=== PATIENT | male | born 1970 | race African-American/Black ===

== ENCOUNTER 2020-12-05 07:13 | Emergency (ER) | payer OTHER, SELFPAY ==
--- NOTE | ~2020-12-05 | XR_ITS ---
EXAMINATION: XR chest 2V DATE: 12/05/2020 08:20 INDICATION: Chest pain. TECHNIQUE: Frontal and lateral views of the chest were obtained. COMPARISON: None. FINDINGS: There is no pneumonia, pleural effusion, or pneumothorax. Cardiomegaly is noted. Median josé miguel rnotomy wires are noted. IMPRESSION: 1. Cardiomegaly. Reviewed, dictated and finalized at location A. OR STORAGE ADMINISTRATOR IMPRESSION: 1. Cardiomegaly.
--- NOTE | 2020-12-05 07:16 | ECG_ITS ---
Measurements Intervals [place] Rate: 74 P: 45 DC: 179 QRS: 37 QRSD: 104 T: 20 QT: 377 QTc: 418 Interpretive Statements SINUS RHYTHM NONSPECIFIC T-WAVE ABNORMALITY- DIFFUSE LEADS BASELINE ARTIFACT- I, II, III BORDERLINE ECG Electronically Signed On 12-05-2020 15:34:07 [place] SEWER by Jesse Funes D.O.
[2020-12-05 07:17] VITALS: PULSE 74; RESP 18; TEMP 37.1; O2SAT 100
[2020-12-05 07:20] VITALS: PULSE 78
[2020-12-05] MEDS: ASPIRIN 81 MG CHEWABLE TABLET 324 MG PO (07:28)
[2020-12-05 07:34] LABS: Basophils Absolute Auto 0.1 K/mm3 (0.0-0.1); Basophils Percent Auto 0.9 % (0.2-1.2); Eosinophils Absolute Auto 0.4 K/mm3 (0-0.3); Eosinophils Percent Auto 3.4 % (0-4.4); Hematocrit 39.3 % (42.0-52.0); Hemoglobin 13.1 g/dL (14.0-18.0); Immature Granulocyte Absolute 0.03 K/mm3 (0.00-0.031); Immature Granulocyte Percent A 0.2 % (0-0.5); Lymphocytes Absolute Auto 3.27 K/mm3 (0.9-3.2); Lymphocytes Percent Auto 26.1 % (18.3-44.2); Mean Corpuscular HGB Conc 33.3 g/dl (32-36); Mean Corpuscular Hemoglobin 27.5 pg (26-34); Mean Corpuscular Volume 82.4 fl (80-100); Mean Platelet Volume 9.7 fl (7.4-10.4); Monocytes Absolute Auto 1.1 K/mm3 (0.1-0.6); Monocytes Percent Auto 8.6 % (2.6-8.5); Neutrophils Absolute Auto 7.6 K/mm3 (1.3-6.7); Neutrophils Percent Auto 60.8 % (45.5-73.1); Nucleated Red Blood Cells Perc 0.2 % (0.0-0.2); Platelet Count Result 246 k/mm3 (150-375); Red Blood Count 4.77 M/mm3 (4.6-6.20); Red Cell Distribution Width 14.2 % (11.5-14.5); White Blood Count 12.5 K/mm3 (4.5-10.0)
[2020-12-05 07:44] LABS: INR 0.9; Prothrombin Time 12.4 Seconds (11.1-14.7)
[2020-12-05 07:45] LABS: Partial Thromboplastin Time 30.1 SECONDS (22.3-36.8)
[2020-12-05 07:48] LABS: Anion Gap 10 mmol/L (8-16); Blood Urea Nitrogen 13 mg/dL (9-20); Calcium 9.7 mg/dL (8.4-10.2); Carbon Dioxide 26 mmol/L (22-30); Chloride 106 mmol/L (98-107); D Dimer 0.27 ug/mL (<0.48); Estimated CRCL calculation 81 ml/min; Estimated Glomerular Filt Rate > 60; Glucose 92 mg/dL (75-110); Potassium 3.4 mmol/L (3.4-5.0); Sodium 142 mmol/L (137-145)
[2020-12-05 07:59] LABS: Troponin I < 0.012 ng/mL (0.000-0.034)
--- NOTE | 2020-12-05 09:00 | ED.CHESTPAIN ---
HPI - Chest Pain General Chief Complaint: Chest Pain Stated Complaint: LEFT shoulder/neck pain, CP Time Seen by Provider: 12/05/20 07:20 Source: patient and family Mode of arrival: ambulatory Limitations: no limitations History of Present Illness HPI narrative: 50 years old -Polish male presents with throbbing pain left side of neck and across the chest which wake him up from sleep at 5 AM. Worse with breathing. Patient had trouble to turn his head to either direction because of the pain. Patient reports left-sided neck pain for 1 week worse with movement. Patient denies any fever, chills, nausea, vomiting, shortness of breath, back pain, headache, history of similar symptoms. Patient denies any recent physical activities different than usual. Patient does not have coronary artery risk factors except smoking for years. Related Data Allergies Allergy/AdvReac Type Severity Reaction Status Date / Time No Known Allergies Allergy Verified 12/05/20 07:21 Review of Systems Review of Systems: Narrative: CONSTITUTIONAL: Denies fever, chills, or sweats. EYES: Denies visual changes, redness, or discharge. ENT: Denies rhinorrhea, congestion, sore throat, or otalgia. CARDIOVASCULAR: Denies chest pain, palpitations, or edema. RESPIRATORY: Denies cough or dyspnea. GASTROINTESTINAL: Denies abdominal pain, nausea, vomiting, or diarrhea. GENITOURINARY: Denies dysuria or hematuria. SKIN: Denies rash or itching. MUSCULOSKELETAL: Denies back pain, joint pain, or myalgia. NEUROLOGIC: Denies headache, numbness, or weakness. PSYCHIATRIC: Denies anxiety or depression. [facility] Social History Social History Gender identity (if verbalized by the patient): Male Exam Narrative: Exam Narrative: General appearance: Well-developed, well-nourished Skin: Normal color Head: Normocephalic, nontraumatic Eyes: Clear conjunctiva ENT: Oropharynx normal, ears normal, nose normal Neck: Supple, slight tenderness left side, no bruises, no swelling, no mass, no lymphadenopathy, no rash Chest and respiratory: Airway patent, no respiratory distress, no accessory muscle use Heart: Regular rate/rhythm Abdomen: Soft, nontender, no organomegaly, quiet bowel sounds Vascular: Normal peripheral pulses, normal capillary refill. 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 Musculoskeletal is my concern. No coronary artery risk factors except smoking Labs, EKG, chest x-ray ordered. Further plan to follow Reevaluation(s) Reevaluation #1: Patient laying down in bed comfortable, the patient and his were agreeable and comfortable with the plan of discharge. Patient hemodynamically stable at the time of discharge. Date: 12/05/20 Time: 09:42 Vital Signs Vital signs: Vital Signs Temperature 37.1 C 12/05/20 07:17 Pulse Rate 74 12/05/20 07:17 Respiratory Rate 18 12/05/20 07:17 Pulse Oximetry 100 12/05/20 07:17 Temperature 37.1 C 12/05/20 07:17 Pulse Rate 78 12/05/20 07:20 Respiratory Rate 18 12/05/20 07:17 Pulse Oximetry 100 12/05/20 07:17 MDM - Chest Pain MDM Narrative Medical decision making narrative: Patient presents with neck pain and chest pain worse with breathing. Musculoskeletal pain is my concern. Patient does not have coronary artery disease risk factors except smoking. Patient symptom resolved without medications. My differential diagnosis as below. Labs, chest x-ray, EKG ordered further plan to follow. EK
[2020-12-05] MEDS: KETOROLAC 30 MG/ML VIAL (*BKC) IV PUSH (09:32)
[2020-12-05 09:43] VITALS: BP 153/85; PULSE 74; RESP 18; O2SAT 100
== END 2020-12-05 10:06 | disposition home or self-care (01) ==
PROVIDERS: Emergency Provider Emergency Medicine; PCP Nurse Practitioner
DX: M54.2 Cervicalgia (principal); R94.31 Abnormal electrocardiogram [ECG] [EKG]
CPT/HCPCS: 36415; 71046; 80048; 84484; 85025; 85380; 85610; 85730; 93005; 96374; 99284; A9270; J1885

== ENCOUNTER 2022-12-30 09:23 | Outpatient (CLI) | payer OTHER, SELFPAY ==
--- NOTE | 2022-12-30 | EST_ITS ---
Patient Info Name: Kemar Bell Age: 52 years : 1970 Gender: Male Ht: 70 in Wt: 190 lbs BSA: 2.08 m2 HR: 58 bpm BP: 178 / 92 mmHg Heart Rhythm: Sinus Rhythm Exam Date: 12/30/2022 9:53 AM Exam Location: [facility] Stress Patient Status: Outpatient Admit Date: 12/30/2022 Staff Ordering Physician: Phil, Cintia Martinez NP Attending Provider: Phil, Cintia Martinez NP Exercise Technologist: Megan Camacho CT Exercise Physician: Jesse Funes DO Exam Type: CA stress test treadmill Study Info Indications R07.9 - Chest pain, unspecified A treadmill exercise stress test was performed. Summary 1. 1. Submaximal Trav exercise stress test for ischemic ST changes by ECG criteria. However, patient achieved only 73% MPHR for age group which reduces sensitivity of the test. Had to be terminated early due to significant hypertensive response to exercise. 2. 2. Baseline hypertension with hypertensive response to exercise. 3. 3. Appropriate HR response to exercise. 4. 4. Appropriate HR recovery at 1 minute post exercise. 5. 5. No imaging with stress testing. 6. 6. Patient informed of the above results. Protocol: Trav Stress ECG Details Stage: REST Duration (min): 1 min : 42 sec Speed (mph): 0.0 Grade (%): 0 HR (bpm): 59 SBP (mmHg): 178 DBP (mmHg): 92 METS: --- Stage: REST Duration (min): 8 min : 38 sec Speed (mph): 0.0 Grade (%): 0 HR (bpm): 61 SBP (mmHg): 178 DBP (mmHg): 92 METS: --- Stage: STAGE 1 Duration (min): 1 min : 0 sec Speed (mph): 1.7 Grade (%): 10 HR (bpm): 103 SBP (mmHg): 178 DBP (mmHg): 92 METS: --- Stage: STAGE 1 Duration (min): 2 min : 0 sec Speed (mph): 1.7 Grade (%): 10 HR (bpm): 110 SBP (mmHg): 178 DBP (mmHg): 92 METS: --- Stage: STAGE 1 Duration (min): 3 min : 0 sec Speed (mph): 1.7 Grade (%): 10 HR (bpm): 116 SBP (mmHg): 252 DBP (mmHg): 110 METS: --- Stage: STAGE 2 Duration (min): 0 min : 33 sec Speed (mph): 2.5 Grade (%): 12 HR (bpm): 122 SBP (mmHg): 267 DBP (mmHg): 114 METS: --- Stage: RECOVERY Duration (min): 0 min : 26 sec Speed (mph): 0.0 Grade (%): 0 HR (bpm): 114 SBP (mmHg): 267 DBP (mmHg): 114 METS: --- Stage: RECOVERY Duration (min): 1 min : 26 sec Speed (mph): 0.0 Grade (%): 0 HR (bpm): 80 SBP (mmHg): 267 DBP (mmHg): 114 METS: --- Stage: RECOVERY Duration (min): 2 min : 26 sec Speed (mph): 0.0 Grade (%): 0 HR (bpm): 69 SBP (mmHg): 267 DBP (mmHg): 114 METS: --- Stage: RECOVERY Duration (min): 3 min : 20 sec Speed (mph): 0.0 Grade (%): 0 HR (bpm): 64 SBP (mmHg): 199 DBP (mmHg): 88 METS: --- Rest HR: 61 bpm Peak HR: 124 bpm Rest Sys BP: 178 mmHg Peak Sys BP: 267 mmHg Max Pred HR: 169 bpm % Max Pred HR: 73 % Target HR: 144 bpm Max RPP: 33,108 bpm*mmHg Sanders Score: -3 Termination Reason: Patient e
== END 2022-12-30 09:24 | disposition home or self-care (01) ==
PROVIDERS: PCP Nurse Practitioner; Visit Provider Nurse Practitioner Family
DX: R07.89 Other chest pain (principal)
CPT/HCPCS: 93017

== ENCOUNTER 2023-03-19 19:22 | Inpatient (IN) | payer OTHER, SELFPAY ==
[2023-03-19] VITALS (8 sets, daily range): BP systolic 135–149; BP diastolic 77–92; PULSE 71–100; RESP 18; TEMP 36.7–36.8; O2SAT 91–100
--- NOTE | ~2023-03-19 | MR_ITS ---
EXAMINATION: MR abdomen wo/w con DATE: 03/21/2023 12:47 INDICATION: Left renal mass TECHNIQUE: Magnetic resonance imaging (MRI) of the abdomen was performed without and with 15 mL Multi abelardo intravenous contrast. Sequences included coronal T2-weighted SS-FSE, coronal and axial FS 2D-F IESTA, axial STIR FSE, axial T2-weighted SS-FSE, axial T2-weighted FS SS-FSE, axial diffusion-weighte d SE, axial dual-echo T1-weighted FSPGR, and axial and coronal T1-weighted LAVA. Postcontrast axial T 1-weighted LAVA images were obtained in a time course. Postcontrast coronal T1-weighted LAVA images w ere obtained. COMPARISON: CT dated 03/19/2023 FINDINGS: Cardiomegaly. No pericardial or pleural effusion. 6 mm nonenhancing T2 hyperintense cysts in the post erior right hepatic lobe. Gallbladder, spleen, pancreas and bilateral adrenal glands are normal. Again noted are a few small regions of cortical scarring at both kidneys. 2.3 cm T2 hyperintense none nhancing right renal parapelvic cyst. The previous noted 8 mm lesion at the mid right kidney is isoin tense to the surrounding renal parenchyma on T1 and T2-weighted images but appreciated on the post co ntrast images were his of significant lower signal intensity which suggests a nonenhancing proteinace ous/hemorrhagic cyst although specificities limited by the small size of the lesion. The previously n oted 1.3 cm lesion at the mid left kidney demonstrates heterogeneous increased T2 signal of less than simple fluid intensity and is of slightly lower T1 signal intensity than the adjacent renal cortex. The lesion appears smaller and with less well-defined peripheral margins on the delayed imaging sugge sting some peripheral enhancement which along with the more solid appearance on prior ultrasound pierre ins concerning for renal cell carcinoma. At the upper pole the left kidney with an approximately 2 cm region there are 3 subcentimeter hypoenhancing/nonenhancing lesions on postcontrast imaging, one of which demonstrates high T2 signal consistent with a tiny renal cyst and the other 2 lesions are isoin tense on T2-weighted imaging but slightly with slightly decreased T1 signal relative to the surroundi ng renal parenchyma. IMPRESSION: 1. Small region with 3 very small foci of absent or hypoenhancement on postcontrast imaging in the up per pole of the left kidney at least one portion of which appears to represent a simple cyst. Interpr etation is complicated in the setting of what appears to be an acute ascending urinary tract infectio n and differential would include pyelonephritis potentially with subcentimeter abscesses. Differentia l would also include small complex cysts and could not absolutely exclude neoplasm. 2. 1.3 cm lesion at the mid left kidney which appeared solid on prior ultrasound is suggestion of amanda e peripheral enhancement which is more concerning for solid renal cell carcinoma although again diffe rential would include focal pyelonephritis. For both this and the lesion in the upper pole of the lef t kidney would consider follow-up pre and postcontrast MRI in a few weeks to allow time for resolutio n of any changes of acute infection/pyelonephritis. Reviewed, dictated and finalized at location B. IMPRESSION: 1. Small region with 3 very small foci of absent or hypoenhancement on postcont rast imaging in the upper pole of the left kidney at least one portion of which appears to represent a simple cyst. Interpretation is complicated in the setti ng of what appears to be an acute ascending urinary tract infection and differe ntial would include pyelonephritis potentially with subcentimeter abscesses. Di fferential would also include small complex cysts and could not absolutely excl ude neoplasm. 2. 1.3 cm lesion at the mid left kidney which appeared solid on prior
--- NOTE | ~2023-03-19 | US_ITS ---
EXAMINATION: US renal BI DATE: 03/20/2023 11:31 INDICATION: Left kidney mass TECHNIQUE: Multiple grayscale and Doppler ultrasound images of the kidneys were obtained. COMPARISON: CT from yesterday FINDINGS: The right kidney measures 9.9 x 5.7 x 5.6 cm. The left kidney measures 12.0 x 5.4 cm. There is a 1.7 x 1.6 cm isoechoic mass projecting from the lateral pole of the left mid kidney. The kidney s demonstrate normal parenchymal echogenicity. There is mild right hydronephrosis. The bladder is nor mal. IMPRESSION: 1. Left kidney mass concerning for solid neoplasm. Further evaluation by MRI without and with contras t is recommended. Reviewed, dictated and finalized at location F. IMPRESSION: 1. Left kidney mass concerning for solid neoplasm. Further evaluation by MRI wi thout and with contrast is recommended.
--- NOTE | ~2023-03-19 | CT_ITS ---
EXAMINATION: CT abdomen pelvis w con DATE: 03/19/2023 20:45 INDICATION: Lower abdominal pain TECHNIQUE: Computed tomography (CT) of the abdomen and pelvis was performed with 100 mL Omnipaque-350 intravenous contrast. Automated exposure control and iterative reconstruction technique were employe d. The dose-length product was 521.20 mGy-cm. COMPARISON: None FINDINGS: Mild dependent atelectasis at the bilateral lower lobes. Cardiomegaly. No pericardial or pleural effu rafa. Liver, gallbladder, spleen, pancreas and bilateral adrenal glands are normal. There are small r egions of peripheral scarring at both kidneys which could be related to prior infection or infarction . Indeterminate soft tissue density lesions measuring 8 mm at the mid right kidney and 1.3 cm the mid left kidney. Additionally there is a concerning 1.5 cm region of heterogeneous attenuation at the up per pole of the right kidney with appearance suspicious for a complex cystic mass with enhancing sept ations. There is concerning for renal cell carcinoma but could also represent a region of phlegmonous change/developing abscess in the setting of pyelonephritis as there is thickened enhancing urotheliu m at the left renal pelvis and extending distally along the left ureter. There is bladder wall thicke amina with haziness to the surrounding fat suspicious for cystitis. Normal appendix. There is diffuse mild wall thickening of the colon which appears of relatively low density centrally and which is with out surrounding pericolic inflammatory stranding and would favor fatty infiltration over colitis. No bowel obstruction. Prostatomegaly measuring 4.8 x 4.1 cm. There is haziness to the fat surrounding th e prostate and somewhat thickened lateral seminal vesicles which is also concerning for prostatitis. No free intraperitoneal gas or fluid. No pathologically enlarged abdominal or pelvic lymphadenopathy. There is calcified atherosclerosis of the aorta and many of the other arteries. Mild bilateral hip o steoarthritis with disproportionally prominent hypertrophic osteophytes along the femoral heads and a cetabula. IMPRESSION: 1. Constellation of findings suspicious for prostatitis, cystitis and left-sided ascending urinary tr act infection with possible pyelonephritis and developing abscess at the upper pole the left kidney. Correlate with urinalysis. Would recommend follow-up pre and postcontrast MRI when clinically improve d to reassess the region of suspected full-thickness change and developing abscess formation as well as of 2 additional indeterminate bilateral renal lesions most likely representing complex cysts as di fferential for each of these 3 lesions would include renal cell carcinoma. Line 2. Diffuse mild colonic wall thickening but would favor infiltration over colitis. 3. Cardiomegaly. Reviewed, dictated and finalized at location A. IMPRESSION: 1. Constellation of findings suspicious for prostatitis, cystitis and left-side d ascending urinary tract infection with possible pyelonephritis and developing abscess at the upper pole the left kidney. Correlate with urinalysis. Would re commend follow-up pre and postcontrast MRI when clinically improved to reassess the region of suspected full-thickness change and developing abscess formation as well as of 2 additional indeterminate bilateral renal lesions most likely r epresenting complex cysts as differential for each of these 3 lesions would inc lude renal cell carcinoma. Line 2. Diffuse mild colonic wall thickening but would favor infiltration over colit is. 3. Cardiomegaly.
[2023-03-19 20:03] LABS: Basophils Absolute Auto 0.1 K/mm3 (0.0-0.1); Basophils Percent Auto 0.3 % (0.2-1.2); Eosinophils Absolute Auto 0.1 K/mm3 (0-0.3); Eosinophils Percent Auto 0.9 % (0-4.4); Hematocrit 40.5 % (42.0-52.0); Hemoglobin 13.3 g/dL (14.0-18.0); Immature Granulocyte Absolute 0.04 K/mm3 (0.00-0.031); Immature Granulocyte Percent A 0.3 % (0-0.5); Lymphocytes Absolute Auto 2.22 K/mm3 (0.9-3.2); Mean Corpuscular HGB Conc 32.8 g/dl (32-36); Mean Corpuscular Hemoglobin 27.1 pg (26-34); Mean Corpuscular Volume 82.5 fl (80-100); Mean Platelet Volume 9.2 fl (7.4-10.4); Monocytes Absolute Auto 1.2 K/mm3 (0.1-0.6); Neutrophils Absolute Auto 11.2 K/mm3 (1.3-6.7); Neutrophils Percent Auto 75.5 % (45.5-73.1); Platelet Count Result 262 k/mm3 (150-375); Red Blood Count 4.91 M/mm3 (4.6-6.20); Red Cell Distribution Width 13.6 % (11.5-14.5); White Blood Count 14.8 K/mm3 (4.5-10.0)
[2023-03-19] MEDS: ONDANSETRON INJ 4 MG/2 ML VIAL IV PUSH (20:04)
[2023-03-19] MEDS: HYDROmorphone HCL INJ (*CRX) 1 MG/ML SYR IV PUSH (20:04)
[2023-03-19] MEDS: SODIUM CHLORIDE 0.9% IV 1,000 ML 999 ML IV CONT (20:05)
[2023-03-19 20:11] LABS: Appearance Urine Turbid (Clear); Bacteria Urine 4+ /hpf; Bilirubin Urine Negative (Negative); Blood Urine 3+ (Negative); Color Urine Yellow (Yellow); Glucose Urine UA Negative (Negative); Ketones Urine Negative (Negative); Leukocyte Esterase Ur 3+ LEU/UL (Negative); Nitrate Urine Positive (Negative); Non Pathogenic Casts 0-2; Protein Urine 3+ mg/dL (Negative); RBC Urine >100 /hpf (0-2); Specific Grav Ur 1.016 (1.001-1.035); Squamous Epithelial Cell Urine None seen /hpf (Few); WBC Urine >100 /hpf
[2023-03-19 20:13] LABS: Alanine Aminotransferase 19 U/L (6-50); Albumin Level 4.6 g/dL (3.5-5.1); Alkaline Phosphatase 81 U/L (38-126); Anion Gap 9 mmol/L (8-16); Aspartate Amino Transferase 24 U/L (17-59); Bilirubin,Total 0.7 mg/dL (0.2-1.3); Blood Urea Nitrogen 12 mg/dL (9-20); Calcium 9.2 mg/dL (8.4-10.2); Carbon Dioxide 25 mmol/L (22-30); Chloride 104 mmol/L (98-107); Estimated CRCL calculation 60 ml/min; Estimated Glomerular Filt Rate > 60; Glucose 109 mg/dL (65-110); Lipase 36 U/L (23-300); Potassium 3.4 mmol/L (3.4-5.0); Sodium 138 mmol/L (137-145)
[2023-03-19 20:14] LABS: Add Urine Microscopic? YES
--- NOTE | 2023-03-19 20:19 | ED.MALEGU ---
HPI - Male Genitourinary General Chief complaint: Urogenital-Male Stated complaint: kidney pain Time Seen by Provider: 03/19/23 19:29 Source: patient and RN notes reviewed Mode of arrival: ambulatory Limitations: no limitations History of Present Illness HPI Narrative: This is a 52 year old male who presents for evaluation of left lower abdominal pain. He reports last night he was uncomfortable trying to go to sleep, and had some left lower back pain. Today he developed lower lower abdominal pain. He also reports dysuria and small amount of blood in his urine. HE also reports left testicular pain with urinating but denies testicular swelling. He denies nasuea, vomiting or fever. HE denies history of kidney stones. He has not taken anything for pain. HE rates his pain 06/30. Related Data Home Medications Medication Instructions Recorded Confirmed cholecalciferol (vitamin D3) 250 250 mcg PO WEEKLY 01/21/23 01/21/23 mcg (10,000 unit) capsule omega [id number] oil 1,000 mg 1 cap PO DAILY 01/21/23 01/21/23 (120 mg-180 mg) capsule (Fish Oil) Allergies Allergy/AdvReac Type Severity Reaction Status Date / Time No Known Allergies Allergy Verified 03/19/23 19:28 Review of Systems Constitutional: Constitutional: Denies weakness Cardiovascular: Cardiovascular: Denies syncope, Denies rapid heart rate, Denies irregular heart rhythm, Denies leg edema and Denies dyspnea Respiratory: Respiratory: Denies chest congestion, Denies hemoptysis, Denies excessive phlegm production and Denies dyspnea Gastrointestinal: Gastrointestinal: Reports abdominal pain, Denies hematochezia, Denies diarrhea and Denies vomiting Genitourinary: Genitourinary: Reports hematuria, Reports dysuria, Denies penile discharge and Reports testicular pain Musculoskeletal: Musculoskeletal: Reports back pain, Denies joint swelling, Denies loss of height and Denies muscle weakness Neurologic: Denies syncope, Denies focal weakness and Denies weakness PMFSH Past Medical History Medical History (Updated 03/19/23 @ 22:43 by Cynthia Raphael MD) Hypertension Surgical History Surgical History (Updated 03/19/23 @ 20:20 by Cynthia Raphael MD) H/O heart surgery Family History Family History (Updated 03/19/23 @ 22:40 by Parris Davis NP) Father MVA (motor vehicle accident) father is from mva Social History Social History (Updated 01/21/23 @ 14:45 by Mei Grover CMA) Social History: lives with . one biological and 4 step children [place] Years smoked: 20 Smoking status: Current every day smoker Tobacco type: cigars Alcohol intake: current Drinks per week: 5 Substance use: current Substance use type: marijuana Lack of Transportation: No Lack of Food: Never True Current Housing: I Have Housing Concerned About Future Housing: No Difficulty Paying Gas/Electric Bills: No Difficulty Paying for Meds: No Currently Unemployed: No Living arrangements: with family Gender identity (if verbalized by the patient): Male Exam Const: General: no acute distress and alert Nutritional Appearance: well nourished Limitations: no limitations HENMT: Head: normal to inspection Eyes: EOM: EOMs intact bilaterally Chest: Chest palpation & inspection: normal inspection of the chest Resp: Effort & Inspection: normal respiratory effort Auscultation: clear to auscultation bilaterally Cardio: Rate: regular rate Rhythm: regular rhythm Heart sounds: no murmurs GI: GI Palp: Yes Soft to palpation, Yes Tenderness to palpation present (GI) (LLQ), No Guarding due to palpation present (GI), No Rigid due to palpation and No Hernia present Auscultation: normal bowel sounds Back/Spine/Pelvis: Back: no CVA tenderness Skin: General skin exam: normal color Rashes: no rashes Wounds: no wounds Neuro: General: patient oriented x3 and moves all extremities Cranial nerves: Yes CN's II-XII intact bilater
--- NOTE | 2023-03-19 22:38 | PM.IMHP ---
H&P: HPI History of Present Illness Date/Time: 03/19/23 22:38 Chief Complaint: Kidney pain Narrative: This is a 52-year-old male patient who is typically healthy. The patient came in for evaluation of left lower abdominal pain. The patient was uncomfortable last night and was unable to sleep due to the discomfort. He has dysuria and a small amount of blood in his urine. He also reports left testicular pain. His white count is noted to be 14.8. H&H is 13.3 and 40.5. Neutrophil percentage 75.5. Lactic was normal. Urine was positive for UTI. Abdominal pelvis CT was read as the following1. Constellation of findings suspicious for prostatitis, cystitis and left-sided ascending urinary tract infection with possible pyelonephritis and developing abscess at the upper pole the left kidney. Correlate with urinalysis. Would recommend follow-up pre and postcontrast MRI when clinically improved to reassess the region of suspected full-thickness change and developing abscess formation as well as of 2 additional indeterminate bilateral renal lesions most likely representing complex cysts as differential for each of these 3 lesions would include renal cell carcinoma. 2. Diffuse mild colonic wall thickening but would favor infiltration over colitis. 3. Cardiomegaly. The patient was given a dose of Rocephin in the emergency room. Urology has been consulted. He was given IV fluids, Zofran, Dilaudid, and Rocephin. He was given a 1 time dose of Zosyn as well. The patient is being admitted to inpatient status on the date of service of 03/19/2023 Review of Systems Review of Systems: All systems reviewed & are unremarkable except as noted in HPI and below Constitutional: Constitutional: Reports as per HPI and Reports no additional constitutional complaints Eyes: Eyes: Reports as per HPI and Reports no additional eye complaints ENT: Reports system reviewed and no additional complaints, except as documented and Reports Normal hearing present Cardiovascular: Cardiovascular: Reports no additional cardiovascular complaints Respiratory: Respiratory: Reports no additional respiratory complaints and Reports no additional respiratory complaints Gastrointestinal: Gastrointestinal: Reports as per HPI and Reports no additional gastrointestinal complaints Musculoskeletal: Musculoskeletal: Reports no additional musculoskeletal complaints Integumentary/Breasts: Skin/Breast: Reports system reviewed and no additional complaints, except as docu and Reports as per HPI Neurologic: Reports system reviewed and no additional complaints, except as documented, Reports as per HPI and Reports Normal hearing present Psychiatric: Psychiatric: Reports no additional psychiatric complaints and Reports as per HPI Endocrine: Endocrine: Reports no additional endocrine complaints Hematologic/Lymphatic: Hematologic/Lymphatic: Reports no additional hematologic/lymphatic complaints Allergic/Immunologic: Allergic/Immunologic: Reports no additional allergic/immunologic complaints [facility] Past Medical History Medical History (Updated 03/20/23 @ 00:21 by Parris Davis NP) Hypertension Surgical History Surgical History (Updated 03/20/23 @ 00:11 by Parris Davis NP) H/O heart surgery As a child and he is not sure if it was a valve replacement or what they did. Family History Family History (Updated 03/19/23 @ 22:40 by Parris Davis NP) Father MVA (motor vehicle accident) father is from mva Social History Social History (Updated 03/20/23 @ 00:12 by Parris Davis NP) Social History: He lives with his . He has one biological child and 4 step children. He works at [employer]. Patient states that he smokes 2 cigars a day. His is the durable power banking attorney for healthcare. Code status full code Years smoked: 20 Smoking status: Current every day smoker Tobacco type: cigars Alcohol intake: current Drinks per we
[2023-03-19] MEDS: PIPERACILLN/TAZ 3.375GM/NS50ML 3.375 GM/50 ML BAG IVPB (22:51)
[2023-03-19 23:00] LABS: Lactic Acid Reflex 0.7 mmol/L (0.7-2.0)
[2023-03-20] VITALS (8 sets, daily range): BP systolic 153–177; BP diastolic 75–92; PULSE 64–72; RESP 16–20; TEMP 36.1–36.6; O2SAT 99–100; BMI 23.7
[2023-03-20] MEDS: hydrALAZINE HCL 20 MG/ML VIAL 10 MG IV PUSH (00:37)
[2023-03-20] MEDS: HYDROmorphone HCL INJ (*CRX) 1 MG/ML SYR 0.5 MG IV PUSH (00:37)
[2023-03-20] MEDS: ONDANSETRON INJ 4 MG/2 ML VIAL IV PUSH ×2 (01:49→20:05)
--- NOTE | 2023-03-20 04:30 | PC.NURSE ---
Pt is a&o x4, able to make the needs known. Pt was oriented to the room, call light within reach. Pt reported pain, medication administered, pt was helped with finding more comfortable position. No further questions at this time
[2023-03-20 07:32] LABS: Basophils Absolute Auto 0.1 K/mm3 (0.0-0.1); Basophils Percent Auto 0.4 % (0.2-1.2); Eosinophils Absolute Auto 0.1 K/mm3 (0-0.3); Eosinophils Percent Auto 0.3 % (0-4.4); Hematocrit 39.3 % (42.0-52.0); Hemoglobin 12.5 g/dL (14.0-18.0); Immature Granulocyte Absolute 0.06 K/mm3 (0.00-0.031); Immature Granulocyte Percent A 0.4 % (0-0.5); Lymphocytes Absolute Auto 2.23 K/mm3 (0.9-3.2); Lymphocytes Percent Auto 14.4 % (18.3-44.2); Mean Corpuscular HGB Conc 31.8 g/dl (32-36); Mean Corpuscular Hemoglobin 26.7 pg (26-34); Mean Platelet Volume 9.9 fl (7.4-10.4); Monocytes Absolute Auto 1.2 K/mm3 (0.1-0.6); Monocytes Percent Auto 7.5 % (2.6-8.5); Platelet Count Result 265 k/mm3 (150-375); Red Blood Count 4.68 M/mm3 (4.6-6.20); Red Cell Distribution Width 13.5 % (11.5-14.5); White Blood Count 15.5 K/mm3 (4.5-10.0)
[2023-03-20 07:36] LABS: Alanine Aminotransferase 23 U/L (6-50); Alkaline Phosphatase 77 U/L (38-126); Anion Gap 10 mmol/L (8-16); Aspartate Amino Transferase 28 U/L (17-59); Bilirubin,Total 0.7 mg/dL (0.2-1.3); Blood Urea Nitrogen 10 mg/dL (9-20); Calcium 8.5 mg/dL (8.4-10.2); Carbon Dioxide 21 mmol/L (22-30); Chloride 107 mmol/L (98-107); Estimated CRCL calculation 71 ml/min; Estimated Glomerular Filt Rate > 60; Glucose 106 mg/dL (65-110); Potassium 3.4 mmol/L (3.4-5.0); Sodium 138 mmol/L (137-145)
--- NOTE | 2023-03-20 08:07 | WPDURCON ---
Assessment and Plan Assessment and plan (1) Prostatitis: Code(s): N41.9 - Inflammatory disease of prostate, unspecified Status: Acute (2) Pyelonephritis: Code(s): N12 - Tubulo-interstitial nephritis, not specified as acute or chronic Status: Acute (3) Renal mass of unknown nature: Code(s): N28.89 - Other specified disorders of kidney and ureter Status: Acute Plan 52 yo male presenting with LLQ pain and dysuria with CT findings consistent with prostatitis, cystitis, ascending L upper tract infection with possible developing abscess vs renal mass; rising wbc ct this AM - continue broad-spectrum abx while awaiting blood and urine cx results; anticipate 10 day course of abx - follow blood work closely - dysuria resolved and no difficult voiding - will need f/u imaging to reevaluate indeterminate renal lesions. Depending on his clinical course, he may require repeat CT in next few days to determine if abscess has developed. Will need f/u imaging as outpt to reevaluate B indeterminate renal lesions. - will continue to follow. Urology Consult Note HPI Date Seen: 03/20/23 Requesting Physician: Waleska Bajwa PA-C Primary Care Provider: Cintia Villarreal, OSTOMY CARE NURSE Consult Narrative Reason for consult: cystitis/pyelonephritis with indeterminate renal lesions Narrative: Kemar Bell is a 52 year old male presenting to ER yesterday with 1 day history of left lower quadrant pain with dysuria and an episode of hematuria. No fevers or chills. No nausea or vomiting. No prior history of UTIs or stones. He had elevated wbc count and positive UA in ER. CT in ER showed evidence of prostatitis, cystitis, ascending L upper tract infection with possible developing left renal phlegmon/abscess vs renal mass with few other indeterminate renal lesions. Has been started on rocephin. Pain and dysuria have improved. No difficulty voiding Review of Systems Review of Systems: All systems reviewed & are unremarkable except as noted in HPI and below Constitutional: Constitutional: Reports as per HPI and Reports no additional constitutional complaints Eyes: Eyes: Reports as per HPI and Reports no additional eye complaints ENT: Reports system reviewed and no additional complaints, except as documented and Reports Normal hearing present Cardiovascular: Cardiovascular: Reports no additional cardiovascular complaints Respiratory: Respiratory: Reports no additional respiratory complaints and Reports no additional respiratory complaints Gastrointestinal: Gastrointestinal: Reports as per HPI and Reports no additional gastrointestinal complaints Musculoskeletal: Musculoskeletal: Reports no additional musculoskeletal complaints Integumentary/Breasts: Skin/Breast: Reports system reviewed and no additional complaints, except as docu and Reports as per HPI Neurologic: Reports system reviewed and no additional complaints, except as documented, Reports as per HPI and Reports Normal hearing present Psychiatric: Psychiatric: Reports no additional psychiatric complaints and Reports as per HPI Endocrine: Endocrine: Reports no additional endocrine complaints Hematologic/Lymphatic: Hematologic/Lymphatic: Reports no additional hematologic/lymphatic complaints Allergic/Immunologic: Allergic/Immunologic: Reports no additional allergic/immunologic complaints FORMERLY [facility], [facility] Past Medical History Medical History (Updated 03/20/23 @ 08:13 by Renetta Pineda MD) Hypertension Surgical History Surgical History (Updated 03/20/23 @ 00:11 by Parris Davis NP) H/O heart surgery As a child and he is not sure if it was a valve replacement or what they did. Family History Family History (Updated 03/19/23 @ 22:40 by Parris Davis NP) Father MVA (motor vehicle accident) father is from mva Social History Social History (Updated 03/20/23 @ 00:12 by Parris Davis NP) Social History: He lives
[2023-03-20] MEDS: OMEGA 3 POLYUNSAT FATTY ACIDS 1 GM CAP PO (08:38)
[2023-03-20] MEDS: SODIUM CHLORIDE 0.9% IV 1,000 ML 100 ML IV CONT (14:05)
--- NOTE | 2023-03-20 15:56 | PM.IMPN ---
Progress Note: A&P Assessment and Plan (1) Pyelonephritis: Code(s): N12 - Tubulo-interstitial nephritis, not specified as acute or chronic Status: Acute Assessment and Plan: CT with constellation of findings suspicious prostatitis, cystitis and left-sided ascending urinary tract infection possible pyelonephritis developing abscess of the pole left kidney Appreciate urology consultation Continue ceftriaxone Blood in urine cultures pending Gonorrhea and chlamydia pending Continue supportive care to include analgesics antiemetics as needed Need to consider repeat CT scan in the next several days to assess for abscess formation per Urology recommendation Trend WBC. Patient remains afebrile (2) Prostatitis: Code(s): N41.9 - Inflammatory disease of prostate, unspecified Status: Acute Assessment and Plan: See plan above (3) Renal mass of unknown nature: Code(s): N28.89 - Other specified disorders of kidney and ureter Status: Acute Assessment and Plan: See plan above (4) Hypertension: Code(s): I10 - Essential (primary) hypertension Status: Acute Assessment and Plan: Blood pressure elevated above target. Last BP 173/75 Patient has history of hypertension does not on any antihypertensives May be elevated due to pain Hydralazine as needed for systolic BP over 170 Consider addition of oral antihypertensives if remaining elevated Discontinue IV fluids which may help lower BP (5) Cardiomegaly: Code(s): I51.7 - Cardiomegaly Status: Acute Assessment and Plan: Noted on CXR. No evidence of volume overload and patient appears euvolemic Echocardiogram pending Subjective Date/time seen: 03/20/23 15:56 Interval history: Date of service: 03/20/2023 Patient is seen in follow-up for pyelonephritis and prostatitis. States that he is feeling better today. He denies any flank pain or scrotal pain. No pelvic pain or discomfort. Endorses dysuria that he states is improving. He denies any hematuria. States that his urine is dark denies any odor to his urine. No nausea, vomiting, fever, or chills. He states he has not been eating much today. Denies shortness of breath, cough, or chest pain. Review of Systems Review of Systems: All systems reviewed & are unremarkable except as noted in HPI and below Exam Narrative: General: Well-nourished, well-appearing 52-year-old male, sitting up in bed, comfortable, NARD Neuro: awake, alert and oriented x4, speech clear, no focal neuro deficits noted HEENMT: normocephalic, atraumatic, EOMI, sclerae anicteric, moist oral mucosa Respiratory: clear to auscultation bilaterally, nonlabored breathing Cardio: regular rate, regular rhythm with S1-S2 Abdomen: nondistended, normoactive bowel sounds, soft, nontender to palpation : No flank tenderness or CVA tenderness Extremities: no edema, erythema, or tenderness to palpation, DP pulses 2+ bilaterally Skin: no rashes or lesions, warm and dry Psych: appropriate mood and affect, judgment and insight intact Objective Data Vital Signs Vital Signs: Vital Signs - 24 hr 03/19/23 19:25 03/19/23 19:37 03/19/23 19:31 Temperature 98.1 F 98.3 F Pulse Rate 71 100 Respiratory Rate 18 18 Blood Pressure 149/77 H 135/92 H Pulse Oximetry 100 100 100 Oxygen Delivery Room Air 03/19/23 19:37 03/19/23 20:12 03/19/23 20:30 Temperature Pulse Rate Respiratory Rate Blood Pressure 135/92 H Pulse Oximetry 100 100 98 Oxygen Delivery 03/19/23 20:45 03/19/23 21:02 03/19/23 21:15 Temperature Pulse Rate Respiratory Rate Blood Pressure Pulse Oximetry 91 96 96 Oxygen Delivery 03/20/23 00:00 03/20/23 00:32 03/20/23 01:50 Temperature 97.4 F L 97.0 F L Pulse Rate 72 64 Respiratory Rate 16 20 Blood Pressure 173/92 H 160/78 H 153/77 H Pulse Oximetry 100 100 Oxygen Delivery 03/20/23
--- NOTE | 2023-03-21 | ECHO_ITS ---
Patient Info Name: Kemar Bell Age: 52 years : 1970 Gender: Male Ht: 69 in Wt: 160 lbs BSA: 1.88 m2 HR: 60 bpm BP: 160 / 75 mmHg Technical Quality: Good Exam Date: 03/21/2023 9:39 AM Exam Location: [facility] Pulmonary Exam Room: 311 Patient Status: Inpatient Admit Date: 03/19/2023 Staff Ordering Physician: Parris Davis NP Cub Reporter: Carly Lorenzo RDCS Attending Provider: Waleska Bajwa PA-C Referring Physician: Ryan PORTILLO; Exam Type: CA echo doppler color flow Study Info Complete two-dimensional, color flow and Doppler transthoracic echocardiogram is performed. Summary 1. Complete two-dimensional, color flow and Doppler transthoracic echocardiogram is performed. 2. Left ventricular chamber dimension is mildly enlarged. 3. Left ventricular systolic function is preserved, estimated at 50-55%. 4. There is moderate concentric increased left ventricular wall thickness. 5. The left ventricular diastolic function is grade I diastolic dysfunction. 6. E/e' 9 is minimally elevated. 7. Left atrial chamber dimension is moderately enlarged. 8. There is mild aortic valve regurgitation. 9. There is trace mitral valve regurgitation. 10. No pulmonary hypertension, estimated pulmonary arterial systolic pressure is 27 mmHg. 11. There is mild pulmonic regurgitation. Left Ventricle E/e' 9 is minimally elevated. Left ventricular systolic function is preserved, estimated at 50-55%. Left ventricular chamber dimension is mildly enlarged. There is moderate concentric increased left ventricular wall thickness. The left ventricular diastolic function is grade I diastolic dysfunction. Right Ventricle Right ventricular systolic function is normal and with normal TAPSE 2.5 cm. Right ventricular chamber dimension is normal. Left Atria Left atrial chamber dimension is moderately enlarged. Right Atria Right atrial chamber dimension is normal. Aortic Valve The aortic valve is trileaflet. There is no aortic valve stenosis. There is mild aortic valve regurgitation. Pulmonic Valve There is mild pulmonic regurgitation. Mitral Valve There is no mitral valve stenosis. There is trace mitral valve regurgitation. Tricuspid Valve There is no tricuspid valve regurgitation. No pulmonary hypertension, estimated pulmonary arterial systolic pressure is 27 mmHg. Pericardium/Pleural There is no pericardial effusion. Inferior Vena Cava Normal inferior vena cava with >50% collapse upon inspiration consistent with normal right atrial pressure, 5 mmHg. Aorta The aortic root size at the sinus of Valsalva is normal. Left Ventricular Outflow Tract Name Value Normal LVOT 2D LVOT Diameter 2.1 cm LVOT Doppler LVOT Peak Gradient 5 mmHg LVOT Mean Gradient 3 mmHg LVOT VTI 21 cm LVOT VTI/AV VTI Ratio 0.6 LVOT Stroke Volume 75 ml LVOT CO 15.6 l/min LVOT CI 8.3 l/min/m2 Pulmonic Valve Name Veda
[2023-03-21 05:25] VITALS: BP 160/75; PULSE 58; RESP 14; TEMP 36.7; O2SAT 100
[2023-03-21 06:38] LABS: Basophils Absolute Auto 0.1 K/mm3 (0.0-0.1); Basophils Percent Auto 0.7 % (0.2-1.2); Eosinophils Absolute Auto 0.2 K/mm3 (0-0.3); Eosinophils Percent Auto 1.7 % (0-4.4); Hematocrit 39.8 % (42.0-52.0); Hemoglobin 12.8 g/dL (14.0-18.0); Immature Granulocyte Absolute 0.04 K/mm3 (0.00-0.031); Immature Granulocyte Percent A 0.4 % (0-0.5); Lymphocytes Absolute Auto 2.14 K/mm3 (0.9-3.2); Lymphocytes Percent Auto 18.8 % (18.3-44.2); Mean Corpuscular HGB Conc 32.2 g/dl (32-36); Mean Corpuscular Hemoglobin 26.7 pg (26-34); Mean Corpuscular Volume 82.9 fl (80-100); Mean Platelet Volume 9.9 fl (7.4-10.4); Monocytes Percent Auto 8.4 % (2.6-8.5); Platelet Count Result 274 k/mm3 (150-375); Red Cell Distribution Width 13.2 % (11.5-14.5); White Blood Count 11.4 K/mm3 (4.5-10.0)
[2023-03-21 06:53] LABS: Anion Gap 5 mmol/L (8-16); Blood Urea Nitrogen 9 mg/dL (9-20); Calcium 9.1 mg/dL (8.4-10.2); Carbon Dioxide 29 mmol/L (22-30); Chloride 106 mmol/L (98-107); Estimated CRCL calculation 65 ml/min; Estimated Glomerular Filt Rate > 60; Glucose 105 mg/dL (65-110); Potassium 3.8 mmol/L (3.4-5.0); Sodium 140 mmol/L (137-145)
[2023-03-21] MEDS: OMEGA 3 POLYUNSAT FATTY ACIDS 1 GM CAP PO (08:56)
[2023-03-21 09:58] VITALS: O2SAT 99
[2023-03-21 14:00] VITALS: BP 175/90; PULSE 58; RESP 16; TEMP 36.6; O2SAT 100
--- NOTE | 2023-03-21 14:31 | WPDUROPN2 ---
Progress Note: A&P Assessment and Plan (1) Renal mass of unknown nature: Code(s): N28.89 - Other specified disorders of kidney and ureter Status: Acute Assessment and Plan: Repeat MRI in 1 month after infection resolves to discern between masses versus abscess. (2) Pyelonephritis: Code(s): N12 - Tubulo-interstitial nephritis, not specified as acute or chronic Status: Acute Assessment and Plan: Continue with IV antibiotics, tailor to culture results. Will continue to monitor at a distance, however per Urology, ok to discharge at anytime. We will f/u as an outpatient in a month after repeat MRI. (3) Prostatitis: Code(s): N41.9 - Inflammatory disease of prostate, unspecified Status: Acute Assessment and Plan: Recommend a 14 day course of antibiotics. Subjective Subjective Date/Time Seen: 03/21/23 14:31 CT findings consistent with prostatitis, cystitis, ascending L upper tract infection with possible developing abscess vs renal mass; WBC improved to 11.4 today. - continue broad-spectrum abx while awaiting blood and urine cx results; anticipate 10 day course of abx - follow blood work closely - dysuria resolved and no difficult voiding - MRI abdomen shows two lesions vs. pyelonephritis/abscess, difficult to discern with infection present. -Patient reports feeling much better and wants to go home. Review of Systems Cardiovascular: Cardiovascular: Denies chest pain Respiratory: Respiratory: Reports no additional respiratory complaints Exam Const: General: comfortable Resp: Effort & Inspection: normal respiratory effort GI: GI Palp: Yes Soft to palpation and No Tenderness to palpation present (GI) : General: Yes no CVA tenderness Extrem: Right lower extremity: no edema Left lower extremity: no edema Objective Data Vital Signs Vital Signs: Vital Signs - 24 hr 03/20/23 21:33 03/20/23 20:00 03/21/23 05:25 Temperature 97.8 F 98.1 F Pulse Rate 64 72 58 L Respiratory Rate 16 20 14 Blood Pressure 177/82 H 160/75 H Pulse Oximetry 100 99 100 Oxygen Delivery Room Air 03/21/23 08:00 03/21/23 09:58 Temperature Pulse Rate Respiratory Rate Blood Pressure Pulse Oximetry 99 Oxygen Delivery Room Air Room Air Intake/Output Intake/Output: Intake & Output 03/18/23 03/19/23 03/20/23 03/21/23 23:59 23:59 23:59 23:59 Intake Total 1100 1124 490 Balance 1100 1124 490 Meds/Results Medications: Active Medications Generic Name Dose Route Start Last Admin Trade Name Freq PRN Reason Stop Dose Admin Fish Oil 1 gm 03/20/23 09:00 03/21/23 08:56 Elizabeth 3 Polyunsat Fatty Acids 1 Gm Cap PO 1 gm DAILY DONTE Administration Hydralazine HCl 10 mg 03/20/23 00:10 03/20/23 00:37 Hydralazine Hcl 20 Mg/Ml Vial IV PUSH 10 mg Q8H PRN Administration Blood Pressure - High Hydromorphone HCl 0.5 mg 03/19/23 22:32 03/20/23 00:37 Hydromorphone Hcl Inj (*Crx) 1 Mg/Ml Syr IV PUSH 0.5 mg Q4H PRN Administration Pain Rated 7-10 Ceftriaxone Sodium 1 gm in 50 mls @ 100 mls/hr 03/20/23 20:00 03/20/23 20:08 Rocephin 1 Gm/Ns 50 Ml IVPB 100 mls/hr Q24H DONTE Administration Ondansetron HCl 4 mg 03/19/23 22:32 03/20/23 20:05 Ondansetron Inj 4 Mg/2 Ml Vial IV PUSH 4 mg Q4H PRN Administration Nausea Perflutren Lipid Microsphere 0 ml 03/20/23 00:20 Perflutren Lipid Microspheres 1.5 Ml Vial Diluted To 10 Ml Total Volume IV PUSH 03/22/23 00:20 ONCE PRN adequate visualization Protocol Radiology Results: ITS Impressions Abdomen/Pelvis CT 03/19/23 20:52 IMPRESSION: 1. Constellation of findings suspicious for prostatitis, cystitis and left-sided ascending urinary tract infection with possible pyelonephritis and developing abscess at the upper pole the left kidney. Correlate with urinalysis. Would recommend follow-up pre and postcontrast MRI when clinically improved to reassess t
--- NOTE | 2023-03-21 15:31 | PM.DS ---
DS: Admitting Diagnosis Discharge Date 03/21/2023 Admitting Diagnosis pyelonephritis DS: Discharge Diagnosis Discharge Diagnosis (1) Pyelonephritis: Code(s): N12 - Tubulo-interstitial nephritis, not specified as acute or chronic Status: Acute Assessment and Plan: CT with constellation of findings suspicious prostatitis, cystitis and left-sided ascending urinary tract infection possible pyelonephritis developing abscess of the pole left kidney patient was seen in consultation by Urology received IV ceftriaxone during admission blood and urine cultures pending at time of discharge patient was dicharged with Levaquin to complete a 14 day course of antibiotics. final cultures will be monitored and antibiotics will be tailored as needed gonorrhea and chlamydia test pending, final results we monitored and patient will be contacted to initiate appropriate treatment if needed supportive care provided significant improvement in leukocytosis. Patient remained afebrile. (2) Prostatitis: Code(s): N41.9 - Inflammatory disease of prostate, unspecified Status: Acute Assessment and Plan: See plan above (3) Renal mass of unknown nature: Code(s): N28.89 - Other specified disorders of kidney and ureter Status: Acute Assessment and Plan: Abdominal MRI showed 3 very small foci of absent or hypoenhancement in upper pole of left kidney, possibly representing a simple cyst, unable to interpret in the setting of active infection, differentials including subcentimeter abscesses, small complexes, neoplasm. also shows a 1.3 cm lesion at the mid left kidney which appears solid concerning for renal cell carcinoma with differential of focal pyelonephritis will have repeat MRI of the abdomen with without contrast in 1 month in follow-up with urology (4) Abnormal MRI, kidney: Code(s): R93.429 - Abnormal radiologic findings on diagnostic imaging of unspecified kidney Status: Acute Assessment and Plan: As above (5) Hypertension: Code(s): I10 - Essential (primary) hypertension Status: Acute Assessment and Plan: Blood pressure Was elevated above target in the 160s and 170 systolic Patient has known hypertension but is not on any antihypertensives. Patient was resistant to starting medication and wished to control with diet and exercise patient now agreeable to initiating antihypertensive therapy. Started on amlodipine 5 mg daily instructed to monitor BP at home and follow-up with PCP in 1-2 weeks for continued monitoring (6) Cardiomegaly: Code(s): I51.7 - Cardiomegaly Status: Acute Assessment and Plan: Noted on CXR. No evidence of volume overload and patient appears euvolemic Echocardiogram completed during admission which revealed grade 1 diastolic dysfunction patient euvolemic, no further treatment necessary (7) Tobacco abuse: Code(s): Z72.0 - Tobacco use Status: Acute Assessment and Plan: Patient smokes 2-3 cigars daily smoking cessation education was provided DS: Summary Hospital Course Hospital Course: Kemar Bell is a 52-year-old male with a history of hypertension who presented to the emergency department 03/19/2023 with left lower quadrant and flank pain. On presentation to the ED, BP 149/77, additional vital signs stable, patient afebrile, WBC 14.8, additional CBC and BMP unremarkable, UA grossly abnormal with positive nitrates, 3+ leuk esterase, and greater than 100 wbc's, CT of the abdomen/pelvis showed constellation of findings suspicious for prostatitis, cystitis, and pyelonephritis with possible developing abscess. Patient was admitted to the hospitalist service for further evaluation and management was seen in consultation by Urology. Please see above for further details. Patient was treated with antibiotics and had symptomatic improvement. Cultures pending at
--- NOTE | 2023-03-25 11:36 | PC.NURSE ---
Blood cx are negative. Urine cx growing E. coli. Discharged on Levaquin which is susceptible.
== END 2023-03-21 16:05 | disposition home or self-care (01) | DRG 690 ==
LOC: ANHED 22:43 → ANH3MEDSUR 23:26
PROVIDERS: Admitting Provider Internal Medicine; Emergency Provider General Practice; PCP Nurse Practitioner Family; Visit Provider Physician Assistant
DX: N10 Acute pyelonephritis (principal); N15.1 Renal and perinephric abscess; N41.9 Inflammatory disease of prostate, unspecified; I51.7 Cardiomegaly; F17.210 Nicotine dependence, cigarettes, uncomplicated; I10 Essential (primary) hypertension; E78.5 Hyperlipidemia, unspecified
CPT/HCPCS: 36415; 74177; 74183; 76775; 80048; 80053; 81001; 83605; 83690; 85025; 87040; 87077; 87086; 87186; 87491; 87591; 93306; 96365; 96375; 99285; A9270; A9577; J0360; J0696; J1170; J2405; J2543; J7030; Q9967

== ENCOUNTER 2023-04-22 12:40 | Outpatient (CLI) | payer OTHER, SELFPAY ==
--- NOTE | ~2023-04-22 | MR_ITS ---
EXAMINATION: MR abdomen wo/w con INDICATION: Kidney mass TECHNIQUE: Coronal SSFSE ARC, WATER:coronal LAVA-FLEX, Coronal 2D FIESTA FatSat, Axial SSFSE BH ARC, Axial 3D DualEcho BH, Axial SSFSE-IR, Axial DWI b=500, Axial 2D FIESTA FatSat, pre and dynamic postco ntrast Axial LAVA ARC, postcontrast Coronal In and Opposed phase LAVA FLEX COMPARISON: 03/21/2023 CONTRAST: Multihance, 17 cc FINDINGS: Cardiomegaly is noted. There is a 6 mm cyst of the posterior right hepatic lobe. The spleen , pancreas, gallbladder, and adrenal glands are normal. There are simple cysts of the kidneys. Again noted is a 2.2 cm peripelvic cyst of the right kidney. There is a 7 mm T1 and T2 isointense, partiall y exophytic lesion of the right mid kidney which appears to demonstrate minimal enhancement after con trast administration. There is an 11 mm partially exophytic lesion of the left mid kidney which demon strates tiny foci of internal T1 hyperintensity corresponding to areas of low T2 signal. The remainde r of the lesion is mildly T1 hypointense and T2 hyperintense relative to the adjacent kidney. No defi nite enhancement is identified after contrast administration. Additional tiny foci of hypoenhancement of the left kidney upper pole appear to have slightly decreased in size, likely resolving infection/ inflammation. There are no pathologically enlarged abdominal lymph nodes. No dilated loops of bowel a re evident. IMPRESSION: 1. Right kidney mass suspicious for small renal neoplasm. Follow-up MRI without and with contrast in 6-12 months is recommended. 2. Probable complicated cyst of the left mid kidney. This lesion can be evaluated at the time of foll ow-up for the right kidney mass. Reviewed, dictated and finalized at location B. IMPRESSION: 1. Right kidney mass suspicious for small renal neoplasm. Follow-up MRI without and with contrast in 6-12 months is recommended. 2. Probable complicated cyst of the left mid kidney. This lesion can be evaluat ed at the time of follow-up for the right kidney mass.
== END 2023-04-22 12:41 | disposition home or self-care (01) ==
PROVIDERS: Visit Provider Family Medicine
DX: N15.1 Renal and perinephric abscess (principal); N28.89 Other specified disorders of kidney and ureter
CPT/HCPCS: 74183; A9577

== ENCOUNTER 2023-05-13 08:38 | Outpatient (CLI) | payer OTHER, SELFPAY ==
[2023-05-13 10:21] LABS: Cholesterol 160 mg/dL (0-200); HDL Direct 48 mg/dL; Triglycerides 142 mg/dL (<150)
[2023-05-13 10:32] LABS: LDL Cholesterol Direct 80 mg/dL
== END 2023-05-13 08:39 | disposition home or self-care (01) ==
LOC: ANHLAB 08:39
PROVIDERS: Visit Provider Internal Medicine Cardiovascular Disease
DX: E78.5 Hyperlipidemia, unspecified (principal)
CPT/HCPCS: 36415; 80061

== ENCOUNTER 2023-09-23 01:04 | Day surgery (SDC) | payer OTHER, SELFPAY ==
[2023-09-12 14:47] VITALS: BMI 25.9
--- NOTE | 2023-09-22 13:38 | WPDANESEPPF ---
Anes - Initial Pre Proc Eval Procedure: Operation Date: 09/23/23 10:00 Proposed Procedures p Screening Colonoscopy - Henry Quintero MD Date/Time: 09/22/23 13:38 Surgeon: Henry Quintero MD Pre Op Diagnosis: neoplasm screening Patient Data Age: 53 Gender: M Height: 1.78 m Weight: 82 kg Allergies Allergy/AdvReac Type Severity Reaction Status Date / Time No Known Allergies Allergy Verified 09/23/23 08:50 Home Medications Medication Instructions Recorded Confirmed Type cholecalciferol (vitamin D3) 250 250 mcg PO WEEKLY 01/21/23 09/12/23 History mcg (10,000 unit) capsule omega [id number]-fish oil 1,000 mg 1 cap PO DAILY 01/21/23 09/12/23 History (120 mg-180 mg) capsule (Fish Oil) Patient hx anesthesia problems: none Family hx anesthesia problems: none Results Review: All pre-operative results and documents have been reviewed as part of the pre-operative evaluation. FORMERLY [facility] Past Medical History Medical History Hypertension Surgical History Surgical History H/O heart surgery As a child and he is not sure if it was a valve replacement or what they did. Family History Family History Father MVA (motor vehicle accident) father is from mva Social History Social History Social History: He lives with his . He has one biological child and 4 step children. He works at [employer]. Patient states that he smokes 2 cigars a day. 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 Code status full code Years smoked: 20 Smoking status: Current every day smoker Tobacco type: cigars Alcohol intake: current Drinks per week: 4 Substance use: current Substance use type: marijuana Other substance usage details: every other day Lack of Transportation: No Lack of Food: Never True Current Housing: I Have Housing Concerned About Future Housing: No Difficulty Paying Gas/Electric Bills: No Difficulty Paying for Meds: No Currently Unemployed: No Education: High School Diploma/GED Difficulty w/ Childcare or Family Care: No Living arrangements: with family Gender identity (if verbalized by the patient): Male Sexual Orientation (if Verbalized by the Patient): Straight or Heterosexual Spiritual care concerns: No Anes - Eval Final PreProcedure Day of Procedure 09/22/23 13:38 Patient weight: overweight Heart: regular rate and rhythm Lungs: clear to auscultation Airway: Mallampati scale class II Neurological: alert and oriented Last oral intake: >/= 8 hours ASA classification: II Emergent: no Anesthetic plan: proceed Anesthesia type and monitoring: general GIVS and standard monitoring Results Review: All pre-operative results and documents have been reviewed as part of the pre-operative evaluation. Informed Consent: The patient's anesthetic plan and its attendant risks and benefits were discussed with the patient/family/POA. Questions were solicited and answers provided to the satisfaction of the patient/family/POA.
[2023-09-23 08:51] VITALS: BP 175/80; PULSE 60; RESP 20; TEMP 36.6; O2SAT 100
[2023-09-23] MEDS: LACTATED RINGERS 1,000 ML 150 ML IV CONT (09:04)
--- NOTE | 2023-09-23 09:31 | PM.HPGS ---
History of Present Illness History of Present Illness Consent: Risks, benefits, and alternatives have been discussed and questions answered. Patient agrees to proceed with procedure. Chief complaint: neoplasm screening Narrative: Kemar Bell is a 53 year old male Presents for screening colonoscopy. Patient's current weight appetite and bowel movements are normal. Patient denies abdominal pain. He has had no bleeding. Family history is noncontributory. Review of Systems Review of Systems: Review of systems noncontributory. [facility]LY [facility] Past Medical History Medical History Hypertension Surgical History Surgical History H/O heart surgery As a child and he is not sure if it was a valve replacement or what they did. Family History Family History Father MVA (motor vehicle accident) father is from mva Social History Social History Social History: He lives with his . He has one biological child and 4 step children. He works at [employer]. Patient states that he smokes 2 cigars a day. His is the durable power mobile nurse for healthcare. Code status full code Years smoked: 20 Smoking status: Current every day smoker Tobacco type: cigars Alcohol intake: current Drinks per week: 4 Substance use: current Substance use type: marijuana Other substance usage details: every other day Lack of Transportation: No Lack of Food: Never True Current Housing: I Have Housing Concerned About Future Housing: No Difficulty Paying Gas/Electric Bills: No Difficulty Paying for Meds: No Currently Unemployed: No Education: High School Diploma/GED Difficulty w/ Childcare or Family Care: No Living arrangements: with family Gender identity (if verbalized by the patient): Male Sexual Orientation (if Verbalized by the Patient): Straight or Heterosexual Spiritual care concerns: No Meds Home Medications and Allergies Home Medications Medication Instructions Recorded Confirmed Type cholecalciferol (vitamin D3) 250 250 mcg PO WEEKLY 01/21/23 09/12/23 History mcg (10,000 unit) capsule omega 5-ime-olc-fish oil 1,000 mg 1 cap PO DAILY 01/21/23 09/12/23 History (120 mg-180 mg) capsule (Fish Oil) Allergies Allergy/AdvReac Type Severity Reaction Status Date / Time No Known Allergies Allergy Verified 09/23/23 08:50 Vital Signs Vital Signs - 24 hr 09/23/23 08:51 Temperature 97.8 F Pulse Rate 60 Respiratory Rate 20 Blood Pressure 175/80 H Pulse Oximetry 100 Oxygen Delivery Room Air Exam Narrative: Physical exam reveals patient to be alert. Vital signs stable. HEENT exam is unremarkable. Patient is anicteric. Lungs are clear to auscultation and percussion. Heart is without murmur or extra sounds. Abdomen bowel sounds are present soft nontender with no organomegaly. Digital external rectal exam is normal. Assessment and Plan Assessment and plan (1) Encounter for screening colonoscopy: Code(s): Z12.11 - Encounter for screening for malignant neoplasm of colon Status: Acute Assessment and Plan: Patient presents today for screening colonoscopy. He appears to be at average risk for colon polyps. Further recommendations may be given after endoscopy.
[2023-09-23 10:33] VITALS: BP 137/83; PULSE 71; RESP 18; O2SAT 99
[2023-09-23 10:43] VITALS: BP 146/91; PULSE 67; RESP 17; O2SAT 99
[2023-09-23 10:53] VITALS: BP 170/96; PULSE 60; RESP 20; O2SAT 100
== END 2023-09-23 11:03 | disposition home or self-care (01) ==
PROVIDERS: Visit Provider Internal Medicine Gastroenterology
PROC: 0DJD8ZZ Inspection of Lower Intestinal Tract, Via Natural or Artificial Opening Endoscopic (ICD-10-PCS; CPT 45378; principal; 2023-09-23 10:00)
DX: Z12.11 Encounter for screening for malignant neoplasm of colon (principal); K63.5 Polyp of colon; K64.8 Other hemorrhoids; K57.30 Diverticulosis of large intestine without perforation or abscess without bleeding; I10 Essential (primary) hypertension; F17.290 Nicotine dependence, other tobacco product, uncomplicated; F12.90 Cannabis use, unspecified, uncomplicated
CPT/HCPCS: 45385; 88305; J2704; J7120

== ENCOUNTER 2024-08-08 13:24 | Outpatient (CLI) | payer OTHER, SELFPAY ==
--- NOTE | ~2024-08-08 | MR_ITS ---
EXAMINATION: MR abdomen wo/w con DATE: 08/08/2024 14:15 INDICATION: Kidney mass. TECHNIQUE: Magnetic resonance imaging (MRI) of the abdomen was performed without and with 17 mL Multi Krishan intravenous contrast. COMPARISON: Abdomen MRI 04/22/2023, 03/21/23, CT 03/19/23 FINDINGS: There is a 5 mm cyst in the liver. The gallbladder, spleen, pancreas, and adrenal glands are normal. There is cortical thinning of the kidneys. There is a 7 mm mass with thin peripheral contrast enhance ment in right kidney. There are cysts in left kidney measuring up to 7 mm. There is a 14 mm heterogen ous mass in left kidney with thin peripheral and septal enhancement. There are no dilated loops of omar wel. There are no pathologically enlarged lymph nodes. There is no free intraperitoneal fluid. IMPRESSION: 1. 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 2. 14 mm Bosniak IIF cystic lesion of left kidney, stable from 03/19/23. Consider abdomen MRI without and with contrast in 12 months. Reviewed, dictated and finalized at location A. IMPRESSION: 1. 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 2. 14 mm Bosniak IIF cystic lesion of left kidney, stable from 03/19/23. Conside r abdomen MRI without and with contrast in 12 months.
== END 2024-08-08 13:25 | disposition home or self-care (01) ==
DX: Q61.9 Cystic kidney disease, unspecified (principal); N28.89 Other specified disorders of kidney and ureter
CPT/HCPCS: 74183; A9577

== ENCOUNTER 2024-11-18 16:57 | Emergency (ER) | payer OTHER, SELFPAY ==
[2024-11-18 17:01] VITALS: BP 139/78; PULSE 66; RESP 20; TEMP 37.1; O2SAT 100
--- NOTE | 2024-11-18 20:03 | PC.NURSE ---
Patient called at 1943 and 1958 to be placed in a room. No answer.
--- OUTSIDE RECORDS SUMMARY | 2024-11-25 20:48 | XMS_ITS | Encounter Summary ---
Author Organization [facility] Address [address] [place] [address] Care Team Providers Care Seed And Fertilizer Specialist Name Role Phone Deanna Bahena MD Primary Care Provider [phone] Reason for Visit * Reason Onset Date Comments Information 12/17/2022 Encounter Details Date Type Department Care Team (Late st Contact Info) Description 12/17/2022 Telephone [facility] at [employer] [place] [address] [place] [address] Cintia Villarreal FNP NO ADDRESS ON FILE Information Social History Tobacco Use Types Packs/Day Years Used Date Smoking Tobacco: Every Day Cigars Smokeless Tobacco: Never Alcohol Use Standard Drinks/Week Comments Yes 0 (1 standard drink = 0.6 oz pur e alcohol) Sex and Gender Information Value Date Recorded Sex Assigned at Not on file Gender Identity Not on file Sexual Orientation Not on file documented as of this encounter Miscellaneous Notes * Telephone Encounter - Cassia Tee RN - 12/17/2022 2:47 PM CST Pt has treadmill stress test scheduled at [facility] on Tuesday12/20/22 at 10am. Pt is to arrive by 9:30am, no caffeine for 12 hours prior, and only a light breakfast 1 hour prior to exam. Spoke to pt and significant other giving this information. Order faxed to [facility] at [phone]. WRAPPER MACHINE OPERATOR documented in this encounter Plan of Treatment Upcoming Encounters Date Type Department Care Team (Late st Contact Info) Description 12/24/2024 1:00 PM WIRE WRAPPER MACHINE OPERATOR Office Visit [facility] at [facility] [employer] [place] [address] [place] [address] Susy Olivas, ANP [address] [place] [address] documented as of this encounter Visit Diagnoses Not on filedocumented in this encounter Care Teams Seed And Fertilizer Specialist Relationship Specialty Start Date End Date [place] [address] PCP - General Family Practice 12/17/22 05/17/24 documented as of this encounter
--- OUTSIDE RECORDS SUMMARY | 2024-11-25 20:48 | XMS_ITS | Encounter Summary ---
Author Organization [facility] Address [address] [place] [address] Care Team Providers Care Linux Admin Engineer Name Role Phone Deanna Bahena MD Primary Care Provider [phone] Reason for Visit * Reason Comments Follow Up Knee swelling left Encounter Details Date Type Department Care Team (Late st Contact Info) Description 08/29/2023 1:30 PM CDT Office Visit [facility] at Work [employer] [place] [address] [place] [address] Deanna Bahena MD [address] [place] [address] Acute pain of left knee (Primary Dx); Prediabetes; Hypertriglyceridemia; Knee effusion, left Social History Tobacco Use Types Packs/Day Years Used Date Smoking Tobacco: Every Day Cigars Smokeless Tobacco: Never Tobacco Cessation:Ready to Q uit: Not Asked; Counseling Given: Not Answered Comments:1-3 cigars a day. Alcohol Use Standard Drinks/Week Comments Yes 0 (1 standard drink = 0.6 oz pur e alcohol) 3 Sex and Gender Information Value Date Recorded Sex Assigned at Not on file Gender Identity Not on file Sexual Orientation Not on file documented as of this encounter Last Filed Vital Signs Vital Sign Reading Time Taken Comments Blood Pressure 130/76 08/29/2023 1:35 PM CDT Pulse 80 08/29/2023 1:35 PM CDT Temperature 36.8 ??C (98.2 ??F) 08/29/2023 1:35 PM CD T Respiratory Rate - - Oxygen Saturation 99% 08/29/2023 1:35 PM CDT Inhaled Oxygen Concentration - - Weight 86.5 kg (190 lb 12.8 oz) 08/29/2023 1:35 PM CDT Height 177.8 cm (5' 10 ) 08/29/2023 1:35 PM CDT Body Mass Index 27.38 08/29/2023 1:35 PM CDT documented in this encounter Progress Notes * Deanna Bahena MD - 08/29/2023 1:42 PM CDT OFFICE VISIT PROGRESS NOTE DATE: 08/29/2023 PATIENT: Kemar Bell : 1970 PCP: Deanna Bahena MD Chief Complaint Patient presents with Follow Up Knee swelling left HISTORY OF PRESENT ILLNESS 53 yo bm here for 2-3 weeks of left knee swelling. No known injury. Knee has been hurting a little.When he stands on it for long periods at work, it gets sore. Resting it helps. No prior injury. He states that it has already improved significantly. He has tried tylenol periodically. It helps some. He recently saw urologist and has f/u imaging set up. Urologist told him findings on MRI are not overly concerning. PAST MEDICAL HISTORY: Past Medical History: Diagnosis Date Herpes zoster without complication 12/26/2019 Patient denies relevant medical history PAST SURGICAL HISTORY Past Surgical History: Procedure Laterality Date HX HEART SURGERY Heart surgery as a child - he states he had a hole that had to be repaired CURRENT MEDICATIONS Current Outpatient Medications Medication Sig Dispense Refill meloxicam (Mobic) 7.5 mg tablet Take 1 Tablet (7.5 mg) by mouth daily for 7 days. 7 Tablet 0 amLODIPine (NORVASC) 5 mg tablet Take 1 Tablet (5 mg) by mouth daily. 30 Tablet 0 No current facility-administered medications for this visit. ALLERGIES No Known Allergies TOBACCO COUNSELING He was counseled to discontinue tobacco/nicotine use. REVIEW OF SYSTEMS As in HPI PHYSICAL EXAMINATION BP 130/76 (BP Location: Left arm, Patient Position (BP): Sitting, BP Cuff Size: Adult) Pulse 80 Temp 98.2 ??F (36.8 ??C) Ht 5' 10 (1.778 m) Wt 86.5 kg (190 lb 12.8 oz) SpO2 99% BMI 27.38kg/m?? Gen - AAO, NAD Head- normocephalic/atraumatic. Eyes - PERRL, EOMI, noninjected Ears - pinna appear normal, canals clear, TMs appear normal Nose - nasal mucosa pink and moist. Mouth - mucosa pink and moist. Posterior pharynx without erythema, swelling, or exudate. Neck - Supple, no thyroid masses. No LAD. Heart - RRR, no m/r/g Lungs - CTAB, no w/r/r Abd - soft, NT/ND, normal bowel sounds x 4 Ext - no c/c/e. Normal peripheral pulses Neuro - Facial features symmetric. Normal speech and voice. Normal gait. A/P Kemar was seen today for follow up. Diagnoses and all orders for this visit: Acute pain of left knee - XR KNEE 3 VW LEFT; Future - meloxicam (Mobic) 7.5 mg tablet; Take 1 Tablet (7.5 mg) by mouth daily for 7 days. Prediabetes - HEMOGLOBIN A1C; Future Hypertriglyceridemia - LIPID PANEL; Future Knee effusion, left - XR KNEE 3 VW LEFT; Future - meloxicam (Mobic) 7.5 mg tablet; Take 1 Tablet (7.5 mg) by mouth daily for 7 days. PATIENT INSTRUCTIONS Ice knee 4X/day for 15 min. Try to rest knee as much as you can. Wear a neoprene compression sleeve. Get the xray as well. Call here with an update on your knee symptom in 1 week. FOLLOW UP Return in about 1 week (around 09/05/2023). Deanna Bahena MD 08/29/2023 [facility] AT WORK [address] [address] * Deanna Bahena MD - 08/29/2023 1:39 PM CDT OFFICE VISIT PROGRESS NOTE DATE: 08/29/2023 PATIENT: Kemar Bell : 1970 PCP: Deanna Bahena MD Chief Complaint Patient presents with Follow Up Knee swelling left HISTORY OF PRESENT ILLNESS 53 yo bm here for 2-3 weeks of left knee swelling. No known injury. Knee has been hurting a little.When he stands on it for long periods at work, it gets sore. Resting it helps. No prior injury. He states that it has already improved significantly. He has tried tylenol periodically. It helps some. He recently saw urologist and has f/u imaging set up. Urologist told him findings on MRI are not overly concerning. PAST MEDICAL HISTORY: Past Medical History: Diagnosis Date Herpes zoster without complication 12/26/2019 Patient denies relevant medical history PAST SURGICAL HISTORY Past Surgical History: Procedure Laterality Date HX HEART SURGERY Heart surgery as a child - he states he had a hole that had to be repaired CURRENT MEDICATIONS Current Outpatient Medications Medication Sig Dispense Refill meloxicam (Mobic) 7.5 mg tablet Take 1 Tablet (7.5 mg) by mouth daily for 7 days. 7 Tablet 0 amLODIPine (NORVASC) 5 mg tablet Take 1 Tablet (5 mg) by mouth daily. 30 Tablet 0 No current facility-administered medications for this visit. ALLERGIES No Known Allergies TOBACCO COUNSELING He was counseled to discontinue tobacco/nicotine use. REVIEW OF SYSTEMS As in HPI PHYSICAL EXAMINATION BP 130/76 (BP Location: Left arm, Patient Position (BP): Sitting, BP Cuff Size: Adult) Pulse 80 Temp 98.2 ??F (36.8 ??C) Ht 5' 10 (1.778 m) Wt 86.5 kg (190 lb 12.8 oz) SpO2 99% BMI 27.38kg/m?? Gen - AAO, NAD Head- normocephalic/atraumatic. Eyes - PERRL, EOMI, noninjected Ears - pinna appear normal, canals clear, TMs appear normal Nose - nasal mucosa pink and moist. Mouth - mucosa pink and moist. Posterior pharynx without erythema, swelling, or exudate. Neck - Supple, no thyroid masses. No LAD. Heart - RRR, no m/r/g Lungs - CTAB, no w/r/r Abd - soft, NT/ND, normal bowel sounds x 4 Ext - no c/c/e. Normal peripheral pulses. Left knee with visible swelling. No redness or warmth. Some tenderness over medial joint line. + suprapatellar bursa tenderness and swelling. No crepitus. Neg anterior drawer, neg lachmans, neg jorge luis, stable to varus and valgus stress. Neuro - Facial features symmetric. Normal speech and voice. Normal gait. Sapna/P Kemar was seen today for follow up. Diagnoses and all orders for this visit: Acute pain of left knee - XR KNEE 3 VW LEFT; Future - meloxicam (Mobic) 7.5 mg tablet; Take 1 Tablet (7.5 mg) by mouth daily for 7 days. Prediabetes - HEMOGLOBIN A1C; Future Hypertriglyceridemia - LIPID PANEL; Future Knee effusion, left - XR KNEE 3 VW LEFT; Future - meloxicam (Mobic) 7.5 mg tablet; Take 1 Tablet (7.5 mg) by mouth daily for 7 days. PATIENT INSTRUCTIONS Ice knee 4X/day for 15 min. Try to rest knee as much as you can. Wear a neoprene compression sleeve. Get the xray as well. Call here with an update on your knee symptom in 1 week. FOLLOW UP Return in about 1 week (around 09/05/2023). Deanna Bahena MD 08/29/2023 [facility] AT [address] [address] documented in this encounter Miscellaneous Notes * Patient Instructions - Deanna Bahena MD - 08/29/2023 1:47 PM CDT Ice knee 4X/day for 15 min. Try to rest knee as much as you can. Wear a neoprene compression sleeve. Get the xray as well. Call here with an update on your knee symptom in 1 week. documented in this encounter Plan of Treatment Upcoming Encounters Date Type Department Care Team (Late st Contact Info) Description 12/24/2024 1:00 PM PACKAGER AND STRAPPER Office Visit [address] [address] [place] [address] [facility] [address] [place] [facility] [address] [place] [address] documented as of this encounter Visit Diagnoses Diagnosis Acute pain of left knee- Primary Prediabetes Other abnormal glucose Hypertriglyceridemia Pure hyperglyceridemia Knee effusion, left Effusion of lower leg joint documented in this encounter Care Teams Linux Admin Engineer Relationship Specialty Start Date End Date Deanna Bahena MD [address] [place] [id number] PCP - General Family Practice 12/17/22 05/17/24 documented as of this encounter
--- OUTSIDE RECORDS SUMMARY | 2024-11-25 20:48 | XMS_ITS | Encounter Summary ---
Author Organization [employer] Address [address] [place] [address] Care Team Providers Care Script Coordinator Name Role Phone Deanna Bahena MD Primary Care Provider [phone] Reason for Visit * Reason Onset Date Comments Question 01/26/2023 Encounter Details Date Type Department Care Team (Late st Contact Info) Description 01/26/2023 Telephone [facility] at Work [email or web address] [place] [address] [address] Deanna Bahena MD [address] [place] [address] Question Social History Tobacco Use Types Packs/Day Years [...] Telephone Encounter - Cassia Tee RN - 01/28/2023 3:46 PM CST Spoke to pt giving this information. Pt verbalized understanding. Pt states he already has a followup scheduled with the safety and occupational health manager. ERVATIVE FILLER MACHINE OPERATOR * Telephone Encounter - Deanna Bahena MD - 01/28/2023 3:38 PM CST Please let him know that I recommend he schedule a f/u with cardio within the next month to discussthe irregular heart beat sensation he gets. He should also make sure that the safety and occupational health manager knows about his heart surgery history and discuss f/u imaging. ERVATIVE FILLER MACHINE OPERATOR * Telephone Encounter - Deanna Bahena MD - 01/28/2023 3:38 PM CST He can go off work restrictions. ERVATIVE FILLER MACHINE OPERATOR * Telephone Encounter - Cassia Tee, RN - 01/26/2023 2:35 PM CST Pt was leaving from his office visit and stated he had another question. Pt states he was put on work restrictions until cleared by cardiology so he was wanting to know if he can be released to regular duty or not. Advised pt we are working on getting the note from the safety and occupational health manager and Dr. Bahena has already gone into the room with her next patient. Advised pt I will discuss work restrictions with Dr. Bahena and call pt back. Pt verbalized understanding. ERVATIVE FILLER MACHINE OPERATOR documented in this encounter Plan of Treatment Upcoming Encounters Date Type Department Care Team (Late st Contact Info) Description 12/24/2024 1:00 PM PRESERVATIVE FILLER MACHINE OPERATOR Office Visit [facility] at Work [email or web address] [place] [address] [place] [address] Susy Olivas, ANP [address] [address] [facility] [address] [place] [address] documented as of this encounter Visit Diagnoses Not on filedocumented in this encounter Care Teams Script Coordinator Relationship Specialty Start Date End Date Deanna Bahena MD [address] [facility] [place] [address] PCP - General Family Practice 12/17/22 05/17/24 documented as of this encounter
--- OUTSIDE RECORDS SUMMARY | 2024-11-25 20:48 | XMS_ITS | Encounter Summary ---
Author Organization [facility] Address [address] [place] [address] Care Team Providers Care Training Consultant Name Role Phone Yolande Aldridge MD Primary Care Provider [phone] Encounter Details Date Type Department Care Team (Late st Contact Info) Description 07/24/2024 External Device Data [facility] ABSTRACTION Provider, Abstract NO ADDRESS ON FILE Social History Tobacco Use Types Packs/Day Years Used Date Smoking Tobacco: Every Day Cigars Smokeless Tobacco: Never Comments:1-3 cigars a day. Alcohol Use Standard Drinks/Week Comments Yes 0 (1 standard drink = 0.6 oz pur e alcohol) 3 Sex and Gender Information Value Date Recorded Sex Assigned at Not on file Gender Identity Not on file Sexual Orientation Not on file documented as of this encounter Plan of Treatment Upcoming Encounters Date Type Department Care Team (Late st Contact Info) Description 12/24/2024 1:00 PM DICTAPHONE TECHNICIAN Office Visit [facility] at Work [employer] [place] [address] [place] [address] Susy Olivas, ANP [address] [facility] [address] [place] [facility] [address] [place] [address] documented as of this encounter Visit Diagnoses Not on filedocumented in this encounter Additional Health Concerns Assessment Noted Time PHQ-9 Depression Total Score: 1 06/26/20 24 1:00 PM CDT documented as of this encounter Care Teams Training Consultant Relationship Specialty Start Date End Date Yolande Aldridge MD [address] [place] [address] PCP - General Internal Medicine 05/18/24 documented as of this encounter
--- OUTSIDE RECORDS SUMMARY | 2024-11-25 20:48 | XMS_ITS | Encounter Summary ---
Author Organization [facility] Address [address] [place] [address] Care Team Providers Care Automotive Electrician Name Role Phone Deanna Bahena MD Primary Care Provider [phone] Reason for Visit * Reason Onset Date Comments Medical Records 01/28/2023 Encounter Details Date Type Department Care Team (Late Contact Info) Description 01/28/2023 Telephone [facility] [employer] [place] [address] [place] [address] Deanna Bahena MD [address] [place] [address] Medical Records Social History Tobacco Use Types Packs/Day Years [...] Encounter - Cassia Tee RN - 01/28/2023 10:07 AM CST LM with Dr. Jesse Funes's medical staff manager asking that they fax us pt's office note from his visit on 01/21/23. I also sent over a written request via fax on 01/26/2023. ENGER AGENT documented in this encounter Plan of Treatment Upcoming Encounters Date Type Department Care Team (Late Contact Info) Description 12/24/2024 1:00 PM PASSENGER AGENT Office Visit [facility] at Work [employer] [place] [address] [place] [place] [address] Susy Olivas[place] ANP [address] [place] [address] documented as of this encounter Visit Diagnoses Not on filedocumented in this encounter Care Teams Automotive Electrician Relationship Specialty Start Date End Date [place] [phone] PCP - General Family Practice 12/17/22 05/17/24 documented as of this encounter
--- OUTSIDE RECORDS SUMMARY | 2024-11-25 20:48 | XMS_ITS | Encounter Summary ---
Author Organization [facility] Address [address] [place] [address] Care Team Providers Care Electric Motor Winder Name Role Phone Deanna Bahena MD Primary Care Provider [phone] Encounter Details Date Type Department Care Team (Late st Contact Info) Description 01/12/2024 External Device Data STL ABSTRACTION Provider, Abstract [...] st Contact Info) Description 12/24/2024 1:00 PM NEAR EASTERN ARCHAEOLOGY LECTURER Office Visit [facility] at Work [employer] [address] [place] [address] Sus[place] ANP [address] [facility] [employer] [facility] [address] [place] [address] documented as of this encounter Visit Diagnoses Not on filedocumented in this encounter Care Teams Electric Motor Winder Relationship Specialty Start Date End Date Deanna Bahena MD [address] [place] [address] PCP - General Family Practice 12/17/22 05/17/24 documented as of this encounter
--- OUTSIDE RECORDS SUMMARY | 2024-11-25 20:48 | XMS_ITS | Encounter Summary ---
Author Organization [facility] Address [address] [place] [id number] Care Team Providers Care Production Team Member Name Role Phone Unavailable Primary Care Provider Unavailabl e Encounter Details Date Type Department Care Team (Late st Contact Info) Description 11/26/2021 Lab Requisition [facility] Community Testing [facility] [address] [place] [address] Chaim Quinn MD [address] [place] [address] [address] [place], [place] [id number] Social History Tobacco Use Types Packs/Day Years Used Date Smoking Tobacco: Never Assessed Sex and Gender Information Value Date Recorded Sex Assigned at Not on file Legal Sex Male 1:51 PM NEWSP[employer]ER [employer] SUPERVISOR Gender Identity Not on file Sexual Orientation Not on file documented as of this encounter Plan of Treatment Not on file documented as of this encounter Procedures Procedure Name Priority Date/Time Associated Diagnosis Comments SARS-COV-2 PCR [facility] ONLY Routine 11/26/2021 2:59 PM NEWSPAPER CARRIERS SUPERVISOR documented in this encounter Visit Diagnoses Not on filedocumented in this encounter
--- OUTSIDE RECORDS SUMMARY | 2024-11-25 20:48 | XMS_ITS | Encounter Summary ---
Author Organization [facility] Address [address] [place] [address] Care Team Providers Care Weather Analyst Name Role Phone Deanna Bahena MD Primary Care Provider [phone] Reason for Visit * Reason Comments Follow Up Encounter Details Date Type Department Care Team (Late st Contact Info) Description 01/26/2023 1:30 PM ICU SPECIALIST Office Visit [facility] Work [employer] [place] [address] [place] [address] Deanna Bahena MD [address] [place] [phone] History of congenital heart disease (Primary Dx); Tobacco abuse; Benign hypertension; Pre-diabetes; Hypertriglyceridemia; Vitamin D deficiency Social History Tobacco Use Types Packs/Day Years Used Date Smoking Tobacco: Every Day Cigars Smokeless Tobacco: Never Tobacco Cessation:Ready to Q uit: No; Counseling Given: Yes Alcohol Use Standard Drinks/Week Comments Yes 0 (1 standard drink = 0.6 oz pur e alcohol) Sex and Gender Information Value Date Recorded Sex Assigned at Not on file Gender Identity Not on file Sexual Orientation Not on file documented as of this encounter Last Filed Vital Signs Vital Sign Reading Time Taken Comments Blood Pressure 150/88 01/26/2023 1:24 PM ICU SPECIALIST Pulse 69 01/26/2023 1:24 PM ICU SPECIALIST Temperature 36.8 ??C (98.3 ??F) 01/26/2023 1:24 PM CS T Respiratory Rate 20 01/26/2023 1:24 PM ICU SPECIALIST Oxygen Saturation 97% 01/26/2023 1:24 PM ICU SPECIALIST Inhaled Oxygen Concentration - - Weight 87.3 kg (192 lb 6.4 oz) 01/26/2023 1:24 P M ICU SPECIALIST Height 177.8 cm (5' 10 ) 01/26/2023 1:24 PM ICU SPECIALIST Body Mass Index 27.61 01/26/2023 1:24 PM ICU SPECIALIST documented in this encounter Patient Instructions * Attachments The following attachments cannot be sent through Care Everywhere. * Diet: DASH (Taiwanese) * Hypertension (Taiwanese) documented in this encounter Progress Notes * Deanna Bahena MD - 01/26/2023 1:39 PM CST OFFICE VISIT PROGRESS NOTE DATE: 01/26/2023 PATIENT: Kemar Bell : 1970 PCP: Deanna Bahena MD Chief Complaint Patient presents with Follow Up HISTORY OF PRESENT ILLNESS 52 yo bm here for f/u. He saw dispatcher relay. He recommended he take bp med, patient declined. He prefers to do lifestyle changes instead. Patient has started fish oil and garlic tablets. He is trying to improve his diet. He has started walking 45 min 3X/week. He doesn't know if he will strength train. He only sleeps approx 6 hours a day. He states that he sometimes has a feeling that his heart is beating different than normal. It occurs for a split second and then it is back to normal. He states that is not painful. It occurs at restand while active. No shortness of breath. No orthopnea or pnd. It occurs a few times each week. He drinks minimal caffeine. PAST MEDICAL HISTORY: Past Medical History: Diagnosis Date Herpes zoster without complication 12/26/2019 Patient denies relevant medical history PAST SURGICAL HISTORY Past Surgical History: Procedure Laterality Date HX HEART SURGERY Heart surgery as a child - he states he had a hole that had to be repaired CURRENT MEDICATIONS Current Outpatient Medications Medication Sig Dispense Refill ergocalciferol (VITAMIN D2) 50,000 unit capsule Take 1 Capsule (50,000 Units) by mouth every 7 daysfor 8 doses. 4 Capsule 1 No current facility-administered medications for this visit. ALLERGIES No Known Allergies TOBACCO COUNSELING He was counseled to discontinue tobacco use. REVIEW OF SYSTEMS As in HPI PHYSICAL EXAMINATION BP (!) 150/88 (BP Location: Left arm, Patient Position (BP): Sitting, BP Cuff Size: Adult) Pulse 69 Temp 98.3 ??F (36.8 ??C) (Tympanic) Resp 20 Ht 5' 10 (1.778 m) Wt 87.3 kg (192 lb 6.4 oz) SpO2 97% BMI 27.61 kg/m?? Gen - AAO, NAD Head- normocephalic/atraumatic. Eyes [...] Diagnoses and all orders for this visit: History of congenital heart disease Tobacco abuse Benign hypertension Pre-diabetes Hypertriglyceridemia Vitamin D deficiency - VITAMIN D 25 HYDROXY; Future - VITAMIN D 25 HYDROXY Discussed with patient that my preference is to start bp meds, but he declined. Stressed the importance of quitting cigars and gave him info on tobacco cessation counseling. He does not want a medication for this either. We will get his cardiology note and see what their recommendation was regarding patients CHD and his palpitations. PATIENT INSTRUCTIONS Please buy a bp cuff and bring it in to a nurse visit bp check in 2 weeks. After that, I would like you to check bp daily. F/u in office in 2 months. Call us if you change your mind and will agree to start medication. Work on daily exercise, improving diet, improving sleep, and working on healthy stress management. Stop smoking. Paying attention to sleep hygiene is one of the most straightforward ways that you can set yourselfup for better sleep. FOLLOW UP Data Unavailable Deanna Bahena MD 01/26/2023 [facility] WORK [address] [address] documented in this encounter Miscellaneous Notes * Result Encounter Note - Cassia Tee RN - 01/28/2023 10:10 AM ICU SPECIALIST Spoke to pt giving this information. Pt verbalized understanding. Also let pt know we are still waiting for the office note from dispatcher relay so we can determine return to work restrictions. SPECIALIST * Result Encounter Note - Deanna Bahena MD - 01/27/2023 4:35 PM ICU SPECIALIST Please inform patient that his vitamin d is normal now. Finish prescription Vitamin D, and then switch to OTC Vitamin D3 4000 IU daily with food. SPECIALIST * Patient Instructions - Deanna Bahena MD - 01/26/2023 2:19 PM CST Images from the original note were not included. Please buy a bp cuff and bring it in to a nurse visit bp check in 2 weeks. After that, I would like you to check bp daily. F/u in office in 2 months. Call us if you change your mind and will agree to start medication. Work on daily exercise, improving diet, improving sleep, and working on healthy stress management. Stop smoking. Paying attention to sleep hygiene is one of the most straightforward ways that you can set yourselfup for better sleep. Strong sleep hygiene means having both a bedroom environment and daily routines that promote consistent, uninterrupted sleep. Keeping a stable sleep schedule, making your bedroom comfortable and freeof disruptions, following a relaxing pre-bed routine, and building healthy habits during the day can all contribute to ideal sleep hygiene. Every sleeper can tailor their sleep hygiene practices to suit their needs. In the process, you canharness positive habits to make it easier to sleep soundly throughout the night and wake up well-rested. Why Is Sleep Hygiene Important? Obtaining healthy sleep is important for both physical and mental health, improving productivity and overall quality of life. Everyone, from children to older adults, can benefit from better sleep, and sleep hygiene can play a murrell part in achieving that goal. Research has demonstrated that forming good habits is a central part of health1. Crafting sustainable and beneficial routines makes healthy behaviors feel almost automatic, creating an ongoing process of positive reinforcement. On the flip side, bad habits can become engrained even as they cause negative consequences. Thankfully, humans have an impressive ability 2 to make our habits serve our long-term interests. Building an environment and set of routines that promote our goals can really pay off. Sleep hygiene encompasses both environment and habits, and it can pave the way for higher-quality sleep and better overall health. Improving sleep hygiene has little cost and virtually no risk, making it an important part of a public health strategy3 to counteract the serious problems of insufficient sleep and insomnia in [place]. What Are Signs of Poor Sleep Hygiene? Having a hard time falling asleep, experiencing frequent sleep disturbances, and suffering daytime sleepiness are the most telling signs of poor sleep hygiene. An overall lack of consistency in sleepquantity or quality can also be a symptom of poor sleep hygiene. How Do You Practice Good Sleep Hygiene? Good sleep hygiene is all about putting yourself in the best position to sleep well each and every night. Optimizing your sleep schedule, pre-bed routine, and daily routines is part of harnessing habits tomake quality sleep feel more automatic. At the same time, creating a pleasant bedroom environment can be an invitation to relax and doze off. A handful of tips can help in each of these areas, they aren???t rigid requirements. You can adapt them to fit your circumstances and create your own sleep hygiene checklist to help get the best sleep possible. Set Your Sleep Schedule Having a set schedule normalizes sleep as an essential part of your day and gets your brain and body accustomed to getting the full amount of sleep that you need. Have a Fixed Wake-Up Time: Regardless of whether it???s a weekday or weekend, try to wake up at thesame time since a fluctuating schedule keeps you from getting into a rhythm of consistent sleep. Prioritize Sleep: It might be tempting to skip sleep in order to work, study, socialize, or exercise, but it???s vital to treat sleep as a priority. Calculate a target bedtime based on your fixed wake-up time and do your best to be ready for bed around that time each night. Make Gradual Adjustments: If you want to shift your sleep times, don???t try to do it all in one fell swoop because that can throw your schedule out of whack. Instead, make small, [id number] adjustments of up to an hour or two4 so that you can get adjusted and settle into a new schedule. Don???t Overdo It With Naps: Naps can be a handy way to regain energy during the day, but they can throw off sleep at night. To avoid this, try to keep naps relatively short and limited to the early afternoon. Follow a Nightly Routine How you prepare for bed can determine how easily you???ll be able to fall asleep. A pre-sleep playbook including some of these tips can put you at ease and make it easier to get to fall asleep when you want to. Keep Your Routine Consistent: Following the same steps each night, including things like putting onyour pajamas and brushing your teeth, can reinforce in your mind that it???s bedtime. Budget 30 Minutes For Winding Down: Take advantage of whatever puts you in a state of calm such as soft music, light stretching, reading, and/or relaxation exercises. Dim Your Lights: Try to keep away from bright lights because they can hinder the production of melatonin, a hormone that the body creates to facilitate sleep. Unplug From Electronics: Build in a 30-60 minute pre-bed buffer time that is device-free. Cell phones, tablets, and laptops cause mental stimulation that is hard to shut off and also generate blue light that may decrease melatonin production. Test Methods of Relaxation: Instead of making falling asleep your goal, it???s often easier to focus on relaxation. Meditation, mindfulness, paced breathing, and other relaxation techniques can put you in the right mindset for bed. Don???t Toss and Turn: It helps to have a healthy mental connection between being in bed and actually being asleep. For that reason, if after 20 minutes you haven???t gotten to sleep, get up and stretch, read, or do something else calming in low light before trying to fall asleep again. Cultivate Healthy Daily Habits It???s not just bedtime habits that play a part in getting good sleep. Incorporating positive routines during the day can support your circadian rhythm and limit sleep disruptions. Get Daylight Exposure: Light, especially sunlight, is one of the murrell drivers of circadian rhythms that can encourage quality sleep. Be Physically Active: Regular exercise can make it easier to sleep at night and also delivers a host of other health benefits. Don???t Smoke: Nicotine stimulates the body in ways that disrupt sleep, which helps explain why smoking is correlated with numerous sleeping problems5. Reduce Alcohol Consumption: Alcohol may make it easier to fall asleep, but the effect wears off, disrupting sleep later in the night. As a result, it???s best to moderate alcohol consumption and avoid it later in the evening. Cut Down on Caffeine in the Afternoon and Evening: Because it???s a stimulant, caffeine can keep you wired even when you want to rest, so try to avoid it later in the day. Also be aware if you???re consuming lots of caffeine to try to make up for lack of sleep. Don???t Dine Late: Eating dinner late, especially if it???s a big, heavy, or spicy meal, can mean you???re still digesting when it???s time for bed. In general, any food or snacks before bed should be on the ladle pourer side. Restrict In-Bed Activity: To build a link in your mind between sleep and being in bed, it???s best to only use your bed for sleep with sex being the one exception. Optimize Your Bedroom A central component of sleep hygiene beyond just habits is your sleep environment. To fall asleep more easily, you want your bedroom to emanate tranquility. While what makes a bedroom inviting can vary from one person to the next, these tips may help make it calm and free of disruptions: Have a Comfortable Mattress and Pillow: Your sleeping surface is critical to comfort and pain-free sleep, so choose the best mattress and best pillow for your needs wisely. Use Excellent Bedding: The sheets and blankets are the first thing you touch when you get into bed,so it???s beneficial to make sure they match your needs and preferences. Set a Cool Yet Comfortable Temperature: Fine-tune your bedroom temperature to suit your preferences, but err on the cooler side (around 65 degrees fahrenheit). Block Out Light: Use heavy curtains or an eye mask to prevent light from interrupting your sleep. Drown Out Noise: Ear plugs can stop noise from keeping you awake, and if you don???t find them comfortable, you can try a white noise machine or even a fan to drown out bothersome sounds. Try Calming Scents: Light smells, such as lavender6, may induce a calmer state of mind and help cultivate a positive space for sleep. Home Blood Pressure Test: About This Test What is it? A home blood pressure test allows you to keep track of your blood pressure at home. Blood pressure is a measure of the force of blood against the cabrales of your arteries. Blood pressure readings include two numbers, such as 130/80 (say 130 over 80 ). The first number is the systolic pressure. The second number is the diastolic pressure. Why is this test done? You may do this test at home to: Find out if you have high blood pressure. Track your blood pressure if you have high blood pressure. Track how well medicine is working to reduce high blood pressure. Check how lifestyle changes, such as weight loss and exercise, are affecting blood pressure. How do you prepare for the test? For at least 30 minutes before you take your blood pressure, don't exercise, drink caffeine, or smoke. Empty your bladder before the test. Sit quietly with your back straight and both feet on the floor for at least 5 minutes. This helps you take your blood pressure while you feel comfortable and relaxed. How is the test done? If your doctor recommends it, take your blood pressure twice a day. Take it in the morning and evening. Sit with your arm slightly bent and resting on a table so that your upper arm is at the same level as your heart. Use the same arm each time you take your blood pressure. Place the blood pressure cuff on the bare skin of your upper arm. You may have to roll up your sleeve, remove your arm from the sleeve, or take your shirt off. Wrap the blood pressure cuff around your upper arm so that the lower edge of the cuff is about 1 inch above the bend of your elbow. Do not move, talk, or text while you take your blood pressure. Follow the instructions that came with your blood pressure monitor. They might be different from the following. Press the on/off button on the automatic monitor. Then you may need to wait until the screen says the monitor is ready. Press the start button. The cuff will inflate and deflate by itself. Your blood pressure numbers will appear on the screen. Wait one minute and take your blood pressure again. If your monitor does not automatically save your numbers, write them in your log book, along with the date and time. Follow-up care is a murrell part of your treatment and safety. Be sure to make and go to all appointments, and call your doctor if you are having problems. It's also a good idea to keep a list of the medicines you take. Where can you learn more? Go to https://www.SoloLearn.net/patiented Enter C427 in the search box to learn more about Home Blood Pressure Test: About This Test. Current as of: July 28, 2022 Content Version: 13.5 ?? [employer]. Care instructions adapted under license by your healthcare professional. If you have questions about a medical condition or this instruction, always ask your healthcare professional. These instructions may not represent the values of this healthcare organization. [employer] disclaims any warranty or liability for your use of this information. SPECIALIST documented in this encounter Plan of Treatment Upcoming Encounters Date Type Department Care Team (Late st Contact Info) Description 12/24/2024 1:00 PM ICU SPECIALIST Office Visit [facility] [employer] [place] [address] [place] [address] Susy Olivas, ANP [address] [address] [facility] [address] [place] [address] documented as of this encounter Procedures Procedure Name Priority Date/Time Associated Diagnosis Comments VITAMIN D 25 HYDROXY Routine 01/26/2023 2:18 PM ICU SPECIALIST Vitamin D deficiency documented in this encounter Results * VITAMIN D 25 HYDROXY (01/26/2023 2:18 PM ICU SPECIALIST) VITAMIN D, 25 OH, TOTAL 55 30 - 100 ng/mL [facility] [employer] Comment: Vitamin D Status ? 25-OH Vitamin D: Deficiency: ?<20 ng/mL Insufficiency: ? 20 - 29 ng/mL Optimal: ? > or = 30 ng/mL For 25-OH Vitamin D testing on patients on D2-supplementation and patients for whom quantitation of D2 and D3 fractions is required, the QuestAssureD(TM) 25-OH VIT D, (D2,D3), LC/MS/MS is recommended: order code 47690 (patients >2yrs). See Note 1 Note 1 For additional information, please refer to http://education.S[employer] Health/faq/ZYJ046 (This link is being provided for informational/ educational purposes only.) Test Performed at: [facility] [address] [place] [address] ??[phone] Florinda Chavis MD Blood 01/26/2023 2:18 PM ICU SPECIALIST 01/27/2023 5:32 AM ICU SPECIALIST Deanna Bahena MD CHEMISTRY ORDERABLES [facility] [phone] [facility] [address] [place] [phone] documented in this encounter Visit Diagnoses Diagnosis History of congenital heart disease- Primary Personal history of other diseases of circulatory system Tobacco abuse Tobacco use disorder Benign hypertension Essential hypertension, benign Pre-diabetes Other abnormal glucose Hypertriglyceridemia Pure hyperglyceridemia Vitamin D deficiency Unspecified vitamin D deficiency documented in this encounter Care Teams Weather Analyst Relationship Specialty Start Date End Date Deanna Bahena MD [address] [place] [address] PCP - General Family Practice 12/17/22 05/17/24 documented as of this encounter
--- OUTSIDE RECORDS SUMMARY | 2024-11-25 20:48 | XMS_ITS | Encounter Summary ---
Author Organization [facility] Address [address] [place] [address] Care Team Providers Care Superintendent Car Construction Name Role Phone Deanna Bahena MD Primary Care Provider [phone] Encounter Details Date Type Department Care Team (Late st Contact Info) Description 11/04/2023 External Device Data ST[facility] ABSTRACTION Provider, Abstract [...] st Contact Info) Description 12/24/2024 1:00 PM MEDICAL LEADER Office Visit [facility] at Work [employer] [address] [place] [address] Susy Olivas, ANP [address] [facility] [address] [place] [address] documented as of this encounter Visit Diagnoses Not on filedocumented in this encounter Care Teams Superintendent Car Construction Relationship Specialty Start Date End Date Deanna Bahena MD [address] [place] [phone] PCP - General Family Practice 12/17/22 05/17/24 documented as of this encounter
--- OUTSIDE RECORDS SUMMARY | 2024-11-25 20:48 | XMS_ITS | Encounter Summary ---
Author Organization [facility] Address [address] [place] [address] Care Team Providers Care Equipment Maintenance Tech Name Role Phone Deanna Bahena MD Primary Care Provider [phone] Encounter Details Date Type Department Care Team (Late Contact Info) Description 12/23/2022 Orders Only [facility] [employer] [place] [address] [place] [address] Cintia Villarreal FNP NO ADDRESS ON FILE Vitamin D deficiency (Primary Dx) Social History Tobacco Use Types Packs/Day Years [...] (Late Contact Info) Description 12/24/2024 1:00 PM TIPPLE REPAIRER Office Visit [facility] at [facility] [employer] [place] [address] [place] [address] Susy Olivas, ANP [address] [place] [address] [place] [address] documented as of this encounter Visit Diagnoses Diagnosis Vitamin D deficiency- Primary Unspecified vitamin D deficiency documented in this encounter Care Teams Equipment Maintenance Tech Relationship Specialty Start Date End Date Deanna Bahena MD [address] [place] [address] PCP - General Family Practice 12/17/22 05/17/24 documented as of this encounter
--- OUTSIDE RECORDS SUMMARY | 2024-11-25 20:48 | XMS_ITS | Encounter Summary ---
Author Organization [facility] Address [address] [place] [address] Care Team Providers Care Die Try Out Worker Stamping Name Role Phone Deanna Bahena MD Primary Care Provider [phone] Encounter Details Date Type Department Care Team (Late st Contact Info) Description 12/21/2023 External Device Data STL ABSTRACTION Provider, Abstract [...] st Contact Info) Description 12/24/2024 1:00 PM PLATING DEPARTMENT HELPER Office Visit [facility] at Work [employer] [address] [place] [address] Susy Olivas, ANP [address] [facility] [address] [place] [address] documented as of this encounter Visit Diagnoses Not on filedocumented in this encounter Care Teams Die Try Out Worker Stamping Relationship Specialty Start Date End Date Deanna Bahena MD [address] [place] [phone] PCP - General Family Practice 12/17/22 05/17/24 documented as of this encounter
--- OUTSIDE RECORDS SUMMARY | 2024-11-25 20:48 | XMS_ITS | Encounter Summary ---
Author Organization [facility] Address [address] [place] [address] Care Team Providers Care Content Management Consultant Name Role Phone Deanna Bahena MD Primary Care Provider [phone] Encounter Details Date Type Department Care Team (Late st Contact Info) Description 04/10/2024 External Device Data STL ABSTRACTION Provider, Abstract [...] st Contact Info) Description 12/24/2024 1:00 PM EVENT PLANNER Office Visit [facility] at Work [employer] [address] [place] [address] Susy Olivas, ANP [address] [facility] [address] [place] [address] documented as of this encounter Visit Diagnoses Not on filedocumented in this encounter Care Teams Content Management Consultant Relationship Specialty Start Date End Date Deanna Bahena MD [address] [place] [phone] PCP - General Family Practice 12/17/22 05/17/24 documented as of this encounter
--- OUTSIDE RECORDS SUMMARY | 2024-11-25 20:48 | XMS_ITS | Clinical Summary ---
Author Organization [facility] [employer] Address [address] [address] Care Team Providers Care Airport Traffic Controller Name Role Phone Yolande Aldridge MD Primary Care Provider [phone] Allergies No known active allergies Medications Medication Sig Dispensed Refills Start Date End Date Status amLODIPine (NORVASC) 10 mg tabletIndications:Pablo ign hypertension with stage 3a chronic kidney disease Take 1 Tablet (10 mg) by mouth daily. 90 Tablet 09/13/2024 Active ergocalciferol (VITAMIN D2) 50,000 unit capsule Take 1 Capsule (50,000 Units) by mouth every 7 days. 12 Capsule 09/17/2024 Active Active Problems Problem Noted Date Diagnosed Date Prediabetes 09/17/2024 Benign hypertension with stage 3a chronic kidney disease 09/13/2024 Renal cyst 06/13/2023 Tobacco abuse 01/26/2023 History of congenital heart disease 01/26/2023 Asthma 05/29/2020 Resolved Problems Problem Noted Date Diagnosed Date Resolved Date Trochanteric bursitis of right hip 07/18/2020 05/22/2024 Porokeratosis 06/02/2020 07/11/2020 Plantar callus 12/26/2019 07/11/2020 Herpes zoster without complication 12/26/2019 01/26/2023 Cigarette dependence 12/25/2019 023 Encounters Date Type Department Care Team Description 10/24/2024 Telephone [facility] [place] [address] [place] [address] Yolande Aldridge MD FMLA 09/25/2024 External Device Data STL ABSTRACTION Provider, Abstract 09/18/2024 2:00 PM CDT Procedure visit [facility] [place] [address] [place] [phone] Issue of repeat prescription for medication (Primary Dx) 09/17/2024 Orders Only [facility] at [facility] [employer] [place] [address] [place] [address] Susy Olivas ANP 09/13/2024 1:00 PM CDT Office Visit [facility] at [facility] [employer] [place] [address] [place] [address] Susy Olivas, ELOINA Benign hypertension with stage 3a chronic kidney disease (Primary Dx); Low vitamin B12 level; Prediabetes; Vitamin D deficiency; Tobacco abuse from Last 3 Months Immunizations Name Administration Dates Next Due ([employer])(12 YR UP) COVID-19 VACCINE - EMERGENCY USE AUTHORIZATION, MRNA, [id number](PF) 30 MCG/0.3 ML IM SUSP 03/26/2021,02/20/2021 Family History Medical History Relation Name Comments Sudden Father MVA No Known Problems Maternal Grandfather Hypertension Maternal Grandmother No Known Problems Mother Unknown Paternal Grandfather Unknown Paternal Grandmother No Known Problems Sister No Known Problems Son Relation Name Status Comments Father Maternal Grandfather Alive Maternal Grandmother Alive Mother Alive Paternal Grandfather Paternal Grandmother Sister Alive Son Alive Social History Tobacco Use Types Packs/Day Years Used Date Smoking Tobacco: Every Day Cigars Smokeless Tobacco: Never Comments:1-3 cigars a day. Alcohol Use Standard Drinks/Week Comments Yes 0 (1 standard drink = 0.6 oz pur e alcohol) 3 Sex and Gender Information Value Date Recorded Sex Assigned at Not on file Gender Identity Not on file Sexual Orientation Not on file Last Filed Vital Signs Vital Sign Reading Time Taken Comments Blood Pressure 162/92 09/13/2024 1:25 PM CDT Pulse 68 09/13/2024 1:04 PM CDT Temperature 36.6 ??C (97.8 ??F) 09/13/2024 1:04 PM CD T Respiratory Rate 18 09/13/2024 1:04 PM CDT Oxygen Saturation 97% 09/13/2024 1:04 PM CDT Inhaled Oxygen Concentration - - Weight 86.6 kg (191 lb) 09/13/2024 1:04 PM CDT Height 177.8 cm (5' 10 ) 09/13/2024 1:04 PM CDT Body Mass Index 27.41 09/13/2024 1:04 PM CDT Plan of Treatment Upcoming Encounters Date Type Department Care Team (Late st Contact Info) Description 12/24/2024 1:00 PM HIDE MILL MAN Office Visit [facility] [employer] [place] [address] [place] [address] Susy Olivas, ANP [address] [place] [address] [place] [address] Health Maintenance Due Date Last Done Comments PNEUMOCOCCAL VACCINE 0-64 YE ARS (1 of 2 - PCV) 1977 DTAP/TDAP/TD VACCINES (1 - Tdap) 1990 HEPATITIS B VACCINES (1 of 3 - 19+ 3-dose series) 1990 FIT-DNA Q 3 years 2016 FIT/FOBT Q 1 year 2016 Flex Sig/CT Colonography Q 5 years 2016 ZOSTER VACCINE (1 of 2) 2021 INFLUENZA VACCINE (#1) 2024 10/22/2021 COVID-19 Vaccine (3 - season) 07/22/202404/2021, 02/20/2021 Pre-Diabetes and Diabetes Screening 09/13/202709/13, 12/21/2022 COLORECTAL SCREENING 10/03/2028 10/03/2023 Colorectal Cancer Screening 10/03/2028 Procedures Procedure Name Priority Date/Time Associated Diagnosis Comments VITAMIN D 25 HYDROXY Routine 09/13/2024 1:23 PM CDT Vitamin D deficiency HEMOGLOBIN A1C Routine 09/13/2024 1:23 PM CDT Prediabetes BASIC METABOLIC PANEL Routine 09/13/2024 1:23 PM CDT Benign hypertension with stage 3a chronic kidney disease VITAMIN B12 LEVEL Routine 09/13/2024 1:2 3 PM CDT Low vitamin B12 level from Last 3 Months Results * (ABNORMAL) VITAMIN D 25 HYDROXY (09/13/2024 1:23 PM CDT) VITAMIN D, 25 OH, TOTAL 17(L) 30 - 100 ng/mL [facility] Comment: Vitamin D Status ? 25-OH Vitamin D: Deficiency: ?<20 ng/mL Insufficiency: ? 20 - 29 ng/mL Optimal: ? > or = 30 ng/mL For 25-OH Vitamin D testing on patients on D2-supplementation and patients for whom quantitation of D2 and D3 fractions is required, the [facility](TM) 25-OH VIT D, (D2,D3), LC/MS/MS is recommended: order code [id number] (patients >2yrs). See Note 1 Note 1 For additional information, please refer to http://education.Amazing Photo Letters/faq/FVX528 (This link is being provided for informational/ educational purposes only.) Test Performed at: [facility] [id number] [facility] [place] ??[phone] Florinda Chavis MD Blood 09/13/2024 1:23 PM CDT 09/14/2024 5:56 AM CDT Susy Olivas BANNER CHEMISTRY ORDERABLES [facility] [phone] [facility] [address] [place] [address] * (ABNORMAL) HEMOGLOBIN A1C (09/13/2024 1:23 PM CDT) Pathologist [facility] HEMOGLOBIN A1C 6.1(H) <5.7 % of total Hgb [facility] Comment: For someone without known diabetes, a hemoglobin A1c value between 5.7% and 6.4% is consistent with prediabetes and should be confirmed with a follow-up test. For someone with known diabetes, a value <7% indicates that their diabetes is well controlled. A1c targets should be individualized based on duration of diabetes, age, comorbid conditions, and other considerations. This assay result is consistent with an increased risk of diabetes. Currently, no consensus exists regarding use of hemoglobin A1c for diagnosis of diabetes for children. ESTIMATED AVERAGE GLUCOSE (MG/DL) 128 mg/dL [facility] ESTIMATED AVERAGE GLUCOSE (MMOL/L) 7.1 mmol/L [facility] Comment: Test Performed at: [facility] ??[phone] Florinda Chavis MD Blood 09/13/2024 1:23 PM CDT 09/14/2024 5:56 AM CDT Susy DUVALL CHEMISTRY ORDERABLES Performing Organization Address [facility] Co de Phone Number [facility] [phone] [facility] [address] * VITAMIN B12 LEVEL (09/13/2024 1:23 PM CDT) [facility] VITAMIN B12 302 200 - 1100 pg/mL [facility] Comment: Please Note: Although the reference range for vitamin B12 is 200-1100 pg/mL, it has been reported that between 5 and 10% of patients with values between 200 and 400 pg/mL may experience neuropsychiatric and hematologic abnormalities due to occult B12 deficiency; less than 1% of patients with values above 400 pg/mL will have symptoms. Test Performed at: [facility] [address] [place] [address] ??[phone] Florinda Chavis MD Blood 09/13/2024 1:23 PM CDT 09/14/2024 5:56 AM CDT Susy DUVALL CHEMISTRY ORDERABLES Performing Organization Address [facility] Co de Phone Number [facility] [phone] [facility] [phone] * BASIC METABOLIC PANEL (09/13/2024 1:23 PM CDT) GLUCOSE 76 65 - 99 mg/dL [facility] Comment: ? Fasting reference interval BUN 15 7 - 25 mg/dL [facility] CREATININE 1.22 0.70 - 1.30 mg/dL [facility] GFR 71 > OR = 60 mL/min/1.7 3m2 [facility] BUN/CREAT RATIO SEE NOTE: (calc) [facility] Comment: ?? Not Reported: BUN and Creatinine are within ?? reference range. ? SODIUM 141 135 - 146 mmol/L [facility] POTASSIUM 4.2 3.5 - 5.3 mmol/L [facility] CHLORIDE 106 98 - 110 mmol/L [facility] CO2 27 20 - 32 mmol/L [facility] CALCIUM 9.4 8.6 - 10.3 mg/dL [facility] Comment: Test Performed at: [facility] [id number] [place], [place] ??[phone] Florinda Chavis MD Blood 09/13/2024 1:23 PM CDT 09/14/2024 5:56 AM CDT Susy DUVALL CHEMISTRY ORDERABLES [facility] [phone] [facility] [address] [place] [address] from Last 3 Months Care Teams Airport Traffic Controller Relationship Specialty Start Date End Date Yolande Aldridge MD [address] [place] [address] [place] [address] PCP - General Internal Medicine 05/18/24
--- OUTSIDE RECORDS SUMMARY | 2024-11-25 20:48 | XMS_ITS | Encounter Summary ---
Author Organization [facility] Address [address] [place] [address] Care Team Providers Care Lead Software Engineer Name Role Phone Yolande Aldridge MD Primary Care Provider [phone] Encounter Details Date Type Department Care Team (Late st Contact Info) Description 05/22/2024 External Device Data STL ABSTRACTION Provider, Abstract [...] st Contact Info) Description 12/24/2024 1:00 PM MANAGER ACTIVITIES Office Visit [facility] at Work [employer] [place] [address] [place] [address] Susy Olivas, ANP [address] [facility]ina [facility] [address] [address] documented as of this encounter Visit Diagnoses Not on filedocumented in this encounter Care Teams Lead Software Engineer Relationship Specialty Start Date End Date Yolande Aldridge MD [address] [place] [address] PCP - General Internal Medicine 05/18/24 documented as of this encounter
--- OUTSIDE RECORDS SUMMARY | 2024-11-25 20:48 | XMS_ITS | Encounter Summary ---
Author Organization [facility] Address [address] [place] [address] Care Team Providers Care Literacy Coordinator Name Role Phone Yolande Aldridge MD Primary Care Provider [phone] Reason for Visit * Reason Onset Date Comments FMLA 10/24/2024 Encounter Details Date Type Department Care Team (Late st Contact Info) Description 10/24/2024 Telephone [facility] [employer] [place] [address] [place] [address] Yolande Aldridge MD [address] [place] [address] FMLA Social History Tobacco Use Types Packs/Day Years [...] encounter Miscellaneous Notes * Telephone Encounter - Evelia Rodriguez - 10/24/2024 3:11 PM CST Patients SO called checking on status of pts FMLA. E PRESSER documented in this encounter Plan of Treatment Upcoming Encounters Date Type Department Care Team (Late st Contact Info) Description 12/24/2024 1:00 PM PIECE PRESSER Office Visit [facility] [employer] [place] [address] [place] [address] Susy Olivas, ANP [address] [address] [place] [address] [place] [address] documented as of this encounter Visit Diagnoses Not on filedocumented in this encounter Additional Health Concerns Assessment Noted Time PHQ-9 Depression Total Score: 1 06/26/20 24 1:00 PM CDT documented as of this encounter Care Teams Literacy Coordinator Relationship Specialty Start Date End Date Yolande Aldridge MD [address] [place] [phone] PCP - General Internal Medicine 05/18/24 documented as of this encounter
--- OUTSIDE RECORDS SUMMARY | 2024-11-25 20:48 | XMS_ITS | Encounter Summary ---
Author Organization [facility] Address [address] [place] [address] Care Team Providers Care Drier Operator Helper Name Role Phone Yolande Aldridge MD Primary Care Provider [phone] Encounter Details Date Type Department Care Team (Late st Contact Info) Description 09/17/2024 Orders Only [facility] [employer] [place] [address] [place] [address] Susy Olivas, ELOINA [address] [address] [facility] [address] [place] [address] Social History Tobacco Use Types Packs/Day Years [...] st Contact Info) Description 12/24/2024 1:00 PM BOTTOM LINER Office Visit [facility] [employer] [place] [address] [place] [address] Susy Olivas, ELOINA [address] [address] [facility] [address] [place] [address] documented as of this encounter Visit Diagnoses Not on filedocumented in this encounter Additional Health Concerns Assessment Noted Time PHQ-9 Depression Total Score: 1 06/26/20 24 1:00 PM CDT documented as of this encounter Care Teams Drier Operator Helper Relationship Specialty Start Date End Date Yolande Aldridge MD [address] [place] [address] [place] [address] PCP - General Internal Medicine 05/18/24 documented as of this encounter
--- OUTSIDE RECORDS SUMMARY | 2024-11-25 20:48 | XMS_ITS | Encounter Summary ---
Author Organization [facility] Address [address] [place] [address] Care Team Providers Care Vacuum Spindle Sander Name Role Phone Deanna Bahena MD Primary Care Provider [phone] Reason for Referral * Radiology Services (Routine) - Closed Specialty Diagnoses / Procedures Referred By Contac t Referred To Contact Diagnoses Chest discomfort Procedures STRESS TEST, EXERCISE TREADMILL AR CV STRS TST XERS&/OR RX CONT ECG W/O I&R AR CV STRS TST XERS&/OR RX CONT ECG I&R ONLY Cintia Villarreal FNP NO ADDRESS ON FILE Referral ID Status Reason Start Date Expiration Date Visits Re quested Visits Authorized [id number] Closed 12/17/2022 01/17/2024 1 1 UCTION COST ESTIMATOR * Eval and Treat (Routine) - Closed Specialty Diagnoses / Procedures Referred By Contact Referred To Contact Interventional Cardiology / Cardiology Diagnoses Chest discomfort Cintia Villarreal FNP NO ADDRESS ON FILE Referral ID Status Reason Start Date Expiration Date Visits Re quested Visits Authorized [id number] Closed 12/17/2022 12/17/2023 1 1 UCTION COST ESTIMATOR Reason for Visit * Reason Comments Chest Pain (Angina) On and off for a few weeks Encounter Details Date Type Department Care Team (Late st Contact Info) Description 12/17/2022 1:30 PM PRODUCTION COST ESTIMATOR Office Visit [facility] [address] [place] [address] Cintia Villarreal FNP NO ADDRESS ON FILE Chest discomfort (Primary Dx) Social History Tobacco Use Types [...] Sign Reading Time Taken Comments Blood Pressure 134/86 12/17/2022 1:29 PM PRODUCTION COST ESTIMATOR Pulse 73 12/17/2022 1:29 PM PRODUCTION COST ESTIMATOR Temperature 36.9 ??C (98.4 ??F) 12/17/2022 1:29 PM CS T Respiratory Rate 18 12/17/2022 1:29 PM PRODUCTION COST ESTIMATOR Oxygen Saturation 96% 12/17/2022 1:29 PM PRODUCTION COST ESTIMATOR Inhaled Oxygen Concentration - - Weight 86.6 kg (191 lb) 12/17/2022 1:29 PM PRODUCTION COST ESTIMATOR Height 175.3 cm (5' 9 ) 12/17/2022 1:29 PM PRODUCTION COST ESTIMATOR Body Mass Index 28.21 12/17/2022 1:29 PM PRODUCTION COST ESTIMATOR documented in this encounter Progress Notes * Cintia Villarreal, EULA - 12/17/2022 1:56 PM CSTAssociated Order(s): EKG Post-Procedure Diagnose(s): Chest discomfort HISTORY OF PRESENT ILLNESS Kemar Bell, a 52 y.o. male presents with a chief complaint of Chief Complaint Patient presents with Chest Pain (Angina) On and off for a few weeks Subjective HPI Patient presents with: Chest pain/discomfort- he reports it has been happening off and on for the past few weeks now. Happens when he is up doing things. He states it is not a pain, maybe more of a discomfort, but just does not feel normal. Does not radiate down left arm or up into left jaw. Does reports some mild SOB time to time. No leg swelling. Discussed no strenuous activity at all. Discussed if chest pain occurs, need to present to the ER. Patient verbalized understanding. Tobacco Intervention He was counseled to discontinue tobacco use. Depression Screen Positive: PHQ-2 score >= 3 or PHQ-9 score >= 9 PHQ-2 Total: 0 (10/22/2022 10:00 AM) DEPRESSION PLAN OF CARE His depression screen was negative. Blood Pressure BP Readings from Last 3 Encounters: 12/17/22 134/86 10/22/22 132/82 05/07/22 (!) 144/82 Normal BMI Range: 18 & older: > or = 18.5 and < 25 Body mass index is 28.21 kg/m??. Abnormal high BMI: Patient counseled on lifestyle modifications including weight loss and daily exercise. This medical record reflects the history of present illness as obtained by myself in discussion with the patient. ROS Review of Systems - as above in HPI Objective PHYSICAL EXAM Physical Examination: General appearance - alert, well appearing, and in no distress and oriented to person, place, and time Mental status - alert, oriented to person, place, and time, normal mood, behavior, speech, dress, motor activity, and thought processes Chest - clear to auscultation, no wheezes, rales or rhonchi, symmetric air entry Heart - normal rate, regular rhythm, normal S1, S2, no murmurs, rubs, clicks or gallops Abdomen - soft, nontender, nondistended, no masses or organomegaly Neurological - alert, oriented, normal speech, no focal findings or movement disorder noted, motor and sensory grossly normal bilaterally, normal muscle tone, no tremors Extremities - no pedal edema noted EKG Date/Time: 12/17/2022 3:46 PM Performed by: Cintia Villarreal FNP Authorized by: Cintia Villarreal FNP Previous ECG: no previous ECG available Rhythm: sinus rhythm Rate: normal BPM: 65 Clinical impression: abnormal ECG Comments: Possible LVH Moderate inferior and left-precordial repolarization disturbance secondary to LVH, consider also ischemia Assessment ASSESSMENT AND PLAN ICD-10-CM ICD-9-CM 1. Chest discomfort R07.89 786.59 AMB REFERRAL TO CARDIOLOGY STRESS TEST, EXERCISE TREADMILL EKG No strenuous activity at all. If chest pain occurs, need to present to the ER. Patient verbalized understanding. Letter for light duties given to patient until further evaluated by cardiology. Start taking aspirin 81 mg daily. Stress test scheduled at [facility] on Tuesday12/20/21 at 1000. Will follow up on results. Patient to let us know when he then will be seeing cardiology there. Will follow up with patient early next week. Will follow up on results of fasting blood work and urine. UCTION COST ESTIMATOR documented in this encounter Plan of Treatment Upcoming Encounters Date Type Department Care Team (Late st Contact Info) Description 12/24/2024 1:00 PM PRODUCTION COST ESTIMATOR Office Visit [facility] [place] [address] [facility] [place] [id number] Susy Olivas, ANP [address] [place] [address] Scheduled Referrals Name Type Priority Associated Diagnoses Order Schedule AMB REFERRAL TO CARDIOLOGY Outpatient Referral Routine Chest discomfort Ordered: 12/17/2022 documented as of this encounter Procedures Procedure Name Priority Date/Time Associated Diagnosis Comments AR ECG ROUTINE ECG W/LEAST 12 LDS W/I&R Routine 12/17/2022 3:46 PM PRODUCTION COST ESTIMATOR Chest discomfort documented in this encounter Results * STRESS TEST, EXERCISE TREADMILL (12/30/2022) Cintia FORDE NM ORDERABLES [facility] CLIA# [id number] [address] [address] * AR ECG ROUTINE ECG W/LEAST 12 LDS W/I&R (12/17/2022 3:46 PM PRODUCTION COST ESTIMATOR) Narrative [facility] - 12/17/2022 3:46 PM PRODUCTION COST ESTIMATOR Cintia Villarreal FNP ? 12/17/2022 ??3:55 PM EKG Date/Time: 12/17/2022 3:46 PM Performed by: Cintia Villarreal FNP Authorized by: Cintia Villarreal FNP Previous ECG: no previous ECG available Rhythm: sinus rhythm Rate: normal BPM: 65 Clinical impression: abnormal ECG Comments: Possible LVH Moderate inferior and left-precordial repolarization disturbance secondary to LVH, consider also ischemia Procedure Note Cintia Villarreal FNP - 12/17/2022 1:56 PM CST HISTORY OF PRESENT ILLNESS Kemar Bell, a 52 y.o. male presents with a chief complaint of Chief Complaint Patient presents with Chest Pain (Angina) On and off for a few weeks Subjective HPI Patient presents with: Chest pain/discomfort- he reports it has been happening off and on for thepast few weeks now. Happens when he is up doing things. He states it isnot a pain, maybe more of a discomfort, but just does not feel normal.Does not radiate down left arm or up into left jaw. Does reports some mildSOB time to time. No leg swelling. Discussed no strenuous activity at all. Discussed if chest pain occurs, need to present to the ER. Patientverbalized understanding. Tobacco Intervention He was counseled to discontinue tobacco use. Depression Screen Positive: PHQ-2 score >= 3 or PHQ-9 score >= 9 PHQ-2 Total: 0 (10/22/2022 10:00 AM) DEPRESSION PLAN OF CARE His depression screen was negative. Blood Pressure BP Readings from Last 3 Encounters: 12/17/22 134/86 10/22/22 132/82 05/07/22 (!) 144/82 Normal BMI Range: 18 & older: > or = 18.5 and < 25 Body mass index is 28.21 kg/m??. Abnormal high BMI: Patient counseled on lifestyle modifications includingweight loss and daily exercise. This medical record reflects the history of present illness as obtained bymyself in discussion with the patient. ROS Review of Systems - as above in HPI Objective PHYSICAL EXAM Physical Examination: General appearance - alert, well appearing, and inno distress and oriented to person, place, and time Mental status - alert, oriented to person, place, and time, normal mood,behavior, speech, dress, motor activity, and thought processes Chest - clear to auscultation, no wheezes, rales or rhonchi, symmetric airentry Heart - normal rate, regular rhythm, normal S1, S2, no murmurs, rubs,clicks or gallops Abdomen - soft, nontender, nondistended, no masses or organomegaly Neurological - alert, oriented, normal speech, no focal findings ormovement disorder noted, motor and sensory grossly normal bilaterally,normal muscle tone, no tremors Extremities - no pedal edema noted EKG Date/Time: 12/17/2022 3:46 PM Performed by: Cintia Villarreal FNP Authorized by: Cintia Villarreal FNP Previous ECG: no previous ECG available Rhythm: sinus rhythm Rate: normal BPM: 65 Clinical impression: abnormal ECG Comments: Possible LVH Moderate inferior and left-precordial repolarization disturbance secondaryto LVH, consider also ischemia Assessment ASSESSMENT AND PLAN ICD-10-CM ICD-9-CM 1. Chest discomfort R07.89 786.59 AMB REFERRAL TO CARDIOLOGY STRESS TEST, EXERCISE TREADMILL EKG No strenuous activity at all. If chest pain occurs, need to present to the ER. Patient verbalizedunderstanding. Letter for light duties given to patient until further evaluated bycardiology. Start taking aspirin 81 mg daily. Stress test scheduled at [facility] on Tuesday12/20/21 at 1000. Will follow up on results. Patient to let us know when he then will be seeing cardiology there. Will follow up with patient early next week. Will follow up on results of fasting blood work and urine. Cintia FORDE ECG ORDERABLES Performing Organization Address City/State/[facility] Co de Phone Number [facility]# [id number] [address] [place] [address] documented in this encounter Visit Diagnoses Diagnosis Chest discomfort- Primary Other chest pain documented in this encounter Care Teams Vacuum Spindle Sander Relationship Specialty Start Date End Date Deanna Bahena MD [address] [place] [phone] PCP - General Family Practice 12/17/22 05/17/24 documented as of this encounter
--- OUTSIDE RECORDS SUMMARY | 2024-11-25 20:48 | XMS_ITS | Encounter Summary ---
Author Organization [facility] Address [address] [place] [address] Care Team Providers Care Web Services Manager Name Role Phone Deanna Bahena MD Primary Care Provider Encounter Details Date Type Department Care Team (Late st Contact Info) Description 02/04/2023 Orders Only [facility] [place] [address] [place] [address] Nini Montelongo Screening for condition Social History Tobacco Use Types Packs/Day Years [...] st Contact Info) Description 12/24/2024 1:00 PM TRACTOR CRANE OPERATOR Office Visit [facility] [place] [address] [place] [address] Susy Olivas, ANP [address] [facility] [address] [facility] [address] [place] [address] documented as of this encounter Visit Diagnoses Diagnosis Screening for condition Screening for unspecified condition documented in this encounter Care Teams Web Services Manager Relationship Specialty Start Date End Date Deanna Bahena MD [address] [place] [phone] PCP - General Family Practice 12/17/22 05/17/24 documented as of this encounter
--- OUTSIDE RECORDS SUMMARY | 2024-11-25 20:48 | XMS_ITS | Encounter Summary ---
Author Organization [facility] Address [address] [place] [address] Care Team Providers Care Formula Maker Name Role Phone Yolande Aldridge MD Primary Care Provider [phone] Encounter Details Date Type Department Care Team (Late Contact Info) Description 08/10/2024 Orders Only [facility] [address] [place] [address] Bryon Rose Nathanael Renal mass Social History Tobacco Use Types Packs/Day Years [...] as of this encounter Miscellaneous Notes * Result Encounter Note - Cassia Tee RN - 08/14/2024 10:57 AM CDT Discussed with pt by Susy Olivas at office visit 08/14/2024 documented in this encounter Plan of Treatment Upcoming Encounters Date Type Department Care Team (Late st Contact Info) Description 12/24/2024 1:00 PM GROUND PRODUCTS DIRECTOR Office Visit [facility] [place] [address] [place] [address] Susy Olivas, ANP [address] [place] [address] documented as of this encounter Procedures Procedure Name Priority Date/Time Associated Diagnosis Comments MRI ABDOMEN W WO CONTRAST Routine 08/08/2024 Renal mass documented in this encounter Results * MRI ABDOMEN W WO CONTRAST (08/08/2024) Anatomical Region Laterality Modality Abdomen Other Yolande Aldridge MD MR ORDERABLES documented in this encounter Visit Diagnoses Diagnosis Renal mass Unspecified disorder of kidney and ureter documented in this encounter Additional Health Concerns Assessment Noted Time PHQ-9 Depression Total Score: 1 06/26/20 24 1:00 PM CDT documented as of this encounter Care Teams Formula Maker Relationship Specialty Start Date End Date Yolande Aldridge MD [address] [place] [address] PCP - General Internal Medicine 05/18/24 documented as of this encounter
--- OUTSIDE RECORDS SUMMARY | 2024-11-25 20:48 | XMS_ITS | Encounter Summary ---
Author Organization [facility] Address [address] [place] [address] Care Team Providers Care Applied Computer Science Professor Name Role Phone Deanna Bahena MD Primary Care Provider Reason for Visit * Reason Onset Date Comments Needs Appointment 10/03/2023 Encounter Details Date Type Department Care Team (Late Contact Info) Description 10/03/2023 Telephone [facility] at [facility] [place] [address] [place] [address] Deanna Bahena MD [address] [place] [phone] Needs Appointment Social History Tobacco Use Types Packs/Day Years [...] Telephone Encounter - Cassia Tee RN - 10/03/2023 10:22 AM CST LM letting pt know we will need his significant other [facility] out his caregiver FMLA paperwork. I asked that pt have significant other call back to schedule. TIONAL TEACHER documented in this encounter Plan of Treatment Upcoming Encounters Date Type Department Care Team (Late st Contact Info) Description 12/24/2024 1:00 PM VOCATIONAL TEACHER Office Visit [facility] at [facility] [place] [address] [facility] [place] [address] Susy Olivas, ANP [address] [facility] [address] [place] [address] documented as of this encounter Visit Diagnoses Not on filedocumented in this encounter Care Teams Applied Computer Science Professor Relationship Specialty Start Date End Date Deanna Bahena MD [address] [place] [phone] PCP - General Family Practice 12/17/22 05/17/24 documented as of this encounter
--- OUTSIDE RECORDS SUMMARY | 2024-11-25 20:48 | XMS_ITS | Encounter Summary ---
Author Organization [facility] Address [address] [place] [address] Care Team Providers Care Isobutylene Operator Chief Name Role Phone Yolande Aldridge MD Primary Care Provider [phone] Encounter Details Date Type Department Care Team [...] st Contact Info) Description 12/24/2024 1:00 PM VICE PRESIDENT OF CONSULTING SERVICES Office Visit [facility] at Work [employer] [place] [address] [place] [address] Susy Olivas, ANP [address] [facility] [address] [address] documented as of this encounter Visit Diagnoses Not on filedocumented in this encounter Care Teams Isobutylene Operator Chief Relationship Specialty Start Date End Date Yolande Aldridge MD [address] [place] [address] PCP - General Internal Medicine 05/18/24 documented as of this encounter
--- OUTSIDE RECORDS SUMMARY | 2024-11-25 20:48 | XMS_ITS | Encounter Summary ---
Author Organization [facility] Address [address] [place] [address] Care Team Providers Care Shell Mold Bonding Machine Operator Name Role Phone Unavailable Primary Care Provider Unavailabl e Encounter Details Date Type Department Care Team (Late st Contact Info) Description 11/26/2021 3:00 PM PAPER CUP HANDLE MACHINE OPERATOR Rapid Evaluation [place] [facility] [address] [address] Social History Tobacco Use Types Packs/Day Years Used Date Smoking Tobacco: Never Assessed Sex and Gender Information Value Date Recorded Sex Assigned at Not on file Legal Sex Male 1:51 PM PAPER CUP HANDLE MACHINE OPERATOR Gender Identity Not on file Sexual Orientation Not on file documented as of this encounter Plan of Treatment Not on file documented as of this encounter Visit Diagnoses Not on filedocumented in this encounter
--- OUTSIDE RECORDS SUMMARY | 2024-11-25 20:48 | XMS_ITS | Encounter Summary ---
Author Organization [facility] Address [address] [place] [address] Care Team Providers Care Claims Director Name Role Phone Yolande Aldridge MD Primary Care Provider [phone] Reason for Visit * Reason Comments Labs Only Encounter Details Date Type Department Care Team (Late st Contact Info) Description 05/21/2024 10:00 AM CDT Office Visit [facility] at Work [employer] [place] [address] [place] [address] Screening for condition Social History Tobacco Use [...] Sign Reading Time Taken Comments Blood Pressure 138/84 05/21/2024 10:01 AM CDT Pulse - - Temperature - - Respiratory Rate - - Oxygen Saturation - - Inhaled Oxygen Concentration - - Weight 85.3 kg (188 lb) 05/21/2024 10:01 AM CDT Height 177.8 cm (5' 10 ) 05/21/2024 10:01 AM CDT Body Mass Index 26.98 05/21/2024 10:01 AM CDT documented in this encounter Progress Notes * Bryon Rose - 05/21/2024 10:10 AM CDT Patient presents for labs only, drawn from right ac, one stick. Patient tolerated well. documented in this encounter Miscellaneous Notes * Result Encounter Note - Ifrah Conrad - 05/22/2024 11:05 AM CDT Left message for pt to call back. documented in this encounter Plan of Treatment Upcoming Encounters Date Type Department Care Team (Late st Contact Info) Description 12/24/2024 1:00 PM CREDIT ANALYST Office Visit [facility] at [facility] [employer] [place] [address] [place] [address] Susy Olivas, ANP [address] [facility] Sina [address] [place] [address] documented as of this encounter Procedures Procedure Name Priority Date/Time Associated Diagnosis Comments CBC WITH DIFFERENTIAL Routine 05/21/2024 10:01 AM CDT Screening for condition TSH Routine 05/21/2024 10:01 AM CDT Screening for condition LIPID PANEL Routine 05/21/2024 10:01 AM CDT Screening for condition COMPREHENSIVE METABOLIC PANEL Routine 05/21/2024 10:01 AM CDT Screening for condition documented in this encounter Results * CBC WITH DIFFERENTIAL (05/21/2024 10:01 AM CDT) WBC 6.8 3.8 - 10.8 Thousand/u L [facility] RBC 5.01 4.20 - 5.80 Million/uL [facility] HEMOGLOBIN 13.6 13.2 - 17.1 g/dL [facility] HEMATOCRIT 41.5 38.5 - 50.0 % [facility] MCV 82.8 80.0 - 100.0 fL [facility] MCH 27.1 27.0 - 33.0 pg [facility] MCHC 32.8 32.0 - 36.0 g/dL [facility] RDW 13.9 11.0 - 15.0 % [facility] PLATELETS 252 140 - 400 Thousand/u L [facility] MPV 10.4 7.5 - 12.5 fL [facility] NEUTROPHIL ABSOLUTE 3,760 1,500 - 7,800 cells/uL [facility] LYMPHOCYTE ABSOLUTE 2,162 850 - 3,900 cells/uL [facility] MONOCYTE ABSOLUTE 564 200 - 950 cells/uL [facility] EOSINOPHIL ABSOLUTE 252 15 - 500 cells/uL [facility] BASOPHILS ABSOLUTE 61 0 - 200 cells/uL [facility] NEUTROPHIL 55.3 % [facility] LYMPHOCYTES 31.8 % [facility] MONOCYTE 8.3 % [facility] EOSINOPHILS 3.7 % [facility] BASOPHILS 0.9 % [facility] Comment: Test Performed at: [facility] [id number] [place] [address] ??[phone] Florinda Chavis MD Blood 05/21/2024 10:0 1 AM CDT 05/22/2024 4:29 AM CDT Susy Olivas ANP HEMATOLOGY ORDERABLE S [facility] [phone] [facility] [address] [place] [address] * (ABNORMAL) COMPREHENSIVE METABOLIC PANEL (05/21/2024 10:01 AM CDT) GLUCOSE 100(H) 65 - 99 mg/dL [facility] Comment: ? Fasting reference interval For someone without known diabetes, a glucose value between 100 and 125 mg/dL is consistent with prediabetes and should be confirmed with a follow-up test. BUN 13 7 - 25 mg/dL [facility] CREATININE 1.34(H) 0.70 - 1.30 mg/dL [facility] GFR 63 > OR = 60 mL/min/1.7 3m2 [facility] BUN/CREAT RATIO 10 6 - 22 (calc) [facility] SODIUM 141 135 - 146 mmol/L [facility] POTASSIUM 4.1 3.5 - 5.3 mmol/L [facility] CHLORIDE 105 98 - 110 mmol/L [facility] CO2 24 20 - 32 mmol/L [facility] CALCIUM 9.4 8.6 - 10.3 mg/dL [facility] TOTAL PROTEIN 6.9 6.1 - 8.1 g/dL [facility] ALBUMIN 4.3 3.6 - 5.1 g/dL [facility] GLOBULIN 2.6 1.9 - 3.7 g/dL (calc) [facility] ALBUMIN/GLOBULIN RATIO 1.7 1.0 - 2.5 (calc) [facility] BILIRUBIN TOTAL 0.4 0.2 - 1.2 mg/dL [facility] ALKALINE PHOSPHATASE 72 35 - 144 U/L [facility] AST 16 10 - 35 U/L [facility] ALT 14 9 - 46 U/L [facility] Comment: Test Performed at: [facility] ??[phone] Florinda Chavis MD Blood 05/21/2024 10:0 1 AM CDT 05/22/2024 4:29 AM CDT Susy Olivas [facility] CHEMISTRY ORDERABLES [facility] [phone] [facility] [address] [place] [address] * LIPID PANEL (05/21/2024 10:01 AM CDT) CHOLESTEROL 161 <200 mg/dL [facility] HDL 47 > OR = 40 mg/dL [facility] TRIGLYCERIDE 110 <150 mg/dL [facility] LDL CALCULATED 93 mg/dL (calc) [facility] Comment: Reference range: <100 Desirable range <100 mg/dL for primary prevention; ?? <70 mg/dL for patients with CHD or diabetic patients with > or = 2 CHD risk factors. LDL-C is now calculated using the Gayathri calculation, which is a validated novel method providing better accuracy than the Friedewald equation in the estimation of LDL-C. Prosper HIGGINS et al. BARBARA. 2013;310(19): 0038-2976 (http://education.olook/faq/RYN000) CHOL/HDL RATIO 3.4 <5.0 (calc) [facility] NON-HDL CHOLESTEROL 114 <130 mg/dL (calc) [facility] Comment: For patients with diabetes plus 1 major ASCVD risk factor, treating to a non-HDL-C goal of <100 mg/dL (LDL-C of <70 mg/dL) is considered a therapeutic option. Test Performed at: [facility] [address] [place] ??[phone] Florinda Chavis MD Blood 05/21/2024 10:0 1 AM CDT 05/22/2024 4:29 AM CDT Susy DUVALL CHEMISTRY ORDERABLES Performing Organization Address [facility]/ZIP Co de Phone Number [facility] [phone] [facility] [address] [place] [address] * TSH (05/21/2024 10:01 AM CDT) TSH 2.12 0.40 - 4.50 mIU/L [facility] Comment: Test Performed at: [facility] [address] [place] ??[phone] Florinda Chavis MD Blood 05/21/2024 10:0 1 AM CDT 05/22/2024 4:29 AM CDT Susy DUVALL CHEMISTRY ORDERABLES [facility] [phone] [facility] [address] [place] [address] documented in this encounter Visit Diagnoses Diagnosis Screening for condition Screening for unspecified condition documented in this encounter Care Teams Claims Director Relationship Specialty Start Date End Date Yolande Aldridge MD [address] [place] [address] PCP - General Internal Medicine 05/18/24 documented as of this encounter
--- OUTSIDE RECORDS SUMMARY | 2024-11-25 20:48 | XMS_ITS | Encounter Summary ---
Author Organization [facility] Address [address] [place] [address] Care Team Providers Care Mold Laminator Name Role Phone Yolande Aldridge MD Primary Care Provider [phone] Encounter Details Date Type Department Care Team [...] st Contact Info) Description 12/24/2024 1:00 PM DROP WIRER Office Visit [facility] at Work [employer] [address] [place] [place] [address] Susy Olivas, ANP [address] [facility] Sina [place] [facility] [address] [place] [address] documented as of this encounter Visit Diagnoses Not on filedocumented in this encounter Additional Health Concerns Assessment Noted Time PHQ-9 Depression Total Score: 1 06/26/20 24 1:00 PM CDT documented as of this encounter Care Teams Mold Laminator Relationship Specialty Start Date End Date Yolande Aldridge MD [address] [place] [address] PCP - General Internal Medicine 05/18/24 documented as of this encounter
--- OUTSIDE RECORDS SUMMARY | 2024-11-25 20:48 | XMS_ITS | Encounter Summary ---
Author Organization [facility] Address [address] [place] [address] Care Team Providers Care Project Management Name Role Phone Deanna Bahena MD Primary Care Provider [phone] Encounter Details Date Type Department Care Team (Late st Contact Info) Description 04/03/2024 External Device Data STL ABSTRACTION Provider, Abstract [...] st Contact Info) Description 12/24/2024 1:00 PM SIGNAL ENGINEER Office Visit [facility] at Work [employer] [address] [place] [address] Susy Olivas, ANP [address] [facility] [employer] [facility] [address] [place] [address] documented as of this encounter Visit Diagnoses Not on filedocumented in this encounter Care Teams Project Management Relationship Specialty Start Date End Date Deanna Bahena MD [address] [place] [address] PCP - General Family Practice 12/17/22 05/17/24 documented as of this encounter
--- OUTSIDE RECORDS SUMMARY | 2024-11-25 20:48 | XMS_ITS | Encounter Summary ---
Author Organization [facility] Address [address] [place] [address] Care Team Providers Care Instrument Repair Supervisor Name Role Phone Deanna Bahena MD Primary Care Provider [phone] Encounter Details Date Type Department Care Team (Late Contact Info) Description 06/13/2023 Orders Only [facility] [employer] [place] [address] [place] [address] Cassia Tee RN Renal abscess; Left renal mass; Renal mass Social History Tobacco Use Types [...] Miscellaneous Notes * Result Encounter Note - Deanna Bahena MD - 06/13/2023 1:01 PM CDT MRI shows a small mass and a complicated kidney cyst. Radiologist recommends repeating imaging in 6months, but I recommend he see a director reactor projects to discuss the MRI findings. I will put in a referral. documented in this encounter Plan of Treatment Upcoming Encounters Date Type Department Care Team (Late Contact Info) Description 12/24/2024 1:00 PM DRIVING INSTRUCTOR Office Visit [facility] [employer] [facility] [address] [place] [address] Susy Olivas, ANP [address] [address] [place] [address] documented as of this encounter Procedures Procedure Name Priority Date/Time Associated Diagnosis Comments MRI ABDOMEN W WO CONTRAST Routine 04/22/2023 Renal abscess Left renal mass Renal mass documented in this encounter Results * MRI ABDOMEN W WO CONTRAST (04/22/2023) Anatomical Region Laterality Modality Abdomen Other Deanna Bahena MD MR ORDERABLES documented in this encounter Visit Diagnoses Diagnosis Renal abscess Renal and perinephric abscess Left renal mass Unspecified disorder of kidney and ureter Renal mass Unspecified disorder of kidney and ureter documented in this encounter Care Teams Instrument Repair Supervisor Relationship Specialty Start Date End Date Deanna Bahena MD [address] [place] [address] PCP - General Family Practice 12/17/22 05/17/24 documented as of this encounter
--- OUTSIDE RECORDS SUMMARY | 2024-11-25 20:48 | XMS_ITS | Encounter Summary ---
Author Organization [facility] Address [address] [place] [address] Care Team Providers Care English Composition Teacher Name Role Phone Deanna Bahena MD Primary Care Provider Reason for Visit * Reason Onset Date Comments Appointment Verification 01/25/2023 Encounter Details Date Type Department Care Team (Late st Contact Info) Description 01/25/2023 Telephone [facility] [employer] [place] [address] [place] [address] Deanna Bahena MD [address] [place] [address] Appointment Verification Social History Tobacco Use Types Packs/Day Years [...] encounter Miscellaneous Notes * Telephone Encounter - Cherrie Prasad - 01/25/2023 1:47 PM CST LVM with a reminder for patients upcoming appointment on 01/26/23 at 1:30 pm at the [facility] wellness [facility]. MACIST IN CHARGE documented in this encounter Plan of Treatment Upcoming Encounters Date Type Department Care Team (Late Contact Info) Description 12/24/2024 1:00 PM PHARMACIST IN CHARGE Office Visit [facility] [employer] [place] [address] [place] [address] Susy Olivas, ANP [address] [address] [place] [address] documented as of this encounter Visit Diagnoses Not on filedocumented in this encounter Care Teams English Composition Teacher Relationship Specialty Start Date End Date Deanna Bahen[place] [address] PCP - General Family Practice 12/17/22 05/17/24 documented as of this encounter
--- OUTSIDE RECORDS SUMMARY | 2024-11-25 20:48 | XMS_ITS | Encounter Summary ---
Author Organization [facility] Address [address] [place] [address] Care Team Providers Care Pipeline Inspector Name Role Phone Yolande Aldridge MD Primary Care Provider [phone] Reason for Visit * Reason Comments Hypertension Encounter Details Date Type Department Care Team (Late st Contact Info) Description 08/14/2024 10:30 AM CDT Office Visit [facility] at Work [employer] [place] [address] [place] [address] Susy Olivas, ANP [address] [facility] [address] [place] [address] Benign hypertension (Primary Dx); Renal cyst; Benign hypertension with stage 3a chronic kidney disease; Low vitamin B12 level; Vitamin D deficiency; Prediabetes Social History Tobacco Use Types Packs/Day Years [...] Sign Reading Time Taken Comments Blood Pressure 152/90 08/14/2024 10:24 AM CDT Pulse 61 08/14/2024 10:24 AM CDT Temperature 37 ??C (98.6 ??F) 08/14/2024 10:24 AM CDT Respiratory Rate 18 08/14/2024 10:24 AM CDT Oxygen Saturation 97% 08/14/2024 10:24 AM CDT Inhaled Oxygen Concentration - - Weight 85.8 kg (189 lb 3.2 oz) 08/14/2024 10:24 AM CDT Height 177.8 cm (5' 10 ) 08/14/2024 10:24 AM CDT Body Mass Index 27.15 08/14/2024 10:24 AM CDT documented in this encounter Progress Notes * Susy Olivas, ANP - 08/14/2024 10:41 AM CDT HISTORY OF PRESENT ILLNESS Kemar Bell, a 54 y.o. male presents with a Chief Complaint of Hypertension Not remembering to take his amlodipine most days of the week. Intends to take in AM but forgets anddid not understand can take later in day. Stress is letting up slightly as mother in law passed 2 weeks ago in hospice care. Situation with his mother is unchanged. He continues to smoke 3 cigars perday. Active only at work. He feels that he could be more consistent with night time dosing if able to change. MRI abdomen in FU renal cysts. No changes in small 7 mm and 14 mm cysts on R and L renal areas. Recommend repeat again 1 yr. Discussed in detail. Labs from May reviewed. He has not yet completed other labs ordered. AIc, vit D and B 12, and repeat BMP. REVIEW OF SYSTEMS Review of Systems Constitutional: Negative for appetite change and unexpected weight change. Eyes: Negative for visual disturbance. Respiratory: Negative for chest tightness and shortness of breath. Cardiovascular: Negative for chest pain. Gastrointestinal: Negative. Endocrine: Negative. Genitourinary: Negative. Musculoskeletal: Negative for myalgias. Neurological: Negative for dizziness, speech difficulty, weakness, numbness and headaches. Psychiatric/Behavioral: Negative. Objective PHYSICAL EXAM BP (!) 152/90 (BP Location: Left arm, Patient Position (BP): Sitting) Pulse 61 Temp 98.6 ??F (37 ??C) (Tympanic) Resp 18 Ht 5' 10 (1.778 m) Wt 85.8 kg (189 lb 3.2 oz) SpO2 97% BMI 27.15 kg/m?? Physical Exam Vitals reviewed. Constitutional: Appearance: He is well-developed. HENT: Head: Normocephalic. Right Ear: Hearing normal. Left Ear: Hearing normal. Mouth/Throat: Mouth: Mucous membranes are moist. Pharynx: Oropharynx is clear. Eyes: General: Lids are normal. No scleral icterus. Conjunctiva/sclera: Conjunctivae normal. Neck: Thyroid: No thyromegaly. Cardiovascular: Rate and Rhythm: Normal rate and regular rhythm. Pulses: Normal pulses. Carotid pulses are 2+ on the right side and 2+ on the left side. Heart sounds: Normal heart sounds. No murmur heard. Pulmonary: Effort: Pulmonary effort is normal. Breath sounds: Normal breath sounds. Abdominal: Palpations: Abdomen is soft. Tenderness: There is no abdominal tenderness. Musculoskeletal: Cervical back: Neck supple. Right lower leg: No edema. Left lower leg: No edema. Lymphadenopathy: Cervical: No cervical adenopathy. Skin: General: Skin is warm. Neurological: General: No focal deficit present. Mental Status: He is alert. Psychiatric: Mood and Affect: Mood normal. Speech: Speech normal. Behavior: Behavior normal. Procedures Assessment ASSESSMENT and PLAN: 1. Benign hypertension Non compliant with medication due to AM dose time. Change to PM time. Take anytime after 6 PM and bedtime. Suggest pill box for improved reliability. Continue same medication and dose for now. Consider ARB in future. 2. Renal cyst No change on MRI. Repeat 12 months. 3. Benign hypertension with stage 3a chronic kidney disease As above. - amLODIPine (NORVASC) 5 mg tablet; Take 1 Tablet (5 mg) by mouth daily. Dispense: 30 Tablet; Refill: 0 - BASIC METABOLIC PANEL; Future 4. Low vitamin B12 level Needs checked prior to next appointment. - VITAMIN B12 LEVEL; Future 5. Vitamin D deficiency - VITAMIN D 25 HYDROXY; Future 6. Prediabetes - HEMOGLOBIN A1C; Future FOLLOW UP Return in about 4 weeks (around 09/11/2024) for HTN. Labs just prior for review. Appropriate medications prescribed and pt instructed in risks , benefits and side effects. Appropriate patient instructions provided . See details in AVS Medications and options explained to include common side effects. Understanding of medications, course, diagnosis, and expectations were expressed by patient/guardian. Pt advised to call my office in one week if not contacted with any ordered test results. ELOINA Balbuena 08/14/2024 [facility] [employer] [address] [address] Some of this encounter may have been transcribed using [employer] Naturally Speaking computerized voicerecognition without a human ambulance paramedic. This report may or may not have been adjusted for typographical or medical and syntax errors. documented in this encounter Miscellaneous Notes * Patient Instructions - Susy Olivas ANP - 08/14/2024 10:52 AM CDT Start taking medication late in the day -- anytime after 6 PM is ok. Labs before your next visit a few days. Will review at appointment. 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 Office Visit [facility] at Work [employer] [place] [address] [place] [address] Susy Olivas ANP [address] [address] [facility] [address] [place] [address] documented as of this encounter Results * VITAMIN B12 LEVEL (09/13/2024 1:23 PM CDT) VITAMIN B12 302 200 - 1100 pg/mL [facility] Comment: Please Note: Although the reference range for vitamin B12 is 200-1100 pg/mL, it has been reported that between 5 and 10% of patients with values between 200 and 400 pg/mL may experience neuropsychiatric and hematologic abnormalities due to occult B12 deficiency; less than 1% of patients with values above 400 pg/mL will have symptoms. Test Performed at: [facility] [address] ??[phone] Florinda Chavis MD Blood 09/13/2024 1:23 PM CDT 09/14/2024 5:56 AM CDT Susy Olivas ANP CHEMISTRY ORDERABLES Performing Organization Address City/[facility]/ZIP Co de Phone Number [facility] [phone] [facility] [address] * (ABNORMAL) VITAMIN D 25 HYDROXY (09/13/2024 1:23 PM CDT) VITAMIN D, 25 OH, TOTAL 17(L) 30 - 100 ng/mL [facility] Comment: Vitamin D Status ? 25-OH Vitamin D: Deficiency: ?<20 ng/mL Insufficiency: ? 20 - 29 ng/mL Optimal: ? > or = 30 ng/mL For 25-OH Vitamin D testing on patients on D2-supplementation and patients for whom quantitation of D2 and D3 fractions is required, the [facility]) 25-OH VIT D, (D2,D3), LC/MS/MS is recommended: order code 30968 (patients >2yrs). See Note 1 Note 1 For additional information, please refer to http://education.Machinima/faq/EJL679 (This link is being provided for informational/ educational purposes only.) Test Performed at: [facility] ??[phone] Florinda Chavis MD Blood 09/13/2024 1:23 PM CDT 09/14/2024 5:56 AM CDT Susy Olivas ANP CHEMISTRY ORDERABLES Performing Organization Address City/[facility] Co de Phone Number [facility] [phone] [facility] [employer] [facility] [facility] [address] * (ABNORMAL) HEMOGLOBIN A1C (09/13/2024 1:23 PM CDT) HEMOGLOBIN A1C 6.1(H) <5.7 % of total Hgb [facility] Comment: For someone without known diabetes, [...] ESTIMATED AVERAGE GLUCOSE (MMOL/L) 7.1 mmol/L [facility] Comment: Test Performed at: [facility] [address] [place] ??[phone] Florinda Chavis MD Blood 09/13/2024 1:23 PM CDT 09/14/2024 5:56 AM CDT Susy Olivas [facility] CHEMISTRY ORDERABLES [facility] [phone] [facility] [address] [place] [address] * BASIC METABOLIC PANEL (09/13/2024 1:23 PM CDT) GLUCOSE 76 65 - 99 mg/dL [facility] Comment: ? Fasting reference interval BUN [...] [facility] Comment: Test Performed at: [facility] [address] [place] ??[phone] Florinda Chavis MD Blood 09/13/2024 1:23 PM CDT 09/14/2024 5:56 AM CDT Susy Eve Olivas [facility] CHEMISTRY ORDERABLES [facility] [phone] [facility] [address] [place] [address] documented in this encounter Visit Diagnoses Diagnosis Benign hypertension- Primary Essential hypertension, benign Renal cyst Unspecified congenital cystic kidney disease Benign hypertension with stage 3a chronic kidney disease Low vitamin B12 level Other B-complex deficiencies Vitamin D deficiency Unspecified vitamin D deficiency Prediabetes Other abnormal glucose documented in this encounter Additional Health Concerns Assessment Noted Time PHQ-9 Depression Total Score: 1 06/26/20 24 1:00 PM CDT documented as of this encounter Care Teams Pipeline Inspector Relationship Specialty Start Date End Date Yolande Aldridge MD [address] [place] [address] PCP - General Internal Medicine 05/18/24 documented as of this encounter
--- OUTSIDE RECORDS SUMMARY | 2024-11-25 20:48 | XMS_ITS | Encounter Summary ---
Author Organization [employer] Address [address] [place] [address] Care Team Providers Care Motion Picture Actor Name Role Phone Deanna Bahena MD Primary Care Provider [phone] Reason for Visit * Reason Onset Date Comments Elevated Blood Pressure 01/03/2023 Encounter Details Date Type Department Care Team (Late st Contact Info) Description 01/03/2023 Telephone [facility] at [facility] [place] [address] [place] [address] Deanna Bahena MD [address] [place] [phone] Elevated Blood Pressure Social History Tobacco Use Types Packs/Day Years [...] encounter Miscellaneous Notes * Telephone Encounter - Deanna Bahena MD - 01/04/2023 10:04 AM CST Please schedule him a visit to get him on bp me K TRACER * Telephone Encounter - Nini Montelongo - 01/03/2023 11:20 AM CST Pt has not checked his BP at home just feels like it has been high all weekend, he is going to stopby here to have his BP checked before he goes into work today. K TRACER * Telephone Encounter - Nini Montelongo - 01/03/2023 10:53 AM CST Pt had stress test done 12/30/2022 at [facility] but was unable to complete the test because his BP was elevated. I have sent off for the results. Pt states that BP has been elevated all weekend.(Have a message left for them to call me back with the readings) Is going to call and get an appointment set up with a computer lab assistant today. Pt is also asking if the issues he is having is from a heart murmer he had when he was younger? K TRACER documented in this encounter Plan of Treatment Upcoming Encounters Date Type Department Care Team (Late st Contact Info) Description 12/24/2024 1:00 PM STOCK TRACER Office Visit [facility] at Work [place] [address] [place] [address] Susy Olivas, ANP [address] [facility] [address] [place] [address] documented as of this encounter Visit Diagnoses Not on filedocumented in this encounter Care Teams Motion Picture Actor Relationship Specialty Start Date End Date Deanna Bahena MD [address] [place] [address] PCP - General Family Practice 12/17/22 05/17/24 documented as of this encounter
--- OUTSIDE RECORDS SUMMARY | 2024-11-25 20:48 | XMS_ITS | Encounter Summary ---
Author Organization [facility] Address [address] [place] [address] Care Team Providers Care Central Office Maintainer Name Role Phone Yolande Aldridge MD Primary Care Provider Reason for Visit * Reason Comments Hypertension Encounter Details Date Type Department Care Team (Late st Contact Info) Description 09/13/2024 1:00 PM CDT Office Visit [facility] at Work [facility] [place] [address] [place] [address] Susy Olivas, ANP [address] [place] [address] [place] [address] Benign hypertension with stage 3a chronic kidney disease (Primary Dx); Low vitamin B12 level; Prediabetes; Vitamin D deficiency; Tobacco abuse Social History Tobacco Use Types Packs/Day Years [...] Mass Index 27.41 09/13/2024 1:04 PM CDT documented in this encounter Progress Notes * Susy Olivas, ANP - 09/13/2024 1:00 PM CDT HISTORY OF PRESENT ILLNESS Kemar Bell, a 54 y.o. male presents with a Chief Complaint of Hypertension Benign hypertension with stage 3a chronic kidney disease-- Better with taking medication daily. Has pill box in his car and takes it when coming in to work. Sometimes misses one weekend day. He continues to smoke and is not ready to quit. Reports mild OA pain of hips and knees. Unchanged in many years. No current treatment. He does not like to take medications. REVIEW OF SYSTEMS Review of Systems Constitutional: Negative for appetite change and unexpected weight change. HENT: Negative for facial swelling. Eyes: Negative for visual disturbance. Respiratory: Negative. Negative for chest tightness and shortness of breath. Cardiovascular: Negative. Negative for chest pain. Gastrointestinal: Negative. Endocrine: Negative. Genitourinary: Negative. Musculoskeletal: Positive for arthralgias. Negative for myalgias. Neurological: Negative for dizziness, speech difficulty, weakness, numbness and headaches. Psychiatric/Behavioral: Negative. Objective PHYSICAL EXAM BP (!) 162/92 (BP Location: Right arm, Patient Position (BP): Sitting, BP Cuff Size: Adult) Pulse68 Temp 97.8 ??F (36.6 ??C) (Tympanic) Resp 18 Ht 5' 10 (1.778 m) Wt 86.6 kg (191 lb) SpO2 97% BMI 27.41 kg/m?? Physical Exam Vitals reviewed. Constitutional: General: He is not in acute distress. HENT: Head: Normocephalic. Cardiovascular: Rate and Rhythm: Normal rate and regular rhythm. Heart sounds: Normal heart sounds. No murmur heard. Pulmonary: Effort: Pulmonary effort is normal. Breath sounds: Normal breath sounds. Neurological: General: No focal deficit present. Mental Status: He is alert. Psychiatric: Mood and Affect: Mood normal. Procedures Assessment ASSESSMENT and PLAN: 1. Benign hypertension with stage 3a chronic kidney disease-- uncontrolled. Recommended change to ARB. Pt is willing to increase dose of current medication but not change medications. Will increase amlodipine to 10 mg daily. Praised his compliance efforts. Discussed uncontrolled hypertension leads to [place], CVA, physical disability. - amLODIPine (NORVASC) 10 mg tablet; Take 1 Tablet (10 mg) by mouth daily. Dispense: 90 Tablet; Refill: 0 - BASIC METABOLIC PANEL 2. Low vitamin B12 level Get labs ordered last appointment. - VITAMIN B12 LEVEL 3. Prediabetes - HEMOGLOBIN A1C 4. Vitamin D deficiency - VITAMIN D 25 HYDROXY 5. Tobacco abuse Enc cut back to cessation. No ready to consider. FOLLOW UP Return in about 3 months (around 12/14/2024) for HTN. Appropriate medications prescribed and pt instructed in risks , benefits and side effects. Appropriate patient instructions provided . See details in AVS Medications and options explained to include common side effects. Understanding of medications, course, diagnosis, and expectations were expressed by patient/guardian. Pt advised to call my office in one week if not contacted with any ordered test results. ELOINA Balbuena 09/13/2024 [facility] AT [address] [address] Some of this encounter may have been transcribed using [employer] computerized voicerecognition without a human tub rider. This report may or may not have been adjusted for typographical or medical and syntax errors. documented in this encounter Miscellaneous Notes * Result Encounter Note - Cassia Tee RN - 09/18/2024 8:51 AM CDT Spoke to Meghann, pt's significant other listed on PHI form, giving this information. Meghann will have Kemar fiber picker the vitamin d prescription from the [facility]. * Result Encounter Note - Cassia Tee RN - 09/18/2024 8:47 AM CDT Tried contacting pt to discuss. No answer, VM not set up so unable to leave a message * Result Encounter Note - Susy Olivas ANP - 09/17/2024 3:50 PM CDT Contact patient regarding result. Kidney function is improved. BLood pressure control helps this . Continue current BP medication daily. Blood sugar is in prediabetic range. Try to limit eating processed, high sugar foods and drinks, like soda, candy, sweets, bakery things. Vit D is low. Recommend weekly vitamin D prescription for 12 weeks. AND start taking daily Vit D 2000 units. 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 * Patient Instructions - Susy Olivas ANP - 09/13/2024 1:21 PM CDT Continue once daily amlodipine but at 10 mg daily dose. Labs today. documented in this encounter Plan of Treatment Upcoming Encounters Date Type Department Care Team (Late st Contact Info) Description 12/24/2024 1:00 PM ENVIRONMENT [employer] Office Visit [facility] at [facility] [place] [address] [place] [address] Susy Olivas ANP [address] [facility] [address] [facility] [address] [place] [address] documented as of this encounter Procedures Procedure Name Priority Date/Time Associated Diagnosis Comments VITAMIN D 25 HYDROXY Routine 09/13/2024 1:23 PM CDT Vitamin D deficiency HEMOGLOBIN A1C Routine 09/13/2024 1:23 PM CDT Prediabetes VITAMIN B12 LEVEL Routine 09/13/2024 1:2 3 PM CDT Low vitamin B12 level BASIC METABOLIC PANEL Routine 09/13/2024 1:23 PM CDT Benign hypertension with stage 3a chronic kidney disease documented in this encounter Results * (ABNORMAL) VITAMIN D 25 HYDROXY (09/13/2024 1:23 PM CDT) VITAMIN D, 25 OH, TOTAL 17(L) 30 - 100 ng/mL [facility] Comment: Vitamin D Status ? 25-OH Vitamin D: Deficiency: ?<20 ng/mL Insufficiency: ? 20 - 29 ng/mL Optimal: ? > or = 30 ng/mL For 25-OH Vitamin D testing on patients on D2-supplementation and patients for whom quantitation of D2 and D3 fractions is required, the Quest[facility]ure[facility](TM) 25-OH VIT D, (D2,D3), LC/MS/MS is recommended: order code 50138 (patients >2yrs). See Note 1 Note 1 For additional information, please refer to http://education.[employer]/faq/NIP548 (This link is being provided for informational/ educational purposes only.) Test Performed at: [facility] [address] [place], [place] ??[phone] Florinda Chavis MD Blood 09/13/2024 1:23 PM CDT 09/14/2024 5:56 AM CDT Susy Olivas [facility] CHEMISTRY ORDERABLES [facility] [phone] [facility] [address] [place] [address] * (ABNORMAL) HEMOGLOBIN A1C (09/13/2024 1:23 PM CDT) Pathologist [facility] HEMOGLOBIN A1C 6.1(H) <5.7 % of total Hgb [facility] Comment: For someone without known diabetes, [...] ESTIMATED AVERAGE GLUCOSE (MMOL/L) 7.1 mmol/L [facility] Comment: Test Performed at: [facility] [address] [place], [place] ??[address] Florinda Chavis MD Blood 09/13/2024 1:23 PM CDT 09/14/2024 5:56 AM CDT Susy Olivas [facility] CHEMISTRY ORDERABLES [facility] [phone] [facility] [address] * BASIC METABOLIC PANEL (09/13/2024 1:23 PM CDT) GLUCOSE 76 65 - 99 mg/dL [facility] Comment: ? Fasting reference interval BUN 15 7 - 25 mg/dL [facility] CREATININE 1.22 0.70 - 1.30 mg/dL [facility] GFR 71 > OR = 60 mL/min/1.7 3m2 [facility] BUN/CREAT RATIO SEE NOTE: 6 - 22 (calc) [facility] Comment: ?? Not [...] [facility] Comment: Test Performed at: [facility] ??[phone] Florinda Chavis MD Blood 09/13/2024 1:23 PM CDT 09/14/2024 5:56 AM CDT Susy Olivas ANP CHEMISTRY ORDERABLES Performing Organization Address [facility] de Phone Number [facility] [phone] [facility] [address] * VITAMIN B12 LEVEL (09/13/2024 1:23 PM CDT) VITAMIN B12 302 200 - 1100 pg/mL [facility] Comment: Please Note: Although the reference range for vitamin B12 is 200-1100 pg/mL, it has been reported that between 5 and 10% of patients with values between 200 and 400 pg/mL may experience neuropsychiatric and hematologic abnormalities due to occult B12 deficiency; less than 1% of patients with values above 400 pg/mL will have symptoms. Test Performed at: [facility] ??[phone] Florinda Chavis MD Blood 09/13/2024 1:23 PM CDT 09/14/2024 5:56 AM CDT Susy Olivas ANP CHEMISTRY ORDERABLES Performing Organization Address [facility] Co de Phone Number [facility] [phone] [facility] [address] documented in this encounter Visit Diagnoses Diagnosis Benign hypertension with stage 3a chronic kidney disease- Primary Low vitamin B12 level Other B-complex deficiencies Prediabetes Other abnormal glucose Vitamin D deficiency Unspecified vitamin D deficiency Tobacco abuse Tobacco use disorder documented in this encounter Additional Health Concerns Assessment Noted Time PHQ-9 Depression Total Score: 1 06/26/20 24 1:00 PM CDT documented as of this encounter Care Teams Central Office Maintainer Relationship Specialty Start Date End Date Yolande Aldridge MD [address] [place] [address] [place] [address] PCP - General Internal Medicine 05/18/24 documented as of this encounter
--- OUTSIDE RECORDS SUMMARY | 2024-11-25 20:48 | XMS_ITS | Encounter Summary ---
Author Organization [facility] Address [address] [place] [address] Care Team Providers Care Bar Useful Or Busser Name Role Phone Deanna Bahena MD Primary Care Provider [phone] Reason for Visit * Reason Comments Labs Only Encounter Details Date Type Department Care Team (Latest Contact Info) Description 12/21/2022 9:40 AM RUBBER BELT SPLICER Procedure visit [facility] at [employer] [employer] [place] [address] [place] [address] Screening for condition Social History [...] on file documented as of this encounter Progress Notes * Nini Montelongo - 12/21/2022 9:42 AM CST Pt came in for blood draw, left AC successful, 1 stick pt tolerated well. Drawn by Elif WONG. Pt states he had to cancel his stress test yesterday and he rescheduled for 12/30/2022 ER BELT SPLICER documented in this encounter Miscellaneous Notes * Result Encounter Note - Nini Montelongo - 12/23/2022 11:32 AM CST Spoke to pt giving him this information, pt states he would like to get a print out of this message. 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 > Your triglycerides are high. You need to decrease intake of carbs-past, rice, potatoes, white bread, soda, and alcohol. Choose whole grain alternatives. Increase exercise. Will need to recheck in 3 months. If still elevated will need to discuss medication treatment options. > Your A1c shows that you are in the prediabetes range now. You need to watch what you eat and adhere to a low carbohydrate diet. You need to increase exercise to get at least 150 minutes per weekof moderate-intensity aerobic activity. Need to recheck in 3 months. > Your vitamin d is markedly low in the deficient range. I will send a weekly prescription to your pharmacy. Please take this once a week for 8 weeks. Then take over the counter vitamin d at 2000 units daily. We can then recheck the level in 2-3 months. > Your vitamin B12 is on the low side of normal. I recommend you take over the counter B12 1000 mcg daily. Can recheck in 3 months as well. Please schedule repeat lab appointment now. Cintia Summers NP ER BELT SPLICER documented in this encounter Plan of Treatment Upcoming Encounters Date Type Department Care Team (Late st Contact Info) Description 12/24/2024 1:00 PM RUBBER BELT SPLICER Office Visit [facility] at [facility] [employer] [place] [address] [facility] [place] [address] Susy Olivas, ANP [address] [facility] Sina Cooper [facility] [address] [place] [address] documented as of this encounter Procedures Procedure Name Priority Date/Time Associated Diagnosis Comments MICROALBUMIN/CREATININ E RATIO, RANDOM UR Routine 12/21/2022 9:35 AM RUBBER BELT SPLICER Screening for condition IRON, TIBC, AND PERCENT SATURATION Routine 12/21/2022 9:35 AM RUBBER BELT SPLICER Screening for condition CBC WITH DIFFERENTIAL Routine 12/21/2022 9:35 AM RUBBER BELT SPLICER Screening for condition VITAMIN D 25 HYDROXY Routine 12/21/2022 9:35 AM RUBBER BELT SPLICER Screening for condition URINALYSIS W/REFLEX MICROSCOPIC Routine 12/21/2022 9:35 AM RUBBER BELT SPLICER Screening for condition TSH Routine 12/21/2022 9:35 AM RUBBER BELT SPLICER Screening for condition T4 FREE Routine 12/21/2022 9:35 AM RUBBER BELT SPLICER Screening for condition HEMOGLOBIN A1C Routine 12/21/2022 9:35 AM RUBBER BELT SPLICER Screening for condition FERRITIN Routine 12/21/2022 9:35 AM RUBBER BELT SPLICER Screening for condition VITAMIN B12 LEVEL Routine 12/21/2022 9:3 5 AM RUBBER BELT SPLICER Screening for condition LIPID PANEL Routine 12/21/2022 9:35 AM RUBBER BELT SPLICER Screening for condition COMPREHENSIVE METABOLIC PANEL Routine 12/21/2022 9:35 AM RUBBER BELT SPLICER Screening for condition documented in this encounter Results * (ABNORMAL) CBC WITH DIFFERENTIAL (12/21/2022 9:35 AM RUBBER BELT SPLICER) WBC 8.4 3.8 - 10.8 Thousand/u L [facility] RBC 5.11 4.20 - 5.80 Million/uL [facility] HEMOGLOBIN 13.6 13.2 - 17.1 g/dL [facility] HEMATOCRIT 40.8 38.5 - 50.0 % [facility] MCV 79.8(L) 80.0 - 100.0 fL [facility] MCH 26.6(L) 27.0 - 33.0 pg [facility] MCHC 33.3 32.0 - 36.0 g/dL [facility] RDW 13.3 11.0 - 15.0 % [facility] PLATELETS 289 140 - 400 Thousand/u L [facility] MPV 10.4 7.5 - 12.5 fL [facility] NEUTROPHIL ABSOLUTE 4,528 1,500 - 7,800 cells/uL [facility] LYMPHOCYTE ABSOLUTE 2,612 850 - 3,900 cells/uL [facility] MONOCYTE ABSOLUTE 739 200 - 950 cells/uL [facility] EOSINOPHIL ABSOLUTE 420 15 - 500 cells/uL [facility] BASOPHILS ABSOLUTE 101 0 - 200 cells/uL [facility] NEUTROPHIL 53.9 % [facility] LYMPHOCYTES 31.1 % [facility] MONOCYTE 8.8 % [facility] EOSINOPHILS 5.0 % [facility] BASOPHILS 1.2 % [facility] Comment: Test Performed at: [facility] ??[address] Florinda Chavis MD Blood 12/21/2022 9:35 AM RUBBER BELT SPLICER 12/22/2022 3:16 AM RUBBER BELT SPLICER Cintia Villarreal BLOCKER [employer]ATED METAL FORMS HEMATOLOGY ORD ERABLES [facility] [phone] [facility] [address] [place] [address] * COMPREHENSIVE METABOLIC PANEL (12/21/2022 9:35 AM RUBBER BELT SPLICER) GLUCOSE 99 65 - 99 mg/dL [facility] Comment: ? Fasting reference interval BUN 13 7 - 25 mg/dL [facility] CREATININE 1.18 0.70 - 1.30 mg/dL [facility] GFR 75 > OR = 60 mL/min/1. 73m2 [facility] Comment: The eGFR is based on the CKD-EPI 2020 equation. To calculate the new eGFR from a previous Creatinine or Cystatin C result, go to https://www.kidney.org/professionals/ kdoqi/gfr%5Fcalculator BUN/CREAT RATIO NOT APPLICABLE 6 - 22 (calc) [facility] SODIUM 143 135 - 146 mmol/L [facility] POTASSIUM 4.4 3.5 - 5.3 mmol/L [facility] CHLORIDE 107 98 - 110 mmol/L [facility] CO2 28 20 - 32 mmol/L [facility] CALCIUM 9.4 8.6 - 10.3 mg/dL [facility] TOTAL PROTEIN 7.3 6.1 - 8.1 g/dL [facility] ALBUMIN 4.5 3.6 - 5.1 g/dL [facility] GLOBULIN 2.8 1.9 - 3.7 g/dL (calc) [facility] ALBUMIN/GLOBULI N RATIO 1.6 1.0 - 2.5 (calc) [facility] BILIRUBIN TOTAL 0.3 0.2 - 1.2 mg/dL [facility] ALKALINE PHOSPHATASE 79 35 - 144 U/L [facility] AST 17 10 - 35 U/L [facility] ALT 12 9 - 46 U/L [facility] Comment: Test Performed at: [facility] [address] [place], [place] ??[address] Florinda Chavis MD Blood 12/21/2022 9:35 AM RUBBER BELT SPLICER 12/22/2022 3:16 AM RUBBER BELT SPLICER Cintia Villarreal [facility] CHEMISTRY ORDE ROOSEV[place]T [facility] Organization Address City/State/ZIP Co de Phone Number [facility] [phone] [facility] [address] [place] [address] * (ABNORMAL) HEMOGLOBIN A1C (12/21/2022 9:35 AM RUBBER BELT SPLICER) HEMOGLOBIN A1C 5.7(H) <5.7 % of total Hgb [facility] [...] diabetes for children. ESTIMATED AVERAGE GLUCOSE (MG/DL) 117 mg/dL [facility] ESTIMATED AVERAGE GLUCOSE (MMOL/L) 6.5 mmol/L [facility] Comment: Test Performed at: [facility] [address] [place], [place] ??[address] Florinda Chavis MD Blood 12/21/2022 9:35 AM RUBBER BELT SPLICER 12/22/2022 3:16 AM RUBBER BELT SPLICER Cintia Villarreal [facility] CHEMISTRY [place]DE [place] [facility] [phone] [facility] [address] [place] [address] * (ABNORMAL) LIPID PANEL (12/21/2022 9:35 AM RUBBER BELT SPLICER) CHOLESTEROL 165 <200 mg/dL [facility] HDL 40 > OR = 40 mg/dL [facility] TRIGLYCERIDE 302(H) <150 mg/dL [facility] Comment: If a non-fasting specimen was collected, consider repeat triglyceride testing on a fasting specimen if clinically indicated. Lukas et al. J. of Clin. Lipidol. 2015;9:129-169. LDL CALCULATED 89 mg/dL (calc) [facility] Comment: Reference range: <100 Desirable range <100 mg/dL for primary prevention; ?? <70 mg/dL for patients with CHD or diabetic patients with > or = 2 CHD risk factors. LDL-C is now calculated using the Gayathri calculation, which is a validated novel method providing better accuracy than the Friedewald equation in the estimation of LDL-C. Prosper HIGGINS et al. BARBARA. 2013;310(19): 2128-8011 (http://education.JNS Towers.Transaq/faq/BYJ059) CHOL/HDL RATIO 4.1 <5.0 (calc) [facility] TOTAL NON-HDL CHOL(LDL+VLDL) 125 <130 mg/dL (calc) [facility] Comment: For patients with diabetes plus 1 major ASCVD risk factor, treating to a non-HDL-C goal of <100 mg/dL (LDL-C of <70 mg/dL) is considered a therapeutic option. Test Performed at: [facility] ??[address] Florinda Chavis MD Blood 12/21/2022 9:35 AM RUBBER BELT SPLICER 12/22/2022 3:16 AM RUBBER BELT SPLICER Cintia Villarreal [facility] CHEMISTRY [place]DE [place] [facility] [phone] [address] * MICROALBUMIN/CREATININE RATIO, RANDOM UR (12/21/2022 9:35 AM RUBBER BELT SPLICER) Creatinine, Urine 241 20 - 320 mg/dL [facility] MICROALBUMIN, URINE 2.1 See Note: mg/dL [facility] Comment: Reference Range: Reference Range Not established MICROALBUMIN/CREAT RATIO, UR 9 <30 mcg/mg creat [facility] Comment: The ADA defines abnormalities in albumin excretion as follows: Albuminuria Category ?Result (mcg/mg creatinine) Normal to Mildly increased ?? <30 Moderately increased ? 30-299 Severely increased ? > OR = 300 The ADA recommends that at least two of three specimens collected within a 3-6 month period be abnormal before considering a patient to be within a diagnostic category. Test Performed at: [facility] ??[address] Florinda Chavis MD Urine URINE SPECIMEN OBTAINED BY CLEAN CATCH PROCEDURE / Unknown 12/21/2022 9:35 AM RUBBER BELT SPLICER 12/22/2022 3:14 AM RUBBER BELT SPLICER Cintia STEWARTP URINE ORDERABL ES [facility] [phone] [facility] [address] * T4 FREE (12/21/2022 9:35 AM RUBBER BELT SPLICER) Pathologist [facility] T4 FREE 1.1 0.8 - 1.8 ng/dL [facility] Comment: Test Performed at: [employer] ??[address] Florinda Chavis MD Blood 12/21/2022 9:35 AM RUBBER BELT SPLICER 12/22/2022 3:16 AM RUBBER BELT SPLICER Cintia STEWARTP CHEMISTRY ORDKarina ALBERT Performing Organization Address City/[facility]/ZIP Co de Phone Number [facility] [phone] [facility] [address] [address] * TSH (12/21/2022 9:35 AM RUBBER BELT SPLICER) [facility] TSH 1.99 0.40 - 4.50 mIU/L [facility] Comment: Test Performed at: [facility] ??[address] Florinda Chavis MD Blood 12/21/2022 9:35 AM RUBBER BELT SPLICER 12/22/2022 3:16 AM RUBBER BELT SPLICER Cintia Villarreal [facility] CHEMISTRY ORDKarina ALBERT [facility] [phone] [facility] [address] [address] * VITAMIN B12 LEVEL (12/21/2022 9:35 AM RUBBER BELT SPLICER) Pathologist [facility] VITAMIN B12 307 200 - 1100 pg/mL [facility] Comment: Please Note: Although the reference range for vitamin B12 is 200-1100 pg/mL, it has been reported that between 5 and 10% of patients with values between 200 and 400 pg/mL may experience neuropsychiatric and hematologic abnormalities due to occult B12 deficiency; less than 1% of patients with values above 400 pg/mL will have symptoms. Test Performed at: [facility] ??[address] Florinda Chavis MD Blood 12/21/2022 9:35 AM RUBBER BELT SPLICER 12/22/2022 3:16 AM RUBBER BELT SPLICER Cintia Villarreal [facility] CHEMISTRY ARLEEN ALBERT [facility] [phone] [employer] [facility] [address] * (ABNORMAL) VITAMIN D 25 HYDROXY (12/21/2022 9:35 AM RUBBER BELT SPLICER) Pathologist [facility] VITAMIN D, 25 OH, TOTAL 10(L) 30 - 100 ng/mL [facility] Comment: Vitamin D Status ? 25-OH Vitamin D: Deficiency: ?<20 ng/mL Insufficiency: ? 20 - 29 ng/mL Optimal: ? > or = 30 ng/mL For 25-OH Vitamin D testing on patients on D2-supplementation and patients for whom quantitation of D2 and D3 fractions is required, the [facility]() 25-OH VIT D, (D2,D3), LC/MS/MS is recommended: order code 75687 (patients >2yrs). See Note 1 Note 1 For additional information, please refer to http://education.Mosaic/faq/YZS584 (This link is being provided for informational/ educational purposes only.) Test Performed at: [facility] [address] [place] [address] ??[phone] Florinda Chavis MD Blood 12/21/2022 9:35 AM RUBBER BELT SPLICER 12/22/2022 3:16 AM RUBBER BELT SPLICER Cintia Villarreal [facility] CHEMISTRY ORDE RABLES Performing Organization Address [facility] [[email or web address]] Co de Phone Number [facility] [phone] [facility] [address] [place] [address] * (ABNORMAL) URINALYSIS WITH REFLEX MICROSCOPIC (12/21/2022 9:35 AM RUBBER BELT SPLICER) COLOR UA YELLOW YELLOW [facility] CLARITY UA CLEAR CLEAR [facility] SPECIFIC GRAVITY UA 1.020 1.001 - 1.035 [facility] PH UA 6.0 5.0 - 8.0 [facility] GLUCOSE UA NEGATIVE NEGATIVE [facility] BILIRUBIN UA NEGATIVE NEGATIVE [facility] KETONES UA TRACE(A) NEGATIVE [facility] BLOOD UA NEGATIVE NEGATIVE [facility] PROTEIN UA NEGATIVE NEGATIVE [facility] NITRITE UA NEGATIVE NEGATIVE [facility] LEUKOCYTE ESTERASE UA NEGATIVE NEGATIVE [facility] Comment: Test Performed at: [facility] [address] [place], [place] ??[address] Florinda Chavis MD Urine URINE SPECIMEN OBTAINED BY CLEAN CATCH PROCEDURE / Unknown 12/21/2022 9:35 AM RUBBER BELT SPLICER 12/22/2022 3:14 AM RUBBER BELT SPLICER Cintia Villarreal [facility] URINE ORDERABL ES Performing Organization Address [facility] [[email or web address]] Co de Phone Number [facility] [phone] [facility] [address] [place] [address] * IRON, TIBC, AND PERCENT SATURATION (12/21/2022 9:35 AM RUBBER BELT SPLICER) IRON 69 50 - 180 mcg/dL [facility] TIBC 350 250 - 425 mcg/dL (calc) [facility] IRON % SATURATION 20 20 - 48 % (calc) [facility] Comment: Test Performed at: [facility] [address] [place] ??[address] Florinda Chavis MD Blood 12/21/2022 9:35 AM RUBBER BELT SPLICER 12/22/2022 3:16 AM RUBBER BELT SPLICER Cintia STEWARTP CHEMISTRY ARLEEN ALBERT [facility] [phone] [facility] [address] [place] [address] [place] [address] * FERRITIN (12/21/2022 9:35 AM RUBBER BELT SPLICER) FERRITIN 176 38 - 380 ng/mL [facility] Comment: Test Performed at: [facility] [address] [place] [address] ??[phone] Florinda Chavis MD Blood 12/21/2022 9:35 AM RUBBER BELT SPLICER 12/22/2022 3:16 AM RUBBER BELT SPLICER Cintia FORDE CHEMISTRY ARLEEN ALBERT [facility] [phone] [facility] [address] documented in this encounter Visit Diagnoses Diagnosis Screening for condition Screening for unspecified condition documented in this encounter Care Teams Bar Useful Or Busser Relationship Specialty Start Date End Date Deanna Bahena MD [address] [place] [address] PCP - General Family Practice 12/17/22 05/17/24 documented as of this encounter
--- OUTSIDE RECORDS SUMMARY | 2024-11-25 20:48 | XMS_ITS | Encounter Summary ---
Author Organization [facility] Address [address] [place] [address] Care Team Providers Care Clearing Supervisor Name Role Phone Deanna Bahena MD Primary Care Provider [phone] Encounter Details Date Type Department Care Team (Late Contact Info) Description 01/03/2023 Orders Only [facility] [employer] [place] [address] [place] [address] Cassia Tee RN Chest discomfort Social History Tobacco Use Types Packs/Day Years [...] Miscellaneous Notes * Result Encounter Note - Cintia Villarreal FNP - 01/06/2023 7:23 AM EMBEDDED SOFTWARE TEST ENGINEER You need to follow up with cardiology and here. Thanks! DDED SOFTWARE TEST ENGINEER documented in this encounter Plan of Treatment Upcoming Encounters Date Type Department Care Team (Late st Contact Info) Description 12/24/2024 1:00 PM EMBEDDED SOFTWARE TEST ENGINEER Office Visit [facility] [employer] [place] [address] [place] [address] Susy Olivas, ANP [address] [place] [address] documented as of this encounter Procedures Procedure Name Priority Date/Time Associated Diagnosis Comments STRESS TEST EXERCISE TREADMILL Routine 12/30/2022 Chest discomfort documented in this encounter Results * STRESS TEST, EXERCISE TREADMILL (12/30/2022) Cintia FORDE NM ORDERABLES Performing Organization Address City/State/[facility] Co de Phone Number [facility]# [id number] [address] [place] [address] documented in this encounter Visit Diagnoses Diagnosis Chest discomfort Other chest pain documented in this encounter Care Teams Clearing Supervisor Relationship Specialty Start Date End Date Deanna Bahena MD [address] [place] [phone] PCP - General Family Practice 12/17/22 05/17/24 documented as of this encounter
--- OUTSIDE RECORDS SUMMARY | 2024-11-25 20:48 | XMS_ITS | Encounter Summary ---
Author Organization [facility] Address [address] [place] [address] Care Team Providers Care Docking Pilot Name Role Phone Deanna Bahena MD Primary Care Provider [phone] Encounter Details Date Type Department Care Team (Late st Contact Info) Description 03/07/2024 External Device Data STL ABSTRACTION Provider, Abstract [...] st Contact Info) Description 12/24/2024 1:00 PM METAL MOVER Office Visit [facility] at Work [employer] [address] [place] [address] Susy Olivas, ANP [address] [facility] [address] [place] [address] documented as of this encounter Visit Diagnoses Not on filedocumented in this encounter Care Teams Docking Pilot Relationship Specialty Start Date End Date Deanna Bahena MD [address] [place] [address] PCP - General Family Practice 12/17/22 05/17/24 documented as of this encounter
--- OUTSIDE RECORDS SUMMARY | 2024-11-25 20:48 | XMS_ITS | Encounter Summary ---
Author Organization [facility] Address [address] [place] [address] Care Team Providers Care Sagger Soak Name Role Phone Deanna Bahena MD Primary Care Provider Reason for Visit * Reason Comments Blood Pressure Check Encounter Details Date Type Department Care Team (Latest Contact Info) Description 01/03/2023 1:00 PM CLIENT DEVELOPMENT DIRECTOR Clinical Support [facility] [place] [address] [place] [address] Blood pressure check (Primary Dx) Social History Tobacco Use Types [...] Sign Reading Time Taken Comments Blood Pressure 152/86 01/03/2023 1:09 PM CLIENT DEVELOPMENT DIRECTOR Pulse - - Temperature - - Respiratory Rate - - Oxygen Saturation - - Inhaled Oxygen Concentration - - Weight - - Height - - Body Mass Index - - documented in this encounter Progress Notes * Cassia Tee, RN - 01/03/2023 1:10 PM CST Pt walked in for BP check. Pt had stress test but was unable to complete it due to increase in BP. BP 152/86. Pt states he has not set up an appointment with research investigator because pt was thinking the stress test/cardio referral was the same thing. Advised pt he needs to set up an appointment with a research investigator right away for further evaluation. Pt given list of numbers to call for referral. NT DEVELOPMENT DIRECTOR documented in this encounter Plan of Treatment Upcoming Encounters Date Type Department Care Team (Late st Contact Info) Description 12/24/2024 1:00 PM CLIENT DEVELOPMENT DIRECTOR Office Visit [facility] at Work [employer] [place] [address] [facility] [facility] [place] [address] Susy Olivas, ANP [address] [facility] [address] [place] [address] documented as of this encounter Visit Diagnoses Diagnosis Blood pressure check- Primary Screening for hypertension documented in this encounter Care Teams Sagger Soak Relationship Specialty Start Date End Date Deanna Bahena MD [address] [place] [phone] PCP - General Family Practice 12/17/22 05/17/24 documented as of this encounter
--- OUTSIDE RECORDS SUMMARY | 2024-11-25 20:48 | XMS_ITS | Encounter Summary ---
Author Organization [facility] Address [address] [place] [address] Care Team Providers Care Dance Coach Name Role Phone Deanna Bahena MD Primary Care Provider Reason for Referral * Eval and Treat (Routine) - Closed Specialty Diagnoses / Procedures Referred By Rena cyr Referred To Contact Urology Diagnoses Renal abscess Left renal mass Procedures AL OFFICE/OUTPATIENT ESTABLISHED MOD MDM 30-39 MIN AL OFFICE/OUTPATIENT NEW MODERATE MDM 45-59 MINUTES Deanna Bahena MD [address] [place] [address] Referral ID Status Reason Start Date Expiration Date Visits Re quested Visits Authorized [id number] Closed 04/12/2023 04/11/2024 1 1 * MRI (Routine) - Closed Specialty Diagnoses / Procedures Referred By Rena cyr Referred To Contact Diagnoses Renal abscess Left renal mass Renal mass Procedures MRI ABDOMEN W WO CONTRAST Deanna Bahena MD [address] [place] [address] [facility] [address] [place] [address] Referral ID Status Reason Start Date Expiration Date Visits Re quested Visits Authorized [id number] Closed 04/12/2023 05/12/2024 1 1 Reason for Visit * Reason Comments Hospital Follow Up Encounter Details Date Type Department Care Team (Late st Contact Info) Description 04/12/2023 1:00 PM CDT Office Visit [facility] at Work [employer] [address] [place] [address] Deanna Bahena MD [address] [place] [id number] Renal abscess (Primary Dx); Left renal mass; Cardiomegaly; Renal mass; Benign hypertension Social History Tobacco Use Types Packs/Day Years Used Date Smoking Tobacco: Every Day Cigars Smokeless Tobacco: Never Tobacco Cessation:Ready to Q uit: No; Counseling Given: Yes Comments:1-3 cigars a day. Alcohol Use Standard Drinks/Week Comments Yes 0 (1 standard drink = 0.6 oz pur e alcohol) 3 Sex and Gender Information Value Date Recorded Sex Assigned at Not on file Gender Identity Not on file Sexual Orientation Not on file documented as of this encounter Last Filed Vital Signs Vital Sign Reading Time Taken Comments Blood Pressure 132/80 04/12/2023 1:44 PM CDT Pulse 77 04/12/2023 1:02 PM CDT Temperature 36.9 ??C (98.4 ??F) 04/12/2023 1:02 PM CD T Respiratory Rate 18 04/12/2023 1:02 PM CDT Oxygen Saturation 97% 04/12/2023 1:02 PM CDT Inhaled Oxygen Concentration - - Weight 83.9 kg (185 lb) 04/12/2023 1:02 PM CDT Height 177.8 cm (5' 10 ) 04/12/2023 1:02 PM CDT Body Mass Index 26.54 04/12/2023 1:02 PM CDT documented in this encounter Progress Notes * Deanna Bahena MD - 04/12/2023 1:15 PM CDT OFFICE VISIT PROGRESS NOTE DATE: 04/12/2023 PATIENT: Kemar Bell : 1970 PCP: Deanna Bahena MD Chief Complaint Patient presents with Post Hospital Check HISTORY OF PRESENT ILLNESS 52 yo bm here to f/u recent hospitalization. He was admitted to [facility] on 03/19. He had had symptoms of inability to empty bladder and urinary frequency for approx 1 week. Then he developed significant left sided pain. He had UTI, pyleo, possible abscess on left kidney. They did quite a bit of imaging. He got iv antibiotics and fluids. They started him on a blood pressure medication. He was d/c 03/21. Since then he has felt better. He takes amlodipine approx 3 days a week. No side effects noted.HTN - he is taking and tolerating his meds. He is due for labs. BPs have been well controlled. He denies cp, sob, davila, visual changes, or leg swelling. He has had a couple of dizzy spells since starting the medication. No fever, chills, back pain, abd pain, abnormal urination, or problems with bowel movements. Blood/urine cultures and gonorrhea/chlaymdia tests weren't back at time of hospital d/c and we don't have those results. PAST MEDICAL HISTORY: Past Medical History: Diagnosis Date Herpes zoster without complication 12/26/2019 Patient denies relevant medical history PAST SURGICAL HISTORY Past Surgical History: Procedure Laterality Date HX HEART SURGERY Heart surgery as a child - he states he had a hole that had to be repaired CURRENT MEDICATIONS Current Outpatient Medications Medication Sig Dispense Refill amLODIPine (NORVASC) 5 mg tablet Take 1 Tablet (5 mg) by mouth daily. 30 Tablet 0 [DISCONTINUED] amLODIPine (NORVASC) 5 mg tablet Take 5 mg by mouth daily. No current facility-administered medications for this visit. ALLERGIES No Known Allergies TOBACCO COUNSELING He was counseled to discontinue tobacco/nicotine use. REVIEW OF SYSTEMS As in HPI PHYSICAL EXAMINATION BP 132/80 (BP Location: Left arm, Patient Position (BP): Sitting, BP Cuff Size: Large Adult) Pulse 77 Temp 98.4 ??F (36.9 ??C) (Tympanic) Resp 18 Ht 5' 10 (1.778 m) Wt 83.9 kg (185 lb) SpO2 97% BMI 26.54 kg/m?? Gen - AAO, NAD Head- normocephalic/atraumatic. [...] symmetric. Normal speech and voice. Normal gait. Back - no cva tenderness A/P Kemar was seen today for post hospital check. Diagnoses and all orders for this visit: Renal abscess - MRI ABDOMEN W WO CONTRAST; Future - AMB REFERRAL TO UROLOGY Left renal mass - MRI ABDOMEN W WO CONTRAST; Future - AMB REFERRAL TO UROLOGY Cardiomegaly Renal mass - MRI ABDOMEN W WO CONTRAST; Future Benign hypertension - amLODIPine (NORVASC) 5 mg tablet; Take 1 Tablet (5 mg) by mouth daily. PATIENT INSTRUCTIONS Please call to schedule MRI. Please call to schedule f/u appt with urologist. Please call to schedule f/u appt with swim coach to discuss cardiomegaly and your h/o heart surgery. Dr. Jesse Funes Take amlodipine EVERY day. Try to continue to cut down on cigars and marijuana. Try to improve diet, exercise, and sleep. FOLLOW UP Return in about 4 weeks (around 05/10/2023). Deanna Bahena MD 04/12/2023 [facility] AT WORK [address] [address] documented in this encounter Miscellaneous Notes * Patient Instructions - Deanna Bahena MD - 04/12/2023 1:49 PM CDT Please call to schedule MRI. Please call to schedule f/u appt with urologist. Please call to schedule f/u appt with swim coach to discuss cardiomegaly and your h/o heart surgery. Dr. Jesse Funes Take amlodipine EVERY day. Try to continue to cut down on cigars and marijuana. Try to improve diet, exercise, and sleep. documented in this encounter Plan of Treatment Upcoming Encounters Date Type Department Care Team (Late st Contact Info) Description 12/24/2024 1:00 PM MARKET INVESTIGATOR Office Visit [facility] at Work [employer] [place] [address] [place] [address] Susy Olivas, ANP [address] [facility] [address] [place] [address] Scheduled Referrals Name Type Priority Associated Diagnoses Orde r Schedule AMB REFERRAL TO UROLOGY Outpatient Referral Routine Renal abscess Left renal mass Ordered: 04/12/2023 documented as of this encounter Results * MRI ABDOMEN W WO CONTRAST (04/22/2023) Anatomical Region Laterality Modality Abdomen Other Deanna Bahena MD MR ORDERABLES documented in this encounter Visit Diagnoses Diagnosis Renal abscess- Primary Renal and perinephric abscess Left renal mass Unspecified disorder of kidney and ureter Cardiomegaly Renal mass Unspecified disorder of kidney and ureter Benign hypertension Essential hypertension, benign documented in this encounter Care Teams Dance Coach Relationship Specialty Start Date End Date Deanna Bahena MD [address] [place] [address] PCP - General Family Practice 12/17/22 05/17/24 documented as of this encounter
--- OUTSIDE RECORDS SUMMARY | 2024-11-25 20:48 | XMS_ITS | Encounter Summary ---
Author Organization [facility] Address [address] [place] [address] Care Team Providers Care Office Coordinator Receptionist Name Role Phone Deanna Bahena MD Primary Care Provider [phone] Encounter Details Date Type Department Care Team [...] st Contact Info) Description 12/24/2024 1:00 PM OPENSTACK DEVELOPER Office Visit [facility] at Work [employer] [address] [place] [address] Susy Olivas, ANP [address] [facility] [facility] [address] [place] [address] documented as of this encounter Visit Diagnoses Not on filedocumented in this encounter Care Teams Office Coordinator Receptionist Relationship Specialty Start Date End Date Deanna Bahena MD [address] [place] [address] PCP - General Family Practice 12/17/22 05/17/24 documented as of this encounter
--- OUTSIDE RECORDS SUMMARY | 2024-11-25 20:48 | XMS_ITS | Encounter Summary ---
Author Organization [facility] Address [address] [place] [address] Care Team Providers Care Fire Protection Engineer Name Role Phone Deanna Bahena MD Primary Care Provider [phone] Reason for Visit * Reason Comments Blood Pressure Check Encounter Details Date Type Department Care Team (Latest Contact Info) Description 02/09/2023 1:00 PM CDT Clinical Support [facility] [place] [address] [place] [address] Blood pressure check (Primary Dx) [...] Sign Reading Time Taken Comments Blood Pressure 156/86 02/09/2023 1:11 PM CDT Pulse - - Temperature - - Respiratory Rate - - Oxygen Saturation - - Inhaled Oxygen Concentration - - Weight - - Height - - Body Mass Index - - documented in this encounter Progress Notes * Nini Montelongo - 02/10/2023 8:15 AM CDT LM for pt giving him this information * Nini Montelongo - 02/09/2023 1:04 PM CDT Pt brought in his at home cuff, reading was 182/99. I checked manually and my reading was 158/88. Pt is going to return BP cuff. I had pt sit for 5 mins and rechecked BP 156/86 documented in this encounter Plan of Treatment Upcoming Encounters Date Type Department Care Team (Late st Contact Info) Description 12/24/2024 1:00 PM ANIMAL HUSBANDRY TECHNICIAN Office Visit [facility] at Work [employer] [place] [address] [place] [address] Susy Olivas, ANP [address] [address] [place] [address] documented as of this encounter Visit Diagnoses Diagnosis Blood pressure check- Primary Screening for hypertension documented in this encounter Care Teams Fire Protection Engineer Relationship Specialty Start Date End Date Deanna Bahena MD [address] [place] [phone] PCP - General Family Practice 12/17/22 05/17/24 documented as of this encounter
--- OUTSIDE RECORDS SUMMARY | 2024-11-25 20:48 | XMS_ITS | Encounter Summary ---
Author Organization [facility] Address [address] [place] [address] Care Team Providers Care Business Architect Name Role Phone Deanna Bahena MD Primary Care Provider [phone] Encounter Details Date Type Department Care Team (Late st Contact Info) Description 05/08/2024 External Device Data STL ABSTRACTION Provider, Abstract [...] st Contact Info) Description 12/24/2024 1:00 PM PRINCIPAL PRODUCT MANAGER Office Visit [facility] at Work [employer] [address] [place] [address] Susy Olivas, ANP [address] [facility] [address] [facility] [address] [place] [address] documented as of this encounter Visit Diagnoses Not on filedocumented in this encounter Care Teams Business Architect Relationship Specialty Start Date End Date Deanna Bahena MD [address] [place] [address] PCP - General Family Practice 12/17/22 05/17/24 documented as of this encounter
--- OUTSIDE RECORDS SUMMARY | 2024-11-25 20:48 | XMS_ITS | Encounter Summary ---
Author Organization [facility] Address [address] [place] [address] Care Team Providers Care Hotel Or Motel Room Service Supervisor Name Role Phone Yolande Aldridge MD Primary Care Provider [phone] Encounter Details Date Type Department Care Team (Late st Contact Info) Description 07/31/2024 External Device Data STL ABSTRACTION Provider, Abstract [...] st Contact Info) Description 12/24/2024 1:00 PM SCHOOL AGE PROGRAM ASSOCIATE Office Visit [facility] at Work [employer] [place] [address] [place] [address] Susy Olivas, ANP [address] [facility] [address] [place] [address] documented as of this encounter Visit Diagnoses Not on filedocumented in this encounter Additional Health Concerns Assessment Noted Time PHQ-9 Depression Total Score: 1 06/26/20 24 1:00 PM CDT documented as of this encounter Care Teams Hotel Or Motel Room Service Supervisor Relationship Specialty Start Date End Date Yolande Aldridge MD [address] [place] [address] PCP - General Internal Medicine 05/18/24 documented as of this encounter
--- OUTSIDE RECORDS SUMMARY | 2024-11-25 20:48 | XMS_ITS | Encounter Summary ---
Author Organization [facility] Address [address] [place] [address] Care Team Providers Care Physician Ophthalmologist Name Role Phone Deanna Bahena MD Primary Care Provider [phone] Reason for Referral * Eval and Treat (Routine) - Closed Specialty Diagnoses / Procedures Referred By Rena cyr Referred To Contact Nephrology Diagnoses Renal mass Renal cyst Procedures GA OFFICE/OUTPATIENT ESTABLISHED MOD MDM 30-39 MIN GA OFFICE/OUTPATIENT NEW MODERATE MDM 45-59 MINUTES Deanna Bahena MD [address] [place], [place] [address] [place] [address] Referral ID Status Reason Start Date Expiration Date Visits Re quested Visits Authorized [id number] Closed 06/13/2023 06/12/2024 1 1 Encounter Details Date Type Department Care Team (Late st Contact Info) Description 06/13/2023 Orders Only [facility] at Work [employer] [place] [address] [place] [address] Deanna Bahena MD [address] [place] [address] Renal mass (Primary Dx); Renal cyst Social History Tobacco Use Types Packs/Day Years [...] st Contact Info) Description 12/24/2024 1:00 PM DOOR PULLER Office Visit [facility] at Work [employer] [place] [address] [place] [address] Susy Olivas, ANP [address] [place] [address] Scheduled Referrals Name Type Priority Associated Diagnoses Order Schedule AMB REFERRAL TO NEPHROLOGY Outpatient Referral Routine Renal mass Renal cyst Ordered: 06/13/2023 documented as of this encounter Visit Diagnoses Diagnosis Renal mass- Primary Unspecified disorder of kidney and ureter Renal cyst Unspecified congenital cystic kidney disease documented in this encounter Care Teams Physician Ophthalmologist Relationship Specialty Start Date End Date Deanna Bahena MD [address] [place] [address] PCP - General Family Practice 12/17/22 05/17/24 documented as of this encounter
--- OUTSIDE RECORDS SUMMARY | 2024-11-25 20:48 | XMS_ITS | Encounter Summary ---
Author Organization [facility] Address [address] [place] [address] Care Team Providers Care Summer Analyst Name Role Phone Yolande Aldridge MD Primary Care Provider [phone] Encounter Details Date Type Department Care Team (Late st Contact Info) Description 08/14/2024 External Device Data STL ABSTRACTION Provider, Abstract [...] st Contact Info) Description 12/24/2024 1:00 PM CARTON FOLDER [facility] [employer] [place] [address] [place] [address] Susy Olivas, ANP [address] [facility] [address] [place] [address] [place] [address] documented as of this encounter Visit Diagnoses Not on filedocumented in this encounter Additional Health Concerns Assessment Noted Time PHQ-9 Depression Total Score: 1 06/26/20 24 1:00 PM CDT documented as of this encounter Care Teams Summer Analyst Relationship Specialty Start Date End Date Yolande Aldridge MD [address] [place] [address] PCP - General Internal Medicine 05/18/24 documented as of this encounter
--- OUTSIDE RECORDS SUMMARY | 2024-11-25 20:48 | XMS_ITS | Encounter Summary ---
Author Organization [employer] Address [address] [place] [address] Care Team Providers Care Tail Puller Name Role Phone Deanna Bahena MD Primary Care Provider [phone] Reason for Visit * Reason Onset Date Comments Referral 06/13/2023 Encounter Details Date Type Department Care Team (Late st Contact Info) Description 06/13/2023 Telephone [facility] at Work [employer] [place] [address] [place] [address] Deanna Bahena MD [address] [place] [address] Referral Social History Tobacco Use Types Packs/Day Years [...] Telephone Encounter - Cassia Tee RN - 06/13/2023 1:32 PM CDT Spoke to pt giving this information. Pt verbalized understanding. Referral information faxed to Dr.Henry Herrera at [facility] fx number [phone]. Pt aware to call there to schedule. * Telephone Encounter - Cassia Tee RN - 06/13/2023 1:32 PM CDT ----- Message from Deanna Bahena MD sent at 06/13/2023 1:01 PM CDT ----- MRI shows a small mass and a complicated kidney cyst. Radiologist recommends repeating imaging in 6months, but I recommend he see a technical data analyst to discuss the MRI findings. I will put in a referral. documented in this encounter Plan of Treatment Upcoming Encounters Date Type Department Care Team (Late st Contact Info) Description 12/24/2024 1:00 PM ELECTRONIC SECURITY TECHNICIAN Office Visit [facility] at Work [employer] [place] [address] [place] [address] Susy Olivas, ANP [address] [facility] [address] [facility] [address] [place] [address] documented as of this encounter Visit Diagnoses Not on filedocumented in this encounter Care Teams Tail Puller Relationship Specialty Start Date End Date Deanna Bahena MD [address] [place] [phone] PCP - General Family Practice 12/17/22 05/17/24 documented as of this encounter
--- OUTSIDE RECORDS SUMMARY | 2024-11-25 20:48 | XMS_ITS | Encounter Summary ---
Author Organization [facility] Address [address] [place] [address] Care Team Providers Care Contracting Executive Name Role Phone Deanna Bahena MD Primary Care Provider [phone] Encounter Details Date Type Department Care Team (Late st Contact Info) Description 01/09/2024 External Device Data STL ABSTRACTION Provider, Abstract [...] st Contact Info) Description 12/24/2024 1:00 PM STRATEGY ASSOCIATE Office Visit [facility] at Work [employer] [address] [place] [address] [place]y [place]ivas, ANP [address] [facility] [employer] [facility] [address] [place] [address] documented as of this encounter Visit Diagnoses Not on filedocumented in this encounter Care Teams Contracting Executive Relationship Specialty Start Date End Date Deanna Bahena MD [address] [place] [address] PCP - General Family Practice 12/17/22 05/17/24 documented as of this encounter
--- OUTSIDE RECORDS SUMMARY | 2024-11-25 20:48 | XMS_ITS | Encounter Summary ---
Author Organization [employer] Address [address] [place] [address] Care Team Providers Care Sweatband Separator Name Role Phone Deanna Bahena MD Primary Care Provider [phone] Reason for Visit * Reason Onset Date Comments Elevated Blood Pressure 02/10/2023 Encounter Details Date Type Department Care Team (Late st Contact Info) Description 02/10/2023 Telephone [facility] at [address] [place] [address] [place] [address] Deanna Bahena MD [address] [place] [address] Elevated Blood Pressure Social History Tobacco [...] encounter Miscellaneous Notes * Telephone Encounter - Nini Montelongo - 02/10/2023 8:14 AM CDT LM for pt to let pt know to come back in for a BP check. * Telephone Encounter - Nini Montelongo - 02/10/2023 8:14 AM CDT ----- Message from Deanna Bahena MD sent at 02/09/2023 2:59 PM CDT ----- Can you schedule him a repeat bp nurse visit for when he gets new cuff ----- Message ----- From: Nini Montelongo Sent: 02/09/2023 1:19 PM CDT To: Deanna Bahena MD documented in this encounter Plan of Treatment Upcoming Encounters Date Type Department Care Team (Late st Contact Info) Description 12/24/2024 1:00 PM GAMEWELL OPERATOR Office Visit [facility] [address] [place] [address] [place] [address] [place], ANP [address] [facility] [address] [facility] [address] [place] [address] documented as of this encounter Visit Diagnoses Not on filedocumented in this encounter Care Teams Sweatband Separator Relationship Specialty Start Date End Date Deanna Bahena MD [address] [place] [phone] PCP - General Family Practice 12/17/22 05/17/24 documented as of this encounter
--- OUTSIDE RECORDS SUMMARY | 2024-11-25 20:48 | XMS_ITS | Clinical Summary ---
Author Organization [facility] Care Team Providers Care Hospital Recruiter Name Role Phone Unavailable Primary Care Provider Unavailabl e Social History Tobacco Use Types Packs/Day Years Used Date Smoking Tobacco: Never Assessed Sex and Gender Information Value Date Recorded Sex Assigned at Not on file Legal Sex Male 1:51 PM HOSPITAL RECEIVING CLERK Gender Identity Not on file Sexual Orientation Not on file Plan of Treatment Health Maintenance Due Date Last Done Comments Hepatitis C Virus (HCV) Screening 1970 TdaP Immunization 1970 Hepatitis B Immunization (1 of 3 - 19+ 3-dose series) 1990 Colonoscopy 2016 Colorectal Cancer Screening 2016 Cologuard 2021 Immunochemical Fecal Occult Blood 2021 Zoster Immunization (1 of 2) 2021 SARS-COV-2 Immunization (2022- season) 2023 03/26/2021, 02/20/2021 Influenza Immunization (Seas on Ended) 2024 Meningococcal Immunization (ACWY) Aged Out No longer eligible b ased on patient's age to complete this topic Pneumococcal Immunization Combined Aged Out No longer eligible b ased on patient's age to complete this topic Rotavirus Immunization Aged Out No lo nger eligible based on patient's age to complete this topic
--- OUTSIDE RECORDS SUMMARY | 2024-11-25 20:48 | XMS_ITS | Encounter Summary ---
Author Organization [employer] Address [address] [place] [address] Care Team Providers Care Security Rover Name Role Phone Deanna Bahena MD Primary Care Provider [phone] Reason for Visit * Reason Onset Date Comments Patient Communication 01/04/2023 Encounter Details Date Type Department Care Team (Late st Contact Info) Description 01/04/2023 Telephone [facility] at [facility] [employer] [place] [address] [place] [address] Deanna Bahena MD [address] [place] [address] Patient Communication Social History Tobacco Use Types Packs/Day Years [...] * Telephone Encounter - Nini Montelongo - 01/05/2023 3:26 PM CST Pt has an appointment set up with Delivery Tech on 01/21/2023. Our next available apt is not until 01/19/2023 so pt will follow up with Cardiology regarding BP and follow up here after. [employer]OR SYSTEMS * Telephone Encounter - Cassia Tee RN - 01/05/2023 9:43 AM CST LM asking pt to call back to schedule BP follow up. Pt mentioned before that he called Dr. Jesse Funes's office to schedule a cardiology consult. Pt's referral order, office visit note, and stress test was faxed to Dr. Funes's office at fax number [phone] [employer]S * Telephone Encounter - Deanna Bahena MD - 01/04/2023 3:50 PM CST Does he have appt set up with cardiology? Does he have a f/u set up here yet? [employer] documented in this encounter Plan of Treatment Upcoming Encounters Date Type Department Care Team (Late st Contact Info) Description 12/24/2024 1:00 PM DIRECTOR SYSTEMS Office Visit [facility] at Work [employer] [place] [address] [place] [address] Susy Olivas, ANP [address] [facility] S[address] [place] [place] [address] documented as of this encounter Visit Diagnoses Not on filedocumented in this encounter Care Teams Security Rover Relationship Specialty Start Date End Date Deanna Bahena MD [address] [place] [address] PCP - General Family Practice 12/17/22 05/17/24 documented as of this encounter
--- OUTSIDE RECORDS SUMMARY | 2024-11-25 20:48 | XMS_ITS | Encounter Summary ---
Author Organization [facility] Address [address] [place] [address] Care Team Providers Care Testing And Regulating Chief Name Role Phone Yolande Aldridge MD Primary Care Provider [phone] Encounter Details Date Type Department Care Team [...] st Contact Info) Description 12/24/2024 1:00 PM COMPETITIVE INTELLIGENCE MANAGER Office Visit [facility] at Work [employer] [place] [address] [place] [address] Susy Olivas, ANP [address] [facility] Sina [place] [facility] [address] [place] [address] documented as of this encounter Visit Diagnoses Not on filedocumented in this encounter Additional Health Concerns Assessment Noted Time PHQ-9 Depression Total Score: 1 06/26/20 24 1:00 PM CDT documented as of this encounter Care Teams Testing And Regulating Chief Relationship Specialty Start Date End Date Yolande Aldridge MD [address] [address] PCP - General Internal Medicine 05/18/24 documented as of this encounter
--- OUTSIDE RECORDS SUMMARY | 2024-11-25 20:48 | XMS_ITS | Encounter Summary ---
Author Organization [employer] Address [address] [place] [address] Care Team Providers Care Food Preparation Supervisor Name Role Phone Deanna Bahena MD Primary Care Provider [phone] Reason for Visit * Reason Onset Date Comments Referral 06/23/2023 Encounter Details Date Type Department Care Team (Late st Contact Info) Description 06/23/2023 Telephone [facility] at Work [employer] [place] [address] [place] [address] Deanna Bahena MD [address] [place] [address] Referral Social History Tobacco Use Types [...] Telephone Encounter - Cassia Tee RN - 06/24/2023 1:09 PM CDT Spoke to pt's significant other, Lilian, giving this information. Referral sent to Urology at [facility] , Fx:[phone]. Advised I will send pt Better Weekdays message giving this information. * Telephone Encounter - Deanna Bhaena MD - 06/24/2023 6:49 AM CDT I put referral for urologist in a couple of months ago. Can you get patient some names to schedule with in [place] * Telephone Encounter - Park Mo - 06/23/2023 3:42 PM CDT Yolande from [facility] Monogram Machine Operator reviewed patients records. Per Monogram Machine Operator kidney function looked normal and doesn't do much with mass/cyst and would recommend seeing urologist. Please place order for Urologist. Yolande can be reached at [phone]. documented in this encounter Plan of Treatment Upcoming Encounters Date Type Department Care Team (Late st Contact Info) Description 12/24/2024 1:00 PM ACADEMIC AFFAIRS SPECIALIST Office Visit [facility] at Work [employer] [place] [address] [place] [address] Susy Olivas, ANP [address] [address] [place] [place] [facility] [address] [place] [address] documented as of this encounter Visit Diagnoses Not on filedocumented in this encounter Care Teams Food Preparation Supervisor Relationship Specialty Start Date End Date Deanna Bahena MD [address] [place] [address] PCP - General Family Practice 12/17/22 05/17/24 documented as of this encounter
--- OUTSIDE RECORDS SUMMARY | 2024-11-25 20:48 | XMS_ITS | Encounter Summary ---
Author Organization [facility] Address [address] [place] [address] Care Team Providers Care Metal Furniture Repairer Name Role Phone Yolande Aldridge MD Primary Care Provider [phone] Reason for Referral * MRI (Routine) - Open Specialty Diagnoses / Procedures Referred By Contdeepa t Referred To Contact Diagnoses Renal cyst Procedures MRI ABDOMEN W WO CONTRAST Yolande Aldridge MD [address] [place] [address] Referral ID Status Reason Start Date Expiration Date Visits Re quested Visits Authorized [id number] Open 08/13/2024 09/13/2025 1 1 Encounter Details Date Type Department Care Team (Late Contact Info) Description 08/13/2024 Orders Only [facility] at Work [employer] [place] [address] [place] [address] Yolande Aldridge MD [address] [place] [address] Renal cyst (Primary Dx) Social History Tobacco Use Types [...] (Late Contact Info) Description 12/24/2024 1:00 PM FEATHER SAWYER Office Visit [facility] at Work [employer] [place] [address] [address] Susy Olivas, ANP [address] [employer] [address] [place] [address] Scheduled Orders Name Type Priority Associated Diagnoses Orde r Schedule MRI ABDOMEN W WO CONTRAST Imaging Routine Renal cyst Expected: 08/13/2025, Expires: 08/13/2025 documented as of this encounter Visit Diagnoses Diagnosis Renal cyst- Primary Unspecified congenital cystic kidney disease documented in this encounter Additional Health Concerns Assessment Noted Time PHQ-9 Depression Total Score: 1 06/26/20 24 1:00 PM CDT documented as of this encounter Care Teams Metal Furniture Repairer Relationship Specialty Start Date End Date Yolande Aldridge MD [address] [place] [address] PCP - General Internal Medicine 05/18/24 documented as of this encounter
--- OUTSIDE RECORDS SUMMARY | 2024-11-25 20:48 | XMS_ITS | Encounter Summary ---
Author Organization [facility] Address [address] [place] [address] Care Team Providers Care Humanities Department Chair Name Role Phone Unavailable Primary Care Provider Unavailabl e Reason for Referral * Eval and Treat (Routine) - Closed Specialty Diagnoses / Procedures Referred By Rena cyr Referred To Contact Diagnoses Screening for colorectal cancer Procedures COLON Cintia Villarreal FNP NO ADDRESS ON FILE [facility] [address] [place] [address] Referral ID Status Reason Start Date Expiration Date Visits Requested Visits Authorized [id number] Closed Performing Department to Schedule 10/22/2022 10/22/2023 1 1 ITY CONTROL PROJECTIONIST Reason for Visit * Reason Comments Letter for School/Work FMLA renewal Encounter Details Date Type Department Care Team (Latest Contact Info) Description 10/22/2022 10:30 AM QUALITY CONTROL PROJECTIONIST Office Visit [facility] at Work [employer] [address] [place] [address] Cintia Villarreal FNP NO ADDRESS ON FILE Administrative encounter (Primary Dx); Screening for condition; Screening for colorectal cancer Social History Tobacco Use Types Packs/Day Years [...] Sign Reading Time Taken Comments Blood Pressure 132/82 10/22/2022 10:19 AM QUALITY CONTROL PROJECTIONIST Pulse 75 10/22/2022 10:19 AM QUALITY CONTROL PROJECTIONIST Temperature 36.6 ??C (97.8 ??F) 10/22/2022 10:[address] Respiratory Rate 16 10/22/2022 10:19 AM QUALITY CONTROL PROJECTIONIST Oxygen Saturation 99% 10/22/2022 10:19 AM QUALITY CONTROL PROJECTIONIST Inhaled Oxygen Concentration - - Weight 86.2 kg (190 lb) 10/22/2022 10:19 AM QUALITY CONTROL PROJECTIONIST Height 175.3 cm (5' 9 ) 10/22/2022 10:19 AM QUALITY CONTROL PROJECTIONIST Body Mass Index 28.06 10/22/2022 10:19 AM QUALITY CONTROL PROJECTIONIST documented in this encounter Progress Notes * Cintia Villarreal, CONTROL INSPECTOR - 10/22/2022 10:20 AM CST HISTORY OF PRESENT ILLNESS Kemar Bell, a 52 y.o. male presents with a chief complaint of Chief Complaint Patient presents with Letter for School/Work FMLA renewal Subjective HPI Patient presents to renew his FMLA. He has intermittent caregiver FMLA in place. 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 Patient is the primary caregiver during severe, acute attacks for transportation and medications. Previous FMLA appropriate, just needs new paper work filled out since . Also dicussed patient is due for routine fasting blood work. Tobacco Intervention He was counseled to discontinue tobacco use. Depression Screen PHQ-2 Total: 0 (10/22/22 1000) Positive: PHQ-2 score >= 3 or PHQ-9 score >= 9 PHQ-2 Total: 0 (10/22/2022 10:00 AM) DEPRESSION PLAN OF CARE His depression screen was negative. Blood Pressure BP Readings from Last 3 Encounters: 10/22/22 132/82 05/07/22 (!) 144/82 10/22/21 114/68 Normal BMI Range: 18 & older: > or = 18.5 and < 25 Body mass index is 28.06 kg/m??. Abnormal high BMI: Patient counseled on [...] tremors Extremities - no pedal edema noted Assessment ASSESSMENT AND PLAN ICD-10-CM ICD-9-CM 1. Administrative encounter Z02.9 V68.9 2. Screening for condition Z13.9 V82.9 CBC WITH DIFFERENTIAL COMPREHENSIVE METABOLIC PANEL HEMOGLOBIN A1C LIPID PANEL MICROALBUMIN/CREATININE RATIO, RANDOM UR T4 FREE TSH VITAMIN B12 LEVEL VITAMIN D 25 HYDROXY URINALYSIS WITH REFLEX MICROSCOPIC IRON, TIBC, AND PERCENT SATURATION FERRITIN 3. Screening for colorectal cancer Z12.11 V76.51 AMB REFERRAL TO GASTROENTEROLOGY Z12.12 V76.41 FMLA paperwork filled out, faxed to , and scanned into media tab. Will follow up results of blood work and urine when available. ITY CONTROL PROJECTIONIST documented in this encounter Plan of Treatment Upcoming Encounters Date Type Department Care Team (Late st Contact Info) Description 12/24/2024 1:00 PM QUALITY CONTROL PROJECTIONIST Office Visit [facility] at [facility] [employer] [place] [address] [place] [address] Susy Olivas, ANP [address] [facility] [employer] [address] [place] [address] Scheduled Referrals Name Type Priority Associated Diagnoses Order Schedule AMB REFERRAL TO GASTROENTEROLOGY Outpatient Referral Routine Screening for colorectal cancer Ordered: 10/22/2022 documented as of this encounter Results * FERRITIN (12/21/2022 9:35 AM QUALITY CONTROL PROJECTIONIST) FERRITIN 176 38 - 380 ng/mL [facility] Comment: Test Performed at: [facility] [address] [place] ??[address] Florinda Chavis MD Blood 12/21/2022 9:35 AM QUALITY CONTROL PROJECTIONIST 12/22/2022 3:16 AM QUALITY CONTROL PROJECTIONIST Cintia Villarreal [facility] CHEMISTRY ORDE ROOSEVELT [facility] [phone] [facility] [address] [place] [address] * IRON, TIBC, AND PERCENT SATURATION (12/21/2022 9:35 AM QUALITY CONTROL PROJECTIONIST) IRON 69 50 - 180 mcg/dL [facility] TIBC 350 250 - 425 mcg/dL (calc) [facility] IRON % SATURATION 20 20 - 48 % (calc) [facility] Comment: Test Performed at: [facility] [address] [place] ??[address] Florinda Chavis MD Blood 12/21/2022 9:35 AM QUALITY CONTROL PROJECTIONIST 12/22/2022 3:16 AM QUALITY CONTROL PROJECTIONIST Cinita Villarreal [facility] CHEMISTRY ORDKarina ALBERT Performing Organization Address City/[facility]/ZIP Co de Phone Number [facility] [phone] [facility] [address] [place] [phone] * (ABNORMAL) URINALYSIS WITH REFLEX MICROSCOPIC (12/21/2022 9:35 AM QUALITY CONTROL PROJECTIONIST) COLOR UA YELLOW YELLOW [facility] [...] [facility] Comment: Test Performed at: [facility] [address] [place] ??[address] Florinda Chavis MD Urine URINE SPECIMEN OBTAINED BY CLEAN CATCH PROCEDURE / Unknown 12/21/2022 9:35 AM QUALITY CONTROL PROJECTIONIST 12/22/2022 3:14 AM QUALITY CONTROL PROJECTIONIST Cintia Villarreal CONTROL INSPECTOR URINE ORDERABL ES [facility] [phone] [facility] [employer] [address] * (ABNORMAL) VITAMIN D 25 HYDROXY (12/21/2022 9:35 AM QUALITY CONTROL PROJECTIONIST) VITAMIN D, 25 OH, TOTAL 10(L) 30 - 100 ng/mL [facility] Comment: Vitamin D Status ? 25-OH Vitamin D: Deficiency: ?<20 ng/mL Insufficiency: ? 20 - 29 ng/mL Optimal: ? > or = 30 ng/mL For 25-OH Vitamin D testing on patients on D2-supplementation and patients for whom quantitation of D2 and D3 fractions is required, the [facility](TM) 25-OH VIT D, (D2,D3), LC/MS/MS is recommended: order code [id number] (patients >2yrs). See Note 1 Note 1 For additional information, please refer to http://education.AdsWizz.GROU.PS/faq/MOE655 (This link is being provided for informational/ educational purposes only.) Test Performed at: [facility] [address] [place], [place] ??[address] Florinda Chavis MD Blood 12/21/2022 9:35 AM QUALITY CONTROL PROJECTIONIST 12/22/2022 3:16 AM QUALITY CONTROL PROJECTIONIST Cintia Villarreal [facility] CHEMISTRY ORDKarina [facility] Performing Organization Address City/[facility]/ZIP Co de Phone Number [facility] [phone] [facility] [address] [place] [address] * VITAMIN B12 LEVEL (12/21/2022 9:35 AM QUALITY CONTROL PROJECTIONIST) VITAMIN B12 307 200 - 1100 pg/mL [...] pg/mL will have symptoms. Test Performed at: [facility] [address] [place] [address] ??[phone] Florinda Chavis MD Blood 12/21/2022 9:35 AM QUALITY CONTROL PROJECTIONIST 12/22/2022 3:16 AM QUALITY CONTROL PROJECTIONIST Cintia Villarreal [facility] CHEMISTRY POLKKarina ROOSEVELT Performing Organization Address [facility] Co de Phone Number [facility] [phone] [facility] [address] [place] [address] * TSH (12/21/2022 9:35 AM QUALITY CONTROL PROJECTIONIST) TSH 1.99 0.40 - 4.50 mIU/L [facility] Comment: Test Performed at: [facility] [address] [place] ??[phone] Florinda Chavis MD Blood 12/21/2022 9:35 AM QUALITY CONTROL PROJECTIONIST 12/22/2022 3:16 AM QUALITY CONTROL PROJECTIONIST Cintia Villarreal [facility] CHEMISTRY ORD [facility] [phone] [facility] [address] [place] [phone] * T4 FREE (12/21/2022 9:35 AM QUALITY CONTROL PROJECTIONIST) T4 FREE 1.1 0.8 - 1.8 ng/dL [facility] Comment: Test Performed at: [facility] [address] [place] ??[address] Florinda Chavis MD Blood 12/21/2022 9:35 AM QUALITY CONTROL PROJECTIONIST 12/22/2022 3:16 AM QUALITY CONTROL PROJECTIONIST Cintia Villarreal [facility] CHEMISTRY ORDE RABLES Performing Organization Address City/[facility] Co de Phone Number [facility] [phone] [facility] [employer] [address] * MICROALBUMIN/CREATININE RATIO, RANDOM UR (12/21/2022 9:35 AM QUALITY CONTROL PROJECTIONIST) Creatinine, Urine 241 20 - 320 mg/dL [...] within a diagnostic category. Test Performed at: [facility] [address] [place], [place] ??[phone] Florinda Chavis MD Urine URINE SPECIMEN OBTAINED BY CLEAN CATCH PROCEDURE / Unknown 12/21/2022 9:35 AM QUALITY CONTROL PROJECTIONIST 12/22/2022 3:14 AM QUALITY CONTROL PROJECTIONIST Cintia STEWARTP URINE ORDERABL ES Performing Organization Address City/[facility]/ZIP Co de Phone Number [facility] [phone] [facility] [address] [facility] CURTIS [place] [address] * (ABNORMAL) LIPID PANEL (12/21/2022 9:35 AM QUALITY CONTROL PROJECTIONIST) CHOLESTEROL 165 <200 mg/dL [facility] HDL 40 > OR = 40 mg/dL [facility] TRIGLYCERIDE 302(H) <150 mg/dL [facility] Comment: If a non-fasting specimen was collected, consider repeat triglyceride testing on a fasting specimen if clinically indicated. Gaytan et al. J. of Clin. Lipidol. 2015;9:129-169. LDL CALCULATED 89 mg/dL (calc) [facility] Comment: Reference range: <100 Desirable range <100 mg/dL for primary prevention; ?? <70 mg/dL for patients with CHD or diabetic patients with > or = 2 CHD risk factors. LDL-C is now calculated using the [facility]Massey calculation, which is a validated novel method providing better accuracy than the Friedewald equation in the estimation of LDL-C. Prosper SS et al. BARBARA. 2013;310(19): 7016-5912 (http://education.Tongxue/faq/EZG475) CHOL/HDL RATIO 4.1 <5.0 (calc) [facility] TOTAL NON-HDL CHOL(LDL+VLDL) 125 <130 mg/dL (calc) [facility] Comment: For patients with diabetes plus 1 major ASCVD risk factor, treating to a non-HDL-C goal of <100 mg/dL (LDL-C of <70 mg/dL) is considered a therapeutic option. Test Performed at: [facility] [address] [facility] [place] ??[phone] Florinda Chavis MD Blood 12/21/2022 9:35 AM QUALITY CONTROL PROJECTIONIST 12/22/2022 3:16 AM QUALITY CONTROL PROJECTIONIST Cintia STEWARTP CHEMISTRY ORDE ROOSEVELT [facility] [phone] [facility] [address] [place] [address] * (ABNORMAL) HEMOGLOBIN A1C (12/21/2022 9:35 AM QUALITY CONTROL PROJECTIONIST) Pathologist [facility] HEMOGLOBIN A1C 5.7(H) <5.7 % of total Hgb [facility] Comment: For someone without known diabetes, [...] children. ESTIMATED AVERAGE GLUCOSE (MG/DL) 117 mg/dL [facility] ESTIMATED AVERAGE GLUCOSE (MMOL/L) 6.5 mmol/L [facility] Comment: Test Performed at: [facility] [address] [place] [address] ??[phone] Florinda Chavis MD Blood 12/21/2022 9:35 AM QUALITY CONTROL PROJECTIONIST 12/22/2022 3:16 AM QUALITY CONTROL PROJECTIONIST Cintia Villarreal [facility] CHEMISTRY ARLEEN ALBERT [facility] Organization Address City/State/ZIP Co de Phone Number [facility] [phone] [facility] [employer] [address] * COMPREHENSIVE METABOLIC PANEL (12/21/2022 9:35 AM QUALITY CONTROL PROJECTIONIST) Pathologist [facility] GLUCOSE 99 65 - 99 mg/dL [facility] Comment: ? Fasting reference interval BUN 13 7 - 25 mg/dL [facility] CREATININE 1.18 0.70 - 1.30 mg/dL [facility] GFR 75 > OR = 60 mL/min/1. 73m2 [facility] Comment: The eGFR is based on the CKD-EPI 2020 equation. To calculate the new eGFR from a previous Creatinine or Cystatin C result, go to https://www.kidney.org/professionals/ kdoqi/gfr%5Fcalculator BUN/CREAT RATIO NOT APPLICABLE 6 - 22 (calc) [facility] SODIUM 143 135 - 146 mmol/L [facility] POTASSIUM 4.4 3.5 - 5.3 mmol/L [facility] CHLORIDE 107 98 - 110 mmol/L [facility] CO2 28 20 - 32 mmol/L [facility] CALCIUM 9.4 8.6 - 10.3 mg/dL [facility] TOTAL PROTEIN 7.3 6.1 - 8.1 g/dL [facility] ALBUMIN 4.5 3.6 - 5.1 g/dL [facility] GLOBULIN 2.8 1.9 - 3.7 g/dL (calc) [facility] ALBUMIN/GLOBULI N RATIO 1.6 1.0 - 2.5 (calc) [facility] BILIRUBIN TOTAL 0.3 0.2 - 1.2 mg/dL [facility] ALKALINE PHOSPHATASE 79 35 - 144 U/L [facility] AST 17 10 - 35 U/L [facility] ALT 12 9 - 46 U/L [facility] Comment: Test Performed at: [facility] [address] [place] [address] ??[phone] Florinda Chavis MD Blood 12/21/2022 9:35 AM QUALITY CONTROL PROJECTIONIST 12/22/2022 3:16 AM QUALITY CONTROL PROJECTIONIST Cintia Villarreal [facility] CHEMISTRY ORDE ROOSEVELT [facility] [phone] [facility] [address] * (ABNORMAL) CBC WITH DIFFERENTIAL (12/21/2022 9:35 AM QUALITY CONTROL PROJECTIONIST) WBC 8.4 3.8 - 10.8 Thousand/u L [facility] RBC 5.11 4.20 - 5.80 Million/uL [...] [facility] Comment: Test Performed at: [facility] [address] [place] ??[phone] Florinda Chavis MD Blood 12/21/2022 9:35 AM QUALITY CONTROL PROJECTIONIST 12/22/2022 3:16 AM QUALITY CONTROL PROJECTIONIST Cintia Villarreal CONTROL INSPECTOR HEMATOLOGY ORD ERABLES [facility] [phone] [facility] [address] [place] [address] documented in this encounter Visit Diagnoses Diagnosis Administrative encounter- Primary Encounters for unspecified administrative purpose Screening for condition Screening for unspecified condition Screening for colorectal cancer Special screening for malignant neoplasms, colon documented in this encounter
--- OUTSIDE RECORDS SUMMARY | 2024-11-25 20:48 | XMS_ITS | Encounter Summary ---
Author Organization [facility] Address [address] [place] [address] Care Team Providers Care Asian Art Curator Name Role Phone Deanna Bahena MD Primary Care Provider [phone] Encounter Details Date Type Department Care Team (Late st Contact Info) Description 12/23/2023 External Device Data STL ABSTRACTION Provider, Abstract [...] st Contact Info) Description 12/24/2024 1:00 PM INBOUND CUSTOMER SERVICE AGENT Office Visit [facility] at Work [employer] [address] [place] [address] Susy Olivas, ANP [address] [facility] [employer] Kenneth [facility] [address] [place] [address] documented as of this encounter Visit Diagnoses Not on filedocumented in this encounter Care Teams Asian Art Curator Relationship Specialty Start Date End Date Deanna Bahena MD [address] [place] [address] PCP - General Family Practice 12/17/22 05/17/24 documented as of this encounter
--- OUTSIDE RECORDS SUMMARY | 2024-11-25 20:48 | XMS_ITS | Encounter Summary ---
Author Organization [facility] Address [address] [place] [address] Care Team Providers Care Periodicals Clerk Name Role Phone Yolande Aldridge MD Primary Care Provider [phone] Encounter Details Date Type Department Care Team (Late st Contact Info) Description 09/25/2024 External Device Data STL ABSTRACTION Provider, [...] st Contact Info) Description 12/24/2024 1:00 PM SUBSCRIPTION AGENT Office Visit [facility] at Work [employer] [place] [address] [place] [address] Susy Olivas, ANP [address] [facility] [facility] [address] [place] [address] documented as of this encounter Visit Diagnoses Not on filedocumented in this encounter Additional Health Concerns Assessment Noted Time PHQ-9 Depression Total Score: 1 06/26/20 24 1:00 PM CDT documented as of this encounter Care Teams Periodicals Clerk Relationship Specialty Start Date End Date Yolande Aldridge MD [address] [place] [address] PCP - General Internal Medicine 05/18/24 documented as of this encounter
--- OUTSIDE RECORDS SUMMARY | 2024-11-25 20:48 | XMS_ITS | Encounter Summary ---
Author Organization [facility] Address [address] [place] [address] Care Team Providers Care Granulating Machine Operator Name Role Phone Yolande Aldridge MD Primary Care Provider [phone] Encounter Details Date Type Department Care Team (Late st Contact Info) Description 06/12/2024 External Device Data STL ABSTRACTION Provider, Abstract [...] st Contact Info) Description 12/24/2024 1:00 PM TIE WORKER Office Visit [facility] at Work [employer] [place] [address] [place] [address] Susy Olivas, ANP [address] [facility] [place] [address] [address] documented as of this encounter Visit Diagnoses Not on filedocumented in this encounter Care Teams Granulating Machine Operator Relationship Specialty Start Date End Date Yolande Aldridge MD [email or web address] [address] PCP - General Internal Medicine 05/18/24 documented as of this encounter
--- OUTSIDE RECORDS SUMMARY | 2024-11-25 20:48 | XMS_ITS | Encounter Summary ---
Author Organization [facility] Address [address] [place] [address] Care Team Providers Care Farm Mortgage Agent Name Role Phone Deanna Bahena MD Primary Care Provider [phone] Reason for Visit * Reason Onset Date Comments Appointment Verification 12/31/2022 Encounter Details Date Type Department Care Team (Late st Contact Info) Description 12/31/2022 Telephone [facility] [place] [address] [place] [address] Deanna Bahena MD [address] [place] [phone] Appointment Verification Social History Tobacco Use [...] * Telephone Encounter - Cherrie Prasad - 12/31/2022 1:22 PM CST Patient phone disconnected RTS DEVELOPER documented in this encounter Plan of Treatment Upcoming Encounters Date Type Department Care Team (Late st Contact Info) Description 12/24/2024 1:00 PM REPORTS DEVELOPER Office Visit [facility] [address] [place] [address] Susy Olivas, ANP [address] [place] [address] [place] [phone] documented as of this encounter Visit Diagnoses Not on filedocumented in this encounter Care Teams Farm Mortgage Agent Relationship Specialty Start Date End Date Deanna Bahena MD [address] [place] [address] PCP - General Family Practice 12/17/22 05/17/24 documented as of this encounter
--- OUTSIDE RECORDS SUMMARY | 2024-11-25 20:48 | XMS_ITS | Encounter Summary ---
Author Organization [facility] Address [address] [place] [address] Care Team Providers Care Side Boss Name Role Phone Deanna Bahena MD Primary Care Provider [phone] Encounter Details Date Type Department Care Team (Late st Contact Info) Description 11/29/2023 External Device Data STL ABSTRACTION Provider, Abstract [...] st Contact Info) Description 12/24/2024 1:00 PM CUSHION COVER INSPECTOR Office Visit [facility] at Work [employer] [address] [place] [address] Susy Olivas, ANP [address] [facility] [address] [place] [address] documented as of this encounter Visit Diagnoses Not on filedocumented in this encounter Care Teams Side Boss Relationship Specialty Start Date End Date Deanna Bahena MD [address] [place] [address] PCP - General Family Practice 12/17/22 05/17/24 documented as of this encounter
--- OUTSIDE RECORDS SUMMARY | 2024-11-25 20:48 | XMS_ITS | Encounter Summary ---
Author Organization [facility] Address [address] [place] [address] Care Team Providers Care Communications Associate Name Role Phone Deanna Bahena MD Primary Care Provider [phone] Reason for Visit * Reason Onset Date Comments Follow Up 05/19/2023 Encounter Details Date Type Department Care Team (Late st Contact Info) Description 05/19/2023 Telephone [facility] at Work [employer] [place] [address] [place] [address] Deanna Bahena MD [address] [place] [phone] Follow Up Social History Tobacco Use Types Packs/Day Years [...] Telephone Encounter - Cassia Tee RN - 06/10/2023 9:58 AM CDT [facility] radiology called stating pt did have this MRI done on 04/22/23 and the report notedrepeat in 6 months. They are questioning if pt needs to have this done again. Advised them we did not receive a report from 04/22/23 so we need that faxed to us and pt does not need to repeat the MRI right now until the report is reviewed by Dr. Bahena. Pt aware. * Telephone Encounter - Cassia Tee RN - 05/19/2023 1:14 PM CDT Spoke to pt and pt states he does not believe he had it done. Pt states he would like to go to [facility]. Advised pt I will fax order to [place] and pt will call there to schedule. * Telephone Encounter - Cassia Tee RN - 05/19/2023 1:11 PM CDT Sent pt [employer] message asking pt to let us know where this was done so we can get results. If not completed, advised pt to get this done. * Telephone Encounter - Cassia Tee RN - 05/19/2023 1:11 PM CDT ----- Message from Deanna Bahena MD sent at 05/19/2023 1:08 PM CDT ----- Please see if patient has done this MRI and if so get results. 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 [facility] [place] [address] [place] [place] [address] Susy Oilvas, ANP [address] [address] [place] [facility] [address] [place] [address] documented as of this encounter Visit Diagnoses Not on filedocumented in this encounter Care Teams Communications Associate Relationship Specialty Start Date End Date Deanna Bahena MD [address] [place] [address] PCP - General Family Practice 12/17/22 05/17/24 documented as of this encounter
--- OUTSIDE RECORDS SUMMARY | 2024-11-25 20:48 | XMS_ITS | Encounter Summary ---
Author Organization [facility] Address 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
--- OUTSIDE RECORDS SUMMARY | 2024-11-25 20:48 | XMS_ITS | Encounter Summary ---
Author Organization [facility] Address [address] [place] [address] Care Team Providers Care Research Laboratory Manager Name Role Phone Yolande Aldridge MD Primary Care Provider [phone] Reason for Visit * Reason Comments Medication Refill Encounter Details Date Type Department Care Team (Latest Contact Info) Description 09/18/2024 2:00 PM CDT Procedure visit [facility] at 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 [employer] [place] [address] [place] [address] Susy Olivas, ANP [address] [place] [address] [place] [address] documented as of this encounter Visit Diagnoses Diagnosis Issue of repeat prescription for medication- Primary Issue of repeat prescriptions documented in this encounter Additional Health Concerns Assessment Noted Time PHQ-9 Depression Total Score: 1 06/26/20 24 1:00 PM CDT documented as of this encounter Care Teams Research Laboratory Manager Relationship Specialty Start Date End Date Yolande Aldridge MD [address] [place] [phone] PCP - General Internal Medicine 05/18/24 documented as of this encounter
--- OUTSIDE RECORDS SUMMARY | 2024-11-25 20:49 | XMS_ITS | Encounter Summary ---
Author Organization [facility] Address [address] [place] [address] Care Team Providers Care Roof Bolter Helper Name Role Phone Unavailable Primary Care Provider Unavailabl e Reason for Visit * Reason Comments Neck Pain Shoulder Pain Encounter Details Date Type Department Care Team (Late st Contact Info) Description 10/22/2021 1:30 PM PIANO BENCH ASSEMBLER Office Visit [facility] [place] [address] [place] [address] Karol Leslie, FACILITY MECHANIC [address] [place] [address] Refused influenza vaccine (Primary Dx); Impingement syndrome of right shoulder Social History Tobacco Use Types Packs/Day Years Used Date Smoking Tobacco: Every Day Cigars Smokeless Tobacco: Never Alcohol Use Standard Drinks/Week Comments Yes 0 (1 standard drink = 0.6 oz pur e alcohol) Sex and Gender Information Value Date Recorded Sex Assigned at Not on file Gender Identity Not on file Sexual Orientation Not on file COVID-19 Exposure Response Date Recorded In the last month, have you been in contact with someone who was confirmed or suspected to have Coronavirus / COVID-19? No / Unsure 10/22/2021 1:14 PM PIANO BENCH ASSEMBLER documented as of this encounter Last Filed Vital Signs Vital Sign Reading Time Taken Comments Blood Pressure 114/68 10/22/2021 1:15 PM PIANO BENCH ASSEMBLER Pulse 71 10/22/2021 1:15 PM PIANO BENCH ASSEMBLER Temperature 36.7 ??C (98 ??F) 10/22/2021 1:15 PM PIANO BENCH ASSEMBLER Respiratory Rate 18 10/22/2021 1:15 PM PIANO BENCH ASSEMBLER Oxygen Saturation 99% 10/22/2021 1:15 PM PIANO BENCH ASSEMBLER Inhaled Oxygen Concentration - - Weight 83.9 kg (185 lb) 10/22/2021 1:15 PM PIANO BENCH ASSEMBLER Height 175.3 cm (5' 9 ) 10/22/2021 1:15 PM PIANO BENCH ASSEMBLER Body Mass Index 27.32 10/22/2021 1:15 PM PIANO BENCH ASSEMBLER documented in this encounter Progress Notes * Karol Leslie, FACILITY MECHANIC - 10/22/2021 1:54 PM CST HISTORY OF PRESENT ILLNESS Kemar Bell, a 51 y.o. male presents with a Chief Complaint of Neck Pain and Shoulder Pain Subjective The history is provided by the patient. No high school foreign language teacher was used. Neck Pain Associated symptoms: no numbness and no weakness Shoulder Pain Location: Shoulder Shoulder location: R shoulder Injury: no Pain details: Quality: Cramping and pressure Severity: Moderate Onset quality: Sudden Timing: Sporadic Progression: Unchanged Dislocation: no Foreign body present: No foreign bodies Prior injury to area: No Ineffective treatments: None tried Associated symptoms: neck pain Risk factors: no concern for non-accidental trauma, no known bone disorder, no frequent fractures and no recent illness Pt. Was in his usual state of health until a few months ago. Pt. Was sitting, and had acute pain inhis R shoulder. There was no trauma or previous injury to the area. Pt. States the pain lasted approximately 3-4 minutes, and then went away on its own. Since then, Pt. Has had the pain infrequently,approximately 1-2 times a week. Pt. Describes the pain as cramping, and spasm. Pt. Denies numbness/tingling, burning and pins and needle sensation. Pt. Has not tried any interventions or medication OTC for pain. Pt. Unsure if anything makes the pain worse. Pt. States that the pain does radiate to his neck and under his R Shoulder blade. Pt. Rates the pain at a 7/10 when it happens. Pt. Denies any weakness in his upper or lower extremities, and bowel or bladder incontinence. REVIEW OF SYSTEMS Review of Systems Constitutional: Negative. HENT: Negative. Eyes: Negative. Respiratory: Negative. Cardiovascular: Negative. Gastrointestinal: Negative. Endocrine: Negative. Genitourinary: Negative. Musculoskeletal: Positive for neck pain. R shoulder pain Neurological: Negative. Negative for weakness and numbness. Hematological: Negative. Psychiatric/Behavioral: Negative. Objective PHYSICAL EXAM BP 114/68 (BP Location: Left arm, Patient Position (BP): Sitting, BP Cuff Size: Adult) Pulse 71 Temp 98 ??F (36.7 ??C) (Tympanic) Resp 18 Ht 5' 9 (1.753 m) Wt 83.9 kg (185 lb) SpO2 99% BMI 27.32 kg/m?? Physical Exam Constitutional: Appearance: Normal appearance. He is normal weight. HENT: Head: Normocephalic and atraumatic. Neck: Comments: No cervical pain illicited with flexion, extension, or turning head to the left or the Right. Pulmonary: Effort: Pulmonary effort is normal. Musculoskeletal: General: No swelling, tenderness, deformity or signs of injury. Right shoulder: Normal. No swelling, effusion, tenderness or crepitus. Normal range of motion. Normal strength. Left shoulder: Normal. No swelling. Right lower leg: No edema. Left lower leg: No edema. Comments: Abduction: R arm Anterolateral sharp pain radiating from neck into posterior shoulder Abduction L arm: Mild pain anterolateral shoulder Adduction: no pain bilaterally Extension of arm: L arm pain in shoulder no pain on R Flexion of arm: no pain Internal rotation: no pain External rotation: no pain Skin: General: Skin is warm and dry. Capillary Refill: Capillary refill takes less than 2 seconds. Neurological: General: No focal deficit present. Mental Status: He is alert and oriented to person, place, and time. Mental status is at baseline. Psychiatric: Mood and Affect: Mood normal. Behavior: Behavior normal. Thought Content: Thought content normal. Judgment: Judgment normal. Procedures Assessment ASSESSMENT and PLAN: ICD-10-CM ICD-9-CM 1. Refused influenza vaccine Z28.21 V64.06 2. Impingement syndrome of right shoulder M75.41 726.2 Plan: Pain in the anterolateral shoulder indicative of possible impingement syndrome, although painis atypical. Plan is to start conservative management. 2 week course of anti-inflammatory naproxen 500 Mg PO BID, ice area. If no improvement, X-ray and PT. RTC for no relief or worsening symptoms Pt. Agrees with plan and verbalizes understanding. O BENCH ASSEMBLER documented in this encounter Miscellaneous Notes * Patient Instructions - Karol Leslie, EULA - 10/22/2021 1:38 PM PIANO BENCH ASSEMBLER Images from the original note were not included. Rotator Cuff Problems: Care Instructions Overview The rotator cuff is a group of tendons and muscles around the shoulder that keeps the shoulder joint stable. It is what allows you to raise and rotate your arm. Over time, daily wear and exercise cancause the tendons to rub on the bones of your shoulder. This is called impingement. This condition may cause the tendons to bruise, degenerate, or tear. In many people, these problems do not cause pain. When they do cause pain, you can do things to reduce the pain and swelling. These include rest, physical therapy, ice and heat, and anti-inflammatorymedicine. If you still have pain after trying these treatments, you and your doctor can discuss having a steroid injection or surgery. Follow-up care is a murrell part of your treatment and safety. Be sure to make and go to all appointments, and call your doctor if you are having problems. It's also a good idea to know your test resultsand keep a list of the medicines you take. How can you care for yourself at home? ?? Be safe with medicines. Read and follow all instructions on the label. ? If the doctor gave you a prescription medicine for pain, take it as prescribed. ? If you are not taking a prescription pain medicine, ask your doctor if you can take an afyo-dqn-iqrhtaj medicine. ?? Put ice or a cold pack on your shoulder for 10 to 20 minutes at a time. Try to do this every 1 to 2 hours for the next 3 days (when you are awake). Put a thin cloth between the ice pack and your skin. ?? After 2 or 3 days, if you don't have swelling, apply heat. Put a warm water bottle, a heating pad set on low, or a warm cloth on your shoulder. Do not go to sleep with a heating pad on your skin. Put a thin cloth between the heating pad and your skin. While holding a warm cloth on your shoulder,lean forward so your arm hangs freely, and gently swing your arm back and forth like a pendulum. You also can do this standing under a warm shower. ?? Follow your doctor's advice for physical therapy. When your doctor says it is okay, try these stretching exercises. Do them slowly to avoid injury. Put a warm, wet towel on your shoulder before exercising. Stop any exercise that increases pain. ? Ulcyi-tt-twwzbu exercises. If it is not too painful, stretch your arm in four directions: across the body, up the back, to the side, and overhead. ? Pendulum exercise. Lean forward and hold onto a table or the back of a chair with your good arm. Bend at the waist, letting the arm with the sore shoulder hang straight down. Swing your arm back and forth like a pendulum, then in circles that start small and slowly grow larger. This exercise doesnot use the arm muscles. Instead, use your legs and your hips to create movement that makes your arm swing freely. Try this for about 5 minutes, several times a day. ? Wall climbing (to the side). Stand with your side to a wall so that your fingers can just touch it. Then turn so your body is turned slightly toward the wall. Walk the fingers of your injured arm up the wall as high as pain permits. Try not to shrug your shoulder up toward your ear as you move your arm up. Hold that position for a count of 15 to 30 seconds. Walk your fingers down to the starting position. Repeat 2 to 4 times, trying to reach higher each time. ? Wall climbing (to the front). Face a wall, standing so your fingers can just touch it. Walk the fingers of your affected arm up the wall as high as pain permits. Try not to shrug your shoulder up toward your ear as you move your arm up. Hold that position for a count of 15 to 30 seconds. Slowly walk your fingers to the starting position. Repeat 2 to 4 times, trying to reach higher each time. ?? Rest your shoulder when you are not doing stretches and other exercises. Your doctor may tell you to wait for the pain to go away before doing exercises. Do not lift heavy bags of groceries, play sports, or do anything else that makes you twist or stress your shoulder. Avoid activities where youmove your affected arm above your head. When should you call for help? Call your doctor now or seek immediate medical care if: ? You have severe pain. ? You cannot move your shoulder or arm. ? You have tingling or numbness in your arm or hand. ? Your arm or hand is cool or pale. Watch closely for changes in your health, and be sure to contact your doctor if: ? Your pain gets worse. ? You have new or worse swelling in your arm or hand. ? You do not get better as expected. Where can you learn more? Go to https://www.mohchi.[facility]/patiented Enter E207 in the search box to learn more about Rotator Cuff Problems: Care Instructions. Current as of: May 21, 2021?Content Version: 13.0 ?? [email or web address]. Care instructions adapted under license by your healthcare professional. If you have questions about a medical condition or this instruction, always ask your healthcare professional. These instructions may not represent the values of this healthcare organization. [employer] disclaims any warranty or liability for your use of this information. Rotator Cuff: Exercises Introduction Here are some examples of exercises for you to try. The exercises may be suggested for a condition or for rehabilitation. Start each exercise slowly. Ease off the exercises if you start to have pain. You will be told when to start these exercises and which ones will work best for you. How to do the exercises Pendulum swing If you have pain in your back, do not do this exercise. 1. Hold on to a table or the back of a chair with your good arm. Then bend forward a little and letyour sore arm hang straight down. This exercise does not use the arm muscles. Rather, use your legsand your hips to create movement that makes your arm swing freely. 2. Use the movement from your hips and legs to guide the slightly swinging arm back and forth like a pendulum (or elephant trunk). Then guide it in circles that start small (about the size of a dinner plate). Make the circles a bit larger each day, as your pain allows. 3. Do this exercise for 5 minutes, 5 to 7 times each day. 4. As you have less pain, try bending over a little farther to do this exercise. This will increasethe amount of movement at your shoulder. Posterior stretching exercise 1. Hold the elbow of your injured arm with your other hand. 2. Use your hand to pull your injured arm gently up and across your body. You will feel a gentle stretch across the back of your injured shoulder. 3. Hold for at least 15 to 30 seconds. Then slowly lower your arm. 4. Repeat 2 to 4 times. Up-the-back stretch Your doctor or physical therapist may want you to wait to do this stretch until you have regained most of your range of motion and strength. You can do this stretch in different ways. Hold any of these stretches for at least 15 to 30 seconds. Repeat them 2 to 4 times. 1. Light stretch: Put your hand in your back pocket. Let it rest there to stretch your shoulder. 2. Moderate stretch: With your other hand, hold your injured arm (palm outward) behind your back bythe wrist. Pull your arm up gently to stretch your shoulder. 3. Advanced stretch: Put a towel over your other shoulder. Put the hand of your injured arm behind your back. Now hold the back end of the towel. With the other hand, hold the front end of the towel in front of your body. Pull gently on the front end of the towel. This will bring your hand farther up your back to stretch your shoulder. Overhead stretch 1. Standing about an arm's length away, grasp onto a solid surface. You could use a countertop, a doorknob, or the back of a sturdy chair. 2. With your knees slightly bent, bend forward with your arms straight. Lower your upper body, and let your shoulders stretch. 3. As your shoulders are able to stretch farther, you may need to take a step or two backward. 4. Hold for at least 15 to 30 seconds. Then stand up and relax. If you had stepped back during yourstretch, step forward so you can keep your hands on the solid surface. 5. Repeat 2 to 4 times. Shoulder flexion (lying down) To make a wand for this exercise, use a piece of PVC pipe or a broom handle with the broom removed.Make the wand about a foot wider than your shoulders. 1. Lie on your back, holding a wand with both hands. Your palms should face down as you hold the wand. 2. Keeping your elbows straight, slowly raise your arms over your head. Raise them until you feel astretch in your shoulders, upper back, and chest. 3. Hold for 15 to 30 seconds. 4. Repeat 2 to 4 times. Shoulder rotation (lying down) To make a wand for this exercise, use a piece of PVC pipe or a broom handle with the broom removed.Make the wand about a foot wider than your shoulders. 1. Lie on your back. Hold a wand with both hands with your elbows bent and palms up. 2. Keep your elbows close to your body, and move the wand across your body toward the sore arm. 3. Hold for 8 to 12 seconds. 4. Repeat 2 to 4 times. Wall climbing (to the side) Avoid any movement that is straight to your side, and be careful not to arch your back. Your arm should stay about 30 degrees to the front of your side. 1. Stand with your side to a wall so that your fingers can just touch it at an angle about 30 degrees toward the front of your body. 2. Walk the fingers of your injured arm up the wall as high as pain permits. Try not to shrug your shoulder up toward your ear as you move your arm up. 3. Hold that position for a count of at least 15 to 20. 4. Walk your fingers back down to the starting position. 5. Repeat at least 2 to 4 times. Try to reach higher each time. Wall climbing (to the front) During this stretching exercise, be careful not to arch your back. 1. Face a wall, and stand so your fingers can just touch it. 2. Keeping your shoulder down, walk the fingers of your injured arm up the wall as high as pain permits. (Don't shrug your shoulder up toward your ear.) 3. Hold your arm in that position for at least 15 to 30 seconds. 4. Slowly walk your fingers back down to where you started. 5. Repeat at least 2 to 4 times. Try to reach higher each time. Shoulder blade squeeze 1. Stand with your arms at your sides, and squeeze your shoulder blades together. Do not raise yourshoulders up as you squeeze. 2. Hold 6 seconds. 3. Repeat 8 to 12 times. Scapular exercise: Arm reach 1. Lie flat on your back. This exercise is a very slight motion that starts with your arms raised (elbows straight, arms straight). 2. From this position, reach higher toward the chriss or ceiling. Keep your elbows straight. All motion should be from your shoulder blade only. 3. Relax your arms back to where you started. 4. Repeat 8 to 12 times. Arm raise to the side During this strengthening exercise, your arm should stay about 30 degrees to the front of your side. 1. Slowly raise your injured arm to the side, with your thumb facing up. Raise your arm 60 degrees at the most (shoulder level is 90 degrees). 2. Hold the position for 3 to 5 seconds. Then lower your arm back to your side. If you need to, bring your good arm across your body and place it under the elbow as you lower your injured arm. Use your good arm to keep your injured arm from dropping down too fast. 3. Repeat 8 to 12 times. 4. When you first start out, don't hold any extra weight in your hand. As you get stronger, you mayuse a 1-pound to 2-pound dumbbell or a small can of food. Shoulder flexor and extensor exercise These are isometric exercises. That means you contract your muscles without actually moving. 1. Push forward (flex): Stand facing a wall or doorjamb, about 6 inches or less back. Hold your injured arm against your body. Make a closed fist with your thumb on top. Then gently push your hand forward into the wall with about 25% to 50% of your strength. Don't let your body move backward as youpush. Hold for about 6 seconds. Relax for a few seconds. Repeat 8 to 12 times. 2. Push backward (extend): Stand with your back flat against a wall. Your upper arm should be against the wall, with your elbow bent 90 degrees (your hand straight ahead). Push your elbow gently backagainst the wall with about 25% to 50% of your strength. Don't let your body move forward as you push. Hold for about 6 seconds. Relax for a few seconds. Repeat 8 to 12 times. Scapular exercise: Wall push-ups This exercise is best done with your fingers somewhat turned out, rather than straight up and down. 1. Stand facing a wall, about 12 inches to 18 [address] your hands on the wall at shoulder height. 3. Slowly bend your elbows and bring your face to the wall. Keep your back and hips straight. 4. Push back to where you started. 5. Repeat 8 to 12 times. 6. When you can do this exercise against a wall comfortably, you can try it against a counter. You can then slowly progress to the end of a couch, then to a sturdy chair, and finally to the floor. Scapular exercise: Retraction For this exercise, you will need elastic exercise material, such as surgical tubing or Thera-Band. 1. Put the band around a solid object at about waist level. (A bedpost will work well.) Each hand should hold an end of the band. 2. With your elbows at your sides and bent to 90 degrees, pull the band back. Your shoulder blades should move toward each other. Then move your arms back where you started. 3. Repeat 8 to 12 times. 4. If you have good range of motion in your shoulders, try this exercise with your arms lifted out to the sides. Keep your elbows at a 90-degree angle. Raise the elastic band up to about shoulder level. Pull the band back to move your shoulder blades toward each other. Then move your arms back where you started. Internal rotator strengthening exercise 1. Start by tying a piece of elastic exercise material to a doorknob. You can use surgical tubing or Thera-Band. 2. Stand or sit with your shoulder relaxed and your elbow bent 90 degrees. Your upper arm should rest comfortably against your side. Squeeze a rolled towel between your elbow and your body for comfort. This will help keep your arm at your side. 3. Hold one end of the elastic band in the hand of the painful arm. 4. Slowly rotate your forearm toward your body until it touches your belly. Slowly move it back to where you started. 5. Keep your elbow and upper arm firmly tucked against the towel roll or at your side. 6. Repeat 8 to 12 times. External rotator strengthening exercise 1. Start by tying a piece of elastic exercise material to a doorknob. You can use surgical tubing or Thera-Band. (You may also hold one end of the band in each hand.) 2. Stand or sit with your shoulder relaxed and your elbow bent 90 degrees. Your upper arm should rest comfortably against your side. Squeeze a rolled towel between your elbow and your body for comfort. This will help keep your arm at your side. 3. Hold one end of the elastic band with the hand of the painful arm. 4. Start with your forearm across your belly. Slowly rotate the forearm out away from your body. Keep your elbow and upper arm tucked against the towel roll or the side of your body until you begin to feel tightness in your shoulder. Slowly move your arm back to where you started. 5. Repeat 8 to 12 times. Follow-up care is a murrell part of your treatment and safety. Be sure to make and go to all appointments, and call your doctor if you are having problems. It's also a good idea to know your test resultsand keep a list of the medicines you take. Where can you learn more? Go to https://www.mohchi.net/patiented Enter J005 in the search box to learn more about Rotator Cuff: Exercises. Current as of: May 21, 2021?Content Version: 13.0 ?? [email or web address]. Care instructions adapted under license by your healthcare professional. If you have questions about a medical condition or this instruction, always ask your healthcare professional. These instructions may not represent the values of this healthcare organization. [employer] disclaims any warranty or liability for your use of this information. O BENCH ASSEMBLER documented in this encounter Plan of Treatment Upcoming Encounters Date Type Department Care Team (Late st Contact Info) Description 12/24/2024 1:00 PM PIANO BENCH ASSEMBLER Office Visit [facility] [place] [address] [facility] [place] [address] Susy Olivas, ANP [address] [facility] [address] [place] [address] documented as of this encounter Visit Diagnoses Diagnosis Refused influenza vaccine- Primary Vaccination not carried out because of patient refusal Impingement syndrome of right shoulder Other affections of shoulder region, not elsewhere classified documented in this encounter
--- OUTSIDE RECORDS SUMMARY | 2024-11-25 20:49 | XMS_ITS | Encounter Summary ---
Author Organization [facility] Address [address] [place] [address] Care Team Providers Care Station Usher Name Role Phone Unavailable Primary Care Provider Unavailabl e Reason for Visit * Reason Onset Date Comments Medication Refill 08/14/2020 Encounter Details Date Type Department Care Team (Late st Contact Info) Description 08/14/2020 Refill [facility] at [facility] [employer] [place] [address] [place] [address] Jasmeet Shi MD NO ADDRESS ON FILE Right hip pain; Acute left-sided low back pain with left-sided sciatica Social History Tobacco Use Types Packs/Day Years [...] Notes * Telephone Encounter - Cassia Tee - 08/14/2020 2:40 PM CDT Pt called wanting to know if he can get a refill of hydrocodone. Pt states he had an appointment with an orthopaedic doctor this morning but their office called and cancelled for today and rescheduled pt to 08/25/2020. Please advise. documented in this encounter Plan of Treatment Upcoming Encounters Date Type Department Care Team (Late st Contact Info) Description 12/24/2024 1:00 PM MAINTENANCE SUPERINTENDENT Office Visit [facility] at [facility] [employer] [place] [address] [place] [address] Susy Olivas, ANP [address] [address] [facility] [address] [place] [address] documented as of this encounter Visit Diagnoses Diagnosis Right hip pain Pain in joint, pelvic region and thigh Acute left-sided low back pain with left-sided sciatica documented in this encounter
--- OUTSIDE RECORDS SUMMARY | 2024-11-25 20:49 | XMS_ITS | Encounter Summary ---
Author Organization [facility] Address [address] [place] [address] Care Team Providers Care Auto Service Station Attendant Name Role Phone Unavailable Primary Care Provider Unavailabl e Reason for Referral * Orthotics/Prosthetics (Routine) - Closed Specialty Diagnoses / Procedures Referred By Rean cyr Referred To Contact Podiatry Diagnoses Callus of foot Alisa Alves NP [address] [place] [address] Referral ID Status Reason Start Date Expiration Date V isits Requested Visits Authorized [id number] Closed CRS To Schedule (STL) 05/13/2020 05/13/2021 1 1 Reason for Visit * Reason Comments Foot Pain Encounter Details Date Type Department Care Team (Late st Contact Info) Description 05/13/2020 1:30 PM CDT Office Visit [facility] at [facility] [employer] [place] [address] [place] [address] [place] [address] [place] [address] Callus of foot (Primary Dx) Social History Tobacco Use Types [...] have Coronavirus / COVID-19? No / Unsure 05/13/2020 1:33 PM CDT documented as of this encounter Last Filed Vital Signs Vital Sign Reading Time Taken Comments Blood Pressure 134/82 05/13/2020 1:35 PM CDT Pulse 78 05/13/2020 1:35 PM CDT Temperature 36.7 ??C (98.1 ??F) 05/13/2020 1:35 PM CD T Respiratory Rate 18 05/13/2020 1:35 PM CDT Oxygen Saturation 98% 05/13/2020 1:35 PM CDT Inhaled Oxygen Concentration - - Weight 80.3 kg (177 lb) 05/13/2020 1:35 PM CDT Height 175.3 cm (5' 9 ) 05/13/2020 1:35 PM CDT Body Mass Index 26.14 05/13/2020 1:35 PM CDT documented in this encounter Progress Notes * Alisa Alves, WOOD PILER - 05/13/2020 2:19 PM CDTAssociated Order(s): General Procedure Images from the original note were not included. HISTORY OF PRESENT ILLNESS Kemar Bell is a 50 y.o. male who presents for Chief Complaint Patient presents with ??? Foot Pain Left foot callus for several months. Has tried soaking foot in [place] water. Would like to have it surgically addressed, declines to see general labor. It is painful and has been there for several months. Pain with any wt bearing. Past Medical History: Diagnosis Date ??? Patient denies relevant medical history No current outpatient medications on file. No current facility-administered medications for this visit. No Known Allergies BP 134/82 (BP Location: Left arm, Patient Position (BP): Sitting, BP Cuff Size: Large Adult) Pulse 78 Temp 98.1 ??F (36.7 ??C) (Tympanic) Resp 18 Ht 5' 9 (1.753 m) Wt 80.3 kg (177 lb) SpO2 98% BMI 26.14 kg/m?? MEDICAL RECORD UPDATE Past Medical History: Diagnosis Date ??? Patient denies relevant medical history Past Surgical History: Procedure Laterality Date ??? HX HEART SURGERY Family History Problem Relation Name Age of Onset ??? Sudden Father MVA ??? No Known Problems Mother ??? No Known Problems Sister ??? No Known Problems Maternal Grandmother ??? No Known Problems Maternal Grandfather ??? Unknown Paternal Grandmother ??? Unknown Paternal Grandfather ??? No Known Problems Son Current medications and allergies were reviewed and updated in computerized patient record. [facility] #[id number] - [facility] [address] [facility] Care Providers: No care team leader surgery to display No Patient Care Coordination Note on file. Vital signs/Tobacco use BP 134/82 (BP Location: Left arm, Patient Position (BP): Sitting, BP Cuff Size: Large Adult) Pulse 78 Temp 98.1 ??F (36.7 ??C) (Tympanic) Resp 18 Ht 5' 9 (1.753 m) Wt 80.3 kg (177 lb) SpO2 98% BMI 26.14 kg/m?? Tobacco Use (QM) reports that he has been smoking cigars. He has never used smokeless tobacco. He was counseled to discontinue tobacco use. EXAMINATION REVIEW OF SYSTEMS Review of Systems Constitutional: Negative for fever and malaise/fatigue. Respiratory: Negative for cough. Cardiovascular: Negative for chest pain. Objective PHYSICAL EXAM Physical Exam Constitutional: Appearance: He is well-developed. HENT: Head: Normocephalic and atraumatic. Nose: Nose normal. Eyes: Conjunctiva/sclera: Conjunctivae normal. Cardiovascular: Rate and Rhythm: Normal rate and regular rhythm. Heart sounds: Normal heart sounds, S1 normal and S2 normal. No murmur. No friction rub. No gallop. Pulmonary: Effort: Pulmonary effort is normal. No respiratory distress. Breath sounds: Normal breath sounds. No wheezing or rales. Musculoskeletal: Feet: Skin: General: Skin is warm and dry. Neurological: Mental Status: He is alert and oriented to person, place, and time. No results found for any visits on 05/13/20 (from the past 24 hour(s)). General Procedure Date/Time: 05/13/2020 2:22 PM Performed by: Alisa Alves NP Authorized by: Alisa Alves NP Consent: Consent obtained: Verbal Consent given by: Patient Risks discussed: Bleeding, infection and pain Pre-procedure details: Skin preparation: Betadine Post-procedure details: Patient tolerance of procedure: Procedure terminated at patient's request Comments: Pt could not allow complete anesthesia Attempted to infiltrate with 1% lido with epinephrine. Was unable to tolerate. ASSESSMENT and PLAN: Kemar was seen today for foot pain. Diagnoses and all orders for this visit: Callus of foot - AMB REFERRAL TO PODIATRY Recommended Callus pad OTC with salicylic acid, pumice stone. See podiatry for further treatment. documented in this encounter Plan of Treatment Upcoming Encounters Date Type Department Care Team (Late st Contact Info) Description 12/24/2024 1:00 PM TOP PRECIPITATOR OPERATOR HELPER Office Visit [facility] at [facility] [place] [address] [place] [address] Susy Olivas, ANP [address] [facility] [address] [place] [address] [place] [address] Scheduled Referrals Name Type Priority Associated Diagnoses Orde r Schedule AMB REFERRAL TO PODIATRY Outpatient Referral Routine Callus of foot Ordered: 05/13/2020 documented as of this encounter Procedures Procedure Name Priority Date/Time Associated Diagnosis Comments GENERAL PROCEDURE Routine 05/13/2020 2:1 9 PM CDT Callus of foot documented in this encounter Results * General Procedure (05/13/2020 2:19 PM CDT) Narrative T [facility] - 05/13/2020 2:19 PM CDT Alisa Alves NP ? 05/16/2020 ??7:34 AM General Procedure Date/Time: 05/13/2020 2:22 PM Performed by: Alisa Alves NP Authorized by: Alisa Alves NP Consent: ??Consent obtained: ??Verbal ??Consent given by: ??Patient ??Risks discussed: ??Bleeding, infection and pain Pre-procedure details: ??Skin preparation: ??Betadine Post-procedure details: ??Patient tolerance of procedure: ??Procedure terminated at patient's request Comments: ?? Pt could not allow complete anesthesia Alisa Jocelynn Alves WOOD PILER PROCEDURE/MINOR SURGICAL ORDERABLES [facility]# [id number] [address] [place] [address] documented in this encounter Visit Diagnoses Diagnosis Callus of foot- Primary Corns and callosities documented in this encounter
--- OUTSIDE RECORDS SUMMARY | 2024-11-25 20:49 | XMS_ITS | Encounter Summary ---
Author Organization [employer] Address [address] [place] [address] Care Team Providers Care Freight Coordinator Name Role Phone Unavailable Primary Care Provider Unavailabl e Reason for Visit * Reason Onset Date Comments Medication Refill 08/04/2020 Encounter Details Date Type Department Care Team (Late st Contact Info) Description 08/04/2020 Refill [facility] at [facility] [place] [address] [place] [address] Jasmeet Shi MD NO ADDRESS [...] have Coronavirus / COVID-19? No / Unsure 07/10/2020 9:44 AM CDT documented as of this encounter Miscellaneous Notes * Telephone Encounter - Jasmeet Shi MD - 08/04/2020 11:59 AM CDT Will approve this time but chad note says he needs to see ortho/back specialist. Has he set appt? * Telephone Encounter - Cassia Tee - 08/04/2020 11:31 AM CDT KASEY 07/18/2020 documented in this encounter Plan of Treatment Upcoming Encounters Date Type Department Care Team (Late st Contact Info) Description 12/24/2024 1:00 PM MUSEUM GUIDE Office Visit [facility] at [facility] [employer] [address] [place] [address] Susy Olivas, ANP [address] [facility] [address] [place] [address] documented as of this encounter Visit Diagnoses Diagnosis Right hip pain Pain in joint, pelvic region and thigh Acute left-sided low back pain with left-sided sciatica documented in this encounter
--- OUTSIDE RECORDS SUMMARY | 2024-11-25 20:49 | XMS_ITS | Encounter Summary ---
Author Organization [facility] Address [address] [place] [address] Care Team Providers Care Enterprise Architect Manager Name Role Phone Unavailable Primary Care Provider Unavailabl e Encounter Details Date Type Department Care Team (Late st Contact Info) Description 07/15/2020 Orders Only [facility] [place] [address] [place] [address] Alisa Alves, LACING STRING CUTTER [address] [place] [address] Screening for condition (Primary Dx); Elevated serum creatinine Social History Tobacco Use Types Packs/Day Years [...] AM CDT documented as of this encounter Plan of Treatment Upcoming Encounters Date Type Department Care Team (Late st Contact Info) Description 12/24/2024 1:00 PM WELDING MACHINE OPERATOR FRICTION Office Visit [facility] [place] [address] [place] [address] Susy Olivas, ANP [address] [place] [address] documented as of this encounter Visit Diagnoses Diagnosis Screening for condition- Primary Screening for unspecified condition Elevated serum creatinine Other nonspecific findings on examination of blood documented in this encounter
--- OUTSIDE RECORDS SUMMARY | 2024-11-25 20:49 | XMS_ITS | Encounter Summary ---
Author Organization [facility] Address [address] [place] [address] Care Team Providers Care [employer]discovery Project Manager Name Role Phone Unavailable Primary Care Provider Unavailabl e Reason for Visit * Reason Comments Labs Only Encounter Details Date Type Department Care Team (Latest Contact Info) Description 05/07/2022 11:00 AM CDT Clinical Support [facility] at [employer] [place] [address] [place] [address] Encounter for screening, unspecified (Primary Dx) Social History Tobacco Use Types [...] Sign Reading Time Taken Comments Blood Pressure 144/82 05/07/2022 10:02 AM CDT Pulse - - Temperature - - Respiratory Rate - - Oxygen Saturation - - Inhaled Oxygen Concentration - - Weight 83 kg (183 lb) 05/07/2022 10:02 AM CDT Height 175.3 cm (5' 9 ) 05/07/2022 10:02 AM CDT Body Mass Index 27.02 05/07/2022 10:02 AM CDT documented in this encounter Progress Notes * Nini Montelongo - 05/07/2022 10:07 AM CDT Pt came in for annual wellness screening finger stick, right hand 2nd digit, pt tolerate well. JOSEEeber, RMA Regarding mildly elevated TG, Pt states he has drank alcohol in the past 72 hours. documented in this encounter Plan of Treatment Upcoming Encounters Date Type Department Care Team (Late st Contact Info) Description 12/24/2024 1:00 PM METAL PATTERNMAKER APPRENTICE Office Visit [facility] [employer] [place] [address] [employer] [facility] [place] [address] Susy Olivas, ANP [address] [place] [address] documented as of this encounter Procedures Procedure Name Priority Date/Time Associated Diagnosis Comments POC LIPID PANEL AND GLUCOSE Routine 05/07/2022 10:09 AM CDT documented in this encounter Results * (ABNORMAL) POC LIPID PANEL AND GLUCOSE (05/07/2022 10:09 AM CDT) CHOLESTEROL POC 115 200 mg/dL [facility] HDL POC 38(A) 40 - 59 mg/dL [facility] LDL CALCULATED POC 43 100 mg/dL [facility] TRIGLYCERIDES POC 171(A) 150 mg/dL [facility] [place] NON-HDL CHOLESTEROL POC 0 130 mg/dL [facility] Comment:NA CHOL/HDL RATIO POC 3.1 [facility] GLUCOSE POC 99 65 - 99 mg/dL [facility] Blood 05/07/2022 10:0 9 AM CDT Abstract Provider POINT OF CARE TESTIN G COM [facility] CLIA# [id number] [address] [address] documented in this encounter Visit Diagnoses Diagnosis Encounter for screening, unspecified- Primary documented in this encounter
--- OUTSIDE RECORDS SUMMARY | 2024-11-25 20:49 | XMS_ITS | Encounter Summary ---
Author Organization [facility] Address [address] [facility] Attn: Epic [place] [address] Care Team Providers Care Carpet Sewer Name Role Phone Unavailable Primary Care Provider Unavailabl e Encounter Details Date Type Department Care Team (Latest Contact Info) Description 12/25/2019 Travel Social History Tobacco Use Types Packs/Day Years [...] st Contact Info) Description 12/24/2024 1:00 PM PASTORAL WORKER Office Visit [facility] at [employer] [place] [address] [place] [address] Susy Olivas, ANP [address] [place] [address] documented as of this encounter Visit Diagnoses Not on filedocumented in this encounter
--- OUTSIDE RECORDS SUMMARY | 2024-11-25 20:49 | XMS_ITS | Encounter Summary ---
Author Organization [facility] Address [address] [place] [address] Care Team Providers Care Air Compressor Mechanic Name Role Phone Unavailable Primary Care Provider Unavailabl e Reason for Visit * Reason Comments Leg Pain Encounter Details Date Type Department Care Team (Late st Contact Info) Description 07/18/2020 9:30 AM CDT Office Visit [facility] [employer] [place] [address] [place] [address] Alisa Alves, ANDREINA [address] [place] [address] Trochanteric bursitis of right hip (Primary Dx) Social History Tobacco Use Types [...] AM CDT documented as of this encounter Last Filed Vital Signs Vital Sign Reading Time Taken Comments Blood Pressure 144/82 07/18/2020 9:15 AM CDT Pulse 62 07/18/2020 8:57 AM CDT Temperature 36.6 ??C (97.9 ??F) 07/18/2020 8:57 AM CD T Respiratory Rate 18 07/18/2020 8:57 AM CDT Oxygen Saturation 98% 07/18/2020 8:57 AM CDT Inhaled Oxygen Concentration - - Weight 83.5 kg (184 lb) 07/18/2020 8:57 AM CDT Height 175.3 cm (5' 9 ) 07/18/2020 8:57 AM CDT Body Mass Index 27.17 07/18/2020 8:57 AM CDT documented in this encounter Progress Notes * Alisa Alves, ANDREINA - 07/18/2020 12:08 PM CDT Images from the original note were not included. HISTORY OF PRESENT ILLNESS Kemar Bell is a 50 y.o. male who presents for Chief Complaint Patient presents with ??? Knee Pain Right hip pain with radiation down to right lateral thigh, knee and right lateral mid boone. Pain isworse with lying on it while in bed. 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 Denies left sided low back pain today. This pain is very intermittent lasting 3- 4 days only. Past Medical History: Diagnosis Date ??? Patient denies relevant medical history Current Outpatient Medications Medication Sig Dispense Refill ??? nabumetone (RELAFEN) 500 mg tablet Take 1 Tablet (500 mg) by mouth 2 times daily. Take with food 30 Tablet 0 ??? HYDROcodone-acetaminophen (NORCO) 5-325 mg tablet Take 1 Tablet by mouth every 4 hours as needed for Pain, Moderate. Max Daily Amount: 6 Tablets 15 Tablet 0 No current facility-administered medications for this visit. No Known Allergies BP (!) 144/82 (BP Location: Left arm, Patient Position (BP): Sitting, BP Cuff Size: Large Adult) Pulse 62 Temp 97.9 ??F (36.6 ??C) (Tympanic) Resp 18 Ht 5' 9 (1.753 m) Wt 83.5 kg (184 lb) SpO2 98% BMI 27.17 kg/m?? MEDICAL RECORD UPDATE Past Medical History: [...] reviewed and updated in computerized patient record. [employer] #[id number] - [facility] [address] [facility] [address] Care Providers: No care rock climbing team member to display No Patient Care Coordination Note on file. Vital signs/Tobacco use BP (!) 144/82 (BP Location: Left arm, Patient Position (BP): Sitting, BP Cuff Size: Large Adult) Pulse 62 Temp 97.9 ??F (36.6 ??C) (Tympanic) Resp 18 Ht 5' 9 (1.753 m) Wt 83.5 kg (184 lb) SpO2 98% BMI 27.17 kg/m?? EXAMINATION REVIEW OF SYSTEMS Review of Systems Constitutional: Negative for chills, fever and malaise/fatigue. Cardiovascular: Negative for leg swelling. Musculoskeletal: Positive for myalgias. Negative for joint pain. Neurological: Negative for tingling and focal weakness. Objective PHYSICAL EXAM Physical Exam Constitutional: Appearance: [...] breath sounds. No wheezing or rales. Musculoskeletal: Right hip: He exhibits bony tenderness. He exhibits normal range of motion and normal strength. Legs: Comments: Area of reported pain over right greater trochanter Skin: General: Skin is warm and dry. Neurological: Mental Status: He is alert and oriented to person, place, and time. No results found for any visits on 07/18/20 (from the past 24 hour(s)). ASSESSMENT and PLAN: Kemar was seen today for knee pain. Diagnoses and all orders for this visit: Trochanteric bursitis of right hip Reviewed with pt xray results. Ordered yesterday Xray right hip, ortho referral. 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 Has Berino approved yesterday by Dr Shi for use at night. documented in this encounter Miscellaneous Notes * Patient Instructions - Alisa Alves, ANDREINA - 07/18/2020 9:27 AM CDT Images from the original note were not included. Trochanteric Bursitis: Exercises Introduction Here are some examples of exercises for you to try. The exercises may be suggested for a condition or for rehabilitation. Start each exercise slowly. Ease off the exercises if you start to have pain. You will be told when to start these exercises and which ones will work best for you. How to do the exercises Hamstring wall stretch 1. Lie on your back in a doorway, with your good leg through the open door. 2. Slide your affected leg up the wall to straighten your knee. You should feel a gentle stretch down the back of your leg. 3. Hold the stretch for at least 1 minute to begin. Then try to lengthen the time you hold the stretch to as long as 6 minutes. 4. Repeat 2 to 4 times. 5. If you do not have a place to do this exercise in a doorway, there is another way to do it: 6. Lie on your back, and bend the knee of your affected leg. 7. Loop a towel under the ball and toes of that foot, and hold the ends of the towel in your hands. 8. Straighten your knee, and slowly pull back on the towel. You should feel a gentle stretch down the back of your leg. 9. Hold the stretch for 15 to 30 seconds. Or even better, hold the stretch for 1 minute if you can. 10. Repeat 2 to 4 times. 1. Do not arch your back. 2. Do not bend either knee. 3. Keep one heel touching the floor and the other heel touching the wall. Do not point your toes. Straight-leg raises to the outside 1. Lie on your side, with your affected leg on top. 2. Tighten the front thigh muscles of your top leg to keep your knee straight. 3. Keep your hip and your leg straight in line with the rest of your body, and keep your knee pointing forward. Do not drop your hip back. 4. Lift your top leg straight up toward the ceiling, about 12 inches off the floor. Hold for about 6 seconds, then slowly lower your leg. 5. Repeat 8 to 12 times. Clamshell 1. Lie on your side, with your affected leg on top and your head propped on a pillow. Keep your feet and knees together and your knees bent. 2. Raise your top knee, but keep your feet together. Do not let your hips roll back. Your legs should open up like a clamshell. 3. Hold for 6 seconds. 4. Slowly lower your knee back down. Rest for 10 seconds. 5. Repeat 8 to 12 times. Standing quadriceps stretch 1. If you are not steady on your feet, hold on to a chair, counter, or wall. You can also lie on your stomach or your side to do this exercise. 2. Bend the knee of the leg you want to stretch, and reach behind you to grab the front of your foot or ankle with the hand on the same side. For example, if you are stretching your right leg, use your right hand. 3. Keeping your knees next to each other, pull your foot toward your buttock until you feel a gentle stretch across the front of your hip and down the front of your thigh. Your knee should be pointeddirectly to the ground, and not out to the side. 4. Hold the stretch for 15 to 30 seconds. 5. Repeat 2 to 4 times. Piriformis stretch 1. Lie on your back with your legs straight. 2. Lift your affected leg and bend your knee. With your opposite hand, reach across your body, and then gently pull your knee toward your opposite shoulder. 3. Hold the stretch for 15 to 30 seconds. 4. Repeat 2 to 4 times. Double wocz-vn-qzggf 1. Lie on your back with your knees bent and your feet flat on the floor. You can put a small pillow under your head and neck if it is more comfortable. 2. Bring both knees to your chest. 3. Keep your lower back pressed to the floor. Hold for 15 to 30 seconds. 4. Relax, and lower your knees to the starting position. 5. Repeat 2 to 4 times. Follow-up care is a murrell part of your treatment and safety. Be sure to make and go to all appointments, and call your doctor if you are having problems. It's also a good idea to know your test resultsand keep a list of the medicines you take. Where can you learn more? Go to https://www.Authy.net/patiented Enter N503 in the search box to learn more about Trochanteric Bursitis: Exercises. Current as of: January 21, 2020?Content Version: 12.5 ?? [id number] [employer]. Care instructions adapted under license by your healthcare professional. If you have questions about a medical condition or this instruction, always ask your healthcare professional. These instructions may not represent the values of this healthcare organization. [employer] disclaims any warranty or liability for your use of this information. documented in this encounter Plan of Treatment Upcoming Encounters Date Type Department Care Team (Late st Contact Info) Description 12/24/2024 1:00 PM INTERNIST MEDICAL DOCTOR MD Office Visit [facility] [employer] [place] [address] [place] [address] Susy Olivas, ANP [address] [address] [facility] [address] [place] [address] documented as of this encounter Visit Diagnoses Diagnosis Trochanteric bursitis of right hip- Primary Enthesopathy of hip region documented in this encounter
--- OUTSIDE RECORDS SUMMARY | 2024-11-25 20:49 | XMS_ITS | Encounter Summary ---
Author Organization [facility] Address [address] [place] [address] Care Team Providers Care Plumbing Instructor Name Role Phone Unavailable Primary Care Provider Unavailabl e Reason for Referral * Eval and Treat (Routine) - Closed Specialty Diagnoses / Procedures Referred By Rena t Referred To Contact Orthopedic Surgery Diagnoses Right hip pain Acute left-sided low back pain with left-sided sciatica Alisa Alves NP [address] [place] [address] Referral ID Status Reason Start Date Expiration Date Visits Re quested Visits Authorized [id number] Closed 07/17/2020 07/17/2021 1 1 Encounter Details Date Type Department Care Team (Late st Contact Info) Description 07/16/[address] [facility] [place] [address] [place] [address] [place] [address] [facility] [address] [place] [address] Right hip pain; Acute left-sided low back [...] AM CDT documented as of this encounter Progress Notes * Alisa Alves NP - 07/17/2020 11:41 AM CDT Spoke with pt regarding xray results. Was here with during OV. Still having pain to right LE with aching laterally below the knee today. Will refer to ortho. Continue Relafen. Requests somethingstronger for pain-Eleanor request sent to Dr Shi. documented in this encounter Plan of Treatment Upcoming Encounters Date Type Department Care Team (Late st Contact Info) Description 12/24/2024 1:00 PM MERCHANDISER Office Visit [facility] [place] [address] [place] [address] Susy Olivas, ANP [address] [facility] [address] [facility] [address] [place] [address] Scheduled Referrals Name Type Priority Associated Diagnoses Order Schedule AMB REFERRAL TO ORTHOPEDIC SURGERY Outpatient Referral Routine Right hip pain Acute left-sided low back pain with left-sided sciatica Ordered: 07/17/2020 documented as of this encounter Visit Diagnoses Diagnosis Right hip pain Pain in joint, pelvic region and thigh Acute left-sided low back pain with left-sided sciatica documented in this encounter
--- OUTSIDE RECORDS SUMMARY | 2024-11-25 20:49 | XMS_ITS | Encounter Summary ---
Author Organization [facility] Address [address] [place] [address] Care Team Providers Care Head Start Assistant Teacher Name Role Phone Unavailable Primary Care Provider Unavailabl e Reason for Referral * Eval and Treat (Routine) - Closed Specialty Diagnoses / Procedures Referred By Rena cyr Referred To Contact Diagnoses Plantar callus Alisa Alves NP [address] [place] [address] Referral ID Status Reason Start Date Expiration Date V isits Requested Visits Authorized [id number] Closed CRS To Schedule (STL) 12/26/2019 12/26/2020 1 1 PROFILER Reason for Visit * Reason Comments Abdominal Pain Rash Foot Pain Encounter Details Date Type Department Care Team (Late st Contact Info) Description 12/25/2019 3:00 PM FBI PROFILER Office Visit [facility] [employer] [address] [place] [address] [place] [address] [facility] [address] [place] [address] Herpes zoster without complication (Primary Dx); Plantar callus; Cigarette nicotine dependence, uncomplicated Social History Tobacco Use Types Packs/Day Years [...] Sign Reading Time Taken Comments Blood Pressure 136/94 12/25/2019 2:57 PM FBI PROFILER Pulse 60 12/25/2019 2:57 PM FBI PROFILER Temperature 36.3 ??C (97.4 ??F) 12/25/2019 2:57 PM CS T Respiratory Rate 18 12/25/2019 2:57 PM FBI PROFILER Oxygen Saturation 99% 12/25/2019 2:57 PM FBI PROFILER Inhaled Oxygen Concentration - - Weight 87.1 kg (192 lb) 12/25/2019 2:57 PM FBI PROFILER Height 175.3 cm (5' 9 ) 12/25/2019 2:57 PM FBI PROFILER Body Mass Index 28.35 12/25/2019 2:57 PM FBI PROFILER documented in this encounter Progress Notes * Alisa Alves, AUDIT REVIEWER - 12/25/2019 3:07 PM CST Images from the original note were not included. HISTORY OF PRESENT ILLNESS Kemar Bell is a 49 y.o. male who presents for Chief Complaint Patient presents with ??? Abdominal Pain ??? Rash ??? Foot Pain Left sided abd pain 2 weeks- cramping pain, ,constant, throbbing like a pulse. Went to ER - [place] about 5 days ago for LLQ abd pain, neg labs and neg flat plate-reviewed notes.Dx with constipation, given RX for Miralax. Painful rash appeared yesterday to left lower abd and around to his back. Cannot sleep due to pain. Lesion to bottom of left jbnt-jqhqybt-wud been there for months. Past Medical History: Diagnosis Date ??? Patient denies relevant medical history Current Outpatient Medications Medication Sig Dispense Refill ??? valACYclovir (Valtrex) 1 gram tablet Take 1 Tablet (1,000 mg) by mouth 3 times daily for 7 days. 30 Tablet 0 ??? polyethylene glycol (MIRALAX) 17 gram Powder in Packet TK 1 PACKET PO QD ??? HYDROcodone-acetaminophen (NORCO) 5-325 mg tablet Take 1 Tablet by mouth every 4 hours as needed for Pain, Moderate. Max Daily Amount: 6 Tablets 30 Tablet 0 No current facility-administered medications for this visit. No Known Allergies BP (!) 136/94 (BP Location: Left arm, Patient Position (BP): Sitting, BP Cuff Size: Adult) Pulse 60 Temp 97.4 ??F (36.3 ??C) (Tympanic) Resp 18 Ht 5' 9 (1.753 m) Wt 87.1 kg (192 lb) BmG189% BMI 28.35 kg/m?? MEDICAL RECORD UPDATE Past Medical History: [...] reviewed and updated in computerized patient record. [employer] #[id number] - [place] [id number] [address] [address] Care Providers: No care steam cleaner to display No Patient Care Coordination Note on file. Vital signs/Tobacco use BP (!) 136/94 (BP Location: Left arm, Patient Position (BP): Sitting, BP Cuff Size: Adult) Pulse 60 Temp 97.4 ??F (36.3 ??C) (Tympanic) Resp 18 Ht 5' 9 (1.753 m) Wt 87.1 kg (192 lb) VvG462% BMI 28.35 kg/m?? The 10-year CVD risk score (Deny'Agostino, et al., 2008) is: 11.4% Values used to calculate the score: Age: 49 years Sex: Male Diabetic: No Tobacco smoker: Yes Systolic Blood Pressure: 136 mmHg Is BP treated: No HDL Cholesterol: 39 mg/dL Total Cholesterol: 125 mg/dL Consider Statins if 10 year risk >7.5-10% Tobacco Use (QM) reports that he has been smoking cigars. He has never used smokeless tobacco. He was counseled to discontinue tobacco use. DEPRESSION SCREENING (QM) PHQ2: Positive: PHQ-2 score > 2 or PHQ-9 score > 9 PHQ-2 Total: 0 (12/25/19 1500) His depression screen was normal EXAMINATION REVIEW OF SYSTEMS Review of Systems Constitutional: Positive for malaise/fatigue. Negative for chills and fever. Respiratory: Negative for cough and shortness of breath. Cardiovascular: Negative for chest pain. Gastrointestinal: Positive for abdominal pain. Negative for blood in stool, constipation, diarrhea,heartburn, melena, nausea and vomiting. Genitourinary: Negative for dysuria, flank pain, frequency, hematuria and urgency. Musculoskeletal: Negative for myalgias. Psychiatric/Behavioral: The patient has insomnia. Unable to sleep due to pain Objective PHYSICAL EXAM Physical Exam Constitutional: Appearance: [...] Normal breath sounds. No wheezing or rales. Abdominal: General: Abdomen is protuberant. Bowel sounds are normal. Palpations: Abdomen is soft. Comments: Marked area of herpetic rash in dermatomal pattern. Erythematous plaque with intact vesicles to the base. No dge Skin: General: Skin is warm and dry. Comments: Left foot has mid plantar callus present, tenderness. About 1 cm diam. Slightly raised. Neurological: Mental Status: He is alert and oriented to person, place, and time. No results found for any visits on 12/25/19 (from the past 24 hour(s)). ASSESSMENT and PLAN: Kemar was seen today for abdominal pain, rash and foot pain. Diagnoses and all orders for this visit: Herpes zoster without complication - valACYclovir (Valtrex) 1 gram tablet; Take 1 Tablet (1,000 mg) by mouth 3 times daily for 7 days. Plantar callus - AMB REFERRAL TO PODIATRY Cigarette nicotine dependence, uncomplicated Other orders - polyethylene glycol (MIRALAX) 17 gram Powder in Packet; TK 1 PACKET PO QD - Discontinue: dicyclomine (BENTYL) 20 mg tablet; TK 1 T PO Q 6-8 H PRN Herpes Zoster- Valtrex- will start since rash began 1 day ago. Sent RX request to Dr Shi for [place] for pain. Treat with Valtrex. Discussed treatment of herpes zoster, transmission concerns with , young children, immunocompromised people. Cover any blisters that are open. Rash may last up to 4-6 weeks. Seek additional care if signs of infection or for pain that continues after rash resolves. Cigarette dependence- is not interested in quitting. Discussed. Plantar callus-declined paring, referral to accounts manager-agreeable. Has daily pain from the site. PROFILER documented in this encounter Miscellaneous Notes * Patient Instructions - Alisa Alves NP - 12/25/2019 3:29 PM FBI PROFILER Images from the original note were not included. Shingles: Care Instructions Your Care Instructions Shingles (herpes zoster) causes pain and a blistered rash. The rash can appear anywhere on the bodybut will be on only one side of the body, the left or right. It will be in a band, a strip, or a small area. The pain can be very severe. Shingles can also cause tingling or itching in the area of the rash. The blisters scab over after a few days and heal in 2 to 4 weeks. Medicines can help you feel better and may help prevent more serious problems caused by shingles. Shingles is caused by the same virus that causes chickenpox. When you have chickenpox, the virus gets into your nerve roots and stays there (becomes dormant) long after you get over the chickenpox. If the virus becomes active again, it can cause shingles. Follow-up care is a murrell part of your treatment and safety. Be sure to make and go to all appointments, and call your doctor if you are having problems. It's also a good idea to know your test resultsand keep a list of the medicines you take. How can you care for yourself at home? ?? Be safe with medicines. Take your medicines exactly as prescribed. Call your doctor if you thinkyou are having a problem with your medicine. Antiviral medicine helps you get better faster. ?? Try not to scratch or pick at the blisters. They will crust over and fall off on their own if you leave them alone. ?? Put cool, wet cloths on the area to relieve pain and itching. You can also use calamine lotion. Try not to use so much lotion that it cakes and is hard to get off. ?? Put cornstarch or baking soda on the sores to help dry them out so they heal faster. ?? Do not use thick ointment, such as petroleum jelly, on the sores. This will keep them from drying and healing. ?? To help remove loose crusts, soak them in tap water. This can help decrease oozing, and dry and soothe the skin. ?? Take an ojwx-mgf-qifkdxp pain medicine, such as acetaminophen (Tylenol), ibuprofen (Advil, Motrin), or naproxen (Aleve). Read and follow all instructions on the label. ?? Avoid close contact with people until the blisters have healed. It is very important for you to avoid contact with anyone who has never had chickenpox or the chickenpox vaccine. women, young babies, and anyone else who has a hard time fighting infection (such as someone with HIV, diabetes, or cancer) is especially at risk. When should you call for help? Call your doctor now or seek immediate medical care if: ? You have a new or higher fever. ? You have a severe headache and a stiff neck. ? You lose the ability to think clearly. ? The rash spreads to your forehead, nose, eyes, or eyelids. ? You have eye pain, or your vision gets worse. ? You have new pain in your face, or you cannot move the muscles in your face. ? Blisters spread to new parts of your body. ??Watch closely for changes in your health, and be sure to contact your doctor if: ? The rash has not healed after 2 to 4 weeks. ? You still have pain after the rash has healed. Where can you learn more? Go to https://www.N-Trig.net/patiented Enter X176 in the search box to learn more about Shingles: Care Instructions. Current as of: April 29, 2019 Content Version: 12.3 ?? [id number] [employer]. Care instructions adapted under license by your healthcare professional. If you have questions about a medical condition or this instruction, always ask your healthcare professional. These instructions may not represent the values of this healthcare organization. [employer] disclaims any warranty or liability for your use of this information. PROFILER documented in this encounter Plan of Treatment Upcoming Encounters Date Type Department Care Team (Late st Contact Info) Description 12/24/2024 1:00 PM FBI PROFILER Office Visit [facility] [place] [address] [place] [place] [address] Susy Olivas, ANP [address] [address] [address] [place] [address] Scheduled Referrals Name Type Priority Associated Diagnoses Orde r Schedule AMB REFERRAL TO PODIATRY Outpatient Referral Routine Plantar callus Ordered: 12/26/2019 documented as of this encounter Visit Diagnoses Diagnosis Herpes zoster without complication- Primary Plantar callus Cigarette nicotine dependence, uncomplicated Tobacco use disorder documented in this encounter
--- OUTSIDE RECORDS SUMMARY | 2024-11-25 20:49 | XMS_ITS | Encounter Summary ---
Author Organization [facility] Address [address] [place] [address] Care Team Providers Care Sole Leather Cutting Machine Operator Name Role Phone Unavailable Primary Care Provider Unavailabl e Reason for Visit * Reason Comments Labs Only Encounter Details Date Type Department Care Team (Late Contact Info) Description 05/09/2019 9:45 AM CDT Office Visit [facility] [employer] [address] [place] [address] Screening for condition (Primary Dx) Social History Tobacco Use Types Packs/Day Years Used Date Smoking Tobacco: Never Assessed Sex and Gender Information Value Date Recorded Sex Assigned at Not on file Gender Identity Not on file Sexual Orientation Not on file documented as of this encounter Last Filed Vital Signs Vital Sign Reading Time Taken Comments Blood Pressure 130/84 05/09/2019 9:42 AM CDT Pulse - - Temperature - - Respiratory Rate - - Oxygen Saturation - - Inhaled Oxygen Concentration - - Weight 82.6 kg (182 lb) 05/09/2019 9:42 AM CDT Height 175.3 cm (5' 9 ) 05/09/2019 9:42 AM CDT Body Mass Index 26.88 05/09/2019 9:42 AM CDT documented in this encounter Progress Notes * Nini Sarmiento - 05/09/2019 9:42 AM CDT Pt came in for annual wellness screening finger stick, right hand 2nd digit, pt tolerate well. CHAPARRITA Vogt Pt counseled on HDL and given the glucose handout. documented in this encounter Plan of Treatment Upcoming Encounters Date Type Department Care Team (Late Contact Info) Description 12/24/2024 1:00 PM WASHCLOTH FOLDER Office Visit [facility] at Work [employer] [place] [address] [facility] [place] [address] Susy Olivas, ANP [address] [place] [address] documented as of this encounter Procedures Procedure Name Priority Date/Time Associated Diagnosis Comments GLUCOSE LEVEL Routine 05/09/2019 LIPID PANEL Routine 05/09/2019 documented in this encounter Results * (ABNORMAL) GLUCOSE LEVEL (05/09/2019) GLUCOSE 104(A) 74 - 99 mg/dL [facility] Blood 05/09/2019 Abstract Provider CHEMISTRY ORDERABLES [facility] CLIA# [id number] [place] [id number] * (ABNORMAL) LIPID PANEL (05/09/2019) CHOLESTEROL 125 200 mg/dL [facility] TRIGLYCERIDE 113 150 mg/dL [facility] HDL 39(A) 40 - 59 mg/dL [facility] LDL CALCULATED 63 100 mg/dL [facility] TC/HDL POC 3.2(A) 3.43 - 4.97 Ratio [facility] Blood 05/09/2019 Abstract Provider CHEMISTRY ORDERABLES [facility] CLIA# [id number] [place] [address] documented in this encounter Visit Diagnoses Diagnosis Screening for condition- Primary Screening for unspecified condition documented in this encounter
--- OUTSIDE RECORDS SUMMARY | 2024-11-25 20:49 | XMS_ITS | Encounter Summary ---
Author Organization [facility] Address [address] [facility] Attn: Epic Prelude ADT JOSEPHINE SHERIFF [place] [address] Care Team Providers Care Netezza Developer Name Role Phone Unavailable Primary Care Provider Unavailabl e Encounter Details Date Type Department Care Team (Latest Contact Info) Description 05/13/2020 Travel Social History Tobacco Use Types Packs/Day [...] PM CDT documented as of this encounter Plan of Treatment Upcoming Encounters Date Type Department Care Team (Late st Contact Info) Description 12/24/2024 1:00 PM HEALTH INFORMATION DIRECTOR Office Visit [facility] at Work [employer] [place] [address] [place] [address] Susy Olivas, ANP [address] [place] [address] documented as of this encounter Visit Diagnoses Not on filedocumented in this encounter
--- OUTSIDE RECORDS SUMMARY | 2024-11-25 20:49 | XMS_ITS | Encounter Summary ---
Author Organization [facility] Address [address] [place] [address] Care Team Providers Care Tuber Operator Name Role Phone Unavailable Primary Care Provider Unavailabl e Reason for Visit * Reason Comments Labs Only Encounter Details Date Type Department Care Team (Latest Contact Info) Description 03/26/2021 10:00 AM CDT Procedure visit [facility] at Work [employer] [place] [address] [employer] [employer] [place] [place] [address] Screening for condition (Primary Dx) Social History [...] Sign Reading Time Taken Comments Blood Pressure 138/88 03/26/2021 9:45 AM CDT Pulse - - Temperature - - Respiratory Rate - - Oxygen Saturation - - Inhaled Oxygen Concentration - - Weight 83 kg (183 lb) 03/26/2021 9:45 AM CDT Height 175.3 cm (5' 9 ) 03/26/2021 9:45 AM CDT Body Mass Index 27.02 03/26/2021 9:45 AM CDT documented in this encounter Progress Notes * Cassia Tee - 03/26/2021 9:53 AM CDT Annual wellness screening fingerstick. Left hand, 3rd digit. Pt tolerated well. MARGARET Harper documented in this encounter Plan of Treatment Upcoming Encounters Date Type Department Care Team (Late st Contact Info) Description 12/24/2024 1:00 PM SUPERINTENDENT LOCAL Office Visit [facility] at Work [employer] [address] [place] [address] Susy Olivas, ANP [address] [place] [address] documented as of this encounter Procedures Procedure Name Priority Date/Time Associated Diagnosis Comments POC LIPID PANEL AND GLUCOSE Routine 03/26/2021 9:53 AM CDT documented in this encounter Results * (ABNORMAL) POC LIPID PANEL AND GLUCOSE (03/26/2021 9:53 AM CDT) CHOLESTEROL 136 200 mg/dL [facility] HDL 52 40 - 59 mg/dL [facility] LDL CALCULATED 69 100 mg/dL [facility] TRIGLYCERIDE 75 150 mg/dL [facility] NON-HDL CHOLESTEROL 0 130 mg/dL [facility] CHOL/HDL RATIO 2.6 [facility] GLUCOSE POC 102(A) 74 - 99 mg/dL [facility] Blood 03/26/2021 9:53 AM CDT Abstract Provider POINT OF CARE TESTIN G COM [facility] CLIA# [id number] [address] [place] [address] documented in this encounter Visit Diagnoses Diagnosis Screening for condition- Primary Screening for unspecified condition documented in this encounter
--- OUTSIDE RECORDS SUMMARY | 2024-11-25 20:49 | XMS_ITS | Encounter Summary ---
Author Organization [employer] Address [address] [place] [address] Care Team Providers Care Automation Technologist Name Role Phone Unavailable Primary Care Provider Unavailabl e Reason for Visit * Reason Onset Date Comments Shinglyareli 12/28/2019 Encounter Details Date Type Department Care Team (Late st Contact Info) Description 12/28/2019 Telephone [facility] at Work [employer] [place] [address] [place] [address] [place] [address] [facility] [address] [place] [address] Ximena Social History Tobacco Use Types Packs/Day Years [...] Miscellaneous Notes * Telephone Encounter - Nini Sarmiento - 12/28/2019 11:07 AM CST Let pt know note and meds are ready. NE DESIGNER * Telephone Encounter - Alisa Alves NP - 12/28/2019 10:07 AM ENGINE DESIGNER Please do not advise to take Ibuprofen with the prednisone. NE DESIGNER * Telephone Encounter - Alisa Alves NP - 12/28/2019 10:05 AM ENGINE DESIGNER Yes I can do a work note. He may take 2 tabs of the Polo if needed for pain and add Ibuprofen for pain. I will add Prednisone and that may helpful, he can rock picker the RX. NE DESIGNER * Telephone Encounter - Nini Sarmiento - 12/28/2019 8:43 AM CST Pt called stating Shingles has spread to his stomach and is very painful and he did not get any sleep last night. He did not come into work today and was wanting to know if he could get a work note for today. He was also wondering if there was anything stronger that he could be taking. I let him know that it is a virus and it will have to run its course. Please advise NE DESIGNER documented in this encounter Plan of Treatment Upcoming Encounters Date Type Department Care Team (Late st Contact Info) Description 12/24/2024 1:00 PM ENGINE DESIGNER Office Visit [facility] at Work [employer] [place] [address] [facility] [address] Susy Olivas, ANP [address] [facility] [address] [place] [address] documented as of this encounter Visit Diagnoses Not on filedocumented in this encounter
--- OUTSIDE RECORDS SUMMARY | 2024-11-25 20:49 | XMS_ITS | Encounter Summary ---
Author Organization [employer] Address [address] [place] [address] Care Team Providers Care Accounts Receivable Coordinator Name Role Phone Unavailable Primary Care Provider Unavailabl e Reason for Visit * Reason Onset Date Comments Medication Refill 07/17/2020 Encounter Details Date Type Department Care Team (Late st Contact Info) Description 07/17/2020 Refill [facility] at Work [employer] [place] [address] [employer] [place] [address] [place] [address] [facility] [address] [place] [address] Right hip pain (Primary Dx); Acute left-sided low back pain with left-sided [...] encounter Miscellaneous Notes * Telephone Encounter - RandalCassia - 07/17/2020 11:57 AM CDT Pt has follow up tomorrow 07/18/20 to discuss ----- Message from Alisa Alves NP sent at 07/17/2020 10:55 AM CDT ----- Regarding: Xray results Please let patient know his xray of the right hip showed arthritis. I would see if the anti-inflammatory taken regularly is helpful. I believe he has IT band inflammation. The lumbar spine xray was normal. I would recommend physical therapy for both issues if he is willing to participate. Let me know please. documented in this encounter Plan of Treatment Upcoming Encounters Date Type Department Care Team (Late st Contact Info) Description 12/24/2024 1:00 PM JOY OPERATOR Office Visit [facility] [employer] [place] [address] [place] [address] Susy Olivas, ANP [address] [facility] [address] [facility] [address] [place] [address] documented as of this encounter Visit Diagnoses Diagnosis Right hip pain- Primary Pain in joint, pelvic region and thigh Acute left-sided low back pain with left-sided sciatica documented in this encounter
--- OUTSIDE RECORDS SUMMARY | 2024-11-25 20:49 | XMS_ITS | Encounter Summary ---
Author Organization [facility] Address [address] [facility] Attn: Epic Prelude ADT JOSEPHINE SHERIFF [place]AM [address] Care Team Providers Care Global Marketing Specialist Name Role Phone Unavailable Primary Care Provider Unavailabl e Encounter Details Date Type Department Care Team (Latest Contact Info) Description 10/22/2021 Travel Social History Tobacco Use Types Packs/Day [...] COVID-19? No / Unsure 10/22/2021 1:14 PM PICKER OPERATOR documented as of this encounter Plan of Treatment Upcoming Encounters Date Type Department Care Team (Late st Contact Info) Description 12/24/2024 1:00 PM PICKER OPERATOR Office Visit [facility] at Work [employer] [place] [address] [place] [address] Susy Olivas, ANP [address] [place] [address] documented as of this encounter Visit Diagnoses Not on filedocumented in this encounter
--- OUTSIDE RECORDS SUMMARY | 2024-11-25 20:49 | XMS_ITS | Encounter Summary ---
Author Organization [employer] Address [address] [place] [address] Care Team Providers Care Tufting Machine Operator Single Needle Name Role Phone Unavailable Primary Care Provider Unavailabl e Reason for Visit * Reason Onset Date Comments Letter for School/Work 10/08/2021 FMLA Encounter Details Date Type Department Care Team (Late st Contact Info) Description 10/08/2021 Telephone [facility] at Work [employer] [place] [address] [place] [address] Jasmeet Shi MD NO ADDRESS ON FILE Letter for School/Work (FMLA) Social History Tobacco Use Types Packs/Day Years [...] Telephone Encounter - Jasmeet Shi MD - 10/08/2021 10:54 AM JUNIOR HIGH SCHOOL TEACHER Bulmaro paris Thanks. I am fine with just reupping and chagning the dates. No reason to see other than once a year for this spouse-care fmla. Happy to do it Tuesday or I can do it today over here. Thanks j OR HIGH SCHOOL TEACHER * Telephone Encounter - Nini Sarmiento - 10/08/2021 10:46 AM CST Pt is needing FMLA renewed to take care of spouse. Does he need to be seen/appointment of some sortor can we just renew the paper work and send it back in. They state the paper work should all stay the same. Please advise. OR HIGH SCHOOL TEACHER documented in this encounter Plan of Treatment Upcoming Encounters Date Type Department Care Team (Late st Contact Info) Description 12/24/2024 1:00 PM JUNIOR HIGH SCHOOL TEACHER Office Visit [facility] at Work [employer] [place] [address] [place] [address] Susy Olivas, ANP [address] [facility] [address] [facility] [address] [place] [address] documented as of this encounter Visit Diagnoses Not on filedocumented in this encounter
--- OUTSIDE RECORDS SUMMARY | 2024-11-25 20:49 | XMS_ITS | Encounter Summary ---
Author Organization [employer] Address [address] [place] [address] Care Team Providers Care Transformer Inspector Name Role Phone Unavailable Primary Care Provider Unavailabl e Reason for Visit * Reason Onset Date Comments Itching 12/27/2019 Encounter Details Date Type Department Care Team (Late st Contact Info) Description 12/27/2019 Telephone [facility] at Work [employer] [place] [address] [place] [address] [place] [address] [facility] [address] [place] [address] Itching Social History Tobacco Use Types Packs/Day Years [...] encounter Miscellaneous Notes * Telephone Encounter - Alisa Alves NP - 12/27/2019 10:20 AM LITIGATION CLAIM REPRESENTATIVE He can try Hydrocortisone on it. There is not much to help with this except the cream and he can try OTC Benadryl for itching, can cause sleepiness. I will send RX for forklift picker GATION CLAIM REPRESENTATIVE * Telephone Encounter - Nini Sarmiento - 12/27/2019 10:04 AM CST Pt called stating he would like something for the itching on the rash. Please advise. GATION CLAIM REPRESENTATIVE documented in this encounter Plan of Treatment Upcoming Encounters Date Type Department Care Team (Late st Contact Info) Description 12/24/2024 1:00 PM LITIGATION CLAIM REPRESENTATIVE Office Visit [facility] [employer] [place] [address] [place] [address] Susy Olivas, ANP [address] [facility] [address] [facility] [address] [place] [address] documented as of this encounter Visit Diagnoses Not on filedocumented in this encounter
--- OUTSIDE RECORDS SUMMARY | 2024-11-25 20:49 | XMS_ITS | Encounter Summary ---
Author Organization [facility] Address [address] [place] [address] Care Team Providers Care Sales Route Driver Name Role Phone Unavailable Primary Care Provider Unavailabl e Reason for Visit * Reason Comments Medication Refill Encounter Details Date Type Department Care Team (Latest Contact Info) Description 12/27/2019 1:45 PM LOAN BROKER Procedure visit [facility] [employer] [place] [address] [place] [address] Encounter for issue of repeat prescription (Primary Dx) Social History Tobacco Use Types [...] as of this encounter Progress Notes * Cassia Tee - 12/27/2019 1:44 PM CST Triamcinolone cream. Apply to affected area BID x14 days. #1 tube. Picked up by pt's , Lilian. BROKER documented in this encounter Plan of Treatment Upcoming Encounters Date Type Department Care Team (Late st Contact Info) Description 12/24/2024 1:00 PM LOAN BROKER Office Visit [facility] [employer] [place] [address] [place] [address] Susy Olivas, ANP [address] [place] [address] documented as of this encounter Visit Diagnoses Diagnosis Encounter for issue of repeat prescription- Primary Issue of repeat prescriptions documented in this encounter
--- OUTSIDE RECORDS SUMMARY | 2024-11-25 20:49 | XMS_ITS | Encounter Summary ---
Author Organization [facility] Address [address] [place] [address] Care Team Providers Care Reconsignment Clerk Name Role Phone Unavailable Primary Care Provider Unavailabl e Reason for Visit * Reason Onset Date Comments Medication Refill 12/25/2019 Encounter Details Date Type Department Care Team (Late st Contact Info) Description 12/25/2019 Refill [facility] [employer] [place] [address] [place] [address] Alisa Alves, ANDREINA [address] [address] [place] [address] Herpes zoster without complication (Primary Dx) Social History Tobacco Use Types [...] st Contact Info) Description 12/24/2024 1:00 PM WATER AND FIRE TECHNICIAN Office Visit [facility] at [facility] [employer] [place] [address] [place] [address] Susy Olivas, ANP [address] [address] [place] [address] documented as of this encounter Visit Diagnoses Diagnosis Herpes zoster without complication- Primary documented in this encounter
--- OUTSIDE RECORDS SUMMARY | 2024-11-25 20:49 | XMS_ITS | Encounter Summary ---
Author Organization [facility] Address [address] [place] [address] Care Team Providers Care Company Miner Blasting Name Role Phone Unavailable Primary Care Provider Unavailabl e Encounter Details Date Type Department Care Team (Late st Contact Info) Description 12/28/2019 Orders Only [facility] [employer] [place] [address] [place] [address] Alisa Alves, ANDREINA [address] [facility] [address] [place] [address] Social History Tobacco Use Types Packs/Day Years [...] Contact Info) Description 12/24/2024 1:00 PM CREDIT UNION MANAGER Office Visit [facility] at Work [employer] [place] [address] [place] [address] Susy Olivas, ANP [address] [place] [address] documented as of this encounter Visit Diagnoses Not on filedocumented in this encounter
--- OUTSIDE RECORDS SUMMARY | 2024-11-25 20:49 | XMS_ITS | Encounter Summary ---
Author Organization [facility] Address [address] [place] [address] Care Team Providers Care Buffet Waiter/Waitress Name Role Phone Unavailable Primary Care Provider Unavailabl e Encounter Details Date Type Department Care Team (Late st Contact Info) Description 12/27/[address] [facility] [employer] [place] [address] [place] [address] Alisa Alves, ANDREINA [address] [address] [facility] [address] [place] [address] Social History Tobacco Use Types [...] st Contact Info) Description 12/24/2024 1:00 PM NAILHEAD OPERATOR Office Visit [facility] at Work [employer] [place] [address] [place] [address] Susy Olivas, ANP [address] [place] [address] documented as of this encounter Visit Diagnoses Not on filedocumented in this encounter
--- OUTSIDE RECORDS SUMMARY | 2024-11-25 20:49 | XMS_ITS | Encounter Summary ---
Author Organization [facility] Address [address] [place] [address] Care Team Providers Care Loan Servicing Officer Name Role Phone Unavailable Primary Care Provider Unavailabl e Reason for Visit * Reason Comments Follow Up Encounter Details Date Type Department Care Team (Late st Contact Info) Description 01/08/2020 9:30 AM AIR COMMODORE Office Visit [facility] [employer] [place] [address] [address] Alisa Alves, ANDREINA [address] [place] [address] Herpes zoster without complication (Primary Dx); Elevated BP without diagnosis of hypertension; Cigarette dependence; Screening for condition Social History Tobacco Use [...] Sign Reading Time Taken Comments Blood Pressure 160/100 01/08/2020 9:29 AM AIR COMMODORE Pulse 75 01/08/2020 9:19 AM AIR COMMODORE Temperature 36.8 ??C (98.3 ??F) 01/08/2020 9:19 AM CS T Respiratory Rate 18 01/08/2020 9:19 AM AIR COMMODORE Oxygen Saturation 99% 01/08/2020 9:19 AM AIR COMMODORE Inhaled Oxygen Concentration - - Weight 88.9 kg (196 lb) 01/08/2020 9:19 AM AIR COMMODORE Height 175.3 cm (5' 9 ) 01/08/2020 9:19 AM AIR COMMODORE Body Mass Index 28.94 01/08/2020 9:19 AM AIR COMMODORE documented in this encounter Progress Notes * Alisa Alves, ANDREINA - 01/08/2020 9:32 AM CST Images from the original note were not included. HISTORY OF PRESENT ILLNESS Kemar Bell is a 49 y.o. male who presents for No chief complaint on file. Rash is improving and less pain. Pain score 3 today. No blisters or drainage. Dry. Has a few Ensign left. Taking Ibuprofen prn. BP elevated smoked a cig prior to OV. Family hx of HTN. Past Medical History: Diagnosis Date ??? Patient denies relevant medical history Current Outpatient Medications Medication Sig Dispense Refill ??? triamcinolone acetonide (KENALOG) 0.1 % Cream Apply to affected area 2 times daily for 14 days.Do not exceed 2 weeks. 15 Gram 0 ??? HYDROcodone-acetaminophen (NORCO) 5-325 mg tablet Take 1 Tablet by mouth every 4 hours as needed for Pain, Moderate. Max Daily Amount: 6 Tablets 30 Tablet 0 No current facility-administered medications for this visit. No Known Allergies BP (!) 160/100 Pulse 75 Temp 98.3 ??F (36.8 ??C) (Tympanic) Resp 18 Ht 5' 9 (1.753 m) Wt88.9 kg (196 lb) SpO2 99% BMI 28.94 kg/m?? MEDICAL RECORD UPDATE Past Medical History: [...] reviewed and updated in computerized patient record. [employer] #[id number] - [facility] [address] [facility] [address] Care Providers: No care steam pressure chamber operator to display No Patient Care Coordination Note on file. Vital signs/Tobacco use BP (!) 160/100 Pulse 75 Temp 98.3 ??F (36.8 ??C) (Tympanic) Resp 18 Ht 5' 9 (1.753 m) Wt88.9 kg (196 lb) SpO2 99% BMI 28.94 kg/m?? Blood Pressure BP Readings from Last 3 Encounters: 01/08/20 (!) 160/100 12/25/19 (!) 136/94 05/09/19 130/84 BMI POC (QM) Body mass index is 28.94 kg/m??. Normal BMI range: 18 & older: > or = 18.5 and < 25 Abnormal high BMI: Patient counseled on lifestyle modifications including weight loss and daily exercise. The 10-year CVD risk score (Deny'Agolillie, et al., 2008) is: 15.2% Values used to calculate the score: Age: 49 years Sex: Male Diabetic: No Tobacco smoker: Yes Systolic Blood Pressure: 160 mmHg Is BP treated: No HDL Cholesterol: 39 mg/dL Total Cholesterol: 125 mg/dL Consider Statins if 10 year risk >7.5-10% Tobacco Use (QM) reports that he has been smoking cigars. He has never used smokeless tobacco. He was counseled to discontinue tobacco use. EXAMINATION REVIEW OF SYSTEMS Review of Systems Constitutional: Negative for chills, fever and malaise/fatigue. Respiratory: Negative for cough. Cardiovascular: Negative for chest pain. Gastrointestinal: Negative for nausea and vomiting. Musculoskeletal: Herpetic pain to left flank Neurological: Negative for dizziness and headaches. Objective PHYSICAL EXAM Physical Exam Constitutional: Appearance: [...] Normal breath sounds. No wheezing or rales. Skin: General: Skin is warm and dry. 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 No erythema. Neurological: Mental Status: He is alert and oriented to person, place, and time. No results found for any visits on 01/08/20 (from the past 24 hour(s)). ASSESSMENT and PLAN: Diagnoses and all orders for this visit: Herpes zoster without complication Cigarette dependence Screening for condition - CBC WITH DIFFERENTIAL; Future - COMPREHENSIVE METABOLIC PANEL - TSH - CBC WITH DIFFERENTIAL Tobacco use- is not ready to quit. He smokes 3-4 cigarettes a day- long. F/U when ready to quit. Discussed options for quitting. Follow up for BP check and labs. Discussed will start medication if BP continues to be elevated. Herpes Zoster-resolving, pain is improved markedly. Ibuprofen prn. Podiatry-given phone number to call for appt. COMMODORE documented in this encounter Plan of Treatment Upcoming Encounters Date Type Department Care Team (Late st Contact Info) Description 12/24/2024 1:00 PM AIR COMMODORE Office Visit [facility] [employer] [place] [address] [place] [address] Susy Olivas, ANP [address] [place] [address] documented as of this encounter Procedures Procedure Name Priority Date/Time Associated Diagnosis Comments CBC WITH DIFFERENTIAL Routine 01/08/2020 9:44 AM AIR COMMODORE Screening for condition TSH Routine 01/08/2020 9:44 AM AIR COMMODORE Screening for condition COMPREHENSIVE METABOLIC PANEL Routine 01/08/2020 9:44 AM AIR COMMODORE Screening for condition documented in this encounter Results * TSH (01/08/2020 9:44 AM AIR COMMODORE) TSH 1.400 0.450 - 4.500 uIU/mL [facility] Blood 01/08/2020 9:44 AM AIR COMMODORE 01/08/2020 Narrative [facility] - 01/09/2020 6:36 AM AIR COMMODORE Performed at: ??01 - [facility] [address] ??[id number] Mate Fishing Vessel: Patrice Alvarez PhD, Phone: ??[phone] Alisa Alves NP CHEMISTRY ORDER DELVIN [facility] [phone] * (ABNORMAL) COMPREHENSIVE METABOLIC PANEL (01/08/2020 9:44 AM AIR COMMODORE) GLUCOSE 90 65 - 99 mg/dL [facility] BUN 15 6 - 24 mg/dL [facility] CREATININE 1.38(H) 0.76 - 1.27 mg/dL [facility] GFR 60 >59 mL/min/1.7 3 [facility] GFR, 69 >59 mL/min/1.7 3 [facility] BUN/CREAT RATIO 11 9 - 20 [facility] SODIUM 142 134 - 144 mmol/L [facility] POTASSIUM 4.7 3.5 - 5.2 mmol/L [facility] CHLORIDE 107(H) 96 - 106 mmol/L [facility] CO2 21 20 - 29 mmol/L [facility] CALCIUM 9.7 8.7 - 10.2 mg/dL [facility] TOTAL PROTEIN 7.1 6.0 - 8.5 g/dL [facility] ALBUMIN 4.2 4.0 - 5.0 g/dL [facility] Comment:Please note refere nce interval change GLOBULIN 2.9 1.5 - 4.5 g/dL [facility] ALBUMIN/GLOBULIN RATIO 1.4 1.2 - 2.2 [facility] BILIRUBIN TOTAL <0.2 0.0 - 1.2 mg/dL [facility] ALKALINE PHOSPHATASE 74 39 - 117 IU/L [facility] AST 11 0 - 40 IU/L [facility] ALT 14 0 - 44 IU/L [facility] Blood 01/08/2020 9:44 AM AIR COMMODORE 01/08/2020 Narrative [facility] - 01/09/2020 5:35 AM AIR COMMODORE Performed at: ??01 - [facility] [address] ??[id number] Mate Fishing Vessel: Patrice Alvarez PhD, Phone: ??[phone] Alisa Alves NP CHEMISTRY ORDER DELVIN [facility] [phone] * (ABNORMAL) CBC WITH DIFFERENTIAL (01/08/2020 9:44 AM AIR COMMODORE) WBC 8.9 3.4 - 10.8 x10E3/uL [facility] RBC 5.05 4.14 - 5.80 x10E6/uL [facility] HEMOGLOBIN 13.5 13.0 - 17.7 g/dL [facility] HEMATOCRIT 40.5 37.5 - 51.0 % [facility] MCV 80 79 - 97 fL [facility] MCH 26.7 26.6 - 33.0 pg [facility] MCHC 33.3 31.5 - 35.7 g/dL [facility] RDW 13.8 11.6 - 15.4 % [facility] PLATELETS 318 150 - 450 x10E3/uL [facility] NEUTROPHIL 49 Not Estab. % [facility] LYMPHOCYTES 39 Not Estab. % [facility] MONOCYTE 7 Not Estab. % [facility] EOSINOPHILS 4 Not Estab. % [facility] BASOPHILS 1 Not Estab. % [facility] NEUTROPHIL ABSOLUTE 4.4 1.4 - 7.0 x10E3/uL [facility] LYMPHOCYTE ABSOLUTE 3.5(H) 0.7 - 3.1 x10E3/uL [facility] MONOCYTE ABSOLUTE 0.6 0.1 - 0.9 x10E3/uL [facility] EOSINOPHIL ABSOLUTE 0.3 0.0 - 0.4 x10E3/uL [facility] BASOPHILS ABSOLUTE 0.1 0.0 - 0.2 x10E3/uL [facility] IMMATURE GRANULOCYTES 0 Not Estab. % [facility] IMMATURE GRANULOCYTES ABSOLUTE 0.0 0.0 - 0.1 x10E3/uL [facility] Blood 01/08/2020 9:44 AM AIR COMMODORE 01/08/2020 Narrative [facility] - 01/09/2020 4:35 AM AIR COMMODORE Performed at: ?? - [facility] [address] ??[id number] Mate Fishing Vessel: Patrice Alvarez PhD, Phone: ??[phone] Alisa Alves NP HEMATOLOGY ARLEEN ALBERT [facility] Organization Address City/State/ZIP Co de Phone Number [facility] [phone] documented in this encounter Visit Diagnoses Diagnosis Herpes zoster without complication- Primary Elevated BP without diagnosis of hypertension Cigarette dependence Tobacco use disorder Screening for condition Screening for unspecified condition documented in this encounter
--- OUTSIDE RECORDS SUMMARY | 2024-11-25 20:49 | XMS_ITS | Encounter Summary ---
Author Organization [facility] Address [address] [place] [address] Care Team Providers Care Hydrator Operator Name Role Phone Unavailable Primary Care Provider Unavailabl e Encounter Details Date Type Department Care Team (Late Contact Info) Description 01/09/2020 Orders Only [facility] [address] [address] [address] [place] [address] Alisa Alves, ANDREINA [address] [facility] [address] [place] [address] Elevated BUN (Primary Dx) Social History Tobacco Use Types [...] st Contact Info) Description 12/24/2024 1:00 PM STRIPPER LATEX Office Visit [facility] [employer] [facility] [address] [place] [address] Susy Olivas, ANP [address] [place] [address] documented as of this encounter Results * (ABNORMAL) BASIC METABOLIC PANEL (07/11/2020 2:18 PM CDT) GLUCOSE 95 65 - 99 mg/dL [facility] BUN 16 6 - 24 mg/dL [facility] CREATININE 1.41(H) 0.76 - 1.27 mg/dL [facility] GFR 58(L) >59 mL/min/1.7 3 [facility] GFR, 67 >59 mL/min/1.7 3 [facility] BUN/CREAT RATIO 11 9 - 20 [facility] SODIUM 143 134 - 144 mmol/L [facility] POTASSIUM 4.2 3.5 - 5.2 mmol/L [facility] CHLORIDE 103 96 - 106 mmol/L [facility] CO2 22 20 - 29 mmol/L [facility] CALCIUM 9.7 8.7 - 10.2 mg/dL [facility] Blood 07/11/2020 2:18 PM CDT 07/12/2020 Narrative [facility] - 07/13/2020 8:08 AM CDT Performed at: ?? - [address] ??[id number] Hot Dip Plating Supervisor: Patrice Alvarez PhD, Phone: ??[phone] Alisa Alves NP CHEMISTRY ORDER DELVIN [facility] [phone] documented in this encounter Visit Diagnoses Diagnosis Elevated BUN- Primary Other abnormal blood chemistry Acute left-sided low back pain with left-sided sciatica- Primary Right hip pain Pain in joint, pelvic region and thigh Elevated BUN Other abnormal blood chemistry documented in this encounter
--- OUTSIDE RECORDS SUMMARY | 2024-11-25 20:49 | XMS_ITS | Encounter Summary ---
Author Organization [facility] Address [address] [facility] Attn: Epic Prelude ADT [place] [address] Care Team Providers Care Iv Technician Name Role Phone Unavailable Primary Care Provider Unavailabl e Encounter Details Date Type Department Care Team (Latest Contact Info) Description 07/10/2020 Travel Social History Tobacco Use Types Packs/Day [...] st Contact Info) Description 12/24/2024 1:00 PM CASH REGISTER MECHANIC Office Visit [facility] at [facility] [employer] [place] [address] [place] [address] Susy Olivas, ANP [address] [place] [address] documented as of this encounter Visit Diagnoses Not on filedocumented in this encounter
--- OUTSIDE RECORDS SUMMARY | 2024-11-25 20:49 | XMS_ITS | Encounter Summary ---
Author Organization [facility] Address [address] [place] [address] Care Team Providers Care Bladder Cleaner Name Role Phone Unavailable Primary Care Provider Unavailabl e Reason for Visit * Reason Comments Medication Refill Encounter Details Date Type Department Care Team (Latest Contact Info) Description 12/28/2019 11:30 AM OIL BOILER Procedure visit [facility] [employer] [place] [address] [place] [address] Encounter for issue of repeat [...] encounter Progress Notes * Cassia Tee - 12/28/2019 11:27 AM CST Prednisone 10mg taper dose, see medication list. #60. BOILER documented in this encounter Plan of Treatment Upcoming Encounters Date Type Department Care Team (Late st Contact Info) Description 12/24/2024 1:00 PM OIL BOILER Office Visit [facility] [employer] [place] [address] [place] [address] Susy Olivas, ANP [address] [place] [address] documented as of this encounter Visit Diagnoses Diagnosis Encounter for issue of repeat prescription- Primary Issue of repeat prescriptions documented in this encounter
--- OUTSIDE RECORDS SUMMARY | 2024-11-25 20:49 | XMS_ITS | Encounter Summary ---
Author Organization [facility] Address [address] [place] [address] Care Team Providers Care Herb Digger Name Role Phone Unavailable Primary Care Provider Unavailabl e Reason for Visit * Reason Comments Blood Pressure Check Encounter Details Date Type Department Care Team (Latest Contact Info) Description 01/10/2020 2:15 PM MEDICAL RECORDS CLERK Procedure [facility] [employer] [place] [address] [place] [address] Blood pressure check (Primary Dx) [...] Sign Reading Time Taken Comments Blood Pressure 138/82 01/10/2020 2:24 PM MEDICAL RECORDS CLERK Pulse - - Temperature - - Respiratory Rate - - Oxygen Saturation - - Inhaled Oxygen Concentration - - Weight - - Height - - Body Mass Index - - documented in this encounter Progress Notes * Nini Sarmiento - 01/10/2020 2:24 PM CST Pt came in for BP check, Checked right when he got here 144/88. Pt wanted to sit and see if it wentdown. Checked 10 mins later and was 138/82. CAL RECORDS CLERK documented in this encounter Plan of Treatment Upcoming Encounters Date Type Department Care Team (Late st Contact Info) Description 12/24/2024 1:00 PM MEDICAL RECORDS CLERK Office Visit [facility] [employer] [place] [address] [place] [address] Susy Olivas, ANP [address] [facility] [address] [facility] [address] [place] [address] documented as of this encounter Visit Diagnoses Diagnosis Blood pressure check- Primary Screening for hypertension documented in this encounter
--- OUTSIDE RECORDS SUMMARY | 2024-11-25 20:49 | XMS_ITS | Encounter Summary ---
Author Organization [facility] Address [address] [place] [address] Care Team Providers Care Labor Operator Name Role Phone Unavailable Primary Care Provider Unavailabl e Reason for Visit * Reason Comments Leg Pain Encounter Details Date Type Department Care Team (Late st Contact Info) Description 07/11/2020 2:00 PM CDT Office Visit [facility] at Work [employer] [place] [address] [place] [place] [address] Alisa Alves, ANDREINA [address] [place] [address] Acute left-sided low back pain with left-sided sciatica (Primary Dx); Right hip pain; Elevated BUN Social History Tobacco Use Types Packs/Day Years [...] Reading Time Taken Comments Blood Pressure 138/82 07/11/2020 2:08 PM CDT Pulse 64 07/11/2020 1:44 PM CDT Temperature 36.9 ??C (98.4 ??F) 07/11/2020 1:44 PM CD T Respiratory Rate 18 07/11/2020 1:44 PM CDT Oxygen Saturation 99% 07/11/2020 1:44 PM CDT Inhaled Oxygen Concentration - - Weight 84.4 kg (186 lb) 07/11/2020 1:44 PM CDT Height 175.3 cm (5' 9 ) 07/11/2020 1:44 PM CDT Body Mass Index 27.47 07/11/2020 1:44 PM CDT documented in this encounter Progress Notes * Alisa Alves, ANDREINA - 07/11/2020 3:00 PM CDT Images from the original note were not included. HISTORY OF PRESENT ILLNESS Kemar Bell is a 50 y.o. male who presents for Chief Complaint Patient presents with ??? Leg Pain For the past 3 years has intermittent left lower back pain with radiation down the left buttock/post thigh. Denies falls, injuries in the past. It will last for several days, worse with lying down atnight. Has tried Bengay, no oral medications. Does not seem to occur related to lifting, activities. Denies loss of bowel or bladder control. Denies LE weakness, numbness or tingling. Right lateral upper leg/hip pain-intermittent. Pain is sharp. It is more often and continuous than the back pain. Does not change with movement. Denies trauma or injury. Past Medical History: Diagnosis Date ??? Patient denies relevant medical history Current Outpatient Medications Medication Sig Dispense Refill ??? nabumetone (RELAFEN) 500 mg tablet Take 1 Tablet (500 mg) by mouth 2 times daily. Take with food 30 Tablet 0 No current facility-administered medications for this visit. No Known Allergies BP 138/82 Pulse 64 Temp 98.4 ??F (36.9 ??C) (Tympanic) Resp 18 Ht 5' 9 (1.753 m) Wt 84.4kg (186 lb) SpO2 99% BMI 27.47 kg/m?? MEDICAL RECORD UPDATE Past Medical History: [...] reviewed and updated in computerized patient record. [employer] [facility] [employer] #[id number] - 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 Vital signs/Tobacco use BP 138/82 Pulse 64 Temp 98.4 ??F (36.9 ??C) (Tympanic) Resp 18 Ht 5' 9 (1.753 m) Wt 84.4kg (186 lb) SpO2 99% BMI 27.47 kg/m?? Blood Pressure BP Readings from Last 3 Encounters: 07/11/20 138/82 05/13/20 134/82 01/10/20 138/82 BMI POC (QM) Body mass index is 27.47 kg/m??. Normal BMI range: 18 & older: > or = 18.5 and < 25 Abnormal high BMI: Patient counseled on lifestyle modifications including weight loss and daily exercise. The 10-year CVD risk score (Deny'Agostino, et al., 2008) is: 12.4% Values used to calculate the score: Age: 50 years Sex: Male Diabetic: No Tobacco smoker: Yes Systolic Blood Pressure: 138 mmHg Is BP treated: No HDL Cholesterol: 39 mg/dL Total Cholesterol: 125 mg/dL Consider Statins if 10 year risk >7.5-10% Tobacco Use (QM) reports that he has been smoking cigars. He has never used smokeless tobacco. He was counseled to discontinue tobacco use. EXAMINATION REVIEW OF SYSTEMS Review of Systems Constitutional: Negative for chills and fever. Cardiovascular: Negative for chest pain. Gastrointestinal: Negative for abdominal pain. Genitourinary: Negative for dysuria, frequency and urgency. Musculoskeletal: Positive for back pain and myalgias. Neurological: Negative for tingling, tremors, sensory change and weakness. Objective PHYSICAL EXAM Physical Exam Constitutional: [...] or rales. Musculoskeletal: Right hip: He exhibits normal range of motion, normal strength, no tenderness and no bony tenderness. Lumbar back: He exhibits normal range of motion, no tenderness, no bony tenderness, no swelling andno spasm. Back: Legs: Comments: Right hip-marked area of reported pain. Normal ROM, no point tenderness. Right knee-normal exam. Left side lower back- area of pain about L2,L3 with radiation down left thigh. Skin: General: Skin is warm and dry. Neurological: Mental Status: He is alert and oriented to person, place, and time. No results found for any visits on 07/11/20 (from the past 24 hour(s)). ASSESSMENT and PLAN: Kemar was seen today for leg pain. Diagnoses and all orders for this visit: Acute left-sided low back pain with left-sided sciatica - XR LUMBAR SPINE 4+ VW; Future - nabumetone (RELAFEN) 500 mg tablet; Take 1 Tablet (500 mg) by mouth 2 times daily. Take with food Right hip pain - XR HIP 2 OR 3 VIEWS RT; Future - nabumetone (RELAFEN) 500 mg tablet; Take 1 Tablet (500 mg) by mouth 2 times daily. Take with food Elevated BUN - BASIC METABOLIC PANEL Discussed possible degenerative disc disease-since pain prolonged will get Xray for vertebra eval and recommend PT if needed. No red flags on hx/exam to warrant urgent imaging. Recommend initial conservative measures with NSAID's, heating pad, avoid exacerbating activities but encourage pt to stay active. F/u if no improvement or worsens for further evaluation and consideration for PT. Right hip pain-suspect IT band syndrome however given xrays will be done, will evaluate the hip. BMP today for follow up. documented in this encounter Plan of Treatment Upcoming Encounters Date Type Department Care Team (Late st Contact Info) Description 12/24/2024 1:00 PM JBOSS ARCHITECT Office Visit [facility] at Work [employer] [place] [address] [place] [address] Susy Olivas, ANP [address] [place] [address] Scheduled Orders Name Type Priority Associated Diagnoses Orde r Schedule XR LUMBAR SPINE 4+ VW Imaging Routine Acute left-sided low back pain with left-sided sciatica 1 Occurrences starting 07/11/2020 until 07/11/2021 XR HIP 2 OR 3 VIEWS RT Imaging Routine Right hip pain 1 Occurrences starting 07/11/2020 until 07/11/2021 documented as of this encounter Procedures Procedure Name Priority Date/Time Associated Diagnosis Comments BASIC METABOLIC PANEL Routine 07/11/2020 2:18 PM CDT Elevated BUN documented in this encounter Results * (ABNORMAL) BASIC METABOLIC [...] - 07/13/2020 8:08 AM CDT Performed at: ??01 - [facility] [address] ??[id number] Senior Quality Assurance Analyst: Patrice Alvarez PhD, Phone: ??[phone] Alisa Alves NP CHEMISTRY ORDER DELVIN [facility] [phone] documented in this encounter Visit Diagnoses Diagnosis Acute left-sided low back pain with left-sided sciatica- Primary Right hip pain Pain in joint, pelvic region and thigh Elevated BUN Other abnormal blood chemistry documented in this encounter
--- OUTSIDE RECORDS SUMMARY | 2024-11-25 20:49 | XMS_ITS | Encounter Summary ---
Author Organization [facility] Address [address] [place] [address] Care Team Providers Care Automotive Fuel Injection Servicer Name Role Phone Unavailable Primary Care Provider Unavailabl e Encounter Details Date Type Department Care Team (Latest Contact Info) Description 05/04/2021 11:30 AM CDT Telephone Check Up [facility] at Work [address] [place] [address] [place] [address] Jasmeet Shi MD NO ADDRESS ON FILE Work-related condition (Primary Dx) Social History Tobacco Use [...] as of this encounter Progress Notes * Jasmeet Shi MD - 05/04/2021 12:53 PM CDT This encounter was completed via audio-only two way synchronous communication. Patient's identity confirmed yes Patient gave verbal consent to have these services billed to their insurance and expressed understanding that co-insurance and deductible may apply: yes Time spent by the provider delivering the care documented in this encounter 14 minutes. Chart reviewed. fmla located, read, and copied. Patient presents for fmla paperwork for spouse. 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 Discussed parameters. Forms filled out, faxed, and scanned into chart. documented in this encounter Plan of Treatment Upcoming Encounters Date Type Department Care Team (Late st Contact Info) Description 12/24/2024 1:00 PM FAN BALANCER Office Visit [facility] at Work [address] [place] [address] Susy Olivas, ANP [address] [facility] [address] [facility] [address] [place] [address] documented as of this encounter Visit Diagnoses Diagnosis Work-related condition- Primary Other occupational circumstances or maladjustment documented in this encounter
== END 2024-11-18 19:59 | disposition left against medical advice (07) ==
DX: R10.9 Unspecified abdominal pain (principal); R11.2 Nausea with vomiting, unspecified
CPT/HCPCS: 99199

== ENCOUNTER 2025-02-19 11:17 | Emergency (ER) | payer OTHER, SELFPAY ==
[2025-02-19 11:28] VITALS: BP 179/81; PULSE 61; RESP 16; TEMP 36.3; O2SAT 98
[2025-02-19 12:21] VITALS: BP 172/89; PULSE 59
[2025-02-19 12:22] VITALS: BP 183/93; PULSE 59
[2025-02-19 12:24] VITALS: BP 187/95; PULSE 60
[2025-02-19 12:34] LABS: Basophils Absolute Auto 0.1 K/mm3 (0.0-0.1); Eosinophils Absolute Auto 0.3 K/mm3 (0-0.3); Eosinophils Percent Auto 3.8 % (0-4.4); Hematocrit 41.7 % (42.0-52.0); Hemoglobin 13.4 g/dL (14.0-18.0); Immature Granulocyte Absolute 0.02 K/mm3 (0.00-0.031); Immature Granulocyte Percent A 0.3 % (0-0.5); Lymphocytes Absolute Auto 2.48 K/mm3 (0.9-3.2); Lymphocytes Percent Auto 35.3 % (18.3-44.2); Mean Corpuscular HGB Conc 32.1 g/dl (32-36); Mean Corpuscular Hemoglobin 26.3 pg (26-34); Mean Corpuscular Volume 81.8 fl (80-100); Mean Platelet Volume 9.3 fl (7.4-10.4); Monocytes Absolute Auto 0.5 K/mm3 (0.1-0.6); Monocytes Percent Auto 7.5 % (2.6-8.5); Neutrophils Absolute Auto 3.7 K/mm3 (1.3-6.7); Neutrophils Percent Auto 52.1 % (45.5-73.1); Platelet Count Result 261 k/mm3 (150-375); Red Cell Distribution Width 14.3 % (11.5-14.5)
--- OUTSIDE RECORDS SUMMARY | 2025-02-19 12:36 | XMS_ITS | Clinical Summary ---
Author Organization [facility] [employer] [place] Address [address] [facility] [address] Care Team Providers Care Judicial Registrar Name Role Phone Yolande Aldridge MD Primary Care Provider [phone] Allergies No known active allergies Medications ergocalciferol (VITAMIN D2) 50,000 unit capsule Take 1 Capsule (50,000 Units) by mouth every 7 days. 12 Capsule 09/17/20 24 Active irbesartan (AVAPRO) 150 mg tabletIndication s:Benign hypertension with stage 3a chronic kidney disease (CMS/HCC) Take 1 Tablet (150 mg) by mouth daily at bedtime. 60 Tablet 02/08/20 25 Active Irbesartan (AVAPRO) 75 mg tabletIndication s:Benign hypertension with stage 3a chronic kidney disease (CMS/HCC) Take 1 Tablet (75 mg) by mouth daily. 30 Tablet 01/08/20 25 025 Discontinued irbesartan (AVAPRO) 150 mg tablet Take 1 Tablet (150 mg) by mouth daily at bedtime. 60 Tablet 02/08/20 25 025 Discontinued Active Problems Problem Noted Date Diagnosed Date [...] Encounters Date Type Department Care Team Description 02/07/2025 1:00 PM CDT Office Visit [facility] [place] [address] [place] [address] Susy Olivas ANP Benign hypertension with stage 3a chronic kidney disease (CMS/HCC) (Primary Dx); Tobacco abuse 02/06/2025 External Device Data STL ABSTRACTION Provider, Abstract 02/06/2025 External Device Data STL ABSTRACTION Provider, Abstract 01/26/2025 External Device Data STL ABSTRACTION Provider, Abstract 01/25/2025 External Device Data STL ABSTRACTION Provider, Abstract 01/09/2025 External Device Data STL ABSTRACTION Provider, Abstract 01/08/2025 1:00 PM BENZENE STILL UTILITY OPERATOR Office Visit [facility] [place] [address] [place] [address] Susy Olivas ANP Benign hypertension with stage 3a chronic kidney disease (CMS/HCC) (Primary Dx); Caregiver burden; Tobacco abuse; Prediabetes; Screening for condition; Special screening for malignant neoplasm of prostate 12/19/2024 External Device Data STL ABSTRACTION Provider, Abstract 12/13/2024 External Device Data STL ABSTRACTION Provider, Abstract 12/04/2024 External Device Data STL ABSTRACTION Provider, Abstract from Last 3 Months Immunizations Immunization Administration Dates Next Due ([employer])(12 YR UP) COVID-19 VACCINE - EMERGENCY USE AUTHORIZATION, MRNA, [id number]) 30 MCG/0.3 ML IM SUSP 03/26/2021,02/20/2021 Family [...] at Not on file Legal Sex Male 2:45 PM CDT Gender Identity Not on file Sexual Orientation Not on file Last Filed Vital Signs Vital Sign Reading Time Taken Comments Blood Pressure 160/78 02/07/2025 1:09 PM CDT Pulse 64 02/07/2025 12:51 PM CDT Temperature 36.3 C (97.4 F) 02/07/2025 12:51 PM CDT Respiratory Rate 18 02/07/2025 12:5 1 PM CDT Oxygen Saturation 98% 02/07/2025 12: 51 PM CDT Inhaled Oxygen Concentration - - Weight 88.5 kg (195 lb) 02/07/2025 12:5 1 PM CDT Height 175.3 cm (5' 9 ) 02/07/2025 12:5 1 PM CDT Manually taken 02/07/25 Body Mass Index 28.8 02/07/2025 12:51 PM CDT Plan of Treatment Upcoming Encounters Date Type Department Care Team (Late st Contact Info) Description 02/21/2025 1:00 PM CDT Clinical Support [facility] [place] [address] [place] [address] 03/13/2025 10:20 AM CDT Office Visit [facility] at [facility] [place] [address] [place] [address] 03/26/2025 1:00 PM CDT [facility] [place] [address] [place] [address] Susy Olivas, ANP [address] [place] [address] [place] [address] Health Maintenance Due Date Last Done Comments DTAP/TDAP/TD VACCINES (1 - Tdap) 1990 HEPATITIS B VACCINES (1 of 3 - 19+ 3-dose series) 1990 FIT-DNA Q 3 years 2016 FIT/FOBT Q 1 year 2016 Flex Sig/CT Colonography Q 5 years 2016 ZOSTER VACCINE (1 of 2) 2021 INFLUENZA VACCINE (#1) 2024 10/22/2021 COVID-19 Vaccine ( season) 07/22/202404/2021, 02/20/2021 Pre-Diabetes and Diabetes Screening 09/13/202709/13, 12/21/2022 COLORECTAL SCREENING 10/03/2028 10/03/2023 Colorectal Cancer Screening 10/03/2028 Procedures Procedure Name Priority Date/Time Associated Diagnosis Comments HEMOGLOBIN A1C Routine 09/13/2024 1:23 PM CDT Prediabetes from Last 3 Months or Most Recently Relevant to Health Maintenance Results * (ABNORMAL) HEMOGLOBIN A1C (09/13/2024 1:23 PM [...] [facility] Comment: Test Performed at: [facility] [address] [place] [address] Florinda Chavis MD Blood 09/13/2024 1:23 PM CDT 09/14/2024 5:56 AM CDT us Susy Olivas ANP CHEMISTRY ORDERABLES Final R esult [facility] [phone] [facility] [address] [address] [phone] from Last 3 Months or Most Recently Relevant to Health Maintenance Insurance ALLEGIANCE OPEN ACCESS Care Teams Judicial Registrar Relationship Specialty Start Date End Date Yolande Aldridge MD [address] [place] [address] [place] [address] PCP - General Internal Medicine 05/18/24
--- OUTSIDE RECORDS SUMMARY | 2025-02-19 12:36 | XMS_ITS | Clinical Summary ---
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 Gender Identity Not on file Sexual Orientation Not on file Plan of Treatment Health Maintenance Due Date Last Done Comments Hepatitis C Virus (HCV) Screening 1971 TdaP Immunization 1971 Hepatitis B Immunization (1 of 3 - 19+ 3-dose series) 1990 Colonoscopy 2016 Colorectal Cancer Screening 2016 Cologuard 2021 Immunochemical Fecal Occult Blood 2021 Pneumococcal Immunization (5 0+ years) (1 of 1 - PCV) 2021 Zoster Immunization (1 of 2) 2021 Influenza Immunization (#1) 2024 SARS-COV-2 Immunization (3 - 2023- season) 2024 03/26/2021, 02/20/2021 Respiratory Syncytial Virus (RSV) Immunization (Adult) (1 - 1-dose 75+ series) 2046 Meningococcal Immunization (ACWY) Aged Out No longer eligible b ased on patient's age to complete this topic Pneumococcal Immunization Combined Aged Out No longer eligible b ased on patient's age to complete this topic Rotavirus Immunization Aged Out No lo nger eligible based on patient's age to complete this topic
--- OUTSIDE RECORDS SUMMARY | 2025-02-19 12:36 | XMS_ITS | Encounter Summary ---
Author Organization [facility] Healthcare Address [address] [place] [address] Care Team Providers Care Deputy Brand Inspector Name Role Phone Unknown, Notinfile Primary Care Provider Unavail able Reason for Visit * Reason Comments Rectal Bleeding Possibility due to c hange in BP medication dosage. Significant amount Encounter Details Date Type Department Care Team (Late st Contact Info) Description 02/19/2025 10:30 AM CDT Office Visit [facility] Medical Group Convenient Care at [address] [address] Elisabeth Biggs, ANDREINA [address] [place] [address] [address] [place], [place] [id number] Blood in stool (Primary Dx) Social History Tobacco Use Types Packs/Day Years Used Date Smoking Tobacco: Never Assessed Sex and Gender Information Value Date Recorded Sex Assigned at Not on file Legal Sex Male 9:36 AM CDT Gender Identity Not on file Sexual Orientation Not on file documented as of this encounter Last Filed Vital Signs Vital Sign Reading Time Taken Comments Blood Pressure 140/78 02/19/2025 10:43 AM CDT Pulse 65 02/19/2025 10:43 AM CDT Temperature 36.8 C (98.2 F) 02/19/2025 10:43 AM CDT Respiratory Rate 20 02/19/2025 10:43 AM CDT Oxygen Saturation 99% 02/19/2025 10:43 AM CDT Inhaled Oxygen Concentration - - Weight 87.5 kg (193 lb) 02/19/2025 10:43 AM CDT Height - - Body Mass Index - - documented in this encounter Plan of Treatment Not on file documented as of this encounter Visit Diagnoses Diagnosis Blood in stool- Primary documented in this encounter Historical Medications * This list may reflect changes made after this encounter. Medication Sig Dispense Quantity Refills Last Filled Start D ate End Date irbesartan (AVAPRO) 150 mg tablet 02/07/2025 added in this encounter Care Teams Deputy Brand Inspector Relationship Specialty Start Date End Date Unknown, Notinfile PCP - General 02/19/25 documented as of this encounter
--- OUTSIDE RECORDS SUMMARY | 2025-02-19 12:36 | XMS_ITS | Referral Summary ---
Author Organization [address] [address] Care Team Providers Care Respiratory Care Specialist Name Role Phone Unknown, Notinfile Primary Care Provider Unavail able Encounters Date Type Department Care Team Description 02/19/2025 10:30 AM CDT Office Visit [facility] Medical [facility] Con[facility]ient Care at [address] [address] Elisabeth Biggs NP Blood in stool (Primary Dx) from Last 3 Months Allergies No known active allergies Medications irbesartan (AVAPRO) 150 mg tablet 02/07/2025 Active Active Problems No known active problems Social History Tobacco Use Types Packs/Day Years [...] - - Body Mass Index - - Plan of Treatment Not on file [place] [address] [place] [address] SANJANA ALLEGIANCE Care Teams Respiratory Care Specialist Relationship Specialty Start Date End Date Unknown, Notinfile PCP - General 02/19/25
--- OUTSIDE RECORDS SUMMARY | 2025-02-19 12:36 | XMS_ITS | Clinical Summary ---
Author Organization [address] [address] Care Team Providers Care Glass Bulb Machine Adjuster Name Role Phone Unknown, Notinfile Primary Care Provider Unavail able Allergies No known active allergies Medications irbesartan (AVAPRO) 150 mg tablet 02/07/2025 Active Active Problems No known active problems Encounters Date Type Department Care Team Description 02/19/2025 10:30 AM CDT Office Visit [facility] Medical Group Convenient Care at [address] [address] Elisabeth Biggs NP Blood in stool (Primary Dx) from Last 3 Months Social History Tobacco Use Types Packs/Day Years [...] Mass Index - - Plan of Treatment Health Maintenance Due Date Last Done Comments Colon Cancer Screening-Colonoscopy 1971 Depression Screening 1971 Hepatitis C Screening 1971 Prostate Cancer Screening-PSA 1971 DTaP/Tdap/Td Vaccine (1 - Tdap) 1982 Hepatitis B Screening 1989 Regular Well Visit/Exam 18-64 1989 Zoster Vaccine (1 of 2) 2021 Covid-19 Vaccine (4 - 2023-2 5 season) 2024 03/02/2022, 03/26/2021, 02/20/2021 Influenza Vaccine (Season Ended) 2025 Pneumococcal vaccine <65 Aged Out No longer eligible based on patient's age to complete this topic Insurance SANJANA ALLEGIANCE Care Teams Glass Bulb Machine Adjuster Relationship Specialty Start Date End Date Unknown, Notinfile PCP - General 02/19/25
--- NOTE | 2025-02-19 12:39 | ED_ITS ---
HPI - GI Bleed General Chief complaint: GI Bleed Stated complaint: blood in stool Time Seen by Provider: 02/19/25 12:02 History of Present Illness HPI Narrative: Patient is a 54-year-old male who presents ER with rectal bleeding. Ongoing over last month. It is red and mixed with his stool. No diarrhea or loose stools. No vomiting. No dark black stools. Has history of diverticulosis and internal hemorrhoids. Denies constipation. No syncope or orthostasis. He is not on any blood thinning medications. Related Data Home Medications ?Medication ?Instructions ?Recorded ?Confirmed ?Last Taken ?Type irbesartan 150 mg tablet 150 mg PO DAILY 02/19/25 02/19/25 02/19/25 History Allergies Allergy/AdvReac Type Severity Reaction Status Date / Time No Known Allergies Allergy Verified 02/19/25 11:44 Review of Systems 2 Review of Systems: All systems reviewed & are unremarkable except as noted in HPI and below Constitutional: Constitutional: Reports no additional constitutional complaints ENT: Reports system reviewed and no additional complaints, except as documented Cardiovascular: Cardiovascular: Reports no additional cardiovascular complaints Respiratory: Respiratory: Reports no additional respiratory complaints Gastrointestinal: Gastrointestinal: Reports no additional gastrointestinal complaints [facility] Past Medical History Medical History Hypertension Surgical History Surgical History H/O heart surgery As a child and he is not sure if it was a valve replacement or what they did. Family History Family History Father MVA (motor vehicle accident) father is from mva Social History Social History Social History: He lives with his . He has one biological child and 4 step children. He works at [employer]. Patient states that he smokes 2 cigars a day. 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 Code status full code Years smoked: 20 Smoking status: Current every day smoker Tobacco type: cigars Alcohol intake: current Drinks per week: 4 Substance use: current Substance use type: marijuana Other substance usage details: every other day Lack of Transportation: No Lack of Food: Never True Current Housing: I Have Housing Concerned About Future Housing: No Difficulty Paying Gas/Electric Bills: No Difficulty Paying for Meds: No Currently Unemployed: No Education: High School Diploma/GED Difficulty w/ Childcare or Family Care: No Living arrangements: with family Gender identity (if verbalized by the patient): Male Sexual Orientation (if Verbalized by the Patient): Straight or Heterosexual Spiritual care concerns: No Exam 2 Narrative: GENERAL: Well-appearing, well-nourished, and in no acute distress. HEAD: Normocephalic, atraumatic. ENT: Mucous membranes moist. NECK: Supple. CHEST: Clear to auscultation. No respiratory distress. HEART: Regular rate and rhythm. Normal peripheral pulses. ABDOMEN: Soft, nontender, nondistended. Hemoccult-positive stool. No external hemorrhoids put on digital rectal exam at the 3 o'clock position while patient was in left lateral decubitus position a firm nodular area can be felt that is likely thrombosed hemorrhoid. EXTREMITIES: Normal range of motion. No edema. SKIN: Warm, dry, no rash. NEURO: Alert and oriented x3. PSYCH: Normal mood and affect. Course Course Emergency Course: Hemoglobin is 13.4, no orthostasis. Appropriate for follow-up with GI outpatient. Recommend Colace and Anusol suppository. Suspect that he has internal hemorrhoids with bleeding. Discussed the nodule felt on exam and encouraged to follow up with GI because he may need a further exam if this does not resolve. Vital Signs Vital signs: Vital Signs Temperature 97.4 F L 02/19/25 11:28 Pulse Rate 61 02/19/25 11:28 Respiratory Rate 16 02/19/25 11:28 Blood Pressure 179/81 H 02/19/25 11:28 Pulse Oximetry 98 02/19/25 11:28 Oxygen Delivery Room Air 02/19/25 11:28 Temperature 97.4 F L 02/19/25 11:28 Pulse Rate 60 02/19/25 12:24 Respiratory Rate 16 02/19/25 11:28 Blood Pressure 187/95 H 02/19/25 12:24 Pulse Oximetry 98 02/19/25 11:28 Oxygen Delivery Room Air 02/19/25 11:28 MDM - GI Bleed Lab Data 02/19/25 12:29 02/19/25 12:29 Labs: Lab Results 02/19/25 Range/Units 12:29 WBC 7.0 (4.5-10.0) K/mm3 RBC 5.10 (4.6-6.20) M/mm3 Hgb 13.4 L (14.0-18.0) g/dL Hct 41.7 L (42.0-52.0) % MCV 81.8 (80-100) fl MCH 26.3 (26-34) pg MCHC 32.1 (32-36) g/dl RDW 14.3 (11.5-14.5) % Plt Count 261 (150-375) k/mm3 MPV 9.3 (7.4-10.4) fl Immature Gran % (Auto) 0.3 (0-0.5) % Neut % (Auto) 52.1 (45.5-73.1) % Lymph % (Auto) 35.3 (18.3-44.2) % [place] % (Auto) 7.5 (2.6-8.5) % Eos % (Auto) 3.8 (0-4.4) % Baso % (Auto) 1.0 (0.2-1.2) % Lymph # (Auto) 2.48 (0.9-3.2) K/mm3 [place] # (Auto) 0.5 (0.1-0.6) K/mm3 Eos # (Auto) 0.3 (0-0.3) K/mm3 Baso # (Auto) 0.1 (0.0-0.1) K/mm3 Abs Immat Gran (auto) 0.02 (0.00-0.031) K/mm3 Absolute Neuts (auto) 3.7 (1.3-6.7) K/mm3 Absolute Nucleated RBC 0.000 (0.0-0.012) K/mm3 Nucleated RBC % 0.0 (0.0-0.2) % PT 13.1 (11.1-14.7) Seconds INR 1.0 APTT 29.4 (22.3-36.8) Seconds Sodium 142 (137-145) mmol/L Potassium 4.1 (3.4-5.0) mmol/L Chloride 106 (98-107) mmol/L Carbon Dioxide 25 (22-30) mmol/L Anion Gap 11 (4-12) mmol/L BUN 16 (9-20) mg/dL Creatinine 1.35 H (0.7-1.3) mg/dL Estim Creat Clear Calc 57 ml/min Estimated GFR 55 L (59 - ) Glucose 105 (65-110) mg/dL Calcium 9.5 (8.4-10.2) mg/dL Total Bilirubin 0.5 (0.2-1.3) mg/dL AST 28 (17-59) U/L ALT 18 (6-50) U/L Alkaline Phosphatase 84 (38-126) U/L Total Protein 8.0 (6.3-8.2) g/dL Albumin 4.6 (3.5-5.1) g/dL Discharge Plan Discharge Clinical Impression: Rectal bleeding, Hemorrhoids Patient Disposition: Home, Self-Care Condition: Stable Instructions: Hemorrhoids (ED), Rectal Bleeding (ED) Additional Instructions: Return the ER if you have worsening bleeding, you lose consciousness, you have additional concerns. Patient Language: Luxembourger Prescriptions: New docusate sodium [Colace] 100 mg capsule 100 mg PO BID Qty: 20 0RF hydrocortisone acetate [Anusol-HC] 25 mg suppository 25 mg RECTAL BID Qty: 12 0RF No Action irbesartan 150 mg tablet 150 mg PO DAILY Follow-up/Referrals: Marcell Varma MD [Physician] - 1 Week UNKNOWN,DOCTOR [Primary Care Provider] -
[2025-02-19 12:53] LABS: Prothrombin Time 13.1 Seconds (11.1-14.7)
[2025-02-19 12:54] LABS: Alanine Aminotransferase 18 U/L (6-50); Albumin Level 4.6 g/dL (3.5-5.1); Alkaline Phosphatase 84 U/L (38-126); Anion Gap 11 mmol/L (4-12); Aspartate Amino Transferase 28 U/L (17-59); Bilirubin,Total 0.5 mg/dL (0.2-1.3); Blood Urea Nitrogen 16 mg/dL (9-20); Calcium 9.5 mg/dL (8.4-10.2); Carbon Dioxide 25 mmol/L (22-30); Chloride 106 mmol/L (98-107); Estimated CRCL calculation 57 ml/min; Estimated Glomerular Filt Rate 55; Glucose 105 mg/dL (65-110); Partial Thromboplastin Time 29.4 Seconds (22.3-36.8); Potassium 4.1 mmol/L (3.4-5.0); Sodium 142 mmol/L (137-145)
--- OUTSIDE RECORDS SUMMARY | 2025-02-19 13:09 | XMS_ITS | Clinical Summary ---
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
--- OUTSIDE RECORDS SUMMARY | 2025-02-19 13:09 | XMS_ITS | Clinical Summary ---
Author Organization [facility] [employer] Address [address] [facility] [place] [address] Care Team Providers Care Book Author Name Role Phone Yolande Aldridge MD Primary Care Provider [phone] Allergies No known active allergies Medications ergocalciferol [...] Description 02/07/2025 1:00 PM CDT Office Visit [facility] [employer] [place] [address] [place] [address] Susy Olivas ANP Benign hypertension with stage 3a chronic kidney disease (CMS/HCC) (Primary Dx); Tobacco abuse 02/06/2025 External Device Data STL ABSTRACTION Provider, Abstract 02/06/2025 External Device Data STL ABSTRACTION Provider, Abstract 01/26/2025 External Device Data STL ABSTRACTION Provider, Abstract 01/25/2025 External Device Data STL ABSTRACTION Provider, Abstract 01/09/2025 External Device Data STL ABSTRACTION Provider, Abstract 01/08/2025 1:00 PM EXTRACTIONS TECHNOLOGIST Office Visit [facility] [employer] [place] [address] [place] [address] Susy Olivas ANP Benign hypertension with stage 3a chronic kidney disease (CMS/HCC) (Primary Dx); Caregiver burden; Tobacco abuse; Prediabetes; Screening for condition; Special screening for malignant neoplasm of prostate 12/19/2024 External Device Data STL ABSTRACTION Provider, Abstract 12/13/2024 External Device Data STL ABSTRACTION Provider, Abstract 12/04/2024 External Device Data STL ABSTRACTION Provider, Abstract from Last 3 Months Immunizations Immunization Administration Dates Next Due ([employer])(12 YR UP) COVID-19 VACCINE - EMERGENCY USE AUTHORIZATION, MRNA, [id number]) 30 MCG/0.3 ML IM SUSP 03/26/2021,02/20/2021 Family [...] Description 02/21/2025 1:00 PM CDT Clinical Support [facility] [employer] [place] [address] [place] [address] 03/13/2025 10:20 AM CDT Office Visit [facility] [employer] [place] [address] [place] [address] 03/26/2025 1:00 PM CDT Office Visit [facility] [employer] [place] [address] [place] [address] Susy Olivas, ANP [address] [address] [place] [address] [place] [address] Health Maintenance Due Date Last [...] [facility] Comment: Test Performed at: [facility] [address] [place] [address] Florinda Chavis MD Blood 09/13/2024 1:23 PM CDT 09/14/2024 5:56 AM CDT us Susy Olivas ANP CHEMISTRY ORDERABLES Final R esult [facility] [phone] [facility] [address] [address] [phone] from Last 3 Months or Most Recently Relevant to Health Maintenance Insurance ALLEGIANCE OPEN ACCESS Care Teams Book Author Relationship Specialty Start Date End Date Yolande Aldridge MD [address] [place] [address] [place] [address] PCP - General Internal Medicine 05/18/24
--- OUTSIDE RECORDS SUMMARY | 2025-02-19 13:09 | XMS_ITS | Encounter Summary ---
Author Organization [facility] Healthcare Address [address] [place] [address] Care Team Providers Care Assistant Professor Of Physics Name Role Phone Unknown, Notinfile Primary Care Provider Unavail able Reason for Visit * Reason Comments Rectal Bleeding Possibility due to c hange in BP medication dosage. Significant amount Encounter Details Date Type Department Care Team (Late st Contact Info) Description 02/19/2025 10:30 AM CDT Office Visit [facility] Medical Group Convenient Care at [address] [address] Elisabeth Biggs, ANDREINA [address] [place] [address] [address] [place], [place] [id number] Blood in stool (Primary Dx) Social History [...] 02/07/2025 added in this encounter Care Teams Assistant Professor Of Physics Relationship Specialty Start Date End Date Unknown, Notinfile PCP - General 02/19/25 documented as of this encounter
--- OUTSIDE RECORDS SUMMARY | 2025-02-19 13:09 | XMS_ITS | Clinical Summary ---
Author Organization [address] [address] Care Team Providers Care Paste Worker Name Role Phone Unknown, Notinfile Primary Care Provider Unavail able Allergies No known active allergies Medications irbesartan (AVAPRO) 150 mg tablet 02/07/2025 Active Active Problems No known active problems Encounters Date Type Department Care Team Description 02/19/2025 10:30 AM CDT Office Visit [facility] at [address] [address] Elisabeth Biggs NP Blood in [...] this topic Insurance SANJANA ALLEGIANCE Care Teams Paste Worker Relationship Specialty Start Date End Date Unknown, Notinfile PCP - General 02/19/25
--- OUTSIDE RECORDS SUMMARY | 2025-02-19 13:09 | XMS_ITS | Referral Summary ---
Author Organization [address] [address] Care Team Providers Care Area Intelligence Technician Name Role Phone Unknown, Notinfile Primary Care Provider Unavail able Encounters Date Type Department Care Team Description 02/19/2025 10:30 AM CDT Office Visit [facility] Medical [facility] at [address] [address] Elisabeth Biggs NP Blood in [...] Not on [place] [address] [place] [address] SANJANA ALLEGIANCE Care Teams Area Intelligence Technician Relationship Specialty Start Date End Date Unknown, Notinfile PCP - General 02/19/25
== END 2025-02-19 14:06 | disposition home or self-care (01) ==
PROVIDERS: Emergency Provider Emergency Medicine
DX: K62.5 Hemorrhage of anus and rectum (principal); K64.9 Unspecified hemorrhoids; Z72.0 Tobacco use; I10 Essential (primary) hypertension
CPT/HCPCS: 36415; 80053; 85025; 85610; 85730; 99283

== ENCOUNTER 2025-04-13 08:49 | Emergency (ER) | payer OTHER, SELFPAY ==
--- NOTE | ~2025-04-13 | XR_ITS ---
EXAMINATION: XR chest 2V DATE: 04/13/2025 09:55 INDICATION: Chest pain TECHNIQUE: frontal view of the chest was obtained. COMPARISON: Chest radiograph dated 12/05/2020 FINDINGS: Mild linear discoid atelectasis/scarring at the right costophrenic angle. This amounts to the left ba silar atelectasis. No pulmonary edema, pleural effusion or pneumothorax. The cardiomediastinal silhou ette is normal. Small median sternotomy wires suggestive of a childhood surgery. Correlate with surgi malu history. IMPRESSION: 1. Mild bibasilar atelectasis. No other acute cardiopulmonary disease. Reviewed, dictated and finalized at location A.
--- OUTSIDE RECORDS SUMMARY | 2025-04-13 08:51 | XMS_ITS | Clinical Summary ---
Author Organization [facility] [place] Address [address] [place] [address] Care Team Providers Care Mine Inspector Federal Name Role Phone Yolande Aldridge MD Primary Care Provider [phone] Allergies No known active allergies Medications irbesartan (AVAPRO) 150 mg tablet Take 1 Tablet (150 mg) by mouth daily at bedtime. 30 Tablet 5 Active irbesartan (AVAPRO) 150 mg tabletIndication s:Benign hypertension with stage 3a chronic kidney disease (CMS/HCC) Take 1 Tablet (150 mg) by mouth daily at bedtime. 60 Tablet 5 025 Discontinued Active Problems Problem Noted Date [...] Encounters Date Type Department Care Team Description 03/26/2025 1:00 PM CDT Office Visit [facility] [place] [address] [place] [address] Susy Olivas ANP Benign hypertension with stage 3a chronic kidney disease (CMS/HCC) (Primary Dx); Tobacco abuse 03/18/2025 Results Follow-Up [facility] [address] [place] [address] Susy Olivas ANP FERRITIN, IRON, TIBC, AND PERCENT SATURATION 03/16/2025 Results Follow-Up [facility] [address] [place] [address] Susy Olivas ANP PSA, LIPID PANEL, COMPREHENSIVE METABOLIC PANEL, Additional followed-up results: 4 03/16/[address] [facility] [place] [address] [place] [address] Susy Olivas ANP Low hemoglobin (Primary Dx) 03/13/2025 10:20 AM CDT Office Visit [facility] [address] [place] [address] Special screening for malignant neoplasm of prostate; Benign hypertension with stage 3a chronic kidney disease (CMS/HCC); Screening for condition; Prediabetes 03/05/2025 External Device Data STL ABSTRACTION Provider, Abstract 02/21/2025 1:00 PM CDT Clinical Support [facility] [address] [place] [address] Blood pressure check (Primary Dx) 02/21/[address] [facility] [address] [place] [address] Susy Olivas ANP Follow Up (BP check. ) 02/07/2025 1:00 PM CDT Office Visit [facility] [address] [place] [address] Susy Olivas ANP Benign hypertension with stage 3a chronic kidney disease (CMS/HCC) (Primary Dx); Tobacco abuse 02/06/2025 External Device Data STL ABSTRACTION Provider, Abstract 02/06/2025 External Device Data STL ABSTRACTION Provider, Abstract 01/26/2025 External Device Data STL ABSTRACTION Provider, Abstract 01/25/2025 External Device Data STL ABSTRACTION Provider, Abstract from Last 3 Months Immunizations Immunization Administration Dates Next Due (PFIZER)(12 YR UP) COVID-19 VACCINE - EMERGENCY USE AUTHORIZATION, MRNA, [id number](PF) 30 MCG/0.3 ML IM SUSP 03/26/2021,02/20/2021 Family [...] Sign Reading Time Taken Comments Blood Pressure 146/84 03/26/2025 1:17 PM CDT Pulse 67 03/26/2025 1:01 PM CDT Temperature 36.9 C (98.4 F) 03/26/2025 1:01 PM CDT Respiratory Rate 18 03/26/2025 1:01 PM CDT Oxygen Saturation 97% 03/26/2025 1:01 PM CDT Inhaled Oxygen Concentration - - Weight 87.1 kg (192 lb) 03/26/2025 1:01 PM CDT Height 175.3 cm (5' 9 ) 03/26/2025 1:01 PM CDT Body Mass Index 28.35 03/26/2025 1:01 PM CDT Plan of Treatment Upcoming Encounters Date Type Department Care Team (Late st Contact Info) Description 04/23/2025 1:00 PM CDT Office Visit [facility] [address] [place] [address] Susy Olivas, ANP [address] [place] [address] Health Maintenance Due Date Last Done Comments DTAP/TDAP/TD VACCINES (1 - Tdap) 1990 HEPATITIS B VACCINES (1 of 3 - 19+ 3-dose series) 1990 FIT-DNA Q 3 years 2016 FIT/FOBT Q 1 year 2016 Flex Sig/CT Colonography Q 5 years 2016 ZOSTER VACCINE (1 of 2) 2021 INFLUENZA VACCINE (#1) 2024 10/22/2021 COVID-19 Vaccine (2023- season) 07/22/202404/2021, 02/20/2021 Pre-Diabetes and Diabetes Screening 03/13/2028 03/13/2025, 09/13/2024, 12/21/2022 COLORECTAL SCREENING 10/03/2028 10/03/2023 Colorectal Cancer Screening 10/03/2028 Procedures Procedure Name Priority Date/Time Associated Diagnosis Comments TSH REFLEXIVE Routine 03/13/2025 10:04 AM CDT Benign hypertension with stage 3a chronic kidney disease (CMS/HCC) Screening for condition MICROALBUMIN/CREATINI NE RATIO, RANDOM UR Routine 03/13/2025 10:04 AM CDT Benign hypertension with stage 3a chronic kidney disease (CMS/HCC) HEMOGLOBIN A1C Routine 03/13/2025 10:04 AM CDT Prediabetes CBC WITH DIFFERENTIAL Routine 03/13/2025 10:04 AM CDT Screening for condition COMPREHENSIVE METABOLIC PANEL Routine 03/13/2025 10:04 AM CDT Screening for condition LIPID PANEL Routine 03/13/2025 10:04 AM CDT Benign hypertension with stage 3a chronic kidney disease (CMS/HCC) Screening for condition PSA Routine 03/13/2025 10:04 AM CDT Special screening for malignant neoplasm of prostate IRON, TIBC, AND PERCENT SATURATION Routine 03/13/2025 12:00 AM CDT Low hemoglobin FERRITIN Routine 03/13/2025 12:00 AM CDT Low hemoglobin from Last 3 Months Results * TSH REFLEXIVE (03/13/2025 10:04 AM CDT) Pathologist [facility] [place] TSH 2.57 0.40 - 4.50 mIU/L [facility] Comment: Test Performed at: [facility] [address] [place] [id number] Florinda Chavis Blood 03/13/2025 10:0 4 AM CDT 03/14/2025 12:24 AM CDT us Susy Olivas [facility] CHEMISTRY ORDERABLES Final R esult [facility] [phone] [place] [address] [place] [id number] * MICROALBUMIN/CREATININE RATIO, RANDOM UR (03/13/2025 10:04 AM CDT) Pathologist [facility] [place] CREATININE, URINE 200 20 - 320 mg/dL [facility] ALBUMIN, URINE 4.2 See Note: mg/dL [facility] Comment: Reference Range: Reference Range Not established ALB/CREAT RATIO, URINE 21 <30 mg/g creat [facility] Comment: The ADA defines abnormalities in albumin excretion as follows: Albuminuria Category Result (mg/g creatinine) Normal to Mildly increased <30 Moderately increased 30-299 Severely increased > OR = 300 The ADA recommends that at least two of three specimens collected within a 3-6 month period be abnormal before considering a patient to be within a diagnostic category. Test Performed at: [facility] [address] [address] Florinda Chavis MD Urine URINE SPECIMEN OBTAINED BY CLEAN CATCH PROCEDURE / Unknown 03/13/2025 10:04 AM CDT 03/14/2025 9:05 AM CDT us Susy Prado Brendon ANP URINE ORDERABLES Final Resul t [facility] [phone] [facility] [address] [address] * (ABNORMAL) CBC WITH DIFFERENTIAL (03/13/2025 10:04 AM CDT) WBC 5.9 3.8 - 10.8 Thousand/ uL [facility] RBC 4.86 4.20 - 5.80 Million/u L [facility] HEMOGLOBIN 13.1(L) 13.2 - 17.1 g/dL [facility] HEMATOCRIT 41.1 38.5 - 50.0 % [facility] MCV 84.6 80.0 - 100.0 fL [facility] MCH 27.0 27.0 - 33.0 pg [facility] MCHC 31.9(L) 32.0 - 36.0 g/dL [facility] Comment: For adults, a slight decrease in the calculated MCHC value (in the range of 30 to 32 g/dL) is most likely not clinically significant; however, it should be interpreted with caution in correlation with other red cell parameters and the patient's clinical condition. RDW 13.7 11.0 - 15.0 % [facility] PLATELETS 270 140 - 400 Thousand/ uL [facility] MPV 9.9 7.5 - 12.5 fL [facility] NEUTROPHIL ABSOLUTE 2,838 1,500 - 7,800 cells/uL [facility] LYMPHOCYTE ABSOLUTE 2,230 850 - 3,900 cells/uL [facility] MONOCYTE ABSOLUTE 531 200 - 950 cells/uL [facility] EOSINOPHIL ABSOLUTE 242 15 - 500 cells/uL [facility] BASOPHILS ABSOLUTE 59 0 - 200 cells/uL [facility] NEUTROPHIL 48.1 % [facility] LYMPHOCYTES 37.8 % [facility] MONOCYTE 9.0 % [facility] EOSINOPHILS 4.1 % [facility] BASOPHILS 1.0 % [facility] Comment: Test Performed at: [facility] [address] [place] [address] Florinda Chavis Blood 03/13/2025 10:0 4 AM CDT 03/14/2025 12:24 AM CDT Susy Olivas ANP HEMATOLOGY ORDERABLES Final Result Performing Organization Address City/[facility]/ZIP Code Phone Number [facility] [phone] [facility] [address] [place] [address] * PSA (03/13/2025 10:04 AM CDT) PSA 0.81 < OR = 4.00 ng/mL [facility] Comment: The total PSA value from this assay system is standardized against the WHO standard. The test result will be approximately 20% lower when compared to the equimolar-standardized total PSA (Yessenia [place]). Comparison of serial PSA results should be interpreted with this fact in mind. This test was performed using the Siemens chemiluminescent method. Values obtained from different assay methods cannot be used interchangeably. PSA levels, regardless of value, should not be interpreted as absolute evidence of the presence or absence of disease. Test Performed at: [facility] [address] [place] [address] Florinda Chavis MD Blood 03/13/2025 10:0 4 AM CDT 03/14/2025 12:24 AM CDT Susy Olivas ANP CHEMISTRY ORDERABLES Final R esult [facility] [phone] [facility] [address] [facility] [place] [address] * (ABNORMAL) HEMOGLOBIN A1C (03/13/2025 10:04 AM CDT) HEMOGLOBIN A1C 5.8(H) <5.7 % of total Hgb [facility] Comment: For someone without known diabetes, a [...] diabetes for children. ESTIMATED AVERAGE GLUCOSE (MG/DL) 120 mg/dL [facility] ESTIMATED AVERAGE GLUCOSE (MMOL/L) 6.6 mmol/L [facility] Comment: Test Performed at: [facility] [address] [place] [id number] ТатьянаEloise Chavis Blood 03/13/2025 10:0 4 AM CDT 03/14/2025 12:24 AM CDT us Susy Olivas [facility] CHEMISTRY ORDERABLES Final R esult [facility] [phone] [facility] [place] [address] [place] [id number] * (ABNORMAL) LIPID PANEL (03/13/2025 10:04 AM CDT) CHOLESTEROL 162 <200 mg/dL [facility] HDL 41 > OR = 40 mg/dL [facility] TRIGLYCERIDE 202(H) <150 mg/dL [facility] Comment: If a non-fasting specimen was collected, consider repeat triglyceride testing on a fasting specimen if clinically indicated. Lukas et al. J. of Clin. Lipidol. 2015;9:129-169. LDL CALCULATED 92 mg/dL (calc) [facility] Comment: Reference range: <100 Desirable range <100 mg/dL for primary prevention; <70 mg/dL for patients with CHD or diabetic patients with > or = 2 CHD risk factors. LDL-C is now calculated using the Gayathri calculation, which is a validated novel method providing better accuracy than the Friedewald equation in the estimation of LDL-C. Prosper SS et al. BARBARA. 2013;310(19): 9719-0106 (http://education.[facility].com/faq/IZK289) CHOL/HDL RATIO 4.0 <5.0 (calc) [facility] NON-HDL CHOLESTEROL 121 <130 mg/dL (calc) [facility] Comment: For patients with diabetes plus 1 major ASCVD risk factor, treating to a non-HDL-C goal of <100 mg/dL (LDL-C of <70 mg/dL) is considered a therapeutic option. Test Performed at: [facility] [place] [address] [place] [id number] ТатьянаEloise Chavis Blood 03/13/2025 10:0 4 AM CDT 03/14/2025 12:24 AM CDT us Susy Olivas [facility] CHEMISTRY ORDERABLES Final R esult [facility] [phone] [facility] [place] [address] [place] [place] [address] * (ABNORMAL) COMPREHENSIVE METABOLIC PANEL (03/13/2025 10:04 AM CDT) GLUCOSE 109(H) 65 - 99 mg/dL [facility] Comment: Fasting reference interval For someone without known diabetes, a glucose value between 100 and 125 mg/dL is consistent with prediabetes and should be confirmed with a follow-up test. BUN 15 7 - 25 mg/dL [facility] CREATININE 1.25 0.70 - 1.30 mg/dL [facility] Caden Olsen GFR 69 > OR = 60 mL/min/1. 73m2 [facility] BUN/CREAT RATIO SEE NOTE: 6 - 22 (calc) [facility] Comment: Not Reported: BUN and Creatinine are within reference range. SODIUM 138 135 - 146 mmol/L [facility] POTASSIUM 4.6 3.5 - 5.3 mmol/L [facility] CHLORIDE 104 98 - 110 mmol/L [facility] CO2 22 20 - 32 mmol/L [facility] Caden Olsen CALCIUM 9.3 8.6 - 10.3 mg/dL [facility] TOTAL PROTEIN 6.8 6.1 - 8.1 g/dL [facility] ALBUMIN 4.3 3.6 - 5.1 g/dL [facility] GLOBULIN 2.5 1.9 - 3.7 g/dL (calc) [facility] ALBUMIN/GLOBULIN RATIO 1.7 1.0 - 2.5 (calc) [facility] BILIRUBIN TOTAL 0.3 0.2 - 1.2 mg/dL [facility] ALKALINE PHOSPHATASE 74 35 - 144 U/L [facility] AST 17 10 - 35 U/L [facility] ALT 11 9 - 46 U/L [facility] Comment: Test Performed at: [facility] [place] [address] [place] [address] Florinda Chavis Blood 03/13/2025 10:0 4 AM CDT 03/14/2025 12:24 AM CDT Susy Olivas ANP CHEMISTRY ORDERABLES Final R esult Performing Organization Address City/[facility]/ZIP [facility] Phone Number [facility] [phone] [facility] [place] [address] [place] [id number] * IRON, TIBC, AND PERCENT SATURATION (03/13/2025 12:00 AM CDT) Pathologist [facility] IRON 72 50 - 180 mcg/dL [facility] TIBC 345 250 - 425 mcg/dL (calc) [facility] IRON % SATURATION 21 20 - 48 % (calc) [facility] Comment: Test Performed at: [facility] [address] [place] [address] ТатьянаJordyn Chavis MD Blood 03/13/2025 03/18/2025 9:5 7 AM CDT Susy Olivas ANP CHEMISTRY ORDERABLES Final R esult Performing Organization Address City/State/ZIP [facility] Phone Number [facility] [phone] [facility] [address] [facility] [place] [address] * FERRITIN (03/13/2025 12:00 AM CDT) FERRITIN 101 38 - 380 ng/mL [facility] Comment: Test Performed at: [facility] [address] [address] Florinda Chavis MD Blood 03/13/2025 03/18/2025 9:5 7 AM CDT us Susy Prado Brendon ANP CHEMISTRY ORDERABLES Final R esult [facility] [phone] [facility] [address] [address] from Last 3 Months Insurance * Guarantor: [employer]) Account Type Relation to Patient Date of Phone Billing Address Corporate Employer ATTN: ALIRIO CHACON [address] [address] [facility] OPEN ACCESS Care Teams Mine Inspector Federal Relationship Specialty Start Date End Date Yolande Aldridge MD [address] [place] [address] PCP - General Internal Medicine 05/18/24
--- OUTSIDE RECORDS SUMMARY | 2025-04-13 08:51 | XMS_ITS | Clinical Summary ---
Author Organization [facility] Care Team Providers Care Bookkeeping Clerk Name Role Phone Unavailable Primary Care Provider Unavailabl e Social History Tobacco Use Types Packs/Day Years Used Date Smoking Tobacco: Never Assessed Sex and Gender Information Value Date Recorded Sex Assigned at Not on file Legal Sex Male 1:51 PM SIDE HEMMER Gender Identity Not on file Sexual Orientation [...]
--- OUTSIDE RECORDS SUMMARY | 2025-04-13 08:51 | XMS_ITS | Clinical Summary ---
Author Organization [address] [address] Care Team Providers Care Pocket Machine Operator Name Role Phone Unknown, Notinfile Primary Care Provider Unavail able Allergies No known active allergies Medications irbesartan (AVAPRO) 150 mg tablet 02/07/2025 Active Active Problems No known active problems Encounters Date Type Department Care Team Description 02/19/2025 10:30 AM CDT Office Visit [facility] Medical Group [facility]ient Care at [address] [address] Elisabeth Biggs NP Blood in [...] this topic Insurance SANJANA ALLEGIANCE Care Teams Pocket Machine Operator Relationship Specialty Start Date End Date Unknown, Notinfile PCP - General 02/19/25
--- OUTSIDE RECORDS SUMMARY | 2025-04-13 08:51 | XMS_ITS | Encounter Summary ---
Author Organization [facility] Address [address] [place] [address] Care Team Providers Care Engineer Systems Name Role Phone Yolande Aldridge MD Primary Care Provider [phone] Encounter Details Date Type Department Care Team (Latest Contact Info) Description 03/16/2025 Results Follow-Up [facility] [place] [address] [place] [address] Susy Olivas, ELOINA [address] [place] [address] PSA, LIPID PANEL, COMPREHENSIVE METABOLIC PANEL, Additional followed-up results: 4 Social History Tobacco Use Types Packs/Day Years [...] Miscellaneous Notes * Result Encounter Note - Evelia Rodriguez - 03/18/2025 8:56 AM CDT [facility]ed [facility] to [facility]. Reminder set to check status. * Result Encounter Note - Susy Olivas ANP - 03/16/2025 5:38 PM CDT Contact patient regarding result. Cholesterol and blood sugar levels good. Mild anemia. Please add iron and ferritin in able. Will discuss in full at 5/6 appointment. ( Colonoscopy 2022) repeat 2024 due to polyp documented in this encounter Plan of Treatment Upcoming Encounters Date Type Department Care Team (Late st Contact Info) Description 04/23/2025 1:00 PM CDT Office Visit [facility] at [facility] [place] [address] [place] [address] Susy Olivas [place] [address] [place] [address] documented as of this encounter Visit Diagnoses Not on filedocumented in this encounter Additional Health Concerns Assessment Noted Time PHQ-9 Depression Total Score: 1 06/26/20 24 1:00 PM CDT documented as of this encounter Care Teams Engineer Systems Relationship Specialty Start Date End Date Yolande Aldridge MD [address] [place] [address] PCP - General Internal Medicine 05/18/24 documented as of this encounter
--- OUTSIDE RECORDS SUMMARY | 2025-04-13 08:51 | XMS_ITS | Encounter Summary ---
Author Organization [facility] Address [address] [place] [address] Care Team Providers Care Risk Consultant Name Role Phone Yolande Aldridge MD Primary Care Provider [phone] Encounter Details Date Type Department Care Team (Late Contact Info) Description 03/18/2025 Results Follow-Up [facility] [place] [address] [place] [address] Susy Olivas [place] [address] [facility] [address] [place] [address] FERRITIN, IRON, TIBC, AND PERCENT SATURATION Social History Tobacco Use Types Packs/Day Years [...] Miscellaneous Notes * Result Encounter Note - Susy Olivas ANP - 03/18/2025 3:32 PM CDT Contact patient regarding result. Iron levels good. Very slight anemia on this testing. Low iron is not the cause. Cholesterol stable. Keep March appointment to discuss. documented in this encounter Plan of Treatment Upcoming Encounters Date Type Department Care Team (Late Contact Info) Description 04/23/2025 1:00 PM CDT Office Visit [facility] at [facility] [place] [address] [place] [address] Susy Olivas, ANP [address] [facility] [address] [facility] [address] [place] [address] documented as of this encounter Visit Diagnoses Not on filedocumented in this encounter Additional Health Concerns Assessment Noted Time PHQ-9 Depression Total Score: 1 06/26/20 24 1:00 PM CDT documented as of this encounter Care Teams Risk Consultant Relationship Specialty Start Date End Date Yolande Aldridge MD [address] [place] [address] PCP - General Internal Medicine 05/18/24 documented as of this encounter
--- OUTSIDE RECORDS SUMMARY | 2025-04-13 08:51 | XMS_ITS | Referral Summary ---
Author Organization [address] [address] Care Team Providers Care Nursing Teacher Name Role Phone Unknown, Notinfile Primary Care Provider Unavail able Encounters Date Type Department Care Team Description 02/19/2025 10:30 AM CDT Office Visit [facility] Medical Group Con[facility]ient Care at [address] [address] Elisabeth Biggs NP Blood in [...] Not on file [place] [address] [place] [address] SANJANA ALLEGIANCE Care Teams Nursing Teacher Relationship Specialty Start Date End Date Unknown, Notinfile PCP - General 02/19/25
[2025-04-13 09:19] VITALS: BP 193/93; PULSE 65; RESP 16; TEMP 36.6; O2SAT 100
--- NOTE | 2025-04-13 09:21 | ECG_ITS ---
Test Date: 2025-04-13 09:36:44 Measurements Intervals [place] Rate: 64 P: 42 AK: 173 QRS: 20 QRSD: 115 T: 59 QT: 432 QTc: 448 Interpretive Statements SINUS RHYTHM POSSIBLE LEFT ATRIAL ENLARGEMENT [-0.1mV P-WAVE IN V1/V2] No previous ECG available for comparison Electronically Signed On 04-13-2025 17:15:24 CDT by Mitchell Washburn M.D.
[2025-04-13 09:52] VITALS: O2SAT 99
[2025-04-13 09:52] LABS: Basophils Absolute Auto 0.1 K/mm3 (0.0-0.1); Basophils Percent Auto 0.7 % (0.2-1.2); Eosinophils Absolute Auto 0.3 K/mm3 (0-0.3); Eosinophils Percent Auto 2.6 % (0-4.4); Hemoglobin 13.2 g/dL (14.0-18.0); Immature Granulocyte Absolute 0.03 K/mm3 (0.00-0.031); Immature Granulocyte Percent A 0.3 % (0-0.5); Lymphocytes Absolute Auto 2.92 K/mm3 (0.9-3.2); Lymphocytes Percent Auto 30.1 % (18.3-44.2); Mean Corpuscular HGB Conc 32.2 g/dl (32-36); Mean Corpuscular Hemoglobin 26.4 pg (26-34); Monocytes Percent Auto 9.9 % (2.6-8.5); Neutrophils Absolute Auto 5.5 K/mm3 (1.3-6.7); Neutrophils Percent Auto 56.4 % (45.5-73.1); Platelet Count Result 247 k/mm3 (150-375); Red Cell Distribution Width 13.6 % (11.5-14.5); White Blood Count 9.7 K/mm3 (4.5-10.0)
--- OUTSIDE RECORDS SUMMARY | 2025-04-13 09:58 | XMS_ITS | Clinical Summary ---
Author Organization [address] [address] Care Team Providers Care Auto Roller Name Role Phone Unknown, Notinfile Primary Care Provider Unavail able Allergies No known active allergies Medications irbesartan (AVAPRO) 150 mg tablet 02/07/2025 Active Active Problems No known active problems Encounters Date Type Department Care Team Description 02/19/2025 10:30 AM CDT Office Visit [facility] Medical Group Convenient Care at [address] [address] Elisabeth Biggs NP Blood in [...] this topic Insurance SANJANA ALLEGIANCE Care Teams Auto Roller Relationship Specialty Start Date End Date Unknown, Notinfile PCP - General 02/19/25
--- OUTSIDE RECORDS SUMMARY | 2025-04-13 09:58 | XMS_ITS | Encounter Summary ---
Author Organization [facility] Address [address] [place] [address] Care Team Providers Care Public Housing Manager Name Role Phone Yolande Aldridge MD Primary Care Provider [phone] Encounter Details Date Type Department Care Team (Latest Contact Info) Description 03/16/2025 Results Follow-Up [facility] [place] [address] [place] [address] Susy Olivas, ELOINA [address] [place] [address] PSA, LIPID PANEL, COMPREHENSIVE METABOLIC [...] CDT Office Visit [facility] [place] [address] [place] [address] Susy Olivas ANP [address] [place] [address] documented as of this encounter Visit Diagnoses Not on filedocumented in this encounter Additional Health Concerns Assessment Noted Time PHQ-9 Depression Total Score: 1 06/26/20 24 1:00 PM CDT documented as of this encounter Care Teams Public Housing Manager Relationship Specialty Start Date End Date Yolande Aldridge MD [address] [place] [address] PCP - General Internal Medicine 05/18/24 documented as of this encounter
--- OUTSIDE RECORDS SUMMARY | 2025-04-13 09:58 | XMS_ITS | Referral Summary ---
Author Organization [address] [address] Care Team Providers Care Light Fixture Servicer Name Role Phone Unknown, Notinfile Primary Care Provider Unavail able Encounters Date Type Department Care Team Description 02/19/2025 10:30 AM CDT Office Visit [facility] at [address] [address] Elisabeth Biggs NP Blood in [...] Not on [place] [address] [place] [address] SANJANA ALLEGIANCE Care Teams Light Fixture Servicer Relationship Specialty Start Date End Date Unknown, Notinfile PCP - General 02/19/25
--- OUTSIDE RECORDS SUMMARY | 2025-04-13 09:58 | XMS_ITS | Encounter Summary ---
Author Organization [facility] Address [address] [place] [address] Care Team Providers Care Power Plant Operator Apprentice Name Role Phone Yolande Aldridge MD Primary Care Provider Encounter Details Date Type Department Care Team (Late Contact Info) Description 03/18/2025 Results Follow-Up [facility] [place] [address] [place] [address] Susy Olivas ANP [address] [facility] [address] [place] [address] FERRITIN, IRON, TIBC, AND PERCENT [...] Description 04/23/2025 1:00 PM CDT Office Visit [facility] [place] [address] [place] [address] Susy Olivas, ANP [address] [facility] [address] [facility] [address] [place] [address] documented as of this encounter Visit Diagnoses Not on filedocumented in this encounter Additional Health Concerns Assessment Noted Time PHQ-9 Depression Total Score: 1 06/26/20 24 1:00 PM CDT documented as of this encounter Care Teams Power Plant Operator Apprentice Relationship Specialty Start Date End Date Yolande Aldridge MD [address] [place] [address] PCP - General Internal Medicine 05/18/24 documented as of this encounter
--- OUTSIDE RECORDS SUMMARY | 2025-04-13 09:58 | XMS_ITS | Clinical Summary ---
Author Organization [facility] [place] Address [address] [place] [address] Care Team Providers Care Wool Merchant Name Role Phone Yolande Aldridge MD Primary Care Provider Allergies No known active allergies Medications irbesartan [...] Description 03/26/2025 1:00 PM CDT Office Visit [facility] [place] [address] [place] [address] Susy Olivas ANP Benign hypertension with stage 3a chronic kidney disease (CMS/HCC) (Primary Dx); Tobacco abuse 03/18/2025 Results Follow-Up [facility] [address] [place] [address] Susy Olivas ANP FERRITIN, IRON, TIBC, AND PERCENT SATURATION 03/16/2025 Results Follow-Up [facility] [address] [place] [address] Susy Olivas ANP PSA, LIPID PANEL, COMPREHENSIVE METABOLIC PANEL, Additional followed-up results: 4 03/16/2025 Orders Only [facility] [place] [address] [place] [address] Susy Olivas ANP Low hemoglobin (Primary Dx) 03/13/2025 10:20 AM CDT Office Visit [facility] [address] [place] [address] Special screening for malignant neoplasm of prostate; Benign hypertension with stage 3a chronic kidney disease (CMS/HCC); Screening for condition; Prediabetes 03/05/2025 External Device Data STL ABSTRACTION Provider, Abstract 02/21/2025 1:00 PM CDT Clinical Support [facility] [address] [place] [address] Blood pressure check (Primary Dx) 02/21/2025 Telephone [facility] [address] [place] [address] Susy Olivas ANP Follow Up (BP check. ) 02/07/2025 1:00 PM CDT Office Visit [facility] [address] [place] [address] Susy Olivas ANP Benign hypertension with stage [...] COVID-19 VACCINE - EMERGENCY USE AUTHORIZATION, MRNA, [id number](PF) 30 MCG/0.3 ML IM SUSP 03/26/2021,02/20/2021 Family [...] Description 04/23/2025 1:00 PM CDT Office Visit [facility] [employer] [address] [place] [address] Susy Olivas, ANP [address] [place] [address] Health Maintenance Due Date Last [...] TSH REFLEXIVE (03/13/2025 10:04 AM CDT) Pathologist [facility] TSH 2.57 0.40 - 4.50 mIU/L [facility] Raúl Comment: Test Performed at: [facility] [address] [place] [address] Florinda Chavis Blood 03/13/2025 10:0 4 AM CDT 03/14/2025 12:24 AM CDT us Susy Olivas [facility] CHEMISTRY ORDERABLES Final R esult [facility] [phone] [place] [address] [place] [address] * MICROALBUMIN/CREATININE RATIO, RANDOM UR (03/13/2025 10:04 AM CDT) Pathologist [facility] CREATININE, URINE 200 20 - 320 mg/dL [facility] ALBUMIN, URINE 4.2 See Note: mg/dL [...] within a diagnostic category. Test Performed at: [facility] [address] [address] Florinda Chavis MD Urine URINE SPECIMEN OBTAINED BY CLEAN CATCH PROCEDURE / Unknown 03/13/2025 10:04 AM CDT 03/14/2025 9:05 AM CDT us Susy Prado Brendon ANP URINE ORDERABLES Final Resul t [facility] [phone] [facility] [address] [address] * (ABNORMAL) CBC WITH DIFFERENTIAL (03/13/2025 10:04 AM CDT) WBC 5.9 3.8 - 10.8 Thousand/ uL [facility] RBC 4.86 4.20 - 5.80 Million/u L [...] [facility] Comment: Test Performed at: [facility] [address] [place] [address] Florinda Chavis Blood 03/13/2025 10:0 4 AM CDT 03/14/2025 12:24 AM CDT Susy Olivas ANP HEMATOLOGY ORDERABLES Final Result Performing Organization Address City/[facility]/ZIP Code Phone Number [facility] [phone] [facility] [address] [place] [address] * PSA (03/13/2025 10:04 AM CDT) PSA 0.81 < OR = 4.00 ng/mL [facility] Comment: The total PSA value from this assay system is standardized against the WHO standard. The test result will be approximately 20% lower when compared to the equimolar-standardized total PSA (Yessenia [place]). Comparison of serial PSA results should be interpreted with this fact in mind. This test was performed using the Siemens chemiluminescent method. Values obtained from different assay methods cannot be used interchangeably. PSA levels, regardless of value, should not be interpreted as absolute evidence of the presence or absence of disease. Test Performed at: [employer] [facility] [address] [place] [address] Florinda Chavis MD Blood 03/13/2025 10:0 4 AM CDT 03/14/2025 12:24 AM CDT Susy Olivas ANP CHEMISTRY ORDERABLES Final R esult [facility] [phone] [facility] [address] [facility] [place] [address] * (ABNORMAL) HEMOGLOBIN A1C (03/13/2025 10:04 AM CDT) HEMOGLOBIN A1C 5.8(H) <5.7 % of total Hgb [facility] Comment: For someone without known diabetes, [...] children. ESTIMATED AVERAGE GLUCOSE (MG/DL) 120 mg/dL [facility] ESTIMATED AVERAGE GLUCOSE (MMOL/L) 6.6 mmol/L [facility] Olsen Comment: Test Performed at: [facility] [address] [place] [address] ТатьянаEloise Chavis Blood 03/13/2025 10:0 4 AM CDT 03/14/2025 12:24 AM CDT us Susy Olivas [facility] CHEMISTRY ORDERABLES Final R esult [facility] [phone] [facility] [address] [place] [address] * (ABNORMAL) LIPID PANEL (03/13/2025 10:04 AM CDT) CHOLESTEROL 162 <200 mg/dL [facility] [employer] klarissa Olsen HDL 41 > OR = 40 mg/dL [facility] k[facility] TRIGLYCERIDE 202(H) <150 mg/dL [facility] klarissa Olsen Comment: If a non-fasting specimen was collected, consider repeat triglyceride testing on a fasting specimen if clinically indicated. Lukas et al. J. of Clin. Lipidol. 2015;9:129-169. LDL CALCULATED 92 mg/dL (calc) [facility] klar[facility] Olsen Comment: Reference range: <100 Desirable range <100 mg/dL for primary prevention; <70 mg/dL for patients with CHD or diabetic patients with > or = 2 CHD risk factors. LDL-C is now calculated using the Gayathri calculation, which is a validated novel method providing better accuracy than the Friedewald equation in the estimation of LDL-C. Prosper SS et al. BARBARA. 2013;310(19): 3418-8555 (http://education.[facility].com/faq/HRH339) CHOL/HDL RATIO 4.0 <5.0 (calc) [facility] NON-HDL CHOLESTEROL 121 <130 mg/dL (calc) [facility] Comment: For patients with diabetes plus 1 major ASCVD risk factor, treating to a non-HDL-C goal of <100 mg/dL (LDL-C of <70 mg/dL) is considered a therapeutic option. Test Performed at: [facility] [address] [place] [address] ТатьянаEloise Chavis Blood 03/13/2025 10:0 4 AM CDT 03/14/2025 12:24 AM CDT us Susy Olivas [facility] CHEMISTRY ORDERABLES Final R esult [facility] [phone] [facility] [address] [place] [address] * (ABNORMAL) COMPREHENSIVE METABOLIC PANEL (03/13/2025 10:04 AM CDT) GLUCOSE 109(H) 65 - 99 mg/dL [facility] Comment: Fasting reference interval For someone without known diabetes, a glucose value between 100 and 125 mg/dL is consistent with prediabetes and should be confirmed with a follow-up test. BUN 15 7 - 25 mg/dL [facility] CREATININE 1.25 0.70 - 1.30 mg/dL [facility] Caden Olsen GFR 69 > OR = 60 mL/min/1. 73m2 [facility] BUN/CREAT RATIO SEE NOTE: 6 - 22 (calc) [facility] Comment: Not Reported: BUN and Creatinine are within reference range. SODIUM 138 135 - 146 mmol/L [facility] POTASSIUM 4.6 3.5 - 5.3 mmol/L [facility] CHLORIDE 104 98 - 110 mmol/L [facility] CO2 22 20 - 32 mmol/L [facility] Caden Olsen CALCIUM 9.3 8.6 - 10.3 [...] ALT 11 9 - 46 U/L [facility] klarissa Olsen Comment: Test Performed at: [facility] [address] [place] [address] Florinda Chavis Blood 03/13/2025 10:0 4 AM CDT 03/14/2025 12:24 AM CDT Susy Olivas ANP CHEMISTRY ORDERABLES Final R esult Performing Organization Address City/[facility]/ZIP [facility] Phone Number [facility] [phone] [facility] [place] [address] [place] [address] * IRON, TIBC, AND PERCENT SATURATION (03/13/2025 12:00 AM CDT) Pathologist [facility] IRON 72 50 - 180 mcg/dL [facility] TIBC 345 250 - 425 mcg/dL (calc) [facility] IRON % SATURATION 21 20 - 48 % (calc) [facility] Comment: Test Performed at: [facility] [address] [place] [address] ТатьянаJordyn Chavis MD Blood 03/13/2025 03/18/2025 9:5 7 AM CDT Susy Olivas ANP CHEMISTRY ORDERABLES Final R esult Performing Organization Address City/State/ZIP [facility] Phone Number [facility] [phone] [facility] [address] [facility] [place] [address] * FERRITIN (03/13/2025 12:00 AM CDT) FERRITIN 101 38 - 380 ng/mL [facility] Comment: Test Performed at: [facility] [address] [address] Florinda Chavis MD Blood 03/13/2025 03/18/2025 9:5 7 AM CDT us Susy Prado Brendon ANP CHEMISTRY ORDERABLES Final R esult [facility] [phone] [facility] [address] [address] from Last 3 Months Insurance * Guarantor: [employer]) Account Type Relation to Patient Date of Phone Billing Address Corporate Employer ATTN: ALIRIO CHACON [address] [address] [facility] OPEN ACCESS Care Teams Wool Merchant Relationship Specialty Start Date End Date Yolande Aldridge MD [address] [place] [address] PCP - General Internal Medicine 05/18/24
--- OUTSIDE RECORDS SUMMARY | 2025-04-13 09:58 | XMS_ITS | Clinical Summary ---
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
[2025-04-13] MEDS: ASPIRIN 81 MG CHEWABLE TABLET 324 MG PO (10:01)
[2025-04-13 10:07] LABS: Alanine Aminotransferase 19 U/L (6-50); Albumin Level 4.5 g/dL (3.5-5.1); Alkaline Phosphatase 82 U/L (38-126); Anion Gap 7 mmol/L (4-12); Aspartate Amino Transferase 34 U/L (17-59); Bilirubin,Total 0.5 mg/dL (0.2-1.3); Blood Urea Nitrogen 17 mg/dL (9-20); Calcium 8.7 mg/dL (8.4-10.2); Carbon Dioxide 28 mmol/L (22-30); Chloride 104 mmol/L (98-107); Estimated CRCL calculation 54 ml/min; Estimated Glomerular Filt Rate 52; Glucose 108 mg/dL (65-110); Lipase 54 U/L (23-300); Potassium 4.1 mmol/L (3.4-5.0); Sodium 139 mmol/L (137-145)
[2025-04-13 10:18] LABS: Troponin I 0.016 ng/mL (0.000-0.034)
--- NOTE | 2025-04-13 10:24 | ED_ITS ---
HPI - General Adult General Chief complaint: Chest Pain Stated complaint: neck/shoulder pain Time Seen by Provider: 04/13/25 09:49 History of Present Illness HPI narrative: 54-year-old male presented to the emergency department for evaluation for left- sided shoulder and chest pain. Patient states symptoms started at approximately 3:00 a.m. and have been constant. Patient denies any radiation of the pain but states that is in his left lateral neck into his left shoulder. Patient states pain is not worsened with movement. Patient denies any associated shortness of breath. Patient does have history of hypertension and does have history of open heart surgery when he was 4 years old. Patient denies any history of coronary artery disease and had a stress test approximately 2 years ago. Patient denies having any cardiac stents. Patient is not currently follow-up with Cardiology. Related Data Home Medications ?Medication ?Instructions ?Recorded ?Confirmed ?Last Taken ?Type irbesartan 150 mg tablet 150 mg PO DAILY 02/19/25 02/19/25 02/19/25 History Allergies Allergy/AdvReac Type Severity Reaction Status Date / Time No Known Allergies Allergy Verified 02/19/25 11:44 Review of Systems 2 Review of Systems: All systems reviewed & are unremarkable except as noted in HPI and below PMFSH Past Medical History Medical History Hypertension Surgical History Surgical History H/O heart surgery As a child and he is not sure if it was a valve replacement or what they did. Family History Family History Father MVA (motor vehicle accident) father is from mva Social History Social History Social History: He lives with his . He has one biological child and 4 step children. He works at [employer]. Patient states that he smokes 2 cigars a day. 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 Code status full code Years smoked: 20 Smoking status: Current every day smoker Tobacco type: cigars Alcohol intake: current Drinks per week: 4 Substance use: current Substance use type: marijuana Other substance usage details: every other day Lack of Transportation: No Lack of Food: Never True Current Housing: I Have Housing Concerned About Future Housing: No Difficulty Paying Gas/Electric Bills: No Difficulty Paying for Meds: No Currently Unemployed: No Education: High School Diploma/GED Difficulty w/ Childcare or Family Care: No Living arrangements: with family Gender identity (if verbalized by the patient): Male Sexual Orientation (if Verbalized by the Patient): Straight or Heterosexual Spiritual care concerns: No Exam 2 Narrative: APPEARANCE: Uncomfortable appearing HEAD: normocephalic, atraumatic. EYES: PERRLA/EOMI, conjunctivae clear. NOSE: Normal no drainage EARS:TMS clear with good light reflex. THROAT: Pharynx clear, no exudate. NECK: Supple. No adenopathy, no masses. RESPIRATORY: Airway patent, respirations nonlabored. Clear to auscultation bilaterally, no rales, rhonchi, wheezing. CARDIOVASCULAR: Regular rate and rhythm without murmurs rubs or gallops. ABDOMINAL: Soft, nontender, nondistended, normal bowel sounds MUSCULOSKELETAL: Moves all extremities. Strength/ROM intact, No edema, No calf tenderness. NEURO: Alert. Cranial nerves II through XII intact. Good gait. Good coordination SKIN: Warm, dry. Normal Color Course Vital Signs Vital signs: Vital Signs Temperature 97.8 F 04/13/25 09:19 Pulse Rate 65 04/13/25 09:19 Respiratory Rate 16 04/13/25 09:19 Blood Pressure 193/93 H 04/13/25 09:19 Pulse Oximetry 100 04/13/25 09:19 Oxygen Delivery Room Air 04/13/25 09:19 Temperature 97.8 F 04/13/25 14:12 Pulse Rate 68 04/13/25 14:12 Respiratory Rate 16 04/13/25 14:12 Blood Pressure 156/88 H 04/13/25 14:12 Pulse Oximetry 100 04/13/25 14:12 Oxygen Delivery Room Air 04/13/25 09:52 Medical Decision Making [facility] Narrative Medical decision making narrative: 54-year-old male present to the emergency department for evaluation for left sided neck pain. Patient is currently afebrile with no leukocytosis hemoglobin of 13.2. Patient's INR is 0.9 patient's D-dimer was not elevated. Patient does have a creatinine of 1.43 which is not far from his baseline. Patient had negative serial troponins. Chest x-ray shows no acute cardiopulmonary abnormality. Patient had negative serial EKGs. Patient was treated with Toradol Dilaudid for pain control and did have some improvement. Suspect muscular skeletal etiology rather than pulmonary embolism, pneumonia, pneumothorax or ACS. Patient family were updated on the results of the workup. Patient was discharged home with medications for pain control and for muscle spasm. Patient was also encouraged close follow-up with primary care physician for additional outpatient cardiac testing. Differential Diagnosis Differential Diagnosis: ACS, muscular strain, pulmonary embolism, pneumonia, pneumothorax Vital Signs Vital Signs: Vital Signs Temperature 97.8 F 04/13/25 09:19 Pulse Rate 65 04/13/25 09:19 Respiratory Rate 16 04/13/25 09:19 Blood Pressure 193/93 H 04/13/25 09:19 Pulse Oximetry 100 04/13/25 09:19 Oxygen Delivery Room Air 04/13/25 09:19 Temperature 97.8 F 04/13/25 14:12 Pulse Rate 68 04/13/25 14:12 Respiratory Rate 16 04/13/25 14:12 Blood Pressure 156/88 H 04/13/25 14:12 Pulse Oximetry 100 04/13/25 14:12 Oxygen Delivery Room Air 04/13/25 09:52 Lab Data Lab results reviewed: Yes I reviewed the patient's lab results. 04/13/25 09:46 04/13/25 09:46 Labs: Lab Results 04/13/25 04/13/25 Range/Units 09:46 12:34 WBC 9.7 (4.5-10.0) K/mm3 RBC 5.00 (4.6-6.20) M/mm3 Hgb 13.2 L (14.0-18.0) g/dL Hct 41.0 L (42.0-52.0) % MCV 82.0 (80-100) fl MCH 26.4 (26-34) pg MCHC 32.2 (32-36) g/dl RDW 13.6 (11.5-14.5) % Plt Count 247 (150-375) k/mm3 MPV 10.0 (7.4-10.4) fl Immature Gran % (Auto) 0.3 (0-0.5) % Neut % (Auto) 56.4 (45.5-73.1) % Lymph % (Auto) 30.1 (18.3-44.2) % [place] % (Auto) 9.9 H (2.6-8.5) % Eos % (Auto) 2.6 (0-4.4) % Baso % (Auto) 0.7 (0.2-1.2) % Lymph # (Auto) 2.92 (0.9-3.2) K/mm3 [place] # (Auto) 1.0 H (0.1-0.6) K/mm3 Eos # (Auto) 0.3 (0-0.3) K/mm3 Baso # (Auto) 0.1 (0.0-0.1) K/mm3 Abs Immat Gran (auto) 0.03 (0.00-0.031) K/mm3 Absolute Neuts (auto) 5.5 (1.3-6.7) K/mm3 Absolute Nucleated RBC 0.000 (0.0-0.012) K/mm3 Nucleated RBC % 0.0 (0.0-0.2) % PT 12.5 (11.1-14.7) Seconds INR 0.9 APTT 28.3 (22.3-36.8) Seconds D-Dimer 0.28 (<0.48) ug/mL Sodium 139 (137-145) mmol/L Potassium 4.1 (3.4-5.0) mmol/L Chloride 104 (98-107) mmol/L Carbon Dioxide 28 (22-30) mmol/L Anion Gap 7 (4-12) mmol/L BUN 17 (9-20) mg/dL Creatinine 1.43 H (0.7-1.3) mg/dL Estim Creat Clear Calc 54 ml/min Estimated GFR 52 L (59 - ) Glucose 108 (65-110) mg/dL Calcium 8.7 (8.4-10.2) mg/dL Total Bilirubin 0.5 (0.2-1.3) mg/dL AST 34 (17-59) U/L ALT 19 (6-50) U/L Alkaline Phosphatase 82 (38-126) U/L Troponin I 0.016 0.013 (0.000-0.034) ng/mL Total Protein 8.0 (6.3-8.2) g/dL Albumin 4.5 (3.5-5.1) g/dL Lipase 54 (23-300) U/L Imaging Data Radiologist's impression: Impressions Chest X-Ray 04/13/25 09:58 IMPRESSION: 1. Mild bibasilar atelectasis. No other acute cardiopulmonary disease. ECG Data EKG #1: EKG Interpretation: normal rate, sinus rhythm, no ectopy, non-specific ST changes, normal QRS and NL axis Discharge Plan Discharge Clinical Impression: Strain of cervical portion of left trapezius muscle, Atypical chest pain Patient Disposition: Home Condition: Stable Instructions: Antibiotic Form, Chest Pain (ED), Muscle Strain (ED) Additional Instructions: Ibuprofen for pain control. Monette as needed for additional pain control. Flexeril as needed for muscle spasm. Have close follow-up with your primary care physician for additional outpatient cardiac testing. If you have any worsening symptoms then please call or return to the emergency department. Patient Language: Bhutanese Prescriptions: New cyclobenzaprine 10 mg tablet 10 mg PO BID PRN (Reason: muscle spasm) Qty: 14 0RF hydrocodone-acetaminophen 5-325 mg tablet 1 tablet PO Q12H PRN (Reason: pain) Qty: 14 0RF No Action irbesartan 150 mg tablet 150 mg PO DAILY docusate sodium [Colace] 100 mg capsule 100 mg PO BID Qty: 20 0RF hydrocortisone acetate [Anusol-HC] 25 mg suppository 25 mg RECTAL BID Qty: 12 0RF Follow-up/Referrals: PHYSICIAN,ANALYSIS ENGINEER [Primary Care Provider] - Quality HEART score for chest pain patients History: slightly suspicious ECG: normal Age: > 45 and < 65 years Risk factors: 1 or 2 risk factors Troponin: < or = to 1x normal limit Heart score: 2
[2025-04-13 10:25] LABS: INR 0.9; Prothrombin Time 12.5 Seconds (11.1-14.7)
[2025-04-13 10:26] LABS: Partial Thromboplastin Time 28.3 Seconds (22.3-36.8)
[2025-04-13] MEDS: HYDROmorphone HCL INJ (*CRX) 2 MG/ML VIAL 1 MG IV PUSH (10:46)
[2025-04-13 10:56] LABS: D Dimer 0.28 ug/mL (<0.48)
[2025-04-13 11:00] VITALS: BP 160/75; PULSE 75; RESP 18; O2SAT 98
[2025-04-13] MEDS: KETOROLAC 30 MG/ML VIAL (*BKC) IV PUSH (12:20)
--- NOTE | 2025-04-13 12:23 | ECG_ITS ---
Test Date: 2025-04-13 12:25:54 Measurements Intervals [place] Rate: 68 P: 41 MD: 171 QRS: 23 QRSD: 110 T: 54 QT: 411 QTc: 439 Interpretive Statements SINUS RHYTHM POSSIBLE LEFT ATRIAL ENLARGEMENT [-0.1mV P-WAVE IN V1/V2] Compared to ECG 04/13/2025 09:36:44 NO SIGNIFICANT CHANGES Electronically Signed On 04-13-2025 17:18:07 CDT by Mitchell Washburn M.D.
[2025-04-13 13:03] LABS: Troponin I 0.013 ng/mL (0.000-0.034)
[2025-04-13 13:12] VITALS: BP 150/80; PULSE 73; RESP 18; O2SAT 99
[2025-04-13 14:12] VITALS: BP 156/88; PULSE 68; RESP 16; TEMP 36.6; O2SAT 100
== END 2025-04-13 14:12 | disposition home or self-care (01) ==
PROVIDERS: Emergency Provider Emergency Medicine
DX: S16.1XXA Strain of muscle, fascia and tendon at neck level, initial encounter (principal); R07.89 Other chest pain; I10 Essential (primary) hypertension; F17.290 Nicotine dependence, other tobacco product, uncomplicated
CPT/HCPCS: 36415; 71046; 80053; 83690; 84484; 85025; 85380; 85610; 85730; 93005; 96374; 96375; 99284; A9270; J1171; J1885